=== PATIENT | female | born 1945 | race Caucasian/White ===

== ENCOUNTER 2017-03-16 20:28 | Inpatient (IN) | payer MEDICARE ==
[~2017-03-16] VITALS: Ht 157.5 cm; Wt 89.5 kg
[2017-03-16] MEDS ORDERED: METHYL SALICYLATE/MENTHOL TOPICAL OINTMENT 29GM TUBE. TP PRN (22:45)
[2017-03-16] MEDS ORDERED: BUPR-192 PO (23:13)
[2017-03-16] MEDS ORDERED: ATORVASTATIN CA80 MG PO (23:13)
[2017-03-16] MEDS ORDERED: CARV3.122 PO (23:13)
[2017-03-16] MEDS ORDERED: ALPR0.254 PO (23:13)
[2017-03-16] MEDS ORDERED: ESCITALOPRAM OX20 MG PO (23:13)
[2017-03-16] MEDS ORDERED: CYAN10002 IM (23:13)
[2017-03-16] MEDS ORDERED: MEMA28CA PO (23:13)
[2017-03-16] MEDS ORDERED: DONE10TA7 PO (23:13)
[2017-03-16] MEDS ORDERED: ALPRAZolam 0.25 MG TABLET PO PRN (23:15)
[2017-03-17 00:12] VITALS: BP 182/78
[2017-03-17 06:45] VITALS: BP 144/69
[2017-03-17] MEDS: MEMANTINE 10 MG TABLET. PO SCH ×2 (08:30→20:32)
[2017-03-17] MEDS: buPROPion XL 150 MG TAB.ER.24H PO SCH (08:30)
[2017-03-17] MEDS: CITALOPRAM 20 MG TABLET. PO SCH (08:30)
[2017-03-17 14:34] LABS: FREE T4 0.73 ng/dL (0.76-1.46); THYROID STIM HORMONE (TSH) 2.291 uIU/mL (0.358-3.740)
[2017-03-17] MEDS ORDERED: NYSTATIN TOPICAL POWDER 15GM BOTTLE. TP ONE (15:02)
[2017-03-17] MEDS ORDERED: NYSTATIN TOPICAL POWDER 15GM BOTTLE. TP PRN (15:15)
[2017-03-17 15:50] VITALS: BP 148/85
[2017-03-17] MEDS: CARVEDILOL 3.125 MG TABLET PO SCH (20:33)
[2017-03-17] MEDS: ATORVASTATIN CALCIUM 20 MG TABLET PO SCH (20:33)
[2017-03-17] MEDS: DONEPEZIL HCL 10 MG TABLET PO SCH (20:33)
[2017-03-18 06:15] VITALS: BP 105/57
[2017-03-18] MEDS: buPROPion XL 150 MG TAB.ER.24H PO SCH (09:00)
[2017-03-18] MEDS: CITALOPRAM 20 MG TABLET. PO SCH (09:00)
[2017-03-18] MEDS: MEMANTINE 10 MG TABLET. PO SCH ×2 (09:00→20:02)
[2017-03-18] MEDS: MAGNESIUM HYDROXIDE 2,400 MG/30 ML ORAL.SUSP. PO PRN (09:10)
--- NOTE | 2017-03-18 12:05 | HP ---
ADMIT DATE: 03/17/2017 PSYCHIATRIC ADMISSION HISTORY/EVALUATION This is a late entry, date of service 03/17/2017. The patient was seen individually evening of 03/17/2017. Discussed with nursing staff several times prior to the patient admission and since her admission to gather historical information for admission orders and followup. IDENTIFYING DATA: The patient is a 71-year-old female referred to us from [facility] where she presented from home. The patient lives alone, presented with her family after she put her knife on her throat stating she wanted to kill herself. She told a private duty nurse that she wished she had a chopper knife to end her life. She is wandering at the apartment complex getting lost, worsening confusion and had failed outpatient psychiatric interventions at [facility] in [place], [place] and she had been hospitalized at [facility] for depression about 30 years ago. CHIEF COMPLAINT: "Yes, I said that. No, I will not hurt myself." HISTORY OF PRESENT ILLNESS: The patient has a history of progressive dementia, Alzheimer's, vascular type. She has been getting increasingly depressed, recently hopeless, helpless, and worthless. She resides in an apartment by herself, does not drive, has a private duty nurse and her son is closely involved in her care. She has been somewhat delusional, suspicious. No homicidal ideation. No clear history of bipolar disorder. Past history of major depressive disorder and inpatient psychiatric hospitalization as noted above. PAST PSYCHIATRIC HISTORY: As above. The patient has made 2 attempts at putting a knife to her throat. No suicide gesture/attempt. MEDICAL HISTORY: Hypertension, GERD, hyperlipidemia, asthma, triple bypass surgery. Accu-Cheks: None. DIET: Regular, takes her medications whole. Ambulates: Ad parvez. UA was negative in the ER. CURRENT PSYCHOTROPICS: Namenda ER 28 mg a day, Lexapro 20 mg a day, Aricept 10 mg a day, Wellbutrin 150 mg daily, Xanax 0.25 mg b.i.d. FAMILY HISTORY: Noncontributory. SOCIAL HISTORY: The patient lives at home alone in her apartment. No alcohol, drug abuse, physical, sexual or elder abuse history is noted. She is not known to be appropriate. Her son is DPOA, closely involved in her care. MENTAL STATUS EXAM: The patient was seen individually evening of 03/17/2017, oriented to herself, anxious, depressed, unable to tell me the year or where she was or when she came here. Speech moderate latency, often responses monosyllabic. Abstraction fair, computation impaired, language function intact. Mood and affect depressed. Denies active suicidal or homicidal ideation. Attention span short, language function intact. Reaction to hospitalization, the patient is accepting of this as a supportive DPOA. IMPRESSION: Major neurocognitive disorder, probably vascular with depression, delusions; history of major depressive disorder, recurrent, severe. Anxiety disorder, unspecified; impulse control disorder, unspecified. Rest diagnosis is as above. PLAN: Admit to geropsychiatry unit at [facility]. I will see the patient daily individually in her psychiatric standpoint, medical followup per Dr. Brown/Dr. Oscar. Continue the patient on her current psychotropics, observe baseline, consider changing Lexapro to Zoloft and the Namenda ER to Namenda 10 mg b.i.d., maintain bupropion. Consider adding Seroquel to augment the Wellbutrin and as an atypical antipsychotic, continue Xanax, consider tapering this. Further adjustments post baseline assessment. MELLISA DOBSON MD DR: BRIDGETTE/murtaza JOB#: [id number] / [id number]
--- NOTE | 2017-03-18 13:26 | CONS ---
DATE OF CONSULTATION: REASON FOR CONSULTATION: Medical management. HISTORY OF PRESENT ILLNESS: The patient is a 71-year-old female patient who apparently lives alone in assisted living in [place], who apparently was seen in the Emergency Department of [facility] accompanied by [place] [employer] and her river guide. Her river guide stated that she had taken a better knife, put it into her wrist and told to worker that she wished it was sharper so that she could cut herself. Apparently, she repeated this same behavior the morning she was seen in the Emergency Room and the [employer] was called in. The patient herself does not recall either one of these events. She denied trying to hurt herself or anyone else; however, she does admit that she is being depressed because of her emotional status and situation and she was transferred to [facility] for inpatient psychiatric stabilization. PAST MEDICAL HISTORY: Significant for coronary artery disease status post coronary artery bypass graft surgery, benign essential hypertension, dyslipidemia, bronchial asthma, gastroesophageal reflux disease, vitamin B12 deficiency, nocturnal leg cramps, malaise, fatigue, and lightheadedness. PAST SURGICAL HISTORY: Significant for coronary artery bypass graft surgery and colonoscopy with polypectomy as well as hysterectomy. ALLERGIES: She is allergic to CODEINE, IODINATED RADIOCONTRAST DYE. LISINOPRIL CAUSES IDIOPATHIC ANGIONEUROTIC EDEMA. FAMILY HISTORY: Unremarkable. SOCIAL HISTORY: She lives in assisted living on her own. She does not drink alcohol, use recreational drugs, or smokes. She has 2 sons that keep in touch to take care of her. REVIEW OF SYSTEMS: As per the history of present illness. PHYSICAL EXAMINATION GENERAL: When I examined her, she was sitting comfortably in her chair, in no apparent respiratory distress, she was slightly pale. No jaundice, cyanosis or thyromegaly. No jugular venous distention. No limb edema. VITAL SIGNS: Her heart rate was 65, blood pressure 148/85, temperature was 98, respiratory rate was 18 and oxygen saturation was 96%. HEENT: Showed normocephalic, atraumatic. NECK: Supple. HEART: Showed normal first and second heart sounds with no gallop, rub or murmur. CHEST: Clear to auscultation. No crepitation or rhonchi. ABDOMEN: Distended, soft, and nontender. No guarding or rigidity. No organomegaly. Hernial orifices intact. Bowel sounds normal. NEUROLOGIC: She is awake, alert, oriented to herself only. All her cranial nerves intact. EXTREMITIES: She moves extremities without difficulty. She ambulates without assistance or assistive devices. LABORATORY DATA: She has had lab work done at the [facility], which showed that her white cell count was 7100, hemoglobin 13, hematocrit 39, MCV 85 and platelet count of 191,000. Her serum sodium was 139, potassium 3.8, chloride 99, bicarbonate 30, anion gap of 10, glucose 89, BUN 10, creatinine 0.6. Her calcium was 8.5. Total protein was 6.7, albumin 3.8. Her alkaline phosphatase, AST, ALT, total bilirubin normal. Her estimated GFR was more than 60 mL per minute. Her urinalysis was unremarkable. Urine toxic screen was unremarkable. Her TSH was 1.76. IMPRESSION AND PLAN: In summary, this is a 71-year-old female patient, who was brought to the [facility], as she attempted suicide. She has suicidal ideation twice. She has been under background of dementia and she is here for inpatient psychiatric stabilization. Medically, she seemed to be mostly stable. Her vital signs are within normal range. Her lab works that are reviewed from [facility] Emergency Room were all within acceptable range. Medically, she is known to have hypertension, hyperlipidemia, and vitamin B12 deficiency. Her TSH was normal at 2.291. Her free T4 was slightly low. Free T3 was normal at 2.38. Her magnesium was normal. Serum iron was ____. TIBC was high at 383 and percent saturation was 18. Her triglycerides were normal. Cholesterol was 293, LDL cholesterol 119, VLDL was 24, and HDL cholesterol was 79. Cholesterol to HDL cholesterol ratio was 3. All in all, the patient seems to be medically stable. I will obviously review all the lab works that are still pending and make any necessary recommendation. Thank you, Dr. Bullard for allowing me to participate in the care of this patient. PRITESH HERNANDEZ MD DR: MIRNA/murtaza JOB#: [id number] / [id number]
[2017-03-18 16:38] VITALS: BP 160/84
[2017-03-18] MEDS: CHOLECALCIFEROL (VITAMIN D3) 50,000 UNIT CAPSULE PO SCH (18:14)
[2017-03-18] MEDS: MAG HYDROX/AL HYDROX/SIMETH 30 ML ORAL.SUSP PO PRN (19:09)
[2017-03-18] MEDS: ATORVASTATIN CALCIUM 20 MG TABLET PO SCH (20:02)
[2017-03-18] MEDS: CARVEDILOL 3.125 MG TABLET PO SCH (20:02)
[2017-03-18] MEDS: DONEPEZIL HCL 10 MG TABLET PO SCH (20:02)
--- NOTE | 2017-03-18 20:12 | PDOC ---
Exam Note: Robert Note: Please also refer to the separate dictated note~for this date of service dictated separately.~Patient seen individually. Discussed the patient with Nursing staff reviewed the chart.~Reviewed interim history and current functioning. Reviewed vital signs,~Labs/ Radiology~and current medications noted below. Continue current treatment with the changes noted in the dictated addendum note Assessment: Vital Signs: Vital Signs Date Time Temp Pulse Resp B/P (MAP) Pulse Ox O2 Delivery O2 Flow Rate FiO2 03/18/17 20:02 61 160/84 03/18/17 16:38 97.3 20 96 I&O Intake and Output 03/19/17 07:00 Intake Total 840 ml Balance 840 ml Intake Oral 840 ml Current Medications: Meds: Current Medications Acetaminophen (Tylenol) 650 mg PRN Q6HRS PRN PO PAIN / TEMP; Start 03/16/17 at 22:45 Multi-Ingredient Ointment (Analgesic [place]) 1 haylee PRN QID PRN TP MUSCLE PAIN; Start 03/16/17 at 22:45 Al Hydroxide/Mg Hydroxide (Mylanta Plus Xs) 15 ml PRN AFTMEALHC PRN PO DYSPEPSIA Last administered on 03/18/17 19:09; Start 03/16/17 at 22:45 Magnesium Hydroxide (Milk Of Magnesia) 2,400 mg PRN QHS PRN PO CONSTIPATION Last administered on 03/18/17 09:10; Start 03/16/17 at 22:45 Alprazolam (Xanax) 0.25 mg PRN BID PRN PO ANXIETY / AGITATION Last administered on 03/17/17 20:44; Start 03/16/17 at 23:15 Bupropion HCl (Wellbutrin Xl) 150 mg DAILY PO Last administered on 03/18/17 09:00; Start 03/17/17 at 09:00 Donepezil HCl (Aricept) 10 mg HS PO Last administered on 03/18/17 20:02; Start 03/17/17 at 21:00 Citalopram Hydrobromide (CeleXA) 40 mg DAILY PO Last administered on 09:00; Start 03/17/17 at 09:00; Stop 03/18/17 at 18:50; Status DC Memantine (Namenda) 10 mg BID PO Last administered on 03/18/17 20:02; Start 03/17/17 at 09:00 Carvedilol (Coreg) 3.125 mg HS PO Last administered on 03/18/17 20:02; Start 03/17/17 at 21:00 Cyanocobalamin (Vitamin B-12) 1,000 mcg QMONTH IM ; Start 04/15/17 at 09:00 Atorvastatin Calcium (Lipitor) 80 mg QHS PO Last administered on 03/18/17 20: 02; Start 03/17/17 at 21:00 Nystatin (Nystop) 15 haylee STK-MED ONCE TP Last administered on 03/17/17 15:02; Start 03/17/17 at 15:02; Stop 03/17/17 at 15:03; Status DC Nystatin (Nystop) 1 haylee PRN BID PRN TP REDNESS; Start 03/17/17 at 15:15 Vitamin D (Vitamin D3) 50,000 unit WEEKLY PO Last administered on 03/18/17 18 :14; Start 03/18/17 at 18:00 Sertraline HCl (Zoloft) 50 mg DAILY PO ; Start 03/19/17 at 09:00 Active Scripts Active Reported Cyanocobalamin Injection (Cyanocobalamin (Vitamin B-12)) 1,000 Mcg/1 Ml Vial 1, 000 Mcg IM QMONTH Namenda Xr (Memantine Hcl) 28 Mg Cap.spr.24 28 Mg PO DAILY Escitalopram Oxalate 20 Mg Tablet 20 Mg PO DAILY Donepezil Hcl 10 Mg Tablet 10 Mg PO HS Carvedilol 3.125 Mg Tablet 3.125 Mg PO HS Bupropion Xl (Bupropion Hcl) 150 Mg Tab.er.24h 150 Mg PO DAILY Atorvastatin Calcium 80 Mg Tablet 80 Mg PO QHS Alprazolam 0.25 Mg Tablet 0.25 Mg PO BID PRN I have reviewed the current psychotropics carefully including drug interactions. Risk benefit ratio favors no change other than as noted in my dictated progress note. Diagnosis: Problems: (1) Anxiety disorder (2) Dementia, vascular, with depression (3) Dementia, vascular, with delusions (4) Dementia in Alzheimer's disease with depression (5) Dementia in Alzheimer's disease with delusions (6) Impulse control disorder MELLISA DOBSON MD Mar 18, 2017 20:12
[2017-03-18] MEDS: ACETAMINOPHEN 325 MG TABLET PO PRN (22:16)
[2017-03-19 06:06] VITALS: BP 152/70
[2017-03-19] MEDS: MEMANTINE 10 MG TABLET. PO SCH ×2 (09:48→20:16)
[2017-03-19] MEDS: buPROPion XL 150 MG TAB.ER.24H PO SCH (09:48)
[2017-03-19] MEDS: SERTRALINE 25 MG TABLET. PO SCH (09:49)
[2017-03-19 16:10] VITALS: BP 145/74
--- NOTE | 2017-03-19 19:59 | PDOC ---
Exam Note: Robert Note: Please also refer to the separate dictated note~for this date of service dictated separately.~Patient seen individually. Discussed the patient with Nursing staff reviewed the chart.~Reviewed interim history and current functioning. Reviewed vital signs,~Labs/ Radiology~and current medications noted below. Continue current treatment with the changes noted in the dictated addendum note Assessment: Vital Signs: Vital Signs Date Time Temp Pulse Resp B/P (MAP) Pulse Ox O2 Delivery O2 Flow Rate FiO2 03/19/17 16:10 97.8 56 18 145/74 (97) 97 Room Air I&O Intake and Output 03/20/17 07:00 Intake Total 1280 ml Balance 1280 ml Intake Oral 1280 ml Current Medications: Meds: Current Medications Acetaminophen (Tylenol) 650 mg PRN Q6HRS PRN PO PAIN / TEMP Last administered on 03/18/17 22:16; Start 03/16/17 at 22:45 Multi-Ingredient Ointment (Analgesic [place]) 1 haylee PRN QID PRN TP MUSCLE PAIN Last administered on 03/18/17 22:16; Start 03/16/17 at 22:45 Al Hydroxide/Mg Hydroxide (Mylanta Plus Xs) 15 ml PRN AFTMEALHC PRN PO DYSPEPSIA Last administered on 03/18/17 19:09; Start 03/16/17 at 22:45 Magnesium Hydroxide (Milk Of Magnesia) 2,400 mg PRN QHS PRN PO CONSTIPATION Last administered on 03/18/17 09:10; Start 03/16/17 at 22:45 Alprazolam (Xanax) 0.25 mg PRN BID PRN PO ANXIETY / AGITATION Last administered on 03/17/17 20:44; Start 03/16/17 at 23:15 Bupropion HCl (Wellbutrin Xl) 150 mg DAILY PO Last administered on 03/19/17 09:48; Start 03/17/17 at 09:00; Stop 03/19/17 at 18:15; Status DC Donepezil HCl (Aricept) 10 mg HS PO Last administered on 03/18/17 20:02; Start 03/17/17 at 21:00 Citalopram Hydrobromide (CeleXA) 40 mg DAILY PO Last administered on 09:00; Start 03/17/17 at 09:00; Stop 03/18/17 at 18:50; Status DC Memantine (Namenda) 10 mg BID PO Last administered on 03/19/17 09:48; Start 03/17/17 at 09:00 Carvedilol (Coreg) 3.125 mg HS PO Last administered on 03/18/17 20:02; Start 03/17/17 at 21:00 Cyanocobalamin (Vitamin B-12) 1,000 mcg QMONTH IM ; Start 04/15/17 at 09:00 Atorvastatin Calcium (Lipitor) 80 mg QHS PO Last administered on 03/18/17 20: 02; Start 03/17/17 at 21:00 Nystatin (Nystop) 15 haylee STK-MED ONCE TP Last administered on 03/17/17 15:02; Start 03/17/17 at 15:02; Stop 03/17/17 at 15:03; Status DC Nystatin (Nystop) 1 haylee PRN BID PRN TP REDNESS; Start 03/17/17 at 15:15 Vitamin D (Vitamin D3) 50,000 unit WEEKLY PO Last administered on 03/18/17 18 :14; Start 03/18/17 at 18:00 Sertraline HCl (Zoloft) 50 mg DAILY PO Last administered on 03/19/17 09:49; Start 03/19/17 at 09:00 Quetiapine Fumarate (SEROquel) 25 mg QHS PO ; Start 03/19/17 at 21:00 Active Scripts Active Reported Cyanocobalamin Injection (Cyanocobalamin (Vitamin B-12)) 1,000 Mcg/1 Ml Vial 1, 000 Mcg IM QMONTH Namenda Xr (Memantine Hcl) 28 Mg Cap.spr.24 28 Mg PO DAILY Escitalopram Oxalate 20 Mg Tablet 20 Mg PO DAILY Donepezil Hcl 10 Mg Tablet 10 Mg PO HS Carvedilol 3.125 Mg Tablet 3.125 Mg PO HS Bupropion Xl (Bupropion Hcl) 150 Mg Tab.er.24h 150 Mg PO DAILY Atorvastatin Calcium 80 Mg Tablet 80 Mg PO QHS Alprazolam 0.25 Mg Tablet 0.25 Mg PO BID PRN I have reviewed the current psychotropics carefully including drug interactions. Risk benefit ratio favors no change other than as noted in my dictated progress note. Diagnosis: Problems: (1) Anxiety disorder (2) Dementia, vascular, with depression (3) Dementia, vascular, with delusions (4) Dementia in Alzheimer's disease with depression (5) Dementia in Alzheimer's disease with delusions (6) Impulse control disorder MELLISA DOBSON MD Mar 19, 2017 19:59
[2017-03-19] MEDS: ATORVASTATIN CALCIUM 20 MG TABLET PO SCH (20:15)
[2017-03-19] MEDS: CARVEDILOL 3.125 MG TABLET PO SCH (20:16)
[2017-03-19] MEDS: DONEPEZIL HCL 10 MG TABLET PO SCH (20:16)
[2017-03-19] MEDS: QUEtiapine 25 MG TABLET. PO SCH (20:18)
[2017-03-19] MEDS: MAGNESIUM HYDROXIDE 2,400 MG/30 ML ORAL.SUSP. PO PRN (20:30)
[2017-03-20 06:37] VITALS: BP 153/69
--- NOTE | 2017-03-20 07:28 | PN ---
DATE: 03/18/2017 This is a late entry for date of service 03/18/2017 and covers elements not covered in my initial note of 03/18/2017. SUBJECTIVE: I met with the patient evening of 03/18/2017. The patient remains tired, withdrawn, anxious in the morning. Denied suicidal ideation, slept 8 hours. REVIEW OF SYSTEMS: No CV, , pulmonary, eye, ENT system symptoms on review. Reliability poor. MENTAL STATUS EXAM: Oriented to herself. Insight, judgment, recent and remote memory, attention, concentration, fund of knowledge poor, consistent with her diagnosis as mentioned in my note. PLAN: Change Celexa 40 mg a day to Zoloft 50 mg a day. Change Wellbutrin 150 mg in the morning to Wellbutrin XL 150 mg a day. Maintain Namenda and Aricept together with Xanax, consider tapering Xanax. No other further changes from initial note. MELLISA DOBSON MD DR: BRIDGETTE/murtaza JOB#: [id number] / [id number]
[2017-03-20] MEDS: SERTRALINE 25 MG TABLET. PO SCH (07:57)
[2017-03-20] MEDS: MEMANTINE 10 MG TABLET. PO SCH ×2 (07:57→19:45)
[2017-03-20 16:07] VITALS: BP 141/71
[2017-03-20] MEDS: DONEPEZIL HCL 10 MG TABLET PO SCH (19:44)
[2017-03-20] MEDS: CARVEDILOL 3.125 MG TABLET PO SCH (19:45)
[2017-03-20] MEDS: QUEtiapine 25 MG TABLET. PO SCH (19:45)
[2017-03-20] MEDS: ATORVASTATIN CALCIUM 20 MG TABLET PO SCH (19:45)
--- NOTE | 2017-03-20 20:04 | PDOC ---
Exam Note: Robert Note: Please also refer to the separate dictated note~for this date of service dictated separately.~Patient seen individually. Discussed the patient with Nursing staff reviewed the chart.~Reviewed interim history and current functioning. Reviewed vital signs,~Labs/ Radiology~and current medications noted below. Continue current treatment with the changes noted in the dictated addendum note Assessment: Vital Signs: Vital Signs Date Time Temp Pulse Resp B/P (MAP) Pulse Ox O2 Delivery O2 Flow Rate FiO2 03/20/17 19:45 59 141/71 03/20/17 16:07 97.7 18 93 Room Air I&O Intake and Output 03/21/17 07:00 Intake Total 960 ml Balance 960 ml Intake Oral 960 ml Current Medications: Meds: Current Medications Acetaminophen (Tylenol) 650 mg PRN Q6HRS PRN PO PAIN / TEMP Last administered on 03/18/17 22:16; Start 03/16/17 at 22:45 Multi-Ingredient Ointment (Analgesic [place]) 1 haylee PRN QID PRN TP MUSCLE PAIN Last administered on 03/18/17 22:16; Start 03/16/17 at 22:45 Al Hydroxide/Mg Hydroxide (Mylanta Plus Xs) 15 ml PRN AFTMEALHC PRN PO DYSPEPSIA Last administered on 03/18/17 19:09; Start 03/16/17 at 22:45 Magnesium Hydroxide (Milk Of Magnesia) 2,400 mg PRN QHS PRN PO CONSTIPATION Last administered on 03/19/17 20:30; Start 03/16/17 at 22:45 Alprazolam (Xanax) 0.25 mg PRN BID PRN PO ANXIETY / AGITATION Last administered on 03/17/17 20:44; Start 03/16/17 at 23:15 Bupropion HCl (Wellbutrin Xl) 150 mg DAILY PO Last administered on 03/19/17 09:48; Start 03/17/17 at 09:00; Stop 03/19/17 at 18:15; Status DC Donepezil HCl (Aricept) 10 mg HS PO Last administered on 03/20/17 19:44; Start 03/17/17 at 21:00 Citalopram Hydrobromide (CeleXA) 40 mg DAILY PO Last administered on 09:00; Start 03/17/17 at 09:00; Stop 03/18/17 at 18:50; Status DC Memantine (Namenda) 10 mg BID PO Last administered on 03/20/17 19:45; Start 03/17/17 at 09:00 Carvedilol (Coreg) 3.125 mg HS PO Last administered on 03/19/17 20:16; Start 03/17/17 at 21:00 Cyanocobalamin (Vitamin B-12) 1,000 mcg QMONTH IM ; Start 04/15/17 at 09:00 Atorvastatin Calcium (Lipitor) 80 mg QHS PO Last administered on 03/20/17 19: 45; Start 03/17/17 at 21:00 Nystatin (Nystop) 15 haylee STK-MED ONCE TP Last administered on 03/17/17 15:02; Start 03/17/17 at 15:02; Stop 03/17/17 at 15:03; Status DC Nystatin (Nystop) 1 haylee PRN BID PRN TP REDNESS; Start 03/17/17 at 15:15 Vitamin D (Vitamin D3) 50,000 unit WEEKLY PO Last administered on 03/18/17 18 :14; Start 03/18/17 at 18:00 Sertraline HCl (Zoloft) 50 mg DAILY PO Last administered on 03/20/17 07:57; Start 03/19/17 at 09:00 Quetiapine Fumarate (SEROquel) 25 mg QHS PO Last administered on 03/20/17 19: 45; Start 03/19/17 at 21:00 Active Scripts Active Reported Cyanocobalamin Injection (Cyanocobalamin (Vitamin B-12)) 1,000 Mcg/1 Ml Vial 1, 000 Mcg IM QMONTH Namenda Xr (Memantine Hcl) 28 Mg Cap.spr.24 28 Mg PO DAILY Escitalopram Oxalate 20 Mg Tablet 20 Mg PO DAILY Donepezil Hcl 10 Mg Tablet 10 Mg PO HS Carvedilol 3.125 Mg Tablet 3.125 Mg PO HS Bupropion Xl (Bupropion Hcl) 150 Mg Tab.er.24h 150 Mg PO DAILY Atorvastatin Calcium 80 Mg Tablet 80 Mg PO QHS Alprazolam 0.25 Mg Tablet 0.25 Mg PO BID PRN I have reviewed the current psychotropics carefully including drug interactions. Risk benefit ratio favors no change other than as noted in my dictated progress note. Diagnosis: Problems: (1) Anxiety disorder (2) Dementia, vascular, with depression (3) Dementia, vascular, with delusions (4) Dementia in Alzheimer's disease with depression (5) Dementia in Alzheimer's disease with delusions (6) Impulse control disorder MELLISA DOBSON MD Mar 20, 2017 20:04
[2017-03-20] MEDS: MAG HYDROX/AL HYDROX/SIMETH 30 ML ORAL.SUSP PO PRN (21:54)
[2017-03-21 06:02] VITALS: BP 165/79
[2017-03-21 07:31] LABS: BASO # 0.1 x10^3/uL (0.0-0.2); BASO % 1 % (0-3); EOS # 0.2 x10^3/uL (0.0-0.7); EOS % 3 % (0-3); HEMATOCRIT 38.4 % (36.0-47.0); LYMPH % 17 % (24-48); MEAN CORPUSCULAR HEMOGLOBIN 29 pg (25-35); MEAN CORPUSCULAR HGB CONC 34 g/dL (31-37); MEAN CORPUSCULAR VOLUME 85 fL (79-100); MONO # 0.5 x10^3/uL (0.0-1.1); MONO % 8 % (0-9); NEUT % 71 % (31-73); PLATELET COUNT 170 x10^3/uL (140-400); RED CELL DISTRIBUTION WIDTH 14.9 % (11.5-14.5); WHITE BLOOD COUNT 5.6 x10^3/uL (4.0-11.0)
[2017-03-21 07:50] LABS: ALBUMIN/GLOBULIN RATIO 0.9 (1.0-1.7); CALCIUM 8.3 mg/dL (8.5-10.1); CREATININE 0.7 mg/dL (0.6-1.0); TOTAL BILIRUBIN 0.3 mg/dL (0.2-1.0); TOTAL PROTEIN 6.3 g/dL (6.4-8.2)
[2017-03-21] MEDS: SERTRALINE 25 MG TABLET. PO SCH (07:58)
[2017-03-21] MEDS: MEMANTINE 10 MG TABLET. PO SCH ×2 (07:58→20:09)
--- NOTE | 2017-03-21 10:04 | PN ---
DATE: 03/19/2017 PSYCHIATRIC PROGRESS NOTE This late entry of date of service 03/19/2017, covers elements not covered in my initial note 03/19/2017. SUBJECTIVE: I met with the patient the evening of 03/19/2017, slept 6-1/2 hours previous evening, anxious, tearful at times, especially when other demented patients are yelling out, possibly hallucinating per nursing observation. REVIEW OF SYSTEMS: No CV, , pulmonary, eye, ENT system symptoms on review. Reliability poor. MENTAL STATUS EXAM: Oriented to herself. Insight, judgment, recent and remote memory, attention, concentration, fund of knowledge poor, consistent with her diagnosis. She is quite verbal individually. PLAN: Start Seroquel 25 mg p.o. at bedtime as a mood stabilizer, atypical antipsychotic, given her psychotic symptoms stop Wellbutrin 150 mg daily, continue Aricept 10 mg a day, Zoloft 50 mg a day, Namenda 10 mg b.i.d., taper the Xanax from 0.25 mg b.i.d. to 0.125 mg b.i.d. for 3 days and stop. Rest unchanged from my initial note. MELLISA DOBSON MD DR: BRIDGETTE/murtaza JOB#: [id number] / [id number]
[2017-03-21 16:19] VITALS: BP 165/85
[2017-03-21] MEDS: CARVEDILOL 3.125 MG TABLET PO SCH (20:09)
[2017-03-21] MEDS: QUEtiapine 25 MG TABLET. PO SCH (20:09)
[2017-03-21] MEDS: DONEPEZIL HCL 10 MG TABLET PO SCH (20:10)
[2017-03-21] MEDS: ATORVASTATIN CALCIUM 20 MG TABLET PO SCH (20:10)
--- NOTE | 2017-03-21 20:16 | PDOC ---
Exam Note: Robert Note: Please also refer to the separate dictated note~for this date of service dictated separately.~Patient seen individually. Discussed the patient with Nursing staff reviewed the chart.~Reviewed interim history and current functioning. Reviewed vital signs,~Labs/ Radiology~and current medications noted below. Continue current treatment with the changes noted in the dictated addendum note Assessment: Vital Signs: Vital Signs Date Time Temp Pulse Resp B/P (MAP) Pulse Ox O2 Delivery O2 Flow Rate FiO2 03/21/17 20:09 60 165/85 03/21/17 16:19 97.0 16 98 03/20/17 16:07 Room Air I&O Intake and Output 03/21/17 07:00 Intake Total 1085 ml Balance 1085 ml Intake Oral 1085 ml Labs: Laboratory Tests Test 03/21/17 07:10 White Blood Count 5.6 x10^3/uL (4.0-11.0) Red Blood Count 4.50 x10^6/uL (3.50-5.40) Hemoglobin 13.0 g/dL (12.0-15.5) Hematocrit 38.4 % (36.0-47.0) Mean Corpuscular Volume 85 fL (79-100) Mean Corpuscular Hemoglobin 29 pg (25-35) Mean Corpuscular Hemoglobin Concent 34 g/dL (31-37) Red Cell Distribution Width 14.9 % (11.5-14.5) H Platelet Count 170 x10^3/uL (140-400) Neutrophils (%) (Auto) 71 % (31-73) Lymphocytes (%) (Auto) 17 % (24-48) L Monocytes (%) (Auto) 8 % (0-9) Eosinophils (%) (Auto) 3 % (0-3) Basophils (%) (Auto) 1 % (0-3) Neutrophils # (Auto) 4.0 x10^3uL (1.8-7.7) Lymphocytes # (Auto) 1.0 x10^3/uL (1.0-4.8) Monocytes # (Auto) 0.5 x10^3/uL (0.0-1.1) Eosinophils # (Auto) 0.2 x10^3/uL (0.0-0.7) Basophils # (Auto) 0.1 x10^3/uL (0.0-0.2) Sodium Level 142 mmol/L (136-145) Potassium Level 4.0 mmol/L (3.5-5.1) Chloride Level 106 mmol/L (98-107) Carbon Dioxide Level 32 mmol/L (21-32) Anion Gap 4 (6-14) L Blood Urea Nitrogen 15 mg/dL (7-20) Creatinine 0.7 mg/dL (0.6-1.0) Estimated GFR (Cockcroft-Gault) 83.0 BUN/Creatinine Ratio 21 (6-20) H Glucose Level 99 mg/dL (70-99) Calcium Level 8.3 mg/dL (8.5-10.1) L Total Bilirubin 0.3 mg/dL (0.2-1.0) Aspartate Amino Transferase (AST) 15 U/L (15-37) Alanine Aminotransferase (ALT) 20 U/L (14-59) Alkaline Phosphatase 100 U/L (46-116) Total Protein 6.3 g/dL (6.4-8.2) L Albumin 3.0 g/dL (3.4-5.0) L Albumin/Globulin Ratio 0.9 (1.0-1.7) L Current Medications: Meds: Current Medications Acetaminophen (Tylenol) 650 mg PRN Q6HRS PRN PO PAIN / TEMP Last administered on 03/18/17 22:16; Start 03/16/17 at 22:45 Multi-Ingredient Ointment (Analgesic [place]) 1 haylee PRN QID PRN TP MUSCLE PAIN Last administered on 03/18/17 22:16; Start 03/16/17 at 22:45 Al Hydroxide/Mg Hydroxide (Mylanta Plus Xs) 15 ml PRN AFTMEALHC PRN PO DYSPEPSIA Last administered on 03/20/17 21:54; Start 03/16/17 at 22:45 Magnesium Hydroxide (Milk Of Magnesia) 2,400 mg PRN QHS PRN PO CONSTIPATION Last administered on 03/19/17 20:30; Start 03/16/17 at 22:45 Alprazolam (Xanax) 0.25 mg PRN BID PRN PO ANXIETY / AGITATION Last administered on 03/17/17 20:44; Start 03/16/17 at 23:15 Bupropion HCl (Wellbutrin Xl) 150 mg DAILY PO Last administered on 03/19/17 09:48; Start 03/17/17 at 09:00; Stop 03/19/17 at 18:15; Status DC Donepezil HCl (Aricept) 10 mg HS PO Last administered on 03/21/17 20:10; Start 03/17/17 at 21:00 Citalopram Hydrobromide (CeleXA) 40 mg DAILY PO Last administered on 09:00; Start 03/17/17 at 09:00; Stop 03/18/17 at 18:50; Status DC Memantine (Namenda) 10 mg BID PO Last administered on 03/21/17 20:09; Start 03/17/17 at 09:00 Carvedilol (Coreg) 3.125 mg HS PO Last administered on 03/21/17 20:09; Start 03/17/17 at 21:00 Cyanocobalamin (Vitamin B-12) 1,000 mcg QMONTH IM ; Start 04/15/17 at 09:00 Atorvastatin Calcium (Lipitor) 80 mg QHS PO Last administered on 03/21/17 20: 10; Start 03/17/17 at 21:00 Nystatin (Nystop) 15 haylee STK-MED ONCE TP Last administered on 03/17/17 15:02; Start 03/17/17 at 15:02; Stop 03/17/17 at 15:03; Status DC Nystatin (Nystop) 1 haylee PRN BID PRN TP REDNESS; Start 03/17/17 at 15:15 Vitamin D (Vitamin D3) 50,000 unit WEEKLY PO Last administered on 03/18/17 18 :14; Start 03/18/17 at 18:00 Sertraline HCl (Zoloft) 50 mg DAILY PO Last administered on 03/21/17 07:58; Start 03/19/17 at 09:00 Quetiapine Fumarate (SEROquel) 25 mg QHS PO Last administered on 03/21/17 20: 09; Start 03/19/17 at 21:00 Active Scripts Active Reported Cyanocobalamin Injection (Cyanocobalamin (Vitamin B-12)) 1,000 Mcg/1 Ml Vial 1, 000 Mcg IM QMONTH Namenda Xr (Memantine Hcl) 28 Mg Cap.spr.24 28 Mg PO DAILY Escitalopram Oxalate 20 Mg Tablet 20 Mg PO DAILY Donepezil Hcl 10 Mg Tablet 10 Mg PO HS Carvedilol 3.125 Mg Tablet 3.125 Mg PO HS Bupropion Xl (Bupropion Hcl) 150 Mg Tab.er.24h 150 Mg PO DAILY Atorvastatin Calcium 80 Mg Tablet 80 Mg PO QHS Alprazolam 0.25 Mg Tablet 0.25 Mg PO BID PRN I have reviewed the current psychotropics carefully including drug interactions. Risk benefit ratio favors no change other than as noted in my dictated progress note. Diagnosis: Problems: (1) Anxiety disorder (2) Dementia, vascular, with depression (3) Dementia, vascular, with delusions (4) Dementia in Alzheimer's disease with depression (5) Dementia in Alzheimer's disease with delusions (6) Impulse control disorder MELLISA DOBSON MD Mar 21, 2017 20:16
[2017-03-21] MEDS: MAGNESIUM HYDROXIDE 2,400 MG/30 ML ORAL.SUSP. PO PRN (22:22)
[2017-03-22 06:05] VITALS: BP 158/74
--- NOTE | 2017-03-22 08:00 | PN ---
DATE: 03/20/2017 PSYCHIATRIC PROGRESS NOTE This is a late entry 03/20/2017, covers elements not covered in my initial note 03/20/2017. SUBJECTIVE: I met with the patient the evening of 03/20/2017. The previous evening, the patient was more confused, hallucinating, and was not she was experiencing were real or not, and she questioned the nursing staff on it. She wanting to know particular lady she was seeing on the unit was real. REVIEW OF SYSTEMS: No CV, , pulmonary, eye, ENT system symptoms on review. MENTAL STATUS EXAM: Oriented to herself. Insight, judgment, recent and remote memory, attention, concentration, fund of knowledge poor, consistent with her diagnoses mentioned in my initial note. PLAN: Continue current psychotropics mentioned in my initial note. Review drug contractions. Risk/benefit ratio favors no further change. MAN Alexander DOBSON MD DR: BRIDGETTE/murtaza JOB#: [id number] / [id number]
[2017-03-22] MEDS: MEMANTINE 10 MG TABLET. PO SCH ×2 (08:18→21:05)
[2017-03-22] MEDS: SERTRALINE 25 MG TABLET. PO SCH (08:18)
[2017-03-22] MEDS: POLYETHYLENE GLYCOL 3350 17 GM PACKET. PO SCH (12:03)
[2017-03-22] MEDS: ACETAMINOPHEN 325 MG TABLET PO PRN (13:50)
[2017-03-22 16:48] VITALS: BP 156/67
--- NOTE | 2017-03-22 20:02 | PDOC ---
Exam Note: Robert Note: Please also refer to the separate dictated note~for this date of service dictated separately.~Patient seen individually. Discussed the patient with Nursing staff reviewed the chart.~Reviewed interim history and current functioning. Reviewed vital signs,~Labs/ Radiology~and current medications noted below. Continue current treatment with the changes noted in the dictated addendum note Assessment: Vital Signs: Vital Signs Date Time Temp Pulse Resp B/P (MAP) Pulse Ox O2 Delivery O2 Flow Rate FiO2 03/22/17 16:48 97.8 63 18 156/67 (96) 98 03/20/17 16:07 Room Air I&O Intake and Output 03/22/17 07:00 Intake Total 1260 ml Balance 1260 ml Intake Oral 1260 ml Current Medications: Meds: Current Medications Acetaminophen (Tylenol) 650 mg PRN Q6HRS PRN PO PAIN / TEMP Last administered on 03/22/17 13:50; Start 03/16/17 at 22:45 Multi-Ingredient Ointment (Analgesic [place]) 1 haylee PRN QID PRN TP MUSCLE PAIN Last administered on 03/18/17 22:16; Start 03/16/17 at 22:45 Al Hydroxide/Mg Hydroxide (Mylanta Plus Xs) 15 ml PRN AFTMEALHC PRN PO DYSPEPSIA Last administered on 03/20/17 21:54; Start 03/16/17 at 22:45 Magnesium Hydroxide (Milk Of Magnesia) 2,400 mg PRN QHS PRN PO CONSTIPATION Last administered on 03/21/17 22:22; Start 03/16/17 at 22:45 Alprazolam (Xanax) 0.25 mg PRN BID PRN PO ANXIETY / AGITATION Last administered on 03/17/17 20:44; Start 03/16/17 at 23:15 Bupropion HCl (Wellbutrin Xl) 150 mg DAILY PO Last administered on 03/19/17 09:48; Start 03/17/17 at 09:00; Stop 03/19/17 at 18:15; Status DC Donepezil HCl (Aricept) 10 mg HS PO Last administered on 03/21/17 20:10; Start 03/17/17 at 21:00 Citalopram Hydrobromide (CeleXA) 40 mg DAILY PO Last administered on 09:00; Start 03/17/17 at 09:00; Stop 03/18/17 at 18:50; Status DC Memantine (Namenda) 10 mg BID PO Last administered on 03/22/17 08:18; Start 03/17/17 at 09:00 Carvedilol (Coreg) 3.125 mg HS PO Last administered on 03/21/17 20:09; Start 03/17/17 at 21:00 Cyanocobalamin (Vitamin B-12) 1,000 mcg QMONTH IM ; Start 04/15/17 at 09:00 Atorvastatin Calcium (Lipitor) 80 mg QHS PO Last administered on 03/21/17 20: 10; Start 03/17/17 at 21:00 Nystatin (Nystop) 15 haylee STK-MED ONCE TP Last administered on 03/17/17 15:02; Start 03/17/17 at 15:02; Stop 03/17/17 at 15:03; Status DC Nystatin (Nystop) 1 haylee PRN BID PRN TP REDNESS; Start 03/17/17 at 15:15 Vitamin D (Vitamin D3) 50,000 unit WEEKLY PO Last administered on 03/18/17 18 :14; Start 03/18/17 at 18:00 Sertraline HCl (Zoloft) 50 mg DAILY PO Last administered on 03/22/17 08:18; Start 03/19/17 at 09:00 Quetiapine Fumarate (SEROquel) 25 mg QHS PO Last administered on 03/21/17 20: 09; Start 03/19/17 at 21:00 Polyethylene Glycol (miraLAX) 17 gm DAILY PO Last administered on 03/22/17 12 :03; Start 03/22/17 at 12:15 Active Scripts Active Reported Cyanocobalamin Injection (Cyanocobalamin (Vitamin B-12)) 1,000 Mcg/1 Ml Vial 1, 000 Mcg IM QMONTH Namenda Xr (Memantine Hcl) 28 Mg Cap.spr.24 28 Mg PO DAILY Escitalopram Oxalate 20 Mg Tablet 20 Mg PO DAILY Donepezil Hcl 10 Mg Tablet 10 Mg PO HS Carvedilol 3.125 Mg Tablet 3.125 Mg PO HS Bupropion Xl (Bupropion Hcl) 150 Mg Tab.er.24h 150 Mg PO DAILY Atorvastatin Calcium 80 Mg Tablet 80 Mg PO QHS Alprazolam 0.25 Mg Tablet 0.25 Mg PO BID PRN I have reviewed the current psychotropics carefully including drug interactions. Risk benefit ratio favors no change other than as noted in my dictated progress note. Diagnosis: Problems: (1) Anxiety disorder (2) Dementia, vascular, with depression (3) Dementia, vascular, with delusions (4) Dementia in Alzheimer's disease with depression (5) Dementia in Alzheimer's disease with delusions (6) Impulse control disorder MELLISA DOBSON MD Mar 22, 2017 20:02
[2017-03-22] MEDS: QUEtiapine 25 MG TABLET. PO SCH (21:05)
[2017-03-22] MEDS: CARVEDILOL 3.125 MG TABLET PO SCH (21:05)
[2017-03-22] MEDS: DONEPEZIL HCL 10 MG TABLET PO SCH (21:05)
[2017-03-22] MEDS: ATORVASTATIN CALCIUM 20 MG TABLET PO SCH (21:10)
[2017-03-23 05:56] VITALS: BP 152/84
[2017-03-23] MEDS: POLYETHYLENE GLYCOL 3350 17 GM PACKET. PO SCH (08:38)
[2017-03-23] MEDS: MEMANTINE 10 MG TABLET. PO SCH ×2 (08:39→20:55)
[2017-03-23] MEDS: SERTRALINE 25 MG TABLET. PO SCH (08:39)
--- NOTE | 2017-03-23 10:30 | PN ---
DATE: 03/21/2017 PSYCHIATRIC PROGRESS NOTE This is a late entry 03/21/2017, covers elements not covered in my initial note 03/21/2017. SUBJECTIVE: I met with the patient the evening of 03/21/2017. The patient had a good night, remains confused, withdrawn, reasonably well during the day. Denies active suicidal ideation. REVIEW OF SYSTEMS: No CV, , pulmonary, eye, ENT system symptoms on review. Reliability poor. MENTAL STATUS EXAM: Oriented to herself. Insight, judgment, recent and remote memory, attention, concentration, fund of knowledge poor, consistent with her diagnoses mentioned in my initial note. PLAN: Continue current psychotropics. Review drug interactions. Risk/benefit ratio favors no further change. MELLISA DOBSON MD DR: BRIDGETTE/murtaza JOB#: [id number] / [id number]
[2017-03-23 16:06] VITALS: BP 152/83
--- NOTE | 2017-03-23 20:08 | PDOC ---
Exam Note: Robert Note: Please also refer to the separate dictated note~for this date of service dictated separately.~Patient seen individually. Discussed the patient with Nursing staff reviewed the chart.~Reviewed interim history and current functioning. Reviewed vital signs,~Labs/ Radiology~and current medications noted below. Continue current treatment with the changes noted in the dictated addendum note Assessment: Vital Signs: Vital Signs Date Time Temp Pulse Resp B/P (MAP) Pulse Ox O2 Delivery O2 Flow Rate FiO2 03/23/17 16:06 98.0 56 18 152/83 (106) 98 03/20/17 16:07 Room Air I&O Intake and Output 03/23/17 07:00 Intake Total 1180 ml Balance 1180 ml Intake Oral 1180 ml Current Medications: Meds: Current Medications Acetaminophen (Tylenol) 650 mg PRN Q6HRS PRN PO PAIN / TEMP Last administered on 03/22/17 13:50; Start 03/16/17 at 22:45 Multi-Ingredient Ointment (Analgesic [place]) 1 haylee PRN QID PRN TP MUSCLE PAIN Last administered on 03/18/17 22:16; Start 03/16/17 at 22:45 Al Hydroxide/Mg Hydroxide (Mylanta Plus Xs) 15 ml PRN AFTMEALHC PRN PO DYSPEPSIA Last administered on 03/20/17 21:54; Start 03/16/17 at 22:45 Magnesium Hydroxide (Milk Of Magnesia) 2,400 mg PRN QHS PRN PO CONSTIPATION Last administered on 03/21/17 22:22; Start 03/16/17 at 22:45 Alprazolam (Xanax) 0.25 mg PRN BID PRN PO ANXIETY / AGITATION Last administered on 03/17/17 20:44; Start 03/16/17 at 23:15 Bupropion HCl (Wellbutrin Xl) 150 mg DAILY PO Last administered on 03/19/17 09:48; Start 03/17/17 at 09:00; Stop 03/19/17 at 18:15; Status DC Donepezil HCl (Aricept) 10 mg HS PO Last administered on 03/22/17 21:05; Start 03/17/17 at 21:00 Citalopram Hydrobromide (CeleXA) 40 mg DAILY PO Last administered on 09:00; Start 03/17/17 at 09:00; Stop 03/18/17 at 18:50; Status DC Memantine (Namenda) 10 mg BID PO Last administered on 03/23/17 08:39; Start 03/17/17 at 09:00 Carvedilol (Coreg) 3.125 mg HS PO Last administered on 03/22/17 21:05; Start 03/17/17 at 21:00 Cyanocobalamin (Vitamin B-12) 1,000 mcg QMONTH IM ; Start 04/15/17 at 09:00 Atorvastatin Calcium (Lipitor) 80 mg QHS PO Last administered on 03/22/17 21: 10; Start 03/17/17 at 21:00 Nystatin (Nystop) 15 haylee STK-MED ONCE TP Last administered on 03/17/17 15:02; Start 03/17/17 at 15:02; Stop 03/17/17 at 15:03; Status DC Nystatin (Nystop) 1 haylee PRN BID PRN TP REDNESS; Start 03/17/17 at 15:15 Vitamin D (Vitamin D3) 50,000 unit WEEKLY PO Last administered on 03/18/17 18 :14; Start 03/18/17 at 18:00 Sertraline HCl (Zoloft) 50 mg DAILY PO Last administered on 03/23/17 08:39; Start 03/19/17 at 09:00 Quetiapine Fumarate (SEROquel) 25 mg QHS PO Last administered on 03/22/17 21: 05; Start 03/19/17 at 21:00 Polyethylene Glycol (miraLAX) 17 gm DAILY PO Last administered on 03/23/17 08 :38; Start 03/22/17 at 12:15 Active Scripts Active Reported Cyanocobalamin Injection (Cyanocobalamin (Vitamin B-12)) 1,000 Mcg/1 Ml Vial 1, 000 Mcg IM QMONTH Namenda Xr (Memantine Hcl) 28 Mg Cap.spr.24 28 Mg PO DAILY Escitalopram Oxalate 20 Mg Tablet 20 Mg PO DAILY Donepezil Hcl 10 Mg Tablet 10 Mg PO HS Carvedilol 3.125 Mg Tablet 3.125 Mg PO HS Bupropion Xl (Bupropion Hcl) 150 Mg Tab.er.24h 150 Mg PO DAILY Atorvastatin Calcium 80 Mg Tablet 80 Mg PO QHS Alprazolam 0.25 Mg Tablet 0.25 Mg PO BID PRN I have reviewed the current psychotropics carefully including drug interactions. Risk benefit ratio favors no change other than as noted in my dictated progress note. Diagnosis: Problems: (1) Anxiety disorder (2) Dementia, vascular, with depression (3) Dementia, vascular, with delusions (4) Dementia in Alzheimer's disease with depression (5) Dementia in Alzheimer's disease with delusions (6) Impulse control disorder MELLISA DOBSON MD Mar 23, 2017 20:07
[2017-03-23] MEDS: ATORVASTATIN CALCIUM 20 MG TABLET PO SCH (20:55)
[2017-03-23] MEDS: DONEPEZIL HCL 10 MG TABLET PO SCH (20:55)
[2017-03-23] MEDS: QUEtiapine 25 MG TABLET. PO SCH (20:55)
[2017-03-23] MEDS: CARVEDILOL 3.125 MG TABLET PO SCH (20:55)
[2017-03-24 05:51] VITALS: BP 145/75
--- NOTE | 2017-03-24 07:40 | PN ---
DATE: 03/22/2017 PSYCHIATRIC PROGRESS NOTE This late entry for 03/22/2017 covers elements not covered in my initial note of 03/22/2017. SUBJECTIVE: I met with the patient evening of 03/22/2017. The patient remains confused, somewhat withdrawn. Denied active suicidal ideation, oriented to herself and date of . She is constantly asking me about discharge plans process this with her. REVIEW OF SYSTEMS: No CV, , pulmonary, eye, ENT system symptoms on review. Reliability poor. MENTAL STATUS EXAM: Oriented to herself. Insight, judgment, recent memory is impaired. Language function intact, attention span short. Mood and affect still somewhat withdrawn, but no active suicidal ideation. IMPRESSION: Unchanged from initial note. PLAN: No change in her psychotropics mentioned in my initial note. MAN Alexander DOBSON MD DR: BRIDGETTE/murtaza JOB#: [id number] / [id number]
[2017-03-24] MEDS: MEMANTINE 10 MG TABLET. PO SCH ×2 (08:53→20:42)
[2017-03-24] MEDS: SERTRALINE 25 MG TABLET. PO SCH (08:54)
[2017-03-24] MEDS: POLYETHYLENE GLYCOL 3350 17 GM PACKET. PO SCH (08:55)
[2017-03-24 16:57] VITALS: BP 182/90
--- NOTE | 2017-03-24 20:39 | PDOC ---
Exam Note: Robert Note: Please also refer to the separate dictated note~for this date of service dictated separately.~Patient seen individually. Discussed the patient with Nursing staff reviewed the chart.~Reviewed interim history and current functioning. Reviewed vital signs,~Labs/ Radiology~and current medications noted below. Continue current treatment with the changes noted in the dictated addendum note Assessment: Vital Signs: Vital Signs Date Time Temp Pulse Resp B/P (MAP) Pulse Ox O2 Delivery O2 Flow Rate FiO2 03/24/17 16:57 98.4 66 18 182/90 (120) 96 Room Air I&O Intake and Output 03/24/17 07:00 Intake Total 1080 ml Balance 1080 ml Intake Oral 1080 ml Current Medications: Meds: Current Medications Acetaminophen (Tylenol) 650 mg PRN Q6HRS PRN PO PAIN / TEMP Last administered on 03/22/17 13:50; Start 03/16/17 at 22:45 Multi-Ingredient Ointment (Analgesic [place]) 1 haylee PRN QID PRN TP MUSCLE PAIN Last administered on 03/18/17 22:16; Start 03/16/17 at 22:45 Al Hydroxide/Mg Hydroxide (Mylanta Plus Xs) 15 ml PRN AFTMEALHC PRN PO DYSPEPSIA Last administered on 03/20/17 21:54; Start 03/16/17 at 22:45 Magnesium Hydroxide (Milk Of Magnesia) 2,400 mg PRN QHS PRN PO CONSTIPATION Last administered on 03/21/17 22:22; Start 03/16/17 at 22:45 Alprazolam (Xanax) 0.25 mg PRN BID PRN PO ANXIETY / AGITATION Last administered on 03/17/17 20:44; Start 03/16/17 at 23:15 Bupropion HCl (Wellbutrin Xl) 150 mg DAILY PO Last administered on 03/19/17 09:48; Start 03/17/17 at 09:00; Stop 03/19/17 at 18:15; Status DC Donepezil HCl (Aricept) 10 mg HS PO Last administered on 03/23/17 20:55; Start 03/17/17 at 21:00 Citalopram Hydrobromide (CeleXA) 40 mg DAILY PO Last administered on 09:00; Start 03/17/17 at 09:00; Stop 03/18/17 at 18:50; Status DC Memantine (Namenda) 10 mg BID PO Last administered on 03/24/17 08:53; Start 03/17/17 at 09:00 Carvedilol (Coreg) 3.125 mg HS PO Last administered on 03/23/17 20:55; Start 03/17/17 at 21:00 Cyanocobalamin (Vitamin B-12) 1,000 mcg QMONTH IM ; Start 04/15/17 at 09:00 Atorvastatin Calcium (Lipitor) 80 mg QHS PO Last administered on 03/23/17 20: 55; Start 03/17/17 at 21:00 Nystatin (Nystop) 15 haylee STK-MED ONCE TP Last administered on 03/17/17 15:02; Start 03/17/17 at 15:02; Stop 03/17/17 at 15:03; Status DC Nystatin (Nystop) 1 haylee PRN BID PRN TP REDNESS; Start 03/17/17 at 15:15 Vitamin D (Vitamin D3) 50,000 unit WEEKLY PO Last administered on 03/18/17 18 :14; Start 03/18/17 at 18:00 Sertraline HCl (Zoloft) 50 mg DAILY PO Last administered on 03/24/17 08:54; Start 03/19/17 at 09:00 Quetiapine Fumarate (SEROquel) 25 mg QHS PO Last administered on 03/23/17 20: 55; Start 03/19/17 at 21:00 Polyethylene Glycol (miraLAX) 17 gm DAILY PO Last administered on 03/24/17 08 :55; Start 03/22/17 at 12:15 Active Scripts Active Reported Cyanocobalamin Injection (Cyanocobalamin (Vitamin B-12)) 1,000 Mcg/1 Ml Vial 1, 000 Mcg IM QMONTH Namenda Xr (Memantine Hcl) 28 Mg Cap.spr.24 28 Mg PO DAILY Escitalopram Oxalate 20 Mg Tablet 20 Mg PO DAILY Donepezil Hcl 10 Mg Tablet 10 Mg PO HS Carvedilol 3.125 Mg Tablet 3.125 Mg PO HS Bupropion Xl (Bupropion Hcl) 150 Mg Tab.er.24h 150 Mg PO DAILY Atorvastatin Calcium 80 Mg Tablet 80 Mg PO QHS Alprazolam 0.25 Mg Tablet 0.25 Mg PO BID PRN I have reviewed the current psychotropics carefully including drug interactions. Risk benefit ratio favors no change other than as noted in my dictated progress note. Diagnosis: Problems: (1) Anxiety disorder (2) Dementia, vascular, with depression (3) Dementia, vascular, with delusions (4) Dementia in Alzheimer's disease with depression (5) Dementia in Alzheimer's disease with delusions (6) Impulse control disorder MELLISA DOBSON MD Mar 24, 2017 20:39
[2017-03-24] MEDS: DONEPEZIL HCL 10 MG TABLET PO SCH (20:41)
[2017-03-24] MEDS: CARVEDILOL 3.125 MG TABLET PO SCH (20:42)
[2017-03-24] MEDS: ATORVASTATIN CALCIUM 20 MG TABLET PO SCH (20:42)
[2017-03-24] MEDS: QUEtiapine 25 MG TABLET. PO SCH (20:42)
[2017-03-25 06:03] VITALS: BP 179/76
[2017-03-25] MEDS: POLYETHYLENE GLYCOL 3350 17 GM PACKET. PO SCH (09:00)
[2017-03-25] MEDS: SERTRALINE 25 MG TABLET. PO SCH (09:02)
[2017-03-25] MEDS: MEMANTINE 10 MG TABLET. PO SCH ×2 (09:02→20:14)
[2017-03-25] MEDS: CHOLECALCIFEROL (VITAMIN D3) 50,000 UNIT CAPSULE PO SCH (09:02)
[2017-03-25] MEDS: MAG HYDROX/AL HYDROX/SIMETH 30 ML ORAL.SUSP PO PRN ×2 (12:11→20:25)
[2017-03-25 16:18] VITALS: BP 134/62
--- NOTE | 2017-03-25 20:07 | PDOC ---
Exam Note: Robert Note: Please also refer to the separate dictated note~for this date of service dictated separately.~Patient seen individually. Discussed the patient with Nursing staff reviewed the chart.~Reviewed interim history and current functioning. Reviewed vital signs,~Labs/ Radiology~and current medications noted below. Continue current treatment with the changes noted in the dictated addendum note Assessment: Vital Signs: Vital Signs Date Time Temp Pulse Resp B/P (MAP) Pulse Ox O2 Delivery O2 Flow Rate FiO2 03/25/17 16:19 97 03/25/17 16:18 97.3 68 16 134/62 (86) Room Air I&O Intake and Output 03/25/17 07:00 Intake Total 1080 ml Balance 1080 ml Intake Oral 1080 ml Current Medications: Meds: Current Medications Acetaminophen (Tylenol) 650 mg PRN Q6HRS PRN PO PAIN / TEMP Last administered on 03/22/17 13:50; Start 03/16/17 at 22:45 Multi-Ingredient Ointment (Analgesic [place]) 1 haylee PRN QID PRN TP MUSCLE PAIN Last administered on 03/18/17 22:16; Start 03/16/17 at 22:45 Al Hydroxide/Mg Hydroxide (Mylanta Plus Xs) 15 ml PRN AFTMEALHC PRN PO DYSPEPSIA Last administered on 03/25/17 12:11; Start 03/16/17 at 22:45 Magnesium Hydroxide (Milk Of Magnesia) 2,400 mg PRN QHS PRN PO CONSTIPATION Last administered on 03/21/17 22:22; Start 03/16/17 at 22:45 Alprazolam (Xanax) 0.25 mg PRN BID PRN PO ANXIETY / AGITATION Last administered on 03/17/17 20:44; Start 03/16/17 at 23:15 Bupropion HCl (Wellbutrin Xl) 150 mg DAILY PO Last administered on 03/19/17 09:48; Start 03/17/17 at 09:00; Stop 03/19/17 at 18:15; Status DC Donepezil HCl (Aricept) 10 mg HS PO Last administered on 03/24/17 20:41; Start 03/17/17 at 21:00 Citalopram Hydrobromide (CeleXA) 40 mg DAILY PO Last administered on 09:00; Start 03/17/17 at 09:00; Stop 03/18/17 at 18:50; Status DC Memantine (Namenda) 10 mg BID PO Last administered on 03/25/17 09:02; Start 03/17/17 at 09:00 Carvedilol (Coreg) 3.125 mg HS PO Last administered on 03/24/17 20:42; Start 03/17/17 at 21:00 Cyanocobalamin (Vitamin B-12) 1,000 mcg QMONTH IM ; Start 04/15/17 at 09:00 Atorvastatin Calcium (Lipitor) 80 mg QHS PO Last administered on 03/24/17 20: 42; Start 03/17/17 at 21:00 Nystatin (Nystop) 15 haylee STK-MED ONCE TP Last administered on 03/17/17 15:02; Start 03/17/17 at 15:02; Stop 03/17/17 at 15:03; Status DC Nystatin (Nystop) 1 haylee PRN BID PRN TP REDNESS; Start 03/17/17 at 15:15 Vitamin D (Vitamin D3) 50,000 unit WEEKLY PO Last administered on 03/25/17 09 :02; Start 03/18/17 at 18:00 Sertraline HCl (Zoloft) 50 mg DAILY PO Last administered on 03/25/17 09:02; Start 03/19/17 at 09:00 Quetiapine Fumarate (SEROquel) 25 mg QHS PO Last administered on 03/24/17 20: 42; Start 03/19/17 at 21:00 Polyethylene Glycol (miraLAX) 17 gm DAILY PO Last administered on 03/25/17 09 :00; Start 03/22/17 at 12:15 Hydrochlorothiazide (Hydrodiuril) 25 mg DAILY PO ; Start 03/26/17 at 09:00 Active Scripts Active Reported Cyanocobalamin Injection (Cyanocobalamin (Vitamin B-12)) 1,000 Mcg/1 Ml Vial 1, 000 Mcg IM QMONTH Namenda Xr (Memantine Hcl) 28 Mg Cap.spr.24 28 Mg PO DAILY Escitalopram Oxalate 20 Mg Tablet 20 Mg PO DAILY Donepezil Hcl 10 Mg Tablet 10 Mg PO HS Carvedilol 3.125 Mg Tablet 3.125 Mg PO HS Bupropion Xl (Bupropion Hcl) 150 Mg Tab.er.24h 150 Mg PO DAILY Atorvastatin Calcium 80 Mg Tablet 80 Mg PO QHS Alprazolam 0.25 Mg Tablet 0.25 Mg PO BID PRN I have reviewed the current psychotropics carefully including drug interactions. Risk benefit ratio favors no change other than as noted in my dictated progress note. 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
[2017-03-25] MEDS: ATORVASTATIN CALCIUM 20 MG TABLET PO SCH (20:14)
[2017-03-25] MEDS: CARVEDILOL 3.125 MG TABLET PO SCH (20:14)
[2017-03-25] MEDS: DONEPEZIL HCL 10 MG TABLET PO SCH (20:14)
[2017-03-25] MEDS: QUEtiapine 25 MG TABLET. PO SCH (20:14)
[2017-03-26 05:54] VITALS: BP 159/87
--- NOTE | 2017-03-26 06:24 | PN ---
DATE: 03/23/2017 PSYCHIATRIC PROGRESS NOTE This is a late entry for 03/23/2017, covers the elements not covered in my initial note of 03/23/2017. SUBJECTIVE: I met with the patient the evening of 03/23/2017. The patient remains confused, somewhat withdrawn. Denies suicidal ideation, anxious regarding discharge and placement options. A little more social. REVIEW OF SYSTEMS: No CV, , pulmonary, eye, ENT system symptoms on review. Reliability poor. MENTAL STATUS EXAM: Oriented to herself. Insight, judgment, recent and remote memory, attention, concentration, fund of knowledge poor, consistent with her diagnosis mentioned in my initial note. PLAN: No change from a psychiatric standpoint from initial note. MELLISA DOBSON MD DR: BRIDGETTE/murtaza JOB#: [id number] / [id number]
--- NOTE | 2017-03-26 06:53 | PN ---
DATE: 03/24/2017 This is a late entry 03/24, covers elements not covered in my initial note. SUBJECTIVE: The patient staffed in the morning, seen individually in the evening. Discussed progress, discharge plans to [facility] or [facility]. REVIEW OF SYSTEMS: No CV, , pulmonary, eye, ENT system symptoms on review. Reliability poor. MENTAL STATUS EXAM: Oriented to herself. Insight, judgment, recent and remote memory, attention, concentration, fund of knowledge poor, consistent with her diagnosis mentioned in my initial note. PLAN: No change from my initial note. MAN Alexander DOBSON MD DR: BRIDGETTE/murtaza JOB#: [id number] / [id number]
[2017-03-26] MEDS: POLYETHYLENE GLYCOL 3350 17 GM PACKET. PO SCH (08:41)
[2017-03-26] MEDS: SERTRALINE 25 MG TABLET. PO SCH (08:41)
[2017-03-26] MEDS: MEMANTINE 10 MG TABLET. PO SCH ×2 (08:41→20:29)
[2017-03-26] MEDS: hydroCHLOROthiazide 25 MG TABLET PO SCH (08:42)
[2017-03-26 16:02] VITALS: BP 160/76
[2017-03-26] MEDS: DONEPEZIL HCL 10 MG TABLET PO SCH (20:28)
[2017-03-26] MEDS: CARVEDILOL 3.125 MG TABLET PO SCH (20:28)
[2017-03-26] MEDS: QUEtiapine 25 MG TABLET. PO SCH (20:29)
[2017-03-26] MEDS: ATORVASTATIN CALCIUM 20 MG TABLET PO SCH (20:29)
--- NOTE | 2017-03-26 21:17 | PDOC ---
Exam Note: Robert Note: Please also refer to the separate dictated note~for this date of service dictated separately.~Patient seen individually. Discussed the patient with Nursing staff reviewed the chart.~Reviewed interim history and current functioning. Reviewed vital signs,~Labs/ Radiology~and current medications noted below. Continue current treatment with the changes noted in the dictated addendum note Assessment: Vital Signs: Vital Signs Date Time Temp Pulse Resp B/P (MAP) Pulse Ox O2 Delivery O2 Flow Rate FiO2 03/26/17 20:28 60 160/76 03/26/17 16:02 98.2 20 97 03/25/17 16:18 Room Air I&O Intake and Output 03/26/17 07:00 Intake Total 1440 ml Output Total 1 ml Balance 1439 ml Intake Oral 1440 ml Output Stool Total 1 ml # Bowel Movements 1 Current Medications: Meds: Current Medications Acetaminophen (Tylenol) 650 mg PRN Q6HRS PRN PO PAIN / TEMP Last administered on 03/22/17 13:50; Start 03/16/17 at 22:45 Multi-Ingredient Ointment (Analgesic [place]) 1 haylee PRN QID PRN TP MUSCLE PAIN Last administered on 03/18/17 22:16; Start 03/16/17 at 22:45 Al Hydroxide/Mg Hydroxide (Mylanta Plus Xs) 15 ml PRN AFTMEALHC PRN PO DYSPEPSIA Last administered on 03/25/17 20:25; Start 03/16/17 at 22:45 Magnesium Hydroxide (Milk Of Magnesia) 2,400 mg PRN QHS PRN PO CONSTIPATION Last administered on 03/21/17 22:22; Start 03/16/17 at 22:45 Alprazolam (Xanax) 0.25 mg PRN BID PRN PO ANXIETY / AGITATION Last administered on 03/17/17 20:44; Start 03/16/17 at 23:15 Bupropion HCl (Wellbutrin Xl) 150 mg DAILY PO Last administered on 03/19/17 09:48; Start 03/17/17 at 09:00; Stop 03/19/17 at 18:15; Status DC Donepezil HCl (Aricept) 10 mg HS PO Last administered on 03/26/17 20:28; Start 03/17/17 at 21:00 Citalopram Hydrobromide (CeleXA) 40 mg DAILY PO Last administered on 09:00; Start 03/17/17 at 09:00; Stop 03/18/17 at 18:50; Status DC Memantine (Namenda) 10 mg BID PO Last administered on 03/26/17 20:29; Start 03/17/17 at 09:00 Carvedilol (Coreg) 3.125 mg HS PO Last administered on 03/26/17 20:28; Start 03/17/17 at 21:00 Cyanocobalamin (Vitamin B-12) 1,000 mcg QMONTH IM ; Start 04/15/17 at 09:00 Atorvastatin Calcium (Lipitor) 80 mg QHS PO Last administered on 03/26/17 20: 29; Start 03/17/17 at 21:00 Nystatin (Nystop) 15 haylee STK-MED ONCE TP Last administered on 03/17/17 15:02; Start 03/17/17 at 15:02; Stop 03/17/17 at 15:03; Status DC Nystatin (Nystop) 1 haylee PRN BID PRN TP REDNESS; Start 03/17/17 at 15:15 Vitamin D (Vitamin D3) 50,000 unit WEEKLY PO Last administered on 03/25/17 09 :02; Start 03/18/17 at 18:00 Sertraline HCl (Zoloft) 50 mg DAILY PO Last administered on 03/26/17 08:41; Start 03/19/17 at 09:00 Quetiapine Fumarate (SEROquel) 25 mg QHS PO Last administered on 03/26/17 20: 29; Start 03/19/17 at 21:00 Polyethylene Glycol (miraLAX) 17 gm DAILY PO Last administered on 03/26/17 08 :41; Start 03/22/17 at 12:15 Hydrochlorothiazide (Hydrodiuril) 25 mg DAILY PO Last administered on 08:42; Start 03/26/17 at 09:00 Active Scripts Active Reported Cyanocobalamin Injection (Cyanocobalamin (Vitamin B-12)) 1,000 Mcg/1 Ml Vial 1, 000 Mcg IM QMONTH Namenda Xr (Memantine Hcl) 28 Mg Cap.spr.24 28 Mg PO DAILY Escitalopram Oxalate 20 Mg Tablet 20 Mg PO DAILY Donepezil Hcl 10 Mg Tablet 10 Mg PO HS Carvedilol 3.125 Mg Tablet 3.125 Mg PO HS Bupropion Xl (Bupropion Hcl) 150 Mg Tab.er.24h 150 Mg PO DAILY Atorvastatin Calcium 80 Mg Tablet 80 Mg PO QHS Alprazolam 0.25 Mg Tablet 0.25 Mg PO BID PRN I have reviewed the current psychotropics carefully including drug interactions. Risk benefit ratio favors no change other than as noted in my dictated progress note. Diagnosis: Problems: (1) Anxiety disorder (2) Dementia, vascular, with depression (3) Dementia, vascular, with delusions (4) Dementia in Alzheimer's disease with depression (5) Dementia in Alzheimer's disease with delusions (6) Impulse control disorder MELLISA DOBSON MD Mar 26, 2017 21:17
[2017-03-27 06:16] VITALS: BP 169/63
[2017-03-27] MEDS: MEMANTINE 10 MG TABLET. PO SCH ×2 (09:49→20:13)
[2017-03-27] MEDS: SERTRALINE 25 MG TABLET. PO SCH (09:49)
[2017-03-27] MEDS: hydroCHLOROthiazide 25 MG TABLET PO SCH (09:49)
[2017-03-27] MEDS: POLYETHYLENE GLYCOL 3350 17 GM PACKET. PO SCH (09:49)
[2017-03-27 16:08] VITALS: BP 136/69
--- NOTE | 2017-03-27 19:01 | PN ---
DATE: 03/25/2017 PSYCHIATRIC PROGRESS NOTE This is a late entry 03/25/2017 covers elements not covered in my initial note of 03/25/2017. I met with the patient in the evening of 03/25/2017. The patient remains confused, slept 5-1/4 hours previous evening, compliant with the medications, confused. Denies suicidal ideation. REVIEW OF SYSTEMS: No CV, , pulmonary, eye, ENT system symptoms on review. Reliability poor. MENTAL STATUS EXAM: Not very verbal. Insight, judgment, recent and remote memory, attention, concentration, fund of knowledge poor, consistent with her diagnosis, oriented to herself and situation. Diagnosis mentioned in my initial note. No changes in psychotropics from my initial note. MAN Alexander DOBSON MD DR: BRIDGETTE/murtaza JOB#: [id number] / [id number]
--- NOTE | 2017-03-27 19:05 | PN ---
DATE: 03/26/2017 This is a late entry 03/26 covers elements not covered in my initial note of 03/26. SUBJECTIVE: I met with the patient the evening of 03/26. The patient remains alert, oriented to herself, a little easily frustrated in the morning, better in the evening. No suicidal ideation. REVIEW OF SYSTEMS: No CV, , pulmonary, eye, ENT system symptoms on review. Reliability poor. MENTAL STATUS EXAM: Oriented to herself. Insight, judgment, recent and remote memory, attention, concentration, fund of knowledge poor, consistent with her diagnosis mentioned in my initial note. PLAN: No changes from my initial note. May need to increase Zoloft in due course and/or Seroquel. MAN Alexander DOBSON MD DR: BRIDGETTE/murtaza JOB#: [id number] / [id number]
[2017-03-27] MEDS: DONEPEZIL HCL 10 MG TABLET PO SCH (20:12)
[2017-03-27] MEDS: CARVEDILOL 3.125 MG TABLET PO SCH (20:13)
[2017-03-27] MEDS: QUEtiapine 25 MG TABLET. PO SCH (20:13)
[2017-03-27] MEDS: ATORVASTATIN CALCIUM 20 MG TABLET PO SCH (20:13)
--- NOTE | 2017-03-27 20:20 | PDOC ---
Exam Note: Robert Note: Please also refer to the separate dictated note~for this date of service dictated separately.~Patient seen individually. Discussed the patient with Nursing staff reviewed the chart.~Reviewed interim history and current functioning. Reviewed vital signs,~Labs/ Radiology~and current medications noted below. Continue current treatment with the changes noted in the dictated addendum note Assessment: Vital Signs: Vital Signs Date Time Temp Pulse Resp B/P (MAP) Pulse Ox O2 Delivery O2 Flow Rate FiO2 03/27/17 20:13 82 136/69 03/27/17 16:08 97.5 18 94 03/25/17 16:18 Room Air I&O Intake and Output 03/27/17 07:00 Intake Total 1440 ml Balance 1440 ml Intake Oral 1440 ml # Bowel Movements 1 Current Medications: Meds: Current Medications Acetaminophen (Tylenol) 650 mg PRN Q6HRS PRN PO PAIN / TEMP Last administered on 03/22/17 13:50; Start 03/16/17 at 22:45 Multi-Ingredient Ointment (Analgesic [place]) 1 haylee PRN QID PRN TP MUSCLE PAIN Last administered on 03/18/17 22:16; Start 03/16/17 at 22:45 Al Hydroxide/Mg Hydroxide (Mylanta Plus Xs) 15 ml PRN AFTMEALHC PRN PO DYSPEPSIA Last administered on 03/25/17 20:25; Start 03/16/17 at 22:45 Magnesium Hydroxide (Milk Of Magnesia) 2,400 mg PRN QHS PRN PO CONSTIPATION Last administered on 03/21/17 22:22; Start 03/16/17 at 22:45 Alprazolam (Xanax) 0.25 mg PRN BID PRN PO ANXIETY / AGITATION Last administered on 03/17/17 20:44; Start 03/16/17 at 23:15 Bupropion HCl (Wellbutrin Xl) 150 mg DAILY PO Last administered on 03/19/17 09:48; Start 03/17/17 at 09:00; Stop 03/19/17 at 18:15; Status DC Donepezil HCl (Aricept) 10 mg HS PO Last administered on 03/27/17 20:12; Start 03/17/17 at 21:00 Citalopram Hydrobromide (CeleXA) 40 mg DAILY PO Last administered on 09:00; Start 03/17/17 at 09:00; Stop 03/18/17 at 18:50; Status DC Memantine (Namenda) 10 mg BID PO Last administered on 03/27/17 20:13; Start 03/17/17 at 09:00 Carvedilol (Coreg) 3.125 mg HS PO Last administered on 03/27/17 20:13; Start 03/17/17 at 21:00 Cyanocobalamin (Vitamin B-12) 1,000 mcg QMONTH IM ; Start 04/15/17 at 09:00 Atorvastatin Calcium (Lipitor) 80 mg QHS PO Last administered on 03/27/17 20: 13; Start 03/17/17 at 21:00 Nystatin (Nystop) 15 haylee STK-MED ONCE TP Last administered on 03/17/17 15:02; Start 03/17/17 at 15:02; Stop 03/17/17 at 15:03; Status DC Nystatin (Nystop) 1 haylee PRN BID PRN TP REDNESS; Start 03/17/17 at 15:15 Vitamin D (Vitamin D3) 50,000 unit WEEKLY PO Last administered on 03/25/17 09 :02; Start 03/18/17 at 18:00 Sertraline HCl (Zoloft) 50 mg DAILY PO Last administered on 03/27/17 09:49; Start 03/19/17 at 09:00 Quetiapine Fumarate (SEROquel) 25 mg QHS PO Last administered on 03/27/17 20: 13; Start 03/19/17 at 21:00 Polyethylene Glycol (miraLAX) 17 gm DAILY PO Last administered on 03/27/17 09 :49; Start 03/22/17 at 12:15 Hydrochlorothiazide (Hydrodiuril) 25 mg DAILY PO Last administered on 09:49; Start 03/26/17 at 09:00 Active Scripts Active Reported Cyanocobalamin Injection (Cyanocobalamin (Vitamin B-12)) 1,000 Mcg/1 Ml Vial 1, 000 Mcg IM QMONTH Namenda Xr (Memantine Hcl) 28 Mg Cap.spr.24 28 Mg PO DAILY Escitalopram Oxalate 20 Mg Tablet 20 Mg PO DAILY Donepezil Hcl 10 Mg Tablet 10 Mg PO HS Carvedilol 3.125 Mg Tablet 3.125 Mg PO HS Bupropion Xl (Bupropion Hcl) 150 Mg Tab.er.24h 150 Mg PO DAILY Atorvastatin Calcium 80 Mg Tablet 80 Mg PO QHS Alprazolam 0.25 Mg Tablet 0.25 Mg PO BID PRN I have reviewed the current psychotropics carefully including drug interactions. Risk benefit ratio favors no change other than as noted in my dictated progress note. Diagnosis: Problems: (1) Anxiety disorder (2) Dementia, vascular, with depression (3) Dementia, vascular, with delusions (4) Dementia in Alzheimer's disease with depression (5) Dementia in Alzheimer's disease with delusions (6) Impulse control disorder MELLISA DOBSON MD Mar 27, 2017 20:20
[2017-03-28 06:00] VITALS: BP 150/74
[2017-03-28] MEDS: MEMANTINE 10 MG TABLET. PO SCH ×2 (08:46→20:06)
[2017-03-28] MEDS: hydroCHLOROthiazide 25 MG TABLET PO SCH (08:46)
[2017-03-28] MEDS: POLYETHYLENE GLYCOL 3350 17 GM PACKET. PO SCH (08:46)
[2017-03-28] MEDS: SERTRALINE 25 MG TABLET. PO SCH (08:46)
[2017-03-28] MEDS: ACETAMINOPHEN 325 MG TABLET PO PRN (09:02)
[2017-03-28 10:07] LABS: BASO # 0.1 x10^3/uL (0.0-0.2); BASO % 1 % (0-3); EOS # 0.2 x10^3/uL (0.0-0.7); EOS % 3 % (0-3); HEMATOCRIT 41.1 % (36.0-47.0); HEMOGLOBIN 13.7 g/dL (12.0-15.5); LYMPH # 1.3 x10^3/uL (1.0-4.8); LYMPH % 18 % (24-48); MEAN CORPUSCULAR HEMOGLOBIN 28 pg (25-35); MEAN CORPUSCULAR HGB CONC 33 g/dL (31-37); MEAN CORPUSCULAR VOLUME 85 fL (79-100); MONO # 0.5 x10^3/uL (0.0-1.1); MONO % 7 % (0-9); NEUT # 5.3 x10^3uL (1.8-7.7); NEUT % 71 % (31-73); PLATELET COUNT 189 x10^3/uL (140-400); RED BLOOD COUNT 4.83 x10^6/uL (3.50-5.40); RED CELL DISTRIBUTION WIDTH 15.1 % (11.5-14.5); WHITE BLOOD COUNT 7.4 x10^3/uL (4.0-11.0)
[2017-03-28 10:17] LABS: ALBUMIN 3.2 g/dL (3.4-5.0); ALBUMIN/GLOBULIN RATIO 0.8 (1.0-1.7); CALCIUM 9.3 mg/dL (8.5-10.1); CREATININE 0.8 mg/dL (0.6-1.0); GFR 71.1; POTASSIUM 3.5 mmol/L (3.5-5.1); TOTAL BILIRUBIN 0.4 mg/dL (0.2-1.0)
[2017-03-28 16:19] VITALS: BP 153/82
--- NOTE | 2017-03-28 20:00 | PDOC ---
Exam Note: Robert Note: Please also refer to the separate dictated note~for this date of service dictated separately.~Patient seen individually. Discussed the patient with Nursing staff reviewed the chart.~Reviewed interim history and current functioning. Reviewed vital signs,~Labs/ Radiology~and current medications noted below. Continue current treatment with the changes noted in the dictated addendum note Assessment: Vital Signs: Vital Signs Date Time Temp Pulse Resp B/P (MAP) Pulse Ox O2 Delivery O2 Flow Rate FiO2 03/28/17 16:19 97.6 69 18 153/82 (105) 94 03/25/17 16:18 Room Air I&O Intake and Output 03/28/17 07:00 Intake Total 1440 ml Balance 1440 ml Intake Oral 1440 ml Labs: Laboratory Tests Test 03/28/17 09:43 White Blood Count 7.4 x10^3/uL (4.0-11.0) Red Blood Count 4.83 x10^6/uL (3.50-5.40) Hemoglobin 13.7 g/dL (12.0-15.5) Hematocrit 41.1 % (36.0-47.0) Mean Corpuscular Volume 85 fL (79-100) Mean Corpuscular Hemoglobin 28 pg (25-35) Mean Corpuscular Hemoglobin Concent 33 g/dL (31-37) Red Cell Distribution Width 15.1 % (11.5-14.5) H Platelet Count 189 x10^3/uL (140-400) Neutrophils (%) (Auto) 71 % (31-73) Lymphocytes (%) (Auto) 18 % (24-48) L Monocytes (%) (Auto) 7 % (0-9) Eosinophils (%) (Auto) 3 % (0-3) Basophils (%) (Auto) 1 % (0-3) Neutrophils # (Auto) 5.3 x10^3uL (1.8-7.7) Lymphocytes # (Auto) 1.3 x10^3/uL (1.0-4.8) Monocytes # (Auto) 0.5 x10^3/uL (0.0-1.1) Eosinophils # (Auto) 0.2 x10^3/uL (0.0-0.7) Basophils # (Auto) 0.1 x10^3/uL (0.0-0.2) Sodium Level 141 mmol/L (136-145) Potassium Level 3.5 mmol/L (3.5-5.1) Chloride Level 103 mmol/L (98-107) Carbon Dioxide Level 33 mmol/L (21-32) H Anion Gap 5 (6-14) L Blood Urea Nitrogen 14 mg/dL (7-20) Creatinine 0.8 mg/dL (0.6-1.0) Estimated GFR (Cockcroft-Gault) 71.1 BUN/Creatinine Ratio 18 (6-20) Glucose Level 110 mg/dL (70-99) H Calcium Level 9.3 mg/dL (8.5-10.1) Magnesium Level 2.0 mg/dL (1.8-2.4) Total Bilirubin 0.4 mg/dL (0.2-1.0) Aspartate Amino Transferase (AST) 16 U/L (15-37) Alanine Aminotransferase (ALT) 26 U/L (14-59) Alkaline Phosphatase 119 U/L (46-116) H Total Protein 7.0 g/dL (6.4-8.2) Albumin 3.2 g/dL (3.4-5.0) L Albumin/Globulin Ratio 0.8 (1.0-1.7) L Current Medications: Meds: Current Medications Acetaminophen (Tylenol) 650 mg PRN Q6HRS PRN PO PAIN / TEMP Last administered on 03/28/17 09:02; Start 03/16/17 at 22:45 Multi-Ingredient Ointment (Analgesic [place]) 1 haylee PRN QID PRN TP MUSCLE PAIN Last administered on 03/18/17 22:16; Start 03/16/17 at 22:45 Al Hydroxide/Mg Hydroxide (Mylanta Plus Xs) 15 ml PRN AFTMEALHC PRN PO DYSPEPSIA Last administered on 03/25/17 20:25; Start 03/16/17 at 22:45 Magnesium Hydroxide (Milk Of Magnesia) 2,400 mg PRN QHS PRN PO CONSTIPATION Last administered on 03/21/17 22:22; Start 03/16/17 at 22:45 Alprazolam (Xanax) 0.25 mg PRN BID PRN PO ANXIETY / AGITATION Last administered on 03/17/17 20:44; Start 03/16/17 at 23:15 Bupropion HCl (Wellbutrin Xl) 150 mg DAILY PO Last administered on 03/19/17 09:48; Start 03/17/17 at 09:00; Stop 03/19/17 at 18:15; Status DC Donepezil HCl (Aricept) 10 mg HS PO Last administered on 03/27/17 20:12; Start 03/17/17 at 21:00 Citalopram Hydrobromide (CeleXA) 40 mg DAILY PO Last administered on 09:00; Start 03/17/17 at 09:00; Stop 03/18/17 at 18:50; Status DC Memantine (Namenda) 10 mg BID PO Last administered on 03/28/17 08:46; Start 03/17/17 at 09:00 Carvedilol (Coreg) 3.125 mg HS PO Last administered on 03/27/17 20:13; Start 03/17/17 at 21:00 Cyanocobalamin (Vitamin B-12) 1,000 mcg QMONTH IM ; Start 04/15/17 at 09:00 Atorvastatin Calcium (Lipitor) 80 mg QHS PO Last administered on 03/27/17 20: 13; Start 03/17/17 at 21:00 Nystatin (Nystop) 15 haylee STK-MED ONCE TP Last administered on 03/17/17 15:02; Start 03/17/17 at 15:02; Stop 03/17/17 at 15:03; Status DC Nystatin (Nystop) 1 haylee PRN BID PRN TP REDNESS; Start 03/17/17 at 15:15 Vitamin D (Vitamin D3) 50,000 unit WEEKLY PO Last administered on 03/25/17 09 :02; Start 03/18/17 at 18:00 Sertraline HCl (Zoloft) 50 mg DAILY PO Last administered on 03/28/17 08:46; Start 03/19/17 at 09:00 Quetiapine Fumarate (SEROquel) 25 mg QHS PO Last administered on 03/27/17 20: 13; Start 03/19/17 at 21:00 Polyethylene Glycol (miraLAX) 17 gm DAILY PO Last administered on 03/28/17 08 :46; Start 03/22/17 at 12:15 Hydrochlorothiazide (Hydrodiuril) 25 mg DAILY PO Last administered on t 08:46; Start 03/26/17 at 09:00 Active Scripts Active Reported Cyanocobalamin Injection (Cyanocobalamin (Vitamin B-12)) 1,000 Mcg/1 Ml Vial 1, 000 Mcg IM QMONTH Namenda Xr (Memantine Hcl) 28 Mg Cap.spr.24 28 Mg PO DAILY Escitalopram Oxalate 20 Mg Tablet 20 Mg PO DAILY Donepezil Hcl 10 Mg Tablet 10 Mg PO HS Carvedilol 3.125 Mg Tablet 3.125 Mg PO HS Bupropion Xl (Bupropion Hcl) 150 Mg Tab.er.24h 150 Mg PO DAILY Atorvastatin Calcium 80 Mg Tablet 80 Mg PO QHS Alprazolam 0.25 Mg Tablet 0.25 Mg PO BID PRN I have reviewed the current psychotropics carefully including drug interactions. Risk benefit ratio favors no change other than as noted in my dictated progress note. Diagnosis: Problems: (1) Anxiety disorder (2) Dementia, vascular, with depression (3) Dementia, vascular, with delusions (4) Dementia in Alzheimer's disease with depression (5) Dementia in Alzheimer's disease with delusions (6) Impulse control disorder MELLISA DOBSON MD Mar 28, 2017 20:00
[2017-03-28] MEDS: DONEPEZIL HCL 10 MG TABLET PO SCH (20:06)
[2017-03-28] MEDS: QUEtiapine 25 MG TABLET. PO SCH (20:07)
[2017-03-28] MEDS: CARVEDILOL 3.125 MG TABLET PO SCH (20:07)
[2017-03-28] MEDS: ATORVASTATIN CALCIUM 20 MG TABLET PO SCH (20:07)
--- NOTE | 2017-03-29 04:03 | PN ---
DATE: 03/28/2017 PSYCHIATRIC PROGRESS NOTE This note covers elements not covered in my initial note 03/28/2017. I met with the patient morning of 03/28/2017. The patient remains pleasant, calm, medication compliant, cooperative, confused. REVIEW OF SYSTEMS: No CV, , pulmonary, eye, ENT system symptoms on review. Reliability poor. MENTAL STATUS EXAM: Oriented to herself. Insight, judgment, recent and remote memory, attention, concentration, fund of knowledge poor, consistent with her diagnosis mentioned in my initial note. PLAN: Continue current psychotropics. Adjust further as clinically indicated. MAN Alexander DOBSON MD DR: BRIDGETTE/murtaza JOB#: [id number] / [id number]
--- NOTE | 2017-03-29 04:21 | PN ---
DATE: 03/27/2017 PSYCHIATRIC PROGRESS NOTE This is a late entry 03/27/2017 covers elements not covered in my initial note 03/27/2017. I met with the patient evening of 03/27/2017. The patient remains confused, but pleasant, no suicidal ideation noted. REVIEW OF SYSTEMS: No CV, , pulmonary, eye, ENT system symptoms on review. Reliability poor. MENTAL STATUS EXAM: Oriented to herself. Insight, judgment, recent and remote memory, attention, concentration, fund of knowledge poor, consistent with her diagnosis. LABORATORY DATA: Unchanged from my initial note. PLAN: Continue current psychotropics. Adjust further as clinically indicated. MELLISA DOBSON MD DR: BRIDGETTE/murtaza JOB#: [id number] / [id number]
[2017-03-29 06:06] VITALS: BP 144/60
[2017-03-29] MEDS: MEMANTINE 10 MG TABLET. PO SCH ×2 (09:01→20:03)
[2017-03-29] MEDS: POLYETHYLENE GLYCOL 3350 17 GM PACKET. PO SCH (09:01)
[2017-03-29] MEDS: hydroCHLOROthiazide 25 MG TABLET PO SCH (09:01)
[2017-03-29] MEDS: SERTRALINE 25 MG TABLET. PO SCH (09:01)
[2017-03-29 16:16] VITALS: BP 126/68
[2017-03-29] MEDS: ATORVASTATIN CALCIUM 20 MG TABLET PO SCH (20:03)
[2017-03-29] MEDS: QUEtiapine 25 MG TABLET. PO SCH (20:03)
[2017-03-29] MEDS: DONEPEZIL HCL 10 MG TABLET PO SCH (20:03)
[2017-03-29] MEDS: CARVEDILOL 3.125 MG TABLET PO SCH (20:04)
--- NOTE | 2017-03-29 21:47 | DS ---
DATE OF DISCHARGE: 03/30/2017 DISCHARGE DIAGNOSES: AXIS I: 1. Major neurocognitive disorder, probably vascular with depression, delusions. 2. Major depressive disorder, recurrent, severe. 3. Anxiety disorder, unspecified. AXIS II: None. AXIS III: Coronary artery disease, status post coronary artery bypass graft surgery, hypertension, hyperlipidemia, bronchial asthma, gastroesophageal reflux disease, vitamin B12 deficiency. REASON FOR ADMISSION: This 71-year-old female who was admitted from [facility] Emergency Room. She presented to the hospital with suicidal ideation, at least 2 attempts by putting a knife to her throat. Apparently, family brought her here. The patient made statements wanting to kill herself. The patient also had apparently duty nurse and told her that she is wanting to kill herself. The patient was also wandering the apartment complex getting lost, increased confusion and also failed outpatient treatment through [facility] in [place], [place]. She was also hospitalized at [facility] at about 30 years ago. HISTORY OF PRESENT ILLNESS: The patient has been exhibiting most likely Alzheimer's and also having mood swings depressed, feeling hopeless and helpless. Also living in an apartment herself, does not drive, her son is closely involved in her care. The patient also has been delusional at times. The patient never expressed any homicidal ideation. HOSPITAL COURSE: The patient had a physical exam, routine lab work, which were all within normal range except for slight increase in the BUN 21. The patient's most of the labwork were within normal range. The patient was involved in the program including individual therapy, group therapy and activity therapy. The patient was continued on her medications including Xanax 0.25 mg b.i.d. p.r.n. for anxiety, Lipitor 80 mg at night, carvedilol 3.125 mg daily, B12 1000 mcg IM monthly, Aricept 10 mg at night, hydrochlorothiazide 25 mg daily, Namenda 10 mg b.i.d., Seroquel 25 mg at night, Zoloft 50 mg at night. The patient did not have any major side effects to the medications. The patient denied of any falls recently. AFTERCARE PLAN: The patient will be returning to placement called [facility] that will be __, and also son will be keeping eye on her. The patient will see her primary care doctor, continue with the medications. SANTA BAUM MD DR: MARSHALL/murtaza JOB#: [id number] / [id number]
[2017-03-29] MEDS ORDERED: ACET325T9 PO (23:43)
[2017-03-29] MEDS ORDERED: CHOL500050 PO (23:46)
[2017-03-29] MEDS ORDERED: MAG355OR17 PO (23:49)
[2017-03-29] MEDS ORDERED: MAGN2400 PO (23:49)
[2017-03-29] MEDS ORDERED: METH29OI TP (23:50)
[2017-03-29] MEDS ORDERED: NYST60PO TP (23:51)
[2017-03-29] MEDS ORDERED: QUET25TA5 PO (23:52)
[2017-03-29] MEDS ORDERED: POLY17PO5 PO (23:52)
[2017-03-29] MEDS ORDERED: SERT50TA PO (23:53)
[2017-03-29] MEDS ORDERED: HYDR25TA9 PO (23:53)
--- NOTE | 2017-03-30 00:58 | PN ---
DATE: 03/29/2017 SUBJECTIVE: The patient was seen today, met with the staff, chart reviewed and also covering for Dr. Bullard. Staff reports no major problems. The patient is planned for discharge tomorrow. OBSERVATION: VITAL SIGNS: Temperature 98.1, blood pressure 144/60, pulse 61, respirations 16, O2 sat 94%. Slept about 7 hours last night. The patient was complaint with the treatment. The patient was continued on her medications including Namenda, Zoloft, Aricept, Xanax as p.r.n., and Seroquel 25 mg at night. The patient did not have any side effects to the medications. During the stay here, she did not have any major falls and she was medically stable. ASSESSMENT: Vascular dementia with depression and delusions. PLAN: The patient is discharged to her facility where she will have a supervision. The patient will continue on all the medications. The patient's son will be responsible for her care. The patient will also continue to see her primary care doctor. SANTA BAUM MD DR: MARSHALL/murtaza JOB#: [id number] / [id number]
[2017-03-30 06:04] VITALS: BP 142/70
[2017-03-30] MEDS: POLYETHYLENE GLYCOL 3350 17 GM PACKET. PO SCH (08:45)
[2017-03-30] MEDS: hydroCHLOROthiazide 25 MG TABLET PO SCH (08:45)
[2017-03-30] MEDS: MEMANTINE 10 MG TABLET. PO SCH (08:45)
[2017-03-30] MEDS: SERTRALINE 25 MG TABLET. PO SCH (08:45)
[2017-04-15] MEDS ORDERED: CYANOCOBALAMIN (VITAMIN B-12) 1,000 MCG/ML VIAL IM SCH (09:00)
== END 2017-03-30 15:30 | DRG 884 ==
LOC: GEROPSY 22:20
PROVIDERS: ADMIT Psychiatry & Neurology Psychiatry; ATTEND Psychiatry & Neurology Psychiatry
DX: F01.50 Vascular dementia, unspecified severity, without behavioral disturbance, psychotic disturbance, mood disturbance, and anxiety (principal); F33.2 Major depressive disorder, recurrent severe without psychotic features; G30.9 Alzheimer's disease, unspecified; R45.851 Suicidal ideations; F02.80 Dementia in other diseases classified elsewhere, unspecified severity, without behavioral disturbance, psychotic disturbance, mood disturbance, and anxiety; F22 Delusional disorders; E53.8 Deficiency of other specified B group vitamins; E78.5 Hyperlipidemia, unspecified; F41.9 Anxiety disorder, unspecified; F63.9 Impulse disorder, unspecified; I10 Essential (primary) hypertension; I25.10 Atherosclerotic heart disease of native coronary artery without angina pectoris; J45.909 Unspecified asthma, uncomplicated; K21.9 Gastro-esophageal reflux disease without esophagitis; Z79.899 Other long term (current) drug therapy; Z95.1 Presence of aortocoronary bypass graft; Z60.2 Problems related to living alone; Z90.710 Acquired absence of both cervix and uterus; Z88.5 Allergy status to narcotic agent; Z91.041 Radiographic dye allergy status
CPT/HCPCS: 36415; 80053; 80061; 82306; 82607; 83036; 83540; 83550; 83735; 84439; 84443; 84481; 85025; 86592; 86593

== ENCOUNTER 2018-02-27 18:46 | Inpatient (IN) | payer MEDICARE, OTHER ==
[~2018-02-27] VITALS: Ht 160 cm; Wt 84.4 kg
[~2018-02-27 18:46] MED LIST: ACET325T9 PO; ALPR0.254 PO; ATORVASTATIN CA80 MG PO; BUPR-192 PO; CARV3.122 PO; CHOL500050 PO; CYAN10002 IM; DONE10TA7 PO; ESCITALOPRAM OX20 MG PO; HYDR25TA9 PO; MAG355OR17 PO; MAGN2400 PO; MEMA28CA PO; METH29OI TP; NYST60PO TP; POLY17PO5 PO; QUET25TA5 PO; SERT50TA PO
--- NOTE | 2018-02-27 19:40 | EKG ---
[address] [address] Test Date: 2018-02-27 Test Time: 19:35:07 Pat Name: EMILY HO Department: Room: Gender: F [employer]: : [id number] Requested By: TI PRUITT Order Number: [id number] Reading MD: Aftab Cristina MD Measurements Intervals [place] Rate: 79 P: 55 DE: 150 QRS: -7 QRSD: 86 T: -10 QT: 378 QTc: 434 Interpretive Statements SINUS RHYTHM Electronically Signed On 02-28-2018 9:45:24 CDT by Aftab Cristina MD
[2018-02-27 20:01] LABS: BASO # 0.1 x10^3/uL (0.0-0.2); BASO % 1 % (0-3); EOS # 0.1 x10^3/uL (0.0-0.7); EOS % 2 % (0-3); HEMATOCRIT 42.5 % (36.0-47.0); HEMOGLOBIN 14.5 g/dL (12.0-15.5); LYMPH # 1.2 x10^3/uL (1.0-4.8); LYMPH % 14 % (24-48); MEAN CORPUSCULAR HEMOGLOBIN 30 pg (25-35); MEAN CORPUSCULAR HGB CONC 34 g/dL (31-37); MEAN CORPUSCULAR VOLUME 88 fL (79-100); MONO # 0.8 x10^3/uL (0.0-1.1); MONO % 9 % (0-9); NEUT # 6.6 x10^3uL (1.8-7.7); NEUT % 75 % (31-73); PLATELET COUNT 189 x10^3/uL (140-400); RED BLOOD COUNT 4.82 x10^6/uL (3.50-5.40); RED CELL DISTRIBUTION WIDTH 16.5 % (11.5-14.5); WHITE BLOOD COUNT 8.8 x10^3/uL (4.0-11.0)
[2018-02-27 20:05] LABS: BILIRUBIN,URINE LARGE (NEG); CLARITY,URINE HAZY; COLOR,URINE AMBER; GLUCOSE,URINE NEG (NEG); NITRITE,URINE POS (NEG); RBC,URINE 0 /HPF (0-2); UROBILINOGEN,URINE 2 mg/dL (0.2 mg/dL)
[2018-02-27 20:06] LABS: BACTERIA,URINE MANY /HPF (0-FEW); HYALINE CASTS, URINE OCC /HPF; SQUAMOUS EPITHELIAL CELL,UR MANY /LPF
[2018-02-27 20:13] LABS: ALBUMIN 3.7 g/dL (3.4-5.0); CALCIUM 9.1 mg/dL (8.5-10.1); CREATININE 1.2 mg/dL (0.6-1.0); GFR 44.4; POTASSIUM 3.8 mmol/L (3.5-5.1); TOTAL BILIRUBIN 0.8 mg/dL (0.2-1.0); TOTAL PROTEIN 7.3 g/dL (6.4-8.2)
[2018-02-27] MEDS ORDERED: CEPHALEXIN 250 MG CAPSULE PO ONE (20:30)
--- NOTE | 2018-02-27 20:54 | PHYS DOC ---
Past History Past Medical History: Dementia, High Cholesterol, Hypertension Past Surgical History: Coronary Bypass Surgery, Hysterectomy Adult General Chief Complaint Chief Complaint: PSYCH EVALUATION HPI HPI Patient is a 72 year old FEMALE who presents with not eating, crying, statements of wanting to , screamed out this weekend at staff at assisted care facility saying something is wrong with my head, refuses medications, and verbally aggressive. This is been going on for approximately the past week and getting worse over time. History is limited from the patient due to history of dementia. Son reports these events as well as her being treated for urinary tract infection, other history is from the assisted care facility where she resides. She is actually denying any complaints at this time. Review of Systems Review of Systems Constitutional: Denies fever or chills [] Eyes: Denies change in visual acuity, redness, or eye pain [] HENT: Denies nasal congestion or sore throat [] Respiratory: Denies cough or shortness of breath [] Cardiovascular: Denies any chest pain or palpitations[] GI: Denies abdominal pain, nausea, vomiting, bloody stools or diarrhea [] : Denies dysuria or hematuria [] Musculoskeletal: Denies back pain or joint pain [] Integument: Denies rash or skin lesions [] Neurologic: Denies headache, focal weakness or sensory changes [] Endocrine: Denies polyuria or polydipsia [] All other systems were reviewed and found to be within normal limits, except as documented in this note. Current Medications Current Medications Current Medications Medications (Trade) Dose Ordered Sig/Lyle Start Time Stop Time Status Last Admin Dose Admin Cephalexin HCl (Keflex) 500 mg 1X ONCE 02/27/18 20:30 02/27/18 20:31 DC 02/27/18 20:32 500 MG Allergies Allergies Allergies Coded Allergies Type Severity Reaction Last Updated Verified Iodinated Contrast- Oral and IV Dye Allergy Severe 03/16/17 Yes lisinopril Allergy Severe 03/16/17 Yes codeine Allergy Intermediate 03/16/17 Yes Physical Exam Physical Exam Constitutional: Well developed, well nourished, no acute distress, non-toxic appearance. [] HENT: Normocephalic, atraumatic, bilateral external ears normal, oropharynx moist, no oral exudates, nose normal. [] Eyes: PERRLA, EOMI, conjunctiva normal, no discharge. [] Neck: Normal range of motion, no tenderness, supple, no stridor. [] Cardiovascular:Heart rate regular rhythm, no murmur [] Lungs & Thorax: Bilateral breath sounds clear to auscultation [] Abdomen: Bowel sounds normal, soft, no tenderness, no masses, no pulsatile masses. [] Skin: Warm, dry, no erythema, no rash. [] Back: No tenderness, no CVA tenderness. [] Extremities: No tenderness, no cyanosis, no clubbing, ROM intact, no edema. [] Neurologic: Alert and oriented to person, normal motor function, normal sensory function, no focal deficits noted. [] Psychologic: Affect flat, mood normal. [] Current Patient Data Lab Results Laboratory Tests Test 02/27/18 19:32 02/27/18 19:45 Urine Collection Type Unknown Urine Color Aby Urine Clarity Hazy Urine pH 5.5 Urine Specific [place] >=1.030 Urine Protein 30 mg/dl (NEG-TRACE) Urine Glucose (UA) Neg mg/dL (NEG) Urine Ketones (Stick) 40 mg/dL (NEG) Urine Blood Small (NEG) Urine Nitrite Pos (NEG) Urine Bilirubin Large (NEG) Urine Urobilinogen Dipstick 2 mg/dL (0.2 mg/dL) Urine Leukocyte Esterase Neg (NEG) Urine RBC 0 /HPF (0-2) Urine WBC 5-10 /HPF (0-4) Urine Squamous Epithelial Cells Many /LPF Urine Bacteria Many /HPF (0-FEW) Urine Hyaline Casts Occ /HPF Urine Mucus Marked /LPF White Blood Count 8.8 x10^3/uL (4.0-11.0) Red Blood Count 4.82 x10^6/uL (3.50-5.40) Hemoglobin 14.5 g/dL (12.0-15.5) Hematocrit 42.5 % (36.0-47.0) Mean Corpuscular Volume 88 fL (79-100) Mean Corpuscular Hemoglobin 30 pg (25-35) Mean Corpuscular Hemoglobin Concent 34 g/dL (31-37) Red Cell Distribution Width 16.5 % (11.5-14.5) H Platelet Count 189 x10^3/uL (140-400) Neutrophils (%) (Auto) 75 % (31-73) H Lymphocytes (%) (Auto) 14 % (24-48) L Monocytes (%) (Auto) 9 % (0-9) Eosinophils (%) (Auto) 2 % (0-3) Basophils (%) (Auto) 1 % (0-3) Neutrophils # (Auto) 6.6 x10^3uL (1.8-7.7) Lymphocytes # (Auto) 1.2 x10^3/uL (1.0-4.8) Monocytes # (Auto) 0.8 x10^3/uL (0.0-1.1) Eosinophils # (Auto) 0.1 x10^3/uL (0.0-0.7) Basophils # (Auto) 0.1 x10^3/uL (0.0-0.2) Sodium Level 139 mmol/L (136-145) Potassium Level 3.8 mmol/L (3.5-5.1) Chloride Level 102 mmol/L (98-107) Carbon Dioxide Level 30 mmol/L (21-32) Anion Gap 7 (6-14) Blood Urea Nitrogen 29 mg/dL (7-20) H Creatinine 1.2 mg/dL (0.6-1.0) H Estimated GFR (Cockcroft-Gault) 44.4 BUN/Creatinine Ratio 24 (6-20) H Glucose Level 90 mg/dL (70-99) Calcium Level 9.1 mg/dL (8.5-10.1) Magnesium Level 2.0 mg/dL (1.8-2.4) Total Bilirubin 0.8 mg/dL (0.2-1.0) Aspartate Amino Transferase (AST) 16 U/L (15-37) Alanine Aminotransferase (ALT) 22 U/L (14-59) Alkaline Phosphatase 86 U/L (46-116) Total Protein 7.3 g/dL (6.4-8.2) Albumin 3.7 g/dL (3.4-5.0) Albumin/Globulin Ratio 1.0 (1.0-1.7) EKG EKG EKG shows a normal sinus rhythm, axis is leftward at -7, no ST elevations.[] Radiology/Procedures Radiology/Procedures [] Course & Med Decision Making Course & Med Decision Making Pertinent Labs and Imaging studies reviewed. (See chart for details) [Medical decision making: No evidence of significant electrolyte disorder, review of the chart shows that she has been on trimethoprim sulfamethoxazole for several weeks and the urine still appears to be contaminated. Will add a dose of Keflex to the antibiotic regimen. Only find in the chart one mixed eleni culture of her urine that was not further evaluated for sensitivity. Believe the patient to be stable for [facility]. ED course: Patient arrived, was placed in bed, and tolerated exam well. Patient remained in stable condition during her emergency department stay. Discussion was made with the patient and family regarding the findings. All questions were answered. Patient was admitted to [facility] in improved condition.] Dragon Disclaimer Dragon Disclaimer This electronic medical record was generated, in whole or in part, using a voice recognition dictation system. Departure Departure: Impression: Primary Impression: Dementia, vascular, with depression Disposition: ADMITTED INPATIENT Admitting Physician: Other (Dr Bullard) Condition: STABLE Referrals: GILDARDO WHEAT DO (PCP) TI PRUITT DO Feb 27, 2018 20:54
[2018-02-27] MEDS ORDERED: ACETAMINOPHEN 325 MG TABLET PO PRN ×2 (22:15→23:45)
[2018-02-27] MEDS ORDERED: MAG HYDROX/AL HYDROX/SIMETH 30 ML ORAL.SUSP PO PRN (22:15)
[2018-02-27] MEDS ORDERED: MAGNESIUM HYDROXIDE 2,400 MG/30 ML ORAL.SUSP. PO PRN (22:15)
[2018-02-27] MEDS ORDERED: METHYL SALICYLATE/MENTHOL TOPICAL OINTMENT 29GM TUBE. TP PRN ×2 (22:15→23:45)
[2018-02-27 22:33] LABS: VAL ACID 6 mcg/mL (50-100)
--- NOTE | 2018-02-27 23:19 | PDOC ---
Exam Note: Robert Note: Please also refer to the separate dictated note~for this date of service dictated separately.~Patient seen individually. Discussed the patient with Nursing staff reviewed the chart.~Reviewed interim history and current functioning. Reviewed vital signs,~Labs/ Radiology~and current medications noted below. Continue current treatment with the changes noted in the dictated addendum note Assessment: Vital Signs: Vital Signs Date Time Temp Pulse Resp B/P (MAP) Pulse Ox O2 Delivery O2 Flow Rate FiO2 02/27/18 21:55 68 18 133/86 (102) 99 Room Air 02/27/18 19:00 98.2 Labs: Laboratory Tests Test 02/27/18 19:32 02/27/18 19:45 Urine Collection Type Unknown Urine Color Aby Urine Clarity Hazy Urine pH 5.5 Urine Specific [place] >=1.030 Urine Protein 30 mg/dl (NEG-TRACE) Urine Glucose (UA) Neg mg/dL (NEG) Urine Ketones (Stick) 40 mg/dL (NEG) Urine Blood Small (NEG) Urine Nitrite Pos (NEG) Urine Bilirubin Large (NEG) Urine Urobilinogen Dipstick 2 mg/dL (0.2 mg/dL) Urine Leukocyte Esterase Neg (NEG) Urine RBC 0 /HPF (0-2) Urine WBC 5-10 /HPF (0-4) Urine Squamous Epithelial Cells Many /LPF Urine Bacteria Many /HPF (0-FEW) Urine Hyaline Casts Occ /HPF Urine Mucus Marked /LPF White Blood Count 8.8 x10^3/uL (4.0-11.0) Red Blood Count 4.82 x10^6/uL (3.50-5.40) Hemoglobin 14.5 g/dL (12.0-15.5) Hematocrit 42.5 % (36.0-47.0) Mean Corpuscular Volume 88 fL (79-100) Mean Corpuscular Hemoglobin 30 pg (25-35) Mean Corpuscular Hemoglobin Concent 34 g/dL (31-37) Red Cell Distribution Width 16.5 % (11.5-14.5) H Platelet Count 189 x10^3/uL (140-400) Neutrophils (%) (Auto) 75 % (31-73) H Lymphocytes (%) (Auto) 14 % (24-48) L Monocytes (%) (Auto) 9 % (0-9) Eosinophils (%) (Auto) 2 % (0-3) Basophils (%) (Auto) 1 % (0-3) Neutrophils # (Auto) 6.6 x10^3uL (1.8-7.7) Lymphocytes # (Auto) 1.2 x10^3/uL (1.0-4.8) Monocytes # (Auto) 0.8 x10^3/uL (0.0-1.1) Eosinophils # (Auto) 0.1 x10^3/uL (0.0-0.7) Basophils # (Auto) 0.1 x10^3/uL (0.0-0.2) Sodium Level 139 mmol/L (136-145) Potassium Level 3.8 mmol/L (3.5-5.1) Chloride Level 102 mmol/L (98-107) Carbon Dioxide Level 30 mmol/L (21-32) Anion Gap 7 (6-14) Blood Urea Nitrogen 29 mg/dL (7-20) H Creatinine 1.2 mg/dL (0.6-1.0) H Estimated GFR (Cockcroft-Gault) 44.4 BUN/Creatinine Ratio 24 (6-20) H Glucose Level 90 mg/dL (70-99) Calcium Level 9.1 mg/dL (8.5-10.1) Magnesium Level 2.0 mg/dL (1.8-2.4) Total Bilirubin 0.8 mg/dL (0.2-1.0) Aspartate Amino Transferase (AST) 16 U/L (15-37) Alanine Aminotransferase (ALT) 22 U/L (14-59) Alkaline Phosphatase 86 U/L (46-116) Total Protein 7.3 g/dL (6.4-8.2) Albumin 3.7 g/dL (3.4-5.0) Albumin/Globulin Ratio 1.0 (1.0-1.7) Valproic Acid Level 6 mcg/mL (50-100) L Valproic Acid Last Dose Date 02/27/18 Valproic Acid Last Dose Time 0900 Current Medications: Meds: Current Medications Cephalexin HCl (Keflex) 500 mg 1X ONCE PO Last administered on 02/27/18at 20: 32; Start 02/27/18 at 20:30; Stop 02/27/18 at 20:31; Status DC Acetaminophen (Tylenol) 650 mg PRN Q6HRS PRN PO PAIN / TEMP; Start 02/27/18 at 22:15 Multi-Ingredient Ointment (Analgesic [place]) 1 suzi PRN QID PRN TP MUSCLE PAIN; Start 02/27/18 at 22:15 Al Hydroxide/Mg Hydroxide (Mylanta Plus Xs) 15 ml PRN AFTMEALHC PRN PO DYSPEPSIA; Start 02/27/18 at 22:15 Magnesium Hydroxide (Milk Of Magnesia) 2,400 mg PRN QHS PRN PO CONSTIPATION; Start 02/27/18 at 22:15 Active Scripts Active Reported Hydrochlorothiazide Tablet (Hydrochlorothiazide) 25 Mg Tablet 25 Mg PO DAILY Zoloft (Sertraline Hcl) 50 Mg Tablet 50 Mg PO DAILY Seroquel (Quetiapine Fumarate) 25 Mg Tablet 25 Mg PO QHS Miralax (Polyethylene Glycol 3350) 17 Gm Powd.pack 17 Gm PO DAILY Nystop (Nystatin) 60 Gm Powder 1 Suzi TP PRN BID PRN Analgesic [place] (Methyl Salicylate/Menthol) 28 Gm Oint...g. 1 Suzi TP PRN QID PRN Milk Of Magnesia (Magnesium Hydroxide) 2,400 Mg/10 Ml Oral.susp 2,400 Mg PO PRN QHS PRN Advanced Antacid Liquid (Mag Hydrox/Al Hydrox/Simeth) 355 Ml Oral.susp 15 Ml PO PRN AFTMEALHC PRN Vitamin D (Cholecalciferol (Vitamin D3)) 50,000 Unit Capsule 50,000 Unit PO QFR Tylenol (Acetaminophen) 325 Mg Tablet 650 Mg PO PRN Q6HRS PRN Cyanocobalamin Injection (Cyanocobalamin (Vitamin B-12)) 1,000 Mcg/1 Ml Vial 1, 000 Mcg IM QMONTH To be given on 04/15 Namenda Xr (Memantine Hcl) 28 Mg Cap.spr.24 28 Mg PO DAILY Donepezil Hcl 10 Mg Tablet 10 Mg PO HS Carvedilol 3.125 Mg Tablet 3.125 Mg PO HS Atorvastatin Calcium 80 Mg Tablet 80 Mg PO QHS Alprazolam 0.25 Mg Tablet 0.25 Mg PO BID PRN I have reviewed the current psychotropics carefully including drug interactions. Risk benefit ratio favors no change other than as noted in my dictated progress note. Diagnosis: Problems: (1) Major neurocognitive disorder (2) Anxiety disorder (3) Dementia, vascular, with depression (4) Dementia, vascular, with delusions (5) Dementia in Alzheimer's disease with depression (6) Dementia in Alzheimer's disease with delusions (7) Impulse control disorder MELLISA DOBSON MD Feb 27, 2018 23:19
[2018-02-27] MEDS ORDERED: NYSTATIN TOPICAL POWDER 15GM BOTTLE. TP PRN (23:45)
[2018-02-28] MEDS ORDERED: ESCITALOPRAM OX20 MG PO (00:28)
[2018-02-28] MEDS ORDERED: DIVA125C2 PO (00:28)
[2018-02-28] MEDS ORDERED: CYAN10005 PO (00:28)
[2018-02-28] MEDS ORDERED: BUPR300T4 PO (00:28)
[2018-02-28] MEDS ORDERED: ASPI-630 PO (00:28)
[2018-02-28] MEDS ORDERED: POTA20TA82 PO (00:28)
[2018-02-28] MEDS ORDERED: POTA10TA10 PO (00:28)
[2018-02-28] MEDS ORDERED: TRIA15CR50 TP (00:28)
[2018-02-28] MEDS ORDERED: MECL25TA3 PO (00:28)
[2018-02-28] MEDS ORDERED: GUAI100L12 PO (00:28)
[2018-02-28] MEDS ORDERED: guaiFENesin 300 MG/15 ML LIQUID PO PRN (00:30)
[2018-02-28] MEDS ORDERED: TRIAMCINOLONE ACETONIDE 0.1% TOPICAL CREAM 15GM TUBE. TP PRN (00:30)
[2018-02-28] MEDS ORDERED: MECLIZINE 12.5 MG TABLET. PO PRN (00:30)
[2018-02-28] MEDS ORDERED: LORA0.5T PO (00:47)
[2018-02-28 03:32] VITALS: BP 135/82
[2018-02-28 05:35] VITALS: BP 117/81
[2018-02-28] MEDS: DIVALPROEX 125 MG CAP.SPRINK PO SCH ×2 (10:17→19:59)
[2018-02-28] MEDS: POTASSIUM CHLORIDE 10 MEQ TABLET.ER. PO SCH (10:17)
[2018-02-28] MEDS: hydroCHLOROthiazide 25 MG TABLET PO SCH (10:17)
[2018-02-28] MEDS: CYANOCOBALAMIN (VITAMIN B-12) 1,000 MCG TABLET. PO SCH (10:18)
[2018-02-28] MEDS: CITALOPRAM 20 MG TABLET. PO SCH (10:18)
[2018-02-28] MEDS: POTASSIUM CHLORIDE 20 MEQ TABLET.ER. PO SCH (10:18)
[2018-02-28] MEDS: MEMANTINE 10 MG TABLET. PO SCH ×2 (10:18→19:59)
[2018-02-28] MEDS: ASPIRIN 81 MG TAB.CHEW PO SCH (10:19)
[2018-02-28] MEDS: POLYETHYLENE GLYCOL 3350 17 GM PACKET. PO SCH (10:19)
[2018-02-28] MEDS: buPROPion XL 300 MG TAB.ER.24H. PO SCH (10:19)
[2018-02-28 13:17] LABS: THYROID STIM HORMONE (TSH) 2.396 uIU/mL (0.358-3.740)
--- NOTE | 2018-02-28 14:44 | PDOC2 ---
CONSULT Date of Admission DATE: 02/27/18 Reason for Consult: Medical management Referring Physician: Dr Bullard Source: Caregiver, Chart review, Patient History of Present Illness: Patient is a 72 year old FEMALE who approximately the [facility] emergency department for medical clearance in anticipation of [facility] health unit admission with not eating, crying, statements of wanting to , screamed out this weekend at staff at assisted care facility saying something is wrong with my head, refuses medications, and verbally aggressive. This is been going on for approximately the past week and getting worse over time. History is limited from the patient due to history of dementia. In the emergency department her son relayed she's been on Bactrim a few weeks treated for urinary tract infection. She was changed over to cephalexin in the emergency department. She has prior history of inpatient psychiatric admission here she is ambulatory and a full code. I observed the patient pacing up and down the hallways at the [facility] unit keeping very busy in no apparent distress. In talking with her she does appear to remember being here in the past. She is unable to form sentences with word salad and appears to get frustrated that she can't express her thoughts. Shakes her head no when asked if she is having any discomfort or trouble breathing unable to answer any questions at all. Cardiovascular: CAD, HTN, hyperipidemia Pulmonary: Asthma CENTRAL NERVOUS SYSTEM: Dementia (Alzheimer's, impulse control disorder, history of suicidal ideation) GI: GERD Psych: Anxiety, Depression Musculoskeletal: Other (nocturnal leg cramps) Endocrine: Other (B12 deficiency) Past Surgical History CABG, colonoscopy with polypectomy, hysterectomy Social History Assisted-living facility, 2 sons live locally Smoke: No ALCOHOL: none Drugs: None Lives: [facility] Current Medications Current Medications Cephalexin HCl (Keflex) 500 mg 1X ONCE PO Last administered on 02/27/18at 20: 32; Start 02/27/18 at 20:30; Stop 02/27/18 at 20:31; Status DC Acetaminophen (Tylenol) 650 mg PRN Q6HRS PRN PO PAIN / TEMP; Start 02/27/18 at 22:15 Multi-Ingredient Ointment (Analgesic [place]) 1 suzi PRN QID PRN TP MUSCLE PAIN; Start 02/27/18 at 22:15 Al Hydroxide/Mg Hydroxide (Mylanta Plus Xs) 15 ml PRN AFTMEALHC PRN PO DYSPEPSIA; Start 02/27/18 at 22:15 Magnesium Hydroxide (Milk Of Magnesia) 2,400 mg PRN QHS PRN PO CONSTIPATION; Start 02/27/18 at 22:15 Acetaminophen (Tylenol) 650 mg PRN Q6HRS PRN PO PAIN / TEMP; Start 02/27/18 at 23:45 Vitamin D (Vitamin D3) 50,000 unit QFR PO ; Start 03/03/18 at 16:00 Hydrochlorothiazide (Hydrodiuril) 25 mg DAILY PO Last administered on at 10:17; Start 02/28/18 at 09:00 Multi-Ingredient Ointment (Analgesic [place]) 1 suzi PRN QID PRN TP MUSCLE PAIN; Start 02/27/18 at 23:45 Nystatin (Nystop) 1 suzi PRN BID PRN TP RASH; Start 02/27/18 at 23:45 Atorvastatin Calcium (Lipitor) 80 mg QHS PO ; Start 02/28/18 at 21:00 Carvedilol (Coreg) 3.125 mg HS PO ; Start 02/28/18 at 21:00 Memantine (Namenda) 10 mg BID PO Last administered on 02/28/18at 10:18; Start 02/28/18 at 09:00 Polyethylene Glycol (miraLAX) 17 gm DAILY PO Last administered on 02/28/18at 10 :19; Start 02/28/18 at 09:00 Bupropion HCl (Wellbutrin Xl) 300 mg DAILY PO Last administered on 02/28/18at 10:19; Start 02/28/18 at 09:00 Cyanocobalamin (Vitamin B-12) 1,000 mcg DAILY PO Last administered on at 10:18; Start 02/28/18 at 09:00 Guaifenesin (Robitussin) 5 mg PRN BID PRN PO COUGH; Start 02/28/18 at 00:30 Aspirin (Children'S Aspirin) 81 mg DAILYWBKFT PO Last administered on at 10:19; Start 02/28/18 at 08:00 Divalproex Sodium (Depakote Sprinkles) 125 mg BID PO Last administered on 02/28at 10:17; Start 02/28/18 at 09:00 Citalopram Hydrobromide (CeleXA) 40 mg DAILY PO Last administered on at 10:18; Start 02/28/18 at 09:00 Meclizine HCl (Antivert) 12.5 mg PRN Q8HRS PRN PO DIZZINESS; Start 02/28/18 at 00:30 Potassium Chloride (Klor-Con) 30 meq DAILY PO Last administered on 02/28/18at 10:17; Start 02/28/18 at 09:00 Potassium Chloride (Klor-Con) 20 meq DAILYWBKFT PO Last administered on at 10:18; Start 02/28/18 at 08:00 Triamcinolone Acetonide (Kenalog) 1 suzi PRN BID PRN TP DRY SKIN / SCALING; Start 02/28/18 at 00:30 Active Scripts Active Reported Lorazepam 0.5 Mg Tablet 0.25 Mg PO PRN Q6HRS PRN Vitamin B-12 (Cyanocobalamin (Vitamin B-12)) 1,000 Mcg Tablet 1,000 Mcg PO DAILY Triamcinolone Acetonide 15 Gm Cream..g. 1 Suzi TP PRN BID PRN Potassium Chloride 10 Meq Tablet.er 30 Meq PO DAILY Potassium Chloride 20 Meq Tablet.er 20 Meq PO DAILYBFRSUP Meclizine Hcl 25 Mg Tablet 25 Mg PO PRN Q8HRS PRN Guaifenesin 100 Mg/5 Ml Liquid 5 Mg PO PRN BID Escitalopram Oxalate 20 Mg Tablet 20 Mg PO HS Depakote Sprinkle (Divalproex Sodium) 125 Mg Cap.sprink 125 Mg PO BID Bupropion Xl (Bupropion Hcl) 300 Mg Tab.er.24h 300 Mg PO DAILY Aspirin 81 Mg Tab.chew 81 Mg PO DAILY Hydrochlorothiazide Tablet (Hydrochlorothiazide) 25 Mg Tablet 25 Mg PO DAILY Miralax (Polyethylene Glycol 3350) 17 Gm Powd.pack 17 Gm PO DAILY Nystop (Nystatin) 60 Gm Powder 1 Suzi TP PRN BID PRN Analgesic [place] (Methyl Salicylate/Menthol) 28 Gm Oint...g. 1 Suzi TP PRN QID PRN Vitamin D (Cholecalciferol (Vitamin D3)) 50,000 Unit Capsule 50,000 Unit PO QFR Tylenol (Acetaminophen) 325 Mg Tablet 650 Mg PO PRN Q6HRS PRN Namenda Xr (Memantine Hcl) 28 Mg Cap.spr.24 28 Mg PO DAILY Carvedilol 3.125 Mg Tablet 3.125 Mg PO HS Atorvastatin Calcium 80 Mg Tablet 80 Mg PO QHS Allergies: Coded Allergies: Iodinated Contrast- Oral and IV Dye (Verified Allergy, Severe, 03/16/17) lisinopril (Verified Allergy, Severe, 03/16/17) codeine (Verified Allergy, Intermediate, 03/16/17) Review of Systems: Review of systems is per history of present illness as the patient is unable to answer questions or express her thoughts. Physical Exam: Gen.: Alert, pacing the hallways in no apparent distress HEENT: Normocephalic atraumatic, PERRLA EOMI, no scleral icterus, oral mucosa with whitish exudate over erythematous base Neck: Supple, no lymphadenopathy, nontender Cardiovascular: Normal S1 and S2 no murmurs Pulmonary: Lungs are clear bilaterally with poor inspiratory effort, good air movement no respiratory distress Abdomen: Soft nontender non-distended, bowel sounds present no masses Extremities: No clubbing, cyanosis, trace pitting lower extremity edema bilaterally Neuro: Alert appears to at least express she remembers being here in the past, cranial nerves II through XII grossly intact, no lateralizing neuro deficits Skin: Warm, dry VITALS Vital Signs Date Time Temp Pulse Resp B/P (MAP) Pulse Ox O2 Delivery O2 Flow Rate FiO2 02/28/18 05:35 97.5 106 20 117/81 (93) 97 02/27/18 21:55 Room Air Labs Laboratory Tests Test 02/27/18 19:32 02/27/18 19:45 Urine Collection Type Unknown Urine Color Aby Urine Clarity Hazy Urine pH 5.5 Urine Specific [place] >=1.030 Urine Protein 30 mg/dl (NEG-TRACE) Urine Glucose (UA) Neg mg/dL (NEG) Urine Ketones (Stick) 40 mg/dL (NEG) Urine Blood Small (NEG) Urine Nitrite Pos (NEG) Urine Bilirubin Large (NEG) Urine Urobilinogen Dipstick 2 mg/dL (0.2 mg/dL) Urine Leukocyte Esterase Neg (NEG) Urine RBC 0 /HPF (0-2) Urine WBC 5-10 /HPF (0-4) Urine Squamous Epithelial Cells Many /LPF Urine Bacteria Many /HPF (0-FEW) Urine Hyaline Casts Occ /HPF Urine Mucus Marked /LPF White Blood Count 8.8 x10^3/uL (4.0-11.0) Red Blood Count 4.82 x10^6/uL (3.50-5.40) Hemoglobin 14.5 g/dL (12.0-15.5) Hematocrit 42.5 % (36.0-47.0) Mean Corpuscular Volume 88 fL (79-100) Mean Corpuscular Hemoglobin 30 pg (25-35) Mean Corpuscular Hemoglobin Concent 34 g/dL (31-37) Red Cell Distribution Width 16.5 % (11.5-14.5) Platelet Count 189 x10^3/uL (140-400) Neutrophils (%) (Auto) 75 % (31-73) Lymphocytes (%) (Auto) 14 % (24-48) Monocytes (%) (Auto) 9 % (0-9) Eosinophils (%) (Auto) 2 % (0-3) Basophils (%) (Auto) 1 % (0-3) Neutrophils # (Auto) 6.6 x10^3uL (1.8-7.7) Lymphocytes # (Auto) 1.2 x10^3/uL (1.0-4.8) Monocytes # (Auto) 0.8 x10^3/uL (0.0-1.1) Eosinophils # (Auto) 0.1 x10^3/uL (0.0-0.7) Basophils # (Auto) 0.1 x10^3/uL (0.0-0.2) Sodium Level 139 mmol/L (136-145) Potassium Level 3.8 mmol/L (3.5-5.1) Chloride Level 102 mmol/L (98-107) Carbon Dioxide Level 30 mmol/L (21-32) Anion Gap 7 (6-14) Blood Urea Nitrogen 29 mg/dL (7-20) Creatinine 1.2 mg/dL (0.6-1.0) Estimated GFR (Cockcroft-Gault) 44.4 BUN/Creatinine Ratio 24 (6-20) Glucose Level 90 mg/dL (70-99) Calcium Level 9.1 mg/dL (8.5-10.1) Magnesium Level 2.0 mg/dL (1.8-2.4) Iron Level 45 ug/dL (50-170) Total Iron Binding Capacity 300 ug/dL (250-450) Iron Saturation 15 % (15-34) Total Bilirubin 0.8 mg/dL (0.2-1.0) Aspartate Amino Transf (AST/SGOT) 16 U/L (15-37) Alanine Aminotransferase (ALT/SGPT) 22 U/L (14-59) Alkaline Phosphatase 86 U/L (46-116) Total Protein 7.3 g/dL (6.4-8.2) Albumin 3.7 g/dL (3.4-5.0) Albumin/Globulin Ratio 1.0 (1.0-1.7) Triglycerides Level 107 mg/dL (0-150) Cholesterol Level 169 mg/dL (0-200) LDL Cholesterol, Calculated 90 mg/dL (0-100) VLDL Cholesterol, Calculated 21 mg/dL (0-40) Non-HDL Cholesterol Calculated 111 mg/dL (0-129) HDL Cholesterol 58 mg/dL (40-60) Cholesterol/HDL Ratio 2.0 Thyroid Stimulating Hormone (TSH) 2.396 uIU/mL (0.358-3.740) Valproic Acid (Depakene) Level 6 mcg/mL (50-100) Valproic Acid Last Dose Date 02/27/18 Valproic Acid Last Dose Time 0900 Assessment/Plan In general this is a 72-year-old female with an active urinary tract infection despite reportedly being on Bactrim DS for several weeks now changed over to cephalexin by the emergency department physician and a culture is pending. Her labs were overall unremarkable and her chronic medical issues appear to be controlled with current medical regimen. She has developed thrush likely from the prolonged course of Bactrim and oral nystatin therapy is initiated. We will treat with Diflucan 150 mg by mouth 1 for presumed vaginal yeast infection. We will continue to offer treatments as indicated. Thank you, Dr. Bullard, for allowing me to participate in the care of your patient. ELMO STEVEN DO Feb 28, 2018 14:44
[2018-02-28 16:04] VITALS: BP_SYST 116; BP_SYST 123; BP_DIAS 76; BP_DIAS 82
[2018-02-28] MEDS ORDERED: NYSTATIN 100,000 UNITS/ML ORAL SUSPENSION 60ML BOTTLE. SWSW SCH (17:00)
[2018-02-28] MEDS ORDERED: FLUCONAZOLE 100 MG TABLET. PO ONE (17:15)
[2018-02-28] MEDS: ATORVASTATIN CALCIUM 20 MG TABLET PO SCH (19:59)
[2018-02-28] MEDS: CARVEDILOL 3.125 MG TABLET PO SCH (19:59)
[2018-02-28 20:11] LABS: HEMOGLOBIN A1C 5.1 % (4.8-5.6)
[2018-02-28] MEDS: NYSTATIN 100,000 UNITS/ML ORAL SUSPENSION 60ML BOTTLE. SWSW SCH (21:00)
[2018-03-01 06:03] VITALS: BP 125/86
[2018-03-01] MEDS: POTASSIUM CHLORIDE 10 MEQ TABLET.ER. PO SCH (08:41)
[2018-03-01] MEDS: ASPIRIN 81 MG TAB.CHEW PO SCH (08:41)
[2018-03-01] MEDS: CYANOCOBALAMIN (VITAMIN B-12) 1,000 MCG TABLET. PO SCH (08:42)
[2018-03-01] MEDS: MEMANTINE 10 MG TABLET. PO SCH ×2 (08:42→20:22)
[2018-03-01] MEDS: POLYETHYLENE GLYCOL 3350 17 GM PACKET. PO SCH (08:42)
[2018-03-01] MEDS: buPROPion XL 300 MG TAB.ER.24H. PO SCH (08:42)
[2018-03-01] MEDS: NYSTATIN 100,000 UNITS/ML ORAL SUSPENSION 60ML BOTTLE. SWSW SCH ×4 (08:43→20:24)
[2018-03-01] MEDS: CITALOPRAM 20 MG TABLET. PO SCH (08:46)
[2018-03-01] MEDS: DIVALPROEX 125 MG CAP.SPRINK PO SCH ×2 (08:46→20:22)
[2018-03-01] MEDS: hydroCHLOROthiazide 25 MG TABLET PO SCH (08:46)
[2018-03-01] MEDS: POTASSIUM CHLORIDE 20 MEQ TABLET.ER. PO SCH (08:47)
[2018-03-01 16:08] VITALS: BP 136/83
[2018-03-01] MEDS ORDERED: traZODone 50 MG TABLET. PO PRN (17:30)
[2018-03-01] MEDS: CARVEDILOL 3.125 MG TABLET PO SCH (20:22)
[2018-03-01] MEDS: ATORVASTATIN CALCIUM 20 MG TABLET PO SCH (20:22)
[2018-03-01] MEDS: traZODone 50 MG TABLET. PO SCH (20:23)
[2018-03-01] MEDS: MIRTAZAPINE 7.5 MG TABLET. PO SCH (20:23)
--- NOTE | 2018-03-01 21:15 | PDOC ---
Exam Note: Robert Note: Late entry for DOS 02/28/2018. Please also refer to the separate dictated note~ for this date of service dictated separately.~Patient seen individually. Discussed the patient with Nursing staff reviewed the chart.~Reviewed interim history and current functioning. Reviewed vital signs,~Labs/ Radiology~and current medications noted below. Continue current treatment with the changes noted in the dictated addendum note Assessment: Vital Signs: VS - Last 72 Hours, by Label Date Time Temp Pulse Resp B/P (MAP) Pulse Ox O2 Delivery O2 Flow Rate FiO2 03/01/18 20:22 79 136/83 03/01/18 16:08 97.2 79 16 136/83 (100) 98 03/01/18 06:03 96.2 79 18 125/86 (99) 98 02/28/18 19:59 82 123/76 02/28/18 16:04 97.0 82 16 123/76 (92) 97 Room Air 02/28/18 05:35 97.5 106 20 117/81 (93) 97 02/28/18 03:32 97.4 74 16 135/82 (99) 99 02/27/18 21:55 68 18 133/86 (102) 99 Room Air 02/27/18 19:00 98.2 91 16 98 Room Air Vital Signs Date Time Temp Pulse Resp B/P (MAP) Pulse Ox O2 Delivery O2 Flow Rate FiO2 03/01/18 20:22 79 136/83 03/01/18 16:08 97.2 16 98 02/28/18 16:04 Room Air I&O Intake and Output 03/01/18 07:00 Intake Total 420 ml Balance 420 ml Intake Oral 420 ml Current Medications: Meds: Current Medications Cephalexin HCl (Keflex) 500 mg 1X ONCE PO Last administered on 02/27/18at 20: 32; Start 02/27/18 at 20:30; Stop 02/27/18 at 20:31; Status DC Acetaminophen (Tylenol) 650 mg PRN Q6HRS PRN PO PAIN / TEMP; Start 02/27/18 at 22:15; Status Cancel Multi-Ingredient Ointment (Analgesic [place]) 1 suzi PRN QID PRN TP MUSCLE PAIN; Start 02/27/18 at 22:15; Status Cancel Al Hydroxide/Mg Hydroxide (Mylanta Plus Xs) 15 ml PRN AFTMEALHC PRN PO DYSPEPSIA; Start 02/27/18 at 22:15 Magnesium Hydroxide (Milk Of Magnesia) 2,400 mg PRN QHS PRN PO CONSTIPATION; Start 02/27/18 at 22:15 Acetaminophen (Tylenol) 650 mg PRN Q6HRS PRN PO PAIN / TEMP; Start 02/27/18 at 23:45 Vitamin D (Vitamin D3) 50,000 unit QFR PO ; Start 03/03/18 at 16:00 Hydrochlorothiazide (Hydrodiuril) 25 mg DAILY PO Last administered on at 08:46; Start 02/28/18 at 09:00 Multi-Ingredient Ointment (Analgesic [place]) 1 suzi PRN QID PRN TP MUSCLE PAIN; Start 02/27/18 at 23:45 Nystatin (Nystop) 1 suzi PRN BID PRN TP RASH; Start 02/27/18 at 23:45 Atorvastatin Calcium (Lipitor) 80 mg QHS PO Last administered on 03/01/18at 20: 22; Start 02/28/18 at 21:00 Carvedilol (Coreg) 3.125 mg HS PO Last administered on 03/01/18 20:22; Start 02/28/18 at 21:00 Memantine (Namenda) 10 mg BID PO Last administered on 03/01/18 20:22; Start 02/28/18 at 09:00 Polyethylene Glycol (miraLAX) 17 gm DAILY PO Last administered on 03/01/18at 08 :42; Start 02/28/18 at 09:00 Bupropion HCl (Wellbutrin Xl) 300 mg DAILY PO Last administered on 03/01/18at 08:42; Start 02/28/18 at 09:00 Cyanocobalamin (Vitamin B-12) 1,000 mcg DAILY PO Last administered on at 08:42; Start 02/28/18 at 09:00 Guaifenesin (Robitussin) 5 mg PRN BID PRN PO COUGH; Start 02/28/18 at 00:30 Aspirin (Children'S Aspirin) 81 mg DAILYWBKFT PO Last administered on at 08:41; Start 02/28/18 at 08:00 Divalproex Sodium (Depakote Sprinkles) 125 mg BID PO Last administered on 03/01at 20:22; Start 02/28/18 at 09:00 Citalopram Hydrobromide (CeleXA) 40 mg DAILY PO Last administered on at 08:46; Start 02/28/18 at 09:00; Stop 03/01/18 at 17:16; Status DC Meclizine HCl (Antivert) 12.5 mg PRN Q8HRS PRN PO DIZZINESS; Start 02/28/18 at 00:30 Potassium Chloride (Klor-Con) 30 meq DAILY PO Last administered on 03/01/18at 08:41; Start 02/28/18 at 09:00 Potassium Chloride (Klor-Con) 20 meq DAILYWBKFT PO Last administered on at 08:47; Start 02/28/18 at 08:00; Stop 03/01/18 at 14:09; Status DC Triamcinolone Acetonide (Kenalog) 1 suzi PRN BID PRN TP DRY SKIN / SCALING; Start 02/28/18 at 00:30 Nystatin (Mycostatin) 5 ml QID SWSW ; Start 02/28/18 at 17:00; Stop 02/28/18 at 18:26; Status DC Fluconazole (Diflucan) 150 mg 1X ONCE PO Last administered on 02/28/18at 18:30 ; Start 02/28/18 at 17:15; Stop 02/28/18 at 17:17; Status DC Nystatin (Mycostatin) 5 ml QID SWSW Last administered on 03/01/18at 20:24; Start 02/28/18 at 21:00 Potassium Chloride (Klor-Con) 20 meq DAILYWSUP PO ; Start 03/02/18 at 17:00 Sertraline HCl (Zoloft) 50 mg DAILY PO ; Start 03/02/18 at 09:00 Mirtazapine (Remeron) 7.5 mg QHS PO Last administered on 03/01/18at 20:23; Start 03/01/18 at 21:00 Trazodone HCl (Desyrel) 50 mg QHS PO Last administered on 03/01/18at 20:23; Start 03/01/18 at 21:00 Trazodone HCl (Desyrel) 50 mg QHS PRN PO INSOMNIA; Start 03/01/18 at 17:30 Active Scripts Active Reported Lorazepam 0.5 Mg Tablet 0.25 Mg PO PRN Q6HRS PRN Vitamin B-12 (Cyanocobalamin (Vitamin B-12)) 1,000 Mcg Tablet 1,000 Mcg PO DAILY Triamcinolone Acetonide 15 Gm Cream..g. 1 Suzi TP PRN BID PRN Potassium Chloride 10 Meq Tablet.er 30 Meq PO DAILY Potassium Chloride 20 Meq Tablet.er 20 Meq PO DAILYBFRSUP Meclizine Hcl 25 Mg Tablet 25 Mg PO PRN Q8HRS PRN Guaifenesin 100 Mg/5 Ml Liquid 5 Mg PO PRN BID Escitalopram Oxalate 20 Mg Tablet 20 Mg PO HS Depakote Sprinkle (Divalproex Sodium) 125 Mg Cap.sprink 125 Mg PO BID Bupropion Xl (Bupropion Hcl) 300 Mg Tab.er.24h 300 Mg PO DAILY Aspirin 81 Mg Tab.chew 81 Mg PO DAILY Hydrochlorothiazide Tablet (Hydrochlorothiazide) 25 Mg Tablet 25 Mg PO DAILY Miralax (Polyethylene Glycol 3350) 17 Gm Powd.pack 17 Gm PO DAILY Nystop (Nystatin) 60 Gm Powder 1 Suzi TP PRN BID PRN Analgesic [place] (Methyl Salicylate/Menthol) 28 Gm Oint...g. 1 Suzi TP PRN QID PRN Vitamin D (Cholecalciferol (Vitamin D3)) 50,000 Unit Capsule 50,000 Unit PO QFR Tylenol (Acetaminophen) 325 Mg Tablet 650 Mg PO PRN Q6HRS PRN Namenda Xr (Memantine Hcl) 28 Mg Cap.spr.24 28 Mg PO DAILY Carvedilol 3.125 Mg Tablet 3.125 Mg PO HS Atorvastatin Calcium 80 Mg Tablet 80 Mg PO QHS I have reviewed the current psychotropics carefully including drug interactions. Risk benefit ratio favors no change other than as noted in my dictated progress note. Diagnosis: Problems: (1) Anxiety disorder (2) Dementia, vascular, with depression (3) Dementia, vascular, with delusions (4) Dementia in Alzheimer's disease with depression (5) Dementia in Alzheimer's disease with delusions (6) Impulse control disorder (7) Major neurocognitive disorder MELLISA DOBSON MD Mar 01, 2018 21:15
--- NOTE | 2018-03-01 23:18 | PN ---
DATE: 02/28/2018 PSYCHIATRIC PROGRESS NOTE This late entry 02/28/2018 covers elements not covered in my initial note. SUBJECTIVE: I met with the patient in the evening. The patient slept 4-3/4 hours previous night. She does have a UTI that has reflex to culture. We will defer to Dr. Oscar. She is confused, has word salad, restless, anxious, agitated frequently at the nursing station, tearful at times, wandering. She is quite tearful as I met with her. REVIEW OF SYSTEMS: No CV, , pulmonary, eye, ENT system symptoms on review. Reliability poor. MENTAL STATUS EXAM: Oriented to herself. Insight, judgment, recent and remote memory, attention, concentration, fund of knowledge poor, consistent with her diagnosis mentioned in my initial note. IMPRESSION: Major neurocognitive disorder, Alzheimer, vascular with delusion, depression, behavioral disturbance; anxiety disorder, unspecified; impulse control disorder, unspecified. PLAN: Treat the UTI. Maintain Wellbutrin-XL 300 mg a day, Depakote Sprinkles 125 b.i.d., level subtherapeutic at 6, may need to increase this, Lexapro 20 mg a day, Namenda 10 b.i.d., Ativan p.r.n. Adjust further as clinically indicated. MAN Alexander DOBSON MD DR: BRIDGETTE/murtaza JOB#: [id number] / [id number]
--- NOTE | 2018-03-01 23:24 | PDOC ---
Exam Note: Robert Note: Please also refer to the separate dictated note~for this date of service dictated separately.~Patient seen individually. Discussed the patient with Nursing staff reviewed the chart.~Reviewed interim history and current functioning. Reviewed vital signs,~Labs/ Radiology~and current medications noted below. Continue current treatment with the changes noted in the dictated addendum note Assessment: Vital Signs: Vital Signs Date Time Temp Pulse Resp B/P (MAP) Pulse Ox O2 Delivery O2 Flow Rate FiO2 03/01/18 20:22 79 136/83 03/01/18 16:08 97.2 16 98 02/28/18 16:04 Room Air I&O Intake and Output 03/01/18 07:00 Intake Total 420 ml Balance 420 ml Intake Oral 420 ml Current Medications: Meds: Current Medications Cephalexin HCl (Keflex) 500 mg 1X ONCE PO Last administered on 02/27/18at 20: 32; Start 02/27/18 at 20:30; Stop 02/27/18 at 20:31; Status DC Acetaminophen (Tylenol) 650 mg PRN Q6HRS PRN PO PAIN / TEMP; Start 02/27/18 at 22:15; Status Cancel Multi-Ingredient Ointment (Analgesic [place]) 1 suzi PRN QID PRN TP MUSCLE PAIN; Start 02/27/18 at 22:15; Status Cancel Al Hydroxide/Mg Hydroxide (Mylanta Plus Xs) 15 ml PRN AFTMEALHC PRN PO DYSPEPSIA; Start 02/27/18 at 22:15 Magnesium Hydroxide (Milk Of Magnesia) 2,400 mg PRN QHS PRN PO CONSTIPATION; Start 02/27/18 at 22:15 Acetaminophen (Tylenol) 650 mg PRN Q6HRS PRN PO PAIN / TEMP; Start 02/27/18 at 23:45 Vitamin D (Vitamin D3) 50,000 unit QFR PO ; Start 03/03/18 at 16:00 Hydrochlorothiazide (Hydrodiuril) 25 mg DAILY PO Last administered on at 08:46; Start 02/28/18 at 09:00 Multi-Ingredient Ointment (Analgesic [place]) 1 suzi PRN QID PRN TP MUSCLE PAIN; Start 02/27/18 at 23:45 Nystatin (Nystop) 1 suzi PRN BID PRN TP RASH; Start 02/27/18 at 23:45 Atorvastatin Calcium (Lipitor) 80 mg QHS PO Last administered on 03/01/18 20: 22; Start 02/28/18 at 21:00 Carvedilol (Coreg) 3.125 mg HS PO Last administered on 03/01/18 20:22; Start 02/28/18 at 21:00 Memantine (Namenda) 10 mg BID PO Last administered on 03/01/18 20:22; Start 02/28/18 at 09:00 Polyethylene Glycol (miraLAX) 17 gm DAILY PO Last administered on 03/01/18 08 :42; Start 02/28/18 at 09:00 Bupropion HCl (Wellbutrin Xl) 300 mg DAILY PO Last administered on 03/01/18 08:42; Start 02/28/18 at 09:00 Cyanocobalamin (Vitamin B-12) 1,000 mcg DAILY PO Last administered on 08:42; Start 02/28/18 at 09:00 Guaifenesin (Robitussin) 5 mg PRN BID PRN PO COUGH; Start 02/28/18 at 00:30 Aspirin (Children'S Aspirin) 81 mg DAILYWBKFT PO Last administered on 08:41; Start 02/28/18 at 08:00 Divalproex Sodium (Depakote Sprinkles) 125 mg BID PO Last administered on 03/01 20:22; Start 02/28/18 at 09:00 Citalopram Hydrobromide (CeleXA) 40 mg DAILY PO Last administered on 08:46; Start 02/28/18 at 09:00; Stop 03/01/18 at 17:16; Status DC Meclizine HCl (Antivert) 12.5 mg PRN Q8HRS PRN PO DIZZINESS; Start 02/28/18 at 00:30 Potassium Chloride (Klor-Con) 30 meq DAILY PO Last administered on 03/01/18 08:41; Start 02/28/18 at 09:00 Potassium Chloride (Klor-Con) 20 meq DAILYWBKFT PO Last administered on 08:47; Start 02/28/18 at 08:00; Stop 03/01/18 at 14:09; Status DC Triamcinolone Acetonide (Kenalog) 1 suzi PRN BID PRN TP DRY SKIN / SCALING; Start 02/28/18 at 00:30 Nystatin (Mycostatin) 5 ml QID SWSW ; Start 02/28/18 at 17:00; Stop 02/28/18 at 18:26; Status DC Fluconazole (Diflucan) 150 mg 1X ONCE PO Last administered on 02/28/18at 18:30 ; Start 02/28/18 at 17:15; Stop 02/28/18 at 17:17; Status DC Nystatin (Mycostatin) 5 ml QID SWSW Last administered on 03/01/18at 20:24; Start 02/28/18 at 21:00 Potassium Chloride (Klor-Con) 20 meq DAILYWSUP PO ; Start 03/02/18 at 17:00 Sertraline HCl (Zoloft) 50 mg DAILY PO ; Start 03/02/18 at 09:00 Mirtazapine (Remeron) 7.5 mg QHS PO Last administered on 03/01/18at 20:23; Start 03/01/18 at 21:00 Trazodone HCl (Desyrel) 50 mg QHS PO Last administered on 03/01/18at 20:23; Start 03/01/18 at 21:00 Trazodone HCl (Desyrel) 50 mg QHS PRN PO INSOMNIA; Start 03/01/18 at 17:30 Active Scripts Active Reported Lorazepam 0.5 Mg Tablet 0.25 Mg PO PRN Q6HRS PRN Vitamin B-12 (Cyanocobalamin (Vitamin B-12)) 1,000 Mcg Tablet 1,000 Mcg PO DAILY Triamcinolone Acetonide 15 Gm Cream..g. 1 Suzi TP PRN BID PRN Potassium Chloride 10 Meq Tablet.er 30 Meq PO DAILY Potassium Chloride 20 Meq Tablet.er 20 Meq PO DAILYBFRSUP Meclizine Hcl 25 Mg Tablet 25 Mg PO PRN Q8HRS PRN Guaifenesin 100 Mg/5 Ml Liquid 5 Mg PO PRN BID Escitalopram Oxalate 20 Mg Tablet 20 Mg PO HS Depakote Sprinkle (Divalproex Sodium) 125 Mg Cap.sprink 125 Mg PO BID Bupropion Xl (Bupropion Hcl) 300 Mg Tab.er.24h 300 Mg PO DAILY Aspirin 81 Mg Tab.chew 81 Mg PO DAILY Hydrochlorothiazide Tablet (Hydrochlorothiazide) 25 Mg Tablet 25 Mg PO DAILY Miralax (Polyethylene Glycol 3350) 17 Gm Powd.pack 17 Gm PO DAILY Nystop (Nystatin) 60 Gm Powder 1 Suzi TP PRN BID PRN Analgesic [place] (Methyl Salicylate/Menthol) 28 Gm Oint...g. 1 Suzi TP PRN QID PRN Vitamin D (Cholecalciferol (Vitamin D3)) 50,000 Unit Capsule 50,000 Unit PO QFR Tylenol (Acetaminophen) 325 Mg Tablet 650 Mg PO PRN Q6HRS PRN Namenda Xr (Memantine Hcl) 28 Mg Cap.spr.24 28 Mg PO DAILY Carvedilol 3.125 Mg Tablet 3.125 Mg PO HS Atorvastatin Calcium 80 Mg Tablet 80 Mg PO QHS I have reviewed the current psychotropics carefully including drug interactions. Risk benefit ratio favors no change other than as noted in my dictated progress note. Diagnosis: Problems: (1) Anxiety disorder (2) Dementia, vascular, with depression (3) Dementia, vascular, with delusions (4) Dementia in Alzheimer's disease with depression (5) Dementia in Alzheimer's disease with delusions (6) Impulse control disorder (7) Major neurocognitive disorder MELLISA DOBSON MD Mar 01, 2018 23:24
--- NOTE | 2018-03-02 01:17 | HP ---
ADMIT DATE: 02/28/2018 PSYCHIATRIC ADMISSION HISTORY/EVALUATION This late entry 02/28/2018 covers elements, not covered in my initial note. I met with the patient in the evening and previously discussed with nursing staff several times including prior to the patient's admission. IDENTIFYING DATA: The patient is a 72-year-old female referred to us from [facility] by Dr. Mai, her primary care physician; Dr. Laboy, her psychiatrist, on account of worsening symptoms of depression, not eating; crying, making statements about wanting to . She has been reporting screaming out over the weekend, telling staff to shut up things "something is wrong with my head." She has been refusing her medications, verbally aggressive, cursing. She has failed outpatient psychiatric interventions. HISTORY OF PRESENT ILLNESS: The patient has a history of dementia, Alzheimer's vascular type. She has been here with us before, but recently has been at [facility], doing reasonably well. About a week back, she started getting increasingly confused, anxious, depressed, psychotic, agitated. She has had sleep and appetite changes, worsening crying spells, psychosis and confusion. No symptoms of bipolar disorder, suicidal or homicidal ideation. PAST PSYCHIATRIC HISTORY: As above. MEDICAL HISTORY: UA has reflex to culture. She has a history of coronary artery disease, homonymous bilateral field defects left side, hyperlipidemia, hypertension, chronic constipation, myalgia, muscle weakness, cognitive communication deficit. CODE STATUS: Full. ALLERGIES: IODINE, CODEINE, LISINOPRIL. MEDICATIONS: Takes her medications whole. DIET: Mechanical soft, thin liquids, ambulates up ad parvez. CURRENT PSYCHOTROPICS: Wellbutrin-XL 300 mg a day, Depakote Sprinkles 125 b.i.d. Valproic acid level is 6, subtherapeutic Lexapro 20 mg a day, Ativan 0.5 every 4 hours p.r.n. anxiety, Namenda XR 28 mg a day. FAMILY HISTORY: Noncontributory. SOCIAL HISTORY: No history of alcohol, drug abuse, physical, sexual or elder abuse. She is not known to be a perpetrator. MENTAL STATUS EXAMINATION: The patient was seen individually on the evening of 02/28/2018. She is oriented to herself, anxious, restless, quite distracted. Did not remember me from prior visits. She was tearful at times. Insight, judgment, recent and remote memory, attention, concentration, fund of knowledge poor, consistent with her diagnosis. ASSETS: Stable living at the facility, reasonably physically healthy. REACTION TO HOSPITALIZATION: The patient oblivious of this. IMPRESSION: Major neurocognitive disorder, Alzheimer, vascular with delusion, depression, behavioral disturbance; anxiety disorder, unspecified; impulse control disorder, unspecified; probable urinary tract infection. Rest as above. PLAN: Admit to Geropsychiatry unit at [facility]. I will see the patient daily individually from a psychiatric standpoint, medical followup with Dr. Oscar/Dr. Moore. Continue the patient on her current psychotropics, treat the UTI if culture is positive. Adjust Depakote for mood stabilization. May need to add Lexapro, Celexa, or Zoloft, one of the SSRIs to augment the Wellbutrin for her mood symptoms. The Lexapro that she is on has been changed to Celexa for auto-substitution and on further review, we may actually have to use SNRIs in combination with Wellbutrin. She may also benefit from the addition of low dose Seroquel, both for anxiety and mood lability, but we will have to make all those decisions after the UTI clears and we see what is residual for her mood symptoms within the context of her dementia. Estimated length of stay is 10-12 days. DISPOSITION: Plans back to [facility] when psychiatrically stable. MELLISA DOBSON MD DR: BRIDGETTE/murtaza JOB#: [id number] / [id number]
[2018-03-02 06:13] VITALS: BP 125/75
[2018-03-02] MEDS: MEMANTINE 10 MG TABLET. PO SCH ×2 (07:50→19:41)
[2018-03-02] MEDS: CYANOCOBALAMIN (VITAMIN B-12) 1,000 MCG TABLET. PO SCH (07:51)
[2018-03-02] MEDS: buPROPion XL 300 MG TAB.ER.24H. PO SCH (07:51)
[2018-03-02] MEDS: DIVALPROEX 125 MG CAP.SPRINK PO SCH ×2 (07:51→19:41)
[2018-03-02] MEDS: hydroCHLOROthiazide 25 MG TABLET PO SCH (07:51)
[2018-03-02] MEDS: ASPIRIN 81 MG TAB.CHEW PO SCH (07:51)
[2018-03-02] MEDS: POLYETHYLENE GLYCOL 3350 17 GM PACKET. PO SCH (07:52)
[2018-03-02] MEDS: POTASSIUM CHLORIDE 10 MEQ TABLET.ER. PO SCH (07:52)
[2018-03-02] MEDS: NYSTATIN 100,000 UNITS/ML ORAL SUSPENSION 60ML BOTTLE. SWSW SCH ×4 (07:56→19:42)
[2018-03-02] MEDS: SERTRALINE 50 MG TABLET. PO SCH (07:56)
[2018-03-02 16:10] VITALS: BP 122/83
[2018-03-02] MEDS: POTASSIUM CHLORIDE 20 MEQ TABLET.ER. PO SCH (17:06)
[2018-03-02] MEDS: CARVEDILOL 3.125 MG TABLET PO SCH (19:40)
[2018-03-02] MEDS: MIRTAZAPINE 7.5 MG TABLET. PO SCH (19:41)
[2018-03-02] MEDS: traZODone 50 MG TABLET. PO SCH (19:41)
[2018-03-02] MEDS: ATORVASTATIN CALCIUM 20 MG TABLET PO SCH (19:41)
--- NOTE | 2018-03-02 23:20 | PDOC ---
Exam Note: Robert Note: Please also refer to the separate dictated note~for this date of service dictated separately.~Patient seen individually. Discussed the patient with Nursing staff reviewed the chart.~Reviewed interim history and current functioning. Reviewed vital signs,~Labs/ Radiology~and current medications noted below. Continue current treatment with the changes noted in the dictated addendum note Assessment: Vital Signs: Vital Signs Date Time Temp Pulse Resp B/P (MAP) Pulse Ox O2 Delivery O2 Flow Rate FiO2 03/02/18 19:40 97 122/83 03/02/18 16:10 97.3 20 95 Room Air I&O Intake and Output 03/02/18 07:00 Intake Total 780 ml Balance 780 ml Intake Oral 780 ml Current Medications: Meds: Current Medications Cephalexin HCl (Keflex) 500 mg 1X ONCE PO Last administered on 02/27/18at 20: 32; Start 02/27/18 at 20:30; Stop 02/27/18 at 20:31; Status DC Acetaminophen (Tylenol) 650 mg PRN Q6HRS PRN PO PAIN / TEMP; Start 02/27/18 at 22:15; Status Cancel Multi-Ingredient Ointment (Analgesic [place]) 1 suzi PRN QID PRN TP MUSCLE PAIN; Start 02/27/18 at 22:15; Status Cancel Al Hydroxide/Mg Hydroxide (Mylanta Plus Xs) 15 ml PRN AFTMEALHC PRN PO DYSPEPSIA; Start 02/27/18 at 22:15 Magnesium Hydroxide (Milk Of Magnesia) 2,400 mg PRN QHS PRN PO CONSTIPATION; Start 02/27/18 at 22:15 Acetaminophen (Tylenol) 650 mg PRN Q6HRS PRN PO PAIN / TEMP; Start 02/27/18 at 23:45 Vitamin D (Vitamin D3) 50,000 unit QFR PO ; Start 03/03/18 at 16:00 Hydrochlorothiazide (Hydrodiuril) 25 mg DAILY PO Last administered on at 07:51; Start 02/28/18 at 09:00 Multi-Ingredient Ointment (Analgesic [place]) 1 suzi PRN QID PRN TP MUSCLE PAIN; Start 02/27/18 at 23:45 Nystatin (Nystop) 1 suzi PRN BID PRN TP RASH; Start 02/27/18 at 23:45 Atorvastatin Calcium (Lipitor) 80 mg QHS PO Last administered on 03/02/18 19: 41; Start 02/28/18 at 21:00 Carvedilol (Coreg) 3.125 mg HS PO Last administered on 03/02/18 19:40; Start 02/28/18 at 21:00 Memantine (Namenda) 10 mg BID PO Last administered on 03/02/18 19:41; Start 02/28/18 at 09:00 Polyethylene Glycol (miraLAX) 17 gm DAILY PO Last administered on 03/02/18 07 :52; Start 02/28/18 at 09:00 Bupropion HCl (Wellbutrin Xl) 300 mg DAILY PO Last administered on 03/02/18 07:51; Start 02/28/18 at 09:00 Cyanocobalamin (Vitamin B-12) 1,000 mcg DAILY PO Last administered on 07:51; Start 02/28/18 at 09:00 Guaifenesin (Robitussin) 5 mg PRN BID PRN PO COUGH; Start 02/28/18 at 00:30 Aspirin (Children'S Aspirin) 81 mg DAILYWBKFT PO Last administered on 07:51; Start 02/28/18 at 08:00 Divalproex Sodium (Depakote Sprinkles) 125 mg BID PO Last administered on 03/02 19:41; Start 02/28/18 at 09:00 Citalopram Hydrobromide (CeleXA) 40 mg DAILY PO Last administered on 08:46; Start 02/28/18 at 09:00; Stop 03/01/18 at 17:16; Status DC Meclizine HCl (Antivert) 12.5 mg PRN Q8HRS PRN PO DIZZINESS; Start 02/28/18 at 00:30 Potassium Chloride (Klor-Con) 30 meq DAILY PO Last administered on 03/02/18 07:52; Start 02/28/18 at 09:00 Potassium Chloride (Klor-Con) 20 meq DAILYWBKFT PO Last administered on at 08:47; Start 02/28/18 at 08:00; Stop 03/01/18 at 14:09; Status DC Triamcinolone Acetonide (Kenalog) 1 suzi PRN BID PRN TP DRY SKIN / SCALING; Start 02/28/18 at 00:30 Nystatin (Mycostatin) 5 ml QID SWSW ; Start 02/28/18 at 17:00; Stop 02/28/18 at 18:26; Status DC Fluconazole (Diflucan) 150 mg 1X ONCE PO Last administered on 02/28/18at 18:30 ; Start 02/28/18 at 17:15; Stop 02/28/18 at 17:17; Status DC Nystatin (Mycostatin) 5 ml QID SWSW Last administered on 03/02/18at 19:42; Start 02/28/18 at 21:00 Potassium Chloride (Klor-Con) 20 meq DAILYWSUP PO Last administered on at 17:06; Start 03/02/18 at 17:00 Sertraline HCl (Zoloft) 50 mg DAILY PO Last administered on 03/02/18at 07:56; Start 03/02/18 at 09:00 Mirtazapine (Remeron) 7.5 mg QHS PO Last administered on 03/02/18at 19:41; Start 03/01/18 at 21:00 Trazodone HCl (Desyrel) 50 mg QHS PO Last administered on 03/02/18at 19:41; Start 03/01/18 at 21:00 Trazodone HCl (Desyrel) 50 mg QHS PRN PO INSOMNIA; Start 03/01/18 at 17:30 Active Scripts Active Reported Lorazepam 0.5 Mg Tablet 0.25 Mg PO PRN Q6HRS PRN Vitamin B-12 (Cyanocobalamin (Vitamin B-12)) 1,000 Mcg Tablet 1,000 Mcg PO DAILY Triamcinolone Acetonide 15 Gm Cream..g. 1 Suzi TP PRN BID PRN Potassium Chloride 10 Meq Tablet.er 30 Meq PO DAILY Potassium Chloride 20 Meq Tablet.er 20 Meq PO DAILYBFRSUP Meclizine Hcl 25 Mg Tablet 25 Mg PO PRN Q8HRS PRN Guaifenesin 100 Mg/5 Ml Liquid 5 Mg PO PRN BID Escitalopram Oxalate 20 Mg Tablet 20 Mg PO HS Depakote Sprinkle (Divalproex Sodium) 125 Mg Cap.sprink 125 Mg PO BID Bupropion Xl (Bupropion Hcl) 300 Mg Tab.er.24h 300 Mg PO DAILY Aspirin 81 Mg Tab.chew 81 Mg PO DAILY Hydrochlorothiazide Tablet (Hydrochlorothiazide) 25 Mg Tablet 25 Mg PO DAILY Miralax (Polyethylene Glycol 3350) 17 Gm Powd.pack 17 Gm PO DAILY Nystop (Nystatin) 60 Gm Powder 1 Suzi TP PRN BID PRN Analgesic [place] (Methyl Salicylate/Menthol) 28 Gm Oint...g. 1 Suzi TP PRN QID PRN Vitamin D (Cholecalciferol (Vitamin D3)) 50,000 Unit Capsule 50,000 Unit PO QFR Tylenol (Acetaminophen) 325 Mg Tablet 650 Mg PO PRN Q6HRS PRN Namenda Xr (Memantine Hcl) 28 Mg Cap.spr.24 28 Mg PO DAILY Carvedilol 3.125 Mg Tablet 3.125 Mg PO HS Atorvastatin Calcium 80 Mg Tablet 80 Mg PO QHS I have reviewed the current psychotropics carefully including drug interactions. Risk benefit ratio favors no change other than as noted in my dictated progress note. 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
[2018-03-03 05:43] VITALS: BP 121/81
[2018-03-03] MEDS: buPROPion XL 300 MG TAB.ER.24H. PO SCH (08:14)
[2018-03-03] MEDS: hydroCHLOROthiazide 25 MG TABLET PO SCH (08:14)
[2018-03-03] MEDS: POTASSIUM CHLORIDE 10 MEQ TABLET.ER. PO SCH (08:14)
[2018-03-03] MEDS: CYANOCOBALAMIN (VITAMIN B-12) 1,000 MCG TABLET. PO SCH (08:14)
[2018-03-03] MEDS: ASPIRIN 81 MG TAB.CHEW PO SCH (08:15)
[2018-03-03] MEDS: POLYETHYLENE GLYCOL 3350 17 GM PACKET. PO SCH (08:15)
[2018-03-03] MEDS: MEMANTINE 10 MG TABLET. PO SCH ×2 (08:15→19:56)
[2018-03-03] MEDS: SERTRALINE 50 MG TABLET. PO SCH (08:15)
[2018-03-03] MEDS: DIVALPROEX 125 MG CAP.SPRINK PO SCH ×2 (08:15→19:56)
[2018-03-03] MEDS: NYSTATIN 100,000 UNITS/ML ORAL SUSPENSION 60ML BOTTLE. SWSW SCH ×4 (08:20→20:01)
[2018-03-03 15:49] VITALS: BP 128/78
[2018-03-03] MEDS: CHOLECALCIFEROL (VITAMIN D3) 50,000 UNIT CAPSULE PO SCH (16:02)
[2018-03-03] MEDS: POTASSIUM CHLORIDE 20 MEQ TABLET.ER. PO SCH (16:02)
--- NOTE | 2018-03-03 17:20 | RAD ---
PQRS Compliance statement: One or more of the following individualized dose reduction techniques were utilized for this examination: 1. Automated exposure control. 2. Adjustment of the mA and/or kV according to patient size. 3. Use of iterative reconstruction technique. Indication:FALL THIS MORNING TECHNIQUE: CT head without IV contrast COMPARISON:None FINDINGS: No pathologic extra-axial or intra-axial fluid collection. Mild diffuse cerebral atrophy with ex vacuo dilation of the ventricles. Confluent low-attenuation is seen in the periventricular and deep white matter. No acute intracranial bleed. No focal loss of wong-white differentiation. Orbits within normal limits. No acute calvarial fractures. Visualized paranasal sinuses and mastoid air cells are clear. IMPRESSION: 1. No acute intracranial process. 2. White matter changes most likely secondary to chronic microvascular ischemic disease. Electronically signed by: Chad Garber DO (03/03/2018 5:17 PM) [facility]
[2018-03-03] MEDS: ATORVASTATIN CALCIUM 20 MG TABLET PO SCH (19:55)
[2018-03-03] MEDS: traZODone 50 MG TABLET. PO SCH (19:56)
[2018-03-03] MEDS: MIRTAZAPINE 7.5 MG TABLET. PO SCH (19:56)
[2018-03-03] MEDS: CARVEDILOL 3.125 MG TABLET PO SCH (19:56)
--- NOTE | 2018-03-03 20:45 | PN ---
DATE: 03/01/2018 PSYCHIATRIC PROGRESS NOTE This late entry 03/01/2018 covers elements not covered in my initial note. SUBJECTIVE: I met with the patient in the evening. The patient did not sleep at all the previous night. She remains confused, vision is poor. Speaks in word salad. REVIEW OF SYSTEMS: No CV, , pulmonary system symptoms on review. Vision poor. MENTAL STATUS EXAM: Oriented to herself. Insight, judgment, recent and remote memory, attention, concentration, fund of knowledge poor, consistent with her diagnosis mentioned in my initial note. IMPRESSION: Major neurocognitive disorder, Alzheimer, vascular with delusion, depression, behavioral disturbance; anxiety disorder, unspecified; impulse control disorder, unspecified. PLAN: Start Remeron 7.5 mg at bedtime. Continue Celexa 40 mg a day, but we will go ahead and change this to Zoloft 50 mg a day and start trazodone 50 mg at bedtime schedule, september repeat x 1 for insomnia. MAN Alexander DOBSON MD DR: BRIDGETTE/murtaza JOB#: [id number] / [id number]
--- NOTE | 2018-03-03 23:38 | PDOC ---
Exam Note: Robert Note: Please also refer to the separate dictated note~for this date of service dictated separately.~Patient seen individually. Discussed the patient with Nursing staff reviewed the chart.~Reviewed interim history and current functioning. Reviewed vital signs,~Labs/ Radiology~and current medications noted below. Continue current treatment with the changes noted in the dictated addendum note Assessment: Vital Signs: Vital Signs Date Time Temp Pulse Resp B/P (MAP) Pulse Ox O2 Delivery O2 Flow Rate FiO2 03/03/18 19:56 77 128/78 03/03/18 15:49 98.0 18 98 Room Air I&O Intake and Output 03/03/18 07:00 Intake Total 900 ml Balance 900 ml Intake Oral 900 ml # Voids 1 Current Medications: Meds: Current Medications Cephalexin HCl (Keflex) 500 mg 1X ONCE PO Last administered on 02/27/18at 20: 32; Start 02/27/18 at 20:30; Stop 02/27/18 at 20:31; Status DC Acetaminophen (Tylenol) 650 mg PRN Q6HRS PRN PO PAIN / TEMP; Start 02/27/18 at 22:15; Status Cancel Multi-Ingredient Ointment (Analgesic [place]) 1 suzi PRN QID PRN TP MUSCLE PAIN; Start 02/27/18 at 22:15; Status Cancel Al Hydroxide/Mg Hydroxide (Mylanta Plus Xs) 15 ml PRN AFTMEALHC PRN PO DYSPEPSIA; Start 02/27/18 at 22:15 Magnesium Hydroxide (Milk Of Magnesia) 2,400 mg PRN QHS PRN PO CONSTIPATION; Start 02/27/18 at 22:15 Acetaminophen (Tylenol) 650 mg PRN Q6HRS PRN PO PAIN / TEMP; Start 02/27/18 at 23:45 Vitamin D (Vitamin D3) 50,000 unit QFR PO Last administered on 03/03/18at 16:02 ; Start 03/03/18 at 16:00 Hydrochlorothiazide (Hydrodiuril) 25 mg DAILY PO Last administered on at 08:14; Start 02/28/18 at 09:00 Multi-Ingredient Ointment (Analgesic [place]) 1 suzi PRN QID PRN TP MUSCLE PAIN; Start 02/27/18 at 23:45 Nystatin (Nystop) 1 suzi PRN BID PRN TP RASH; Start 02/27/18 at 23:45 Atorvastatin Calcium (Lipitor) 80 mg QHS PO Last administered on 03/03/18 19: 55; Start 02/28/18 at 21:00 Carvedilol (Coreg) 3.125 mg HS PO Last administered on 03/03/18 19:56; Start 02/28/18 at 21:00 Memantine (Namenda) 10 mg BID PO Last administered on 03/03/18 19:56; Start 02/28/18 at 09:00 Polyethylene Glycol (miraLAX) 17 gm DAILY PO Last administered on 03/03/18 08 :15; Start 02/28/18 at 09:00 Bupropion HCl (Wellbutrin Xl) 300 mg DAILY PO Last administered on 03/03/18 08:14; Start 02/28/18 at 09:00 Cyanocobalamin (Vitamin B-12) 1,000 mcg DAILY PO Last administered on 08:14; Start 02/28/18 at 09:00 Guaifenesin (Robitussin) 5 mg PRN BID PRN PO COUGH; Start 02/28/18 at 00:30 Aspirin (Children'S Aspirin) 81 mg DAILYWBKFT PO Last administered on 08:15; Start 02/28/18 at 08:00 Divalproex Sodium (Depakote Sprinkles) 125 mg BID PO Last administered on 03/03 19:56; Start 02/28/18 at 09:00 Citalopram Hydrobromide (CeleXA) 40 mg DAILY PO Last administered on 08:46; Start 02/28/18 at 09:00; Stop 03/01/18 at 17:16; Status DC Meclizine HCl (Antivert) 12.5 mg PRN Q8HRS PRN PO DIZZINESS; Start 02/28/18 at 00:30 Potassium Chloride (Klor-Con) 30 meq DAILY PO Last administered on 03/03/18at 08:14; Start 02/28/18 at 09:00 Potassium Chloride (Klor-Con) 20 meq DAILYWBKFT PO Last administered on at 08:47; Start 02/28/18 at 08:00; Stop 03/01/18 at 14:09; Status DC Triamcinolone Acetonide (Kenalog) 1 suzi PRN BID PRN TP DRY SKIN / SCALING; Start 02/28/18 at 00:30 Nystatin (Mycostatin) 5 ml QID SWSW ; Start 02/28/18 at 17:00; Stop 02/28/18 at 18:26; Status DC Fluconazole (Diflucan) 150 mg 1X ONCE PO Last administered on 02/28/18at 18:30 ; Start 02/28/18 at 17:15; Stop 02/28/18 at 17:17; Status DC Nystatin (Mycostatin) 5 ml QID SWSW Last administered on 03/03/18at 20:01; Start 02/28/18 at 21:00 Potassium Chloride (Klor-Con) 20 meq DAILYWSUP PO Last administered on at 16:02; Start 03/02/18 at 17:00 Sertraline HCl (Zoloft) 50 mg DAILY PO Last administered on 03/03/18at 08:15; Start 03/02/18 at 09:00 Mirtazapine (Remeron) 7.5 mg QHS PO Last administered on 03/03/18at 19:56; Start 03/01/18 at 21:00 Trazodone HCl (Desyrel) 50 mg QHS PO Last administered on 03/03/18at 19:56; Start 03/01/18 at 21:00 Trazodone HCl (Desyrel) 50 mg QHS PRN PO INSOMNIA; Start 03/01/18 at 17:30 Active Scripts Active Reported Lorazepam 0.5 Mg Tablet 0.25 Mg PO PRN Q6HRS PRN Vitamin B-12 (Cyanocobalamin (Vitamin B-12)) 1,000 Mcg Tablet 1,000 Mcg PO DAILY Triamcinolone Acetonide 15 Gm Cream..g. 1 Suzi TP PRN BID PRN Potassium Chloride 10 Meq Tablet.er 30 Meq PO DAILY Potassium Chloride 20 Meq Tablet.er 20 Meq PO DAILYBFRSUP Meclizine Hcl 25 Mg Tablet 25 Mg PO PRN Q8HRS PRN Guaifenesin 100 Mg/5 Ml Liquid 5 Mg PO PRN BID Escitalopram Oxalate 20 Mg Tablet 20 Mg PO HS Depakote Sprinkle (Divalproex Sodium) 125 Mg Cap.sprink 125 Mg PO BID Bupropion Xl (Bupropion Hcl) 300 Mg Tab.er.24h 300 Mg PO DAILY Aspirin 81 Mg Tab.chew 81 Mg PO DAILY Hydrochlorothiazide Tablet (Hydrochlorothiazide) 25 Mg Tablet 25 Mg PO DAILY Miralax (Polyethylene Glycol 3350) 17 Gm Powd.pack 17 Gm PO DAILY Nystop (Nystatin) 60 Gm Powder 1 Suzi TP PRN BID PRN Analgesic [place] (Methyl Salicylate/Menthol) 28 Gm Oint...g. 1 Suzi TP PRN QID PRN Vitamin D (Cholecalciferol (Vitamin D3)) 50,000 Unit Capsule 50,000 Unit PO QFR Tylenol (Acetaminophen) 325 Mg Tablet 650 Mg PO PRN Q6HRS PRN Namenda Xr (Memantine Hcl) 28 Mg Cap.spr.24 28 Mg PO DAILY Carvedilol 3.125 Mg Tablet 3.125 Mg PO HS Atorvastatin Calcium 80 Mg Tablet 80 Mg PO QHS I have reviewed the current psychotropics carefully including drug interactions. Risk benefit ratio favors no change other than as noted in my dictated progress note. Diagnosis: Problems: (1) Anxiety disorder (2) Dementia, vascular, with depression (3) Dementia, vascular, with delusions (4) Dementia in Alzheimer's disease with depression (5) Dementia in Alzheimer's disease with delusions (6) Impulse control disorder (7) Major neurocognitive disorder MELLISA DOBSON MD Mar 03, 2018 23:38
[2018-03-04 06:25] VITALS: BP 118/67
[2018-03-04] MEDS: hydroCHLOROthiazide 25 MG TABLET PO SCH (09:11)
[2018-03-04] MEDS: ASPIRIN 81 MG TAB.CHEW PO SCH (09:11)
[2018-03-04] MEDS: DIVALPROEX 125 MG CAP.SPRINK PO SCH ×2 (09:11→20:22)
[2018-03-04] MEDS: CYANOCOBALAMIN (VITAMIN B-12) 1,000 MCG TABLET. PO SCH (09:12)
[2018-03-04] MEDS: SERTRALINE 50 MG TABLET. PO SCH (09:12)
[2018-03-04] MEDS: MEMANTINE 10 MG TABLET. PO SCH ×2 (09:12→20:22)
[2018-03-04] MEDS: POTASSIUM CHLORIDE 10 MEQ TABLET.ER. PO SCH (09:12)
[2018-03-04] MEDS: POLYETHYLENE GLYCOL 3350 17 GM PACKET. PO SCH (09:12)
[2018-03-04] MEDS: buPROPion XL 300 MG TAB.ER.24H. PO SCH (09:12)
[2018-03-04] MEDS: NYSTATIN 100,000 UNITS/ML ORAL SUSPENSION 60ML BOTTLE. SWSW SCH ×4 (09:13→20:23)
[2018-03-04 09:43] LABS: BASO # 0.1 x10^3/uL (0.0-0.2); BASO % 1 % (0-3); EOS # 0.2 x10^3/uL (0.0-0.7); EOS % 2 % (0-3); HEMOGLOBIN 13.7 g/dL (12.0-15.5); LYMPH % 13 % (24-48); MEAN CORPUSCULAR HEMOGLOBIN 30 pg (25-35); MEAN CORPUSCULAR HGB CONC 34 g/dL (31-37); MEAN CORPUSCULAR VOLUME 88 fL (79-100); MONO # 0.5 x10^3/uL (0.0-1.1); MONO % 7 % (0-9); NEUT # 5.9 x10^3uL (1.8-7.7); NEUT % 77 % (31-73); PLATELET COUNT 178 x10^3/uL (140-400); RED BLOOD COUNT 4.58 x10^6/uL (3.50-5.40); RED CELL DISTRIBUTION WIDTH 16.7 % (11.5-14.5); WHITE BLOOD COUNT 7.7 x10^3/uL (4.0-11.0)
[2018-03-04 10:02] LABS: ALBUMIN 3.2 g/dL (3.4-5.0); ALBUMIN/GLOBULIN RATIO 0.9 (1.0-1.7); CALCIUM 9.2 mg/dL (8.5-10.1); CREATININE 1.1 mg/dL (0.6-1.0); GFR 49.1; POTASSIUM 3.7 mmol/L (3.5-5.1); TOTAL BILIRUBIN 0.5 mg/dL (0.2-1.0); TOTAL PROTEIN 6.6 g/dL (6.4-8.2)
--- NOTE | 2018-03-04 13:11 | PN ---
DATE: 03/02/2018 PSYCHIATRIC PROGRESS NOTE This late entry 03/02/2018 covers elements, not covered in my initial note. SUBJECTIVE: I met with the patient in the evening. The patient was also staffed at a treatment team meeting with entire team in the morning and the patient's son was to attend the conference, but was unavailable. Overall, the patient remains confused, somewhat tearful, worsening confusion in the evening, slept 4-3/4 hours previous evening. Appetite somewhat poor. REVIEW OF SYSTEMS: No CV, , pulmonary, eye, ENT system symptoms on review. Reliability poor. MENTAL STATUS EXAM: Oriented to herself. Insight, judgment, recent and remote memory, attention, concentration, fund of knowledge poor, consistent with her diagnosis. She is not very verbal. LABORATORY DATA: Reviewed. IMPRESSION: Major neurocognitive disorder, Alzheimer, vascular with delusion, depression, behavioral disturbance; anxiety disorder, unspecified; impulse control disorder, unspecified. PLAN: Continue psychotropics from initial note; for now, Depakote, Wellbutrin, Namenda, Zoloft, Remeron and trazodone. Zoloft was substituted for Celexa. MAN Alexander DOBSON MD DR: BRIDGETTE/murtaza JOB#: [id number] / [id number]
[2018-03-04 16:51] VITALS: BP 117/86
[2018-03-04] MEDS: POTASSIUM CHLORIDE 20 MEQ TABLET.ER. PO SCH (17:29)
[2018-03-04] MEDS: MIRTAZAPINE 7.5 MG TABLET. PO SCH (20:22)
[2018-03-04] MEDS: traZODone 50 MG TABLET. PO SCH (20:22)
[2018-03-04] MEDS: ATORVASTATIN CALCIUM 20 MG TABLET PO SCH (20:23)
[2018-03-04] MEDS: CARVEDILOL 3.125 MG TABLET PO SCH (20:23)
--- NOTE | 2018-03-04 23:10 | PDOC ---
Exam Note: Robert Note: Please also refer to the separate dictated note~for this date of service dictated separately.~Patient seen individually. Discussed the patient with Nursing staff reviewed the chart.~Reviewed interim history and current functioning. Reviewed vital signs,~Labs/ Radiology~and current medications noted below. Continue current treatment with the changes noted in the dictated addendum note Assessment: Vital Signs: Vital Signs Date Time Temp Pulse Resp B/P (MAP) Pulse Ox O2 Delivery O2 Flow Rate FiO2 03/04/18 20:23 78 117/86 03/04/18 16:51 98.2 18 93 Room Air I&O Intake and Output 03/04/18 07:00 Intake Total 600 ml Balance 600 ml Intake Oral 600 ml # Voids 1 # Bowel Movements 2 Labs: Laboratory Tests Test 03/04/18 09:28 White Blood Count 7.7 x10^3/uL (4.0-11.0) Red Blood Count 4.58 x10^6/uL (3.50-5.40) Hemoglobin 13.7 g/dL (12.0-15.5) Hematocrit 40.0 % (36.0-47.0) Mean Corpuscular Volume 88 fL (79-100) Mean Corpuscular Hemoglobin 30 pg (25-35) Mean Corpuscular Hemoglobin Concent 34 g/dL (31-37) Red Cell Distribution Width 16.7 % (11.5-14.5) H Platelet Count 178 x10^3/uL (140-400) Neutrophils (%) (Auto) 77 % (31-73) H Lymphocytes (%) (Auto) 13 % (24-48) L Monocytes (%) (Auto) 7 % (0-9) Eosinophils (%) (Auto) 2 % (0-3) Basophils (%) (Auto) 1 % (0-3) Neutrophils # (Auto) 5.9 x10^3uL (1.8-7.7) Lymphocytes # (Auto) 1.0 x10^3/uL (1.0-4.8) Monocytes # (Auto) 0.5 x10^3/uL (0.0-1.1) Eosinophils # (Auto) 0.2 x10^3/uL (0.0-0.7) Basophils # (Auto) 0.1 x10^3/uL (0.0-0.2) Sodium Level 141 mmol/L (136-145) Potassium Level 3.7 mmol/L (3.5-5.1) Chloride Level 102 mmol/L (98-107) Carbon Dioxide Level 34 mmol/L (21-32) H Anion Gap 5 (6-14) L Blood Urea Nitrogen 15 mg/dL (7-20) Creatinine 1.1 mg/dL (0.6-1.0) H Estimated GFR (Cockcroft-Gault) 49.1 BUN/Creatinine Ratio 14 (6-20) Glucose Level 115 mg/dL (70-99) H Calcium Level 9.2 mg/dL (8.5-10.1) Total Bilirubin 0.5 mg/dL (0.2-1.0) Aspartate Amino Transferase (AST) 16 U/L (15-37) Alanine Aminotransferase (ALT) 24 U/L (14-59) Alkaline Phosphatase 82 U/L (46-116) Total Protein 6.6 g/dL (6.4-8.2) Albumin 3.2 g/dL (3.4-5.0) L Albumin/Globulin Ratio 0.9 (1.0-1.7) L Current Medications: Meds: Current Medications Cephalexin HCl (Keflex) 500 mg 1X ONCE PO Last administered on 02/27/18at 20: 32; Start 02/27/18 at 20:30; Stop 02/27/18 at 20:31; Status DC Acetaminophen (Tylenol) 650 mg PRN Q6HRS PRN PO PAIN / TEMP; Start 02/27/18 at 22:15; Status Cancel Multi-Ingredient Ointment (Analgesic [place]) 1 suzi PRN QID PRN TP MUSCLE PAIN; Start 02/27/18 at 22:15; Status Cancel Al Hydroxide/Mg Hydroxide (Mylanta Plus Xs) 15 ml PRN AFTMEALHC PRN PO DYSPEPSIA; Start 02/27/18 at 22:15 Magnesium Hydroxide (Milk Of Magnesia) 2,400 mg PRN QHS PRN PO CONSTIPATION; Start 02/27/18 at 22:15 Acetaminophen (Tylenol) 650 mg PRN Q6HRS PRN PO PAIN / TEMP; Start 02/27/18 at 23:45 Vitamin D (Vitamin D3) 50,000 unit QFR PO Last administered on 03/03/18 16:02 ; Start 03/03/18 at 16:00 Hydrochlorothiazide (Hydrodiuril) 25 mg DAILY PO Last administered on 09:11; Start 02/28/18 at 09:00 Multi-Ingredient Ointment (Analgesic [place]) 1 suzi PRN QID PRN TP MUSCLE PAIN; Start 02/27/18 at 23:45 Nystatin (Nystop) 1 suzi PRN BID PRN TP RASH; Start 02/27/18 at 23:45 Atorvastatin Calcium (Lipitor) 80 mg QHS PO Last administered on 03/04/18 20: 23; Start 02/28/18 at 21:00 Carvedilol (Coreg) 3.125 mg HS PO Last administered on 03/04/18 20:23; Start 02/28/18 at 21:00 Memantine (Namenda) 10 mg BID PO Last administered on 03/04/18 20:22; Start 02/28/18 at 09:00 Polyethylene Glycol (miraLAX) 17 gm DAILY PO Last administered on 03/04/18 09 :12; Start 02/28/18 at 09:00 Bupropion HCl (Wellbutrin Xl) 300 mg DAILY PO Last administered on 03/04/18 09:12; Start 02/28/18 at 09:00 Cyanocobalamin (Vitamin B-12) 1,000 mcg DAILY PO Last administered on 09:12; Start 02/28/18 at 09:00 Guaifenesin (Robitussin) 5 mg PRN BID PRN PO COUGH; Start 02/28/18 at 00:30 Aspirin (Children'S Aspirin) 81 mg DAILYWBKFT PO Last administered on 09:11; Start 02/28/18 at 08:00 Divalproex Sodium (Depakote Sprinkles) 125 mg BID PO Last administered on 03/04 20:22; Start 02/28/18 at 09:00 Citalopram Hydrobromide (CeleXA) 40 mg DAILY PO Last administered on at 08:46; Start 02/28/18 at 09:00; Stop 03/01/18 at 17:16; Status DC Meclizine HCl (Antivert) 12.5 mg PRN Q8HRS PRN PO DIZZINESS; Start 02/28/18 at 00:30 Potassium Chloride (Klor-Con) 30 meq DAILY PO Last administered on 03/04/18at 09:12; Start 02/28/18 at 09:00 Potassium Chloride (Klor-Con) 20 meq DAILYWBKFT PO Last administered on at 08:47; Start 02/28/18 at 08:00; Stop 03/01/18 at 14:09; Status DC Triamcinolone Acetonide (Kenalog) 1 suzi PRN BID PRN TP DRY SKIN / SCALING; Start 02/28/18 at 00:30 Nystatin (Mycostatin) 5 ml QID SWSW ; Start 02/28/18 at 17:00; Stop 02/28/18 at 18:26; Status DC Fluconazole (Diflucan) 150 mg 1X ONCE PO Last administered on 02/28/18at 18:30 ; Start 02/28/18 at 17:15; Stop 02/28/18 at 17:17; Status DC Nystatin (Mycostatin) 5 ml QID SWSW Last administered on 03/04/18at 20:23; Start 02/28/18 at 21:00 Potassium Chloride (Klor-Con) 20 meq DAILYWSUP PO Last administered on at 17:29; Start 03/02/18 at 17:00 Sertraline HCl (Zoloft) 50 mg DAILY PO Last administered on 03/04/18at 09:12; Start 03/02/18 at 09:00 Mirtazapine (Remeron) 7.5 mg QHS PO Last administered on 03/04/18at 20:22; Start 03/01/18 at 21:00 Trazodone HCl (Desyrel) 50 mg QHS PO Last administered on 03/04/18at 20:22; Start 03/01/18 at 21:00 Trazodone HCl (Desyrel) 50 mg QHS PRN PO INSOMNIA; Start 03/01/18 at 17:30 Active Scripts Active Reported Lorazepam 0.5 Mg Tablet 0.25 Mg PO PRN Q6HRS PRN Vitamin B-12 (Cyanocobalamin (Vitamin B-12)) 1,000 Mcg Tablet 1,000 Mcg PO DAILY Triamcinolone Acetonide 15 Gm Cream..g. 1 Suzi TP PRN BID PRN Potassium Chloride 10 Meq Tablet.er 30 Meq PO DAILY Potassium Chloride 20 Meq Tablet.er 20 Meq PO DAILYBFRSUP Meclizine Hcl 25 Mg Tablet 25 Mg PO PRN Q8HRS PRN Guaifenesin 100 Mg/5 Ml Liquid 5 Mg PO PRN BID Escitalopram Oxalate 20 Mg Tablet 20 Mg PO HS Depakote Sprinkle (Divalproex Sodium) 125 Mg Cap.sprink 125 Mg PO BID Bupropion Xl (Bupropion Hcl) 300 Mg Tab.er.24h 300 Mg PO DAILY Aspirin 81 Mg Tab.chew 81 Mg PO DAILY Hydrochlorothiazide Tablet (Hydrochlorothiazide) 25 Mg Tablet 25 Mg PO DAILY Miralax (Polyethylene Glycol 3350) 17 Gm Powd.pack 17 Gm PO DAILY Nystop (Nystatin) 60 Gm Powder 1 Suzi TP PRN BID PRN Analgesic Arjay (Methyl Salicylate/Menthol) 28 Gm Oint...g. 1 Suzi TP PRN QID PRN Vitamin D (Cholecalciferol (Vitamin D3)) 50,000 Unit Capsule 50,000 Unit PO QFR Tylenol (Acetaminophen) 325 Mg Tablet 650 Mg PO PRN Q6HRS PRN Namenda Xr (Memantine Hcl) 28 Mg Cap.spr.24 28 Mg PO DAILY Carvedilol 3.125 Mg Tablet 3.125 Mg PO HS Atorvastatin Calcium 80 Mg Tablet 80 Mg PO QHS I have reviewed the current psychotropics carefully including drug interactions. Risk benefit ratio favors no change other than as noted in my dictated progress note. Diagnosis: Problems: (1) Anxiety disorder (2) Dementia, vascular, with depression (3) Dementia, vascular, with delusions (4) Dementia in Alzheimer's disease with depression (5) Dementia in Alzheimer's disease with delusions (6) Impulse control disorder (7) Major neurocognitive disorder MELLISA DOBSON MD Mar 04, 2018 23:10
--- NOTE | 2018-03-04 23:49 | PN ---
DATE: 03/03/2018 This is a late entry for date of service 03/03/2018 and covers elements not covered in my initial note. SUBJECTIVE: I met with the patient in the evening. The patient slept 7-1/4 hours previous evening, remains somewhat tearful, anxious, depressed, but more compliant with her psychotropics. REVIEW OF SYSTEMS: No CV, , pulmonary, eye, ENT system symptoms on review. Reliability poor. MENTAL STATUS EXAM: Oriented to herself. Insight, judgment, recent and remote memory, attention, concentration, fund of knowledge poor, consistent with her diagnosis. LABORATORY DATA: Reviewed. IMPRESSION: Major neurocognitive disorder, Alzheimer, vascular with delusion, depression, behavioral disturbance. Rest unchanged. PLAN: We will increase Zoloft from 50 mg a day to 75 mg a day after 3 days of 50 mg. She did have a fall earlier in the day. CT head was checked and other than atrophy, is noncontributory with no acute changes. MAN Alexander DOBSON MD DR: BRIDGETTE/murtaza JOB#: [id number] / [id number]
[2018-03-05 06:14] VITALS: BP 114/95
[2018-03-05] MEDS: DIVALPROEX 125 MG CAP.SPRINK PO SCH ×2 (09:24→20:10)
[2018-03-05] MEDS: POTASSIUM CHLORIDE 10 MEQ TABLET.ER. PO SCH (09:24)
[2018-03-05] MEDS: SERTRALINE 50 MG TABLET. PO SCH (09:24)
[2018-03-05] MEDS: POLYETHYLENE GLYCOL 3350 17 GM PACKET. PO SCH (09:24)
[2018-03-05] MEDS: MEMANTINE 10 MG TABLET. PO SCH ×2 (09:24→20:09)
[2018-03-05] MEDS: buPROPion XL 300 MG TAB.ER.24H. PO SCH (09:24)
[2018-03-05] MEDS: hydroCHLOROthiazide 25 MG TABLET PO SCH (09:24)
[2018-03-05] MEDS: ASPIRIN 81 MG TAB.CHEW PO SCH (09:24)
[2018-03-05] MEDS: CYANOCOBALAMIN (VITAMIN B-12) 1,000 MCG TABLET. PO SCH (09:24)
[2018-03-05] MEDS: NYSTATIN 100,000 UNITS/ML ORAL SUSPENSION 60ML BOTTLE. SWSW SCH ×4 (10:19→20:12)
--- NOTE | 2018-03-05 13:03 | PN ---
DATE: 03/04/2018 This late entry, 03/04/2018, covers elements not covered in my initial note. SUBJECTIVE: I met with the patient in the evening. The patient's pain resistive to medications. Remains confused. Takes meds crushed in ice cream. REVIEW OF SYSTEMS: No CV, , pulmonary, eye, ENT system symptoms on review. Reliability poor. MENTAL STATUS EXAM: Oriented to herself. Insight, judgment, recent and remote memory, attention, concentration, fund of knowledge poor, consistent with her diagnosis mentioned in my initial note. IMPRESSION: Major neurocognitive disorder, Alzheimer, vascular with delusion, depression, behavioral disturbance; anxiety disorder, unspecified; impulse control disorder, unspecified. PLAN: No change from initial note. MAN Alexander DOBSON MD DR: BRIDGETTE/murtaza JOB#: [id number] / [id number]
[2018-03-05 16:46] VITALS: BP 132/85
[2018-03-05] MEDS: POTASSIUM CHLORIDE 20 MEQ TABLET.ER. PO SCH (17:12)
[2018-03-05] MEDS: traZODone 50 MG TABLET. PO SCH (20:09)
[2018-03-05] MEDS: MIRTAZAPINE 7.5 MG TABLET. PO SCH (20:09)
[2018-03-05] MEDS: ATORVASTATIN CALCIUM 20 MG TABLET PO SCH (20:10)
[2018-03-05] MEDS: CARVEDILOL 3.125 MG TABLET PO SCH (20:10)
--- NOTE | 2018-03-05 23:11 | PDOC ---
Exam Note: Robert Note: Please also refer to the separate dictated note~for this date of service dictated separately.~Patient seen individually. Discussed the patient with Nursing staff reviewed the chart.~Reviewed interim history and current functioning. Reviewed vital signs,~Labs/ Radiology~and current medications noted below. Continue current treatment with the changes noted in the dictated addendum note Assessment: Vital Signs: Vital Signs Date Time Temp Pulse Resp B/P (MAP) Pulse Ox O2 Delivery O2 Flow Rate FiO2 03/05/18 20:10 76 132/85 03/05/18 16:46 97.1 18 94 Room Air I&O Intake and Output 03/05/18 07:00 Intake Total 840 ml Balance 840 ml Intake Oral 840 ml Current Medications: Meds: Current Medications Cephalexin HCl (Keflex) 500 mg 1X ONCE PO Last administered on 02/27/18at 20: 32; Start 02/27/18 at 20:30; Stop 02/27/18 at 20:31; Status DC Acetaminophen (Tylenol) 650 mg PRN Q6HRS PRN PO PAIN / TEMP; Start 02/27/18 at 22:15; Status Cancel Multi-Ingredient Ointment (Analgesic [place]) 1 suzi PRN QID PRN TP MUSCLE PAIN; Start 02/27/18 at 22:15; Status Cancel Al Hydroxide/Mg Hydroxide (Mylanta Plus Xs) 15 ml PRN AFTMEALHC PRN PO DYSPEPSIA; Start 02/27/18 at 22:15 Magnesium Hydroxide (Milk Of Magnesia) 2,400 mg PRN QHS PRN PO CONSTIPATION; Start 02/27/18 at 22:15 Acetaminophen (Tylenol) 650 mg PRN Q6HRS PRN PO PAIN / TEMP; Start 02/27/18 at 23:45 Vitamin D (Vitamin D3) 50,000 unit QFR PO Last administered on 03/03/18at 16:02 ; Start 03/03/18 at 16:00 Hydrochlorothiazide (Hydrodiuril) 25 mg DAILY PO Last administered on at 09:24; Start 02/28/18 at 09:00 Multi-Ingredient Ointment (Analgesic [place]) 1 suzi PRN QID PRN TP MUSCLE PAIN; Start 02/27/18 at 23:45 Nystatin (Nystop) 1 suzi PRN BID PRN TP RASH; Start 02/27/18 at 23:45 Atorvastatin Calcium (Lipitor) 80 mg QHS PO Last administered on 03/05/18 20: 10; Start 02/28/18 at 21:00 Carvedilol (Coreg) 3.125 mg HS PO Last administered on 03/05/18 20:10; Start 02/28/18 at 21:00 Memantine (Namenda) 10 mg BID PO Last administered on 03/05/18 20:09; Start 02/28/18 at 09:00 Polyethylene Glycol (miraLAX) 17 gm DAILY PO Last administered on 03/05/18 09 :24; Start 02/28/18 at 09:00 Bupropion HCl (Wellbutrin Xl) 300 mg DAILY PO Last administered on 03/05/18 09:24; Start 02/28/18 at 09:00 Cyanocobalamin (Vitamin B-12) 1,000 mcg DAILY PO Last administered on 09:24; Start 02/28/18 at 09:00 Guaifenesin (Robitussin) 5 mg PRN BID PRN PO COUGH; Start 02/28/18 at 00:30 Aspirin (Children'S Aspirin) 81 mg DAILYWBKFT PO Last administered on 09:24; Start 02/28/18 at 08:00 Divalproex Sodium (Depakote Sprinkles) 125 mg BID PO Last administered on 03/05 20:10; Start 02/28/18 at 09:00 Citalopram Hydrobromide (CeleXA) 40 mg DAILY PO Last administered on 08:46; Start 02/28/18 at 09:00; Stop 03/01/18 at 17:16; Status DC Meclizine HCl (Antivert) 12.5 mg PRN Q8HRS PRN PO DIZZINESS; Start 02/28/18 at 00:30 Potassium Chloride (Klor-Con) 30 meq DAILY PO Last administered on 03/05/18 09:24; Start 02/28/18 at 09:00 Potassium Chloride (Klor-Con) 20 meq DAILYWBKFT PO Last administered on at 08:47; Start 02/28/18 at 08:00; Stop 03/01/18 at 14:09; Status DC Triamcinolone Acetonide (Kenalog) 1 suzi PRN BID PRN TP DRY SKIN / SCALING; Start 02/28/18 at 00:30 Nystatin (Mycostatin) 5 ml QID SWSW ; Start 02/28/18 at 17:00; Stop 02/28/18 at 18:26; Status DC Fluconazole (Diflucan) 150 mg 1X ONCE PO Last administered on 02/28/18at 18:30 ; Start 02/28/18 at 17:15; Stop 02/28/18 at 17:17; Status DC Nystatin (Mycostatin) 5 ml QID SWSW Last administered on 03/05/18at 20:12; Start 02/28/18 at 21:00 Potassium Chloride (Klor-Con) 20 meq DAILYWSUP PO Last administered on at 17:12; Start 03/02/18 at 17:00 Sertraline HCl (Zoloft) 50 mg DAILY PO Last administered on 03/05/18at 09:24; Start 03/02/18 at 09:00 Mirtazapine (Remeron) 7.5 mg QHS PO Last administered on 03/05/18at 20:09; Start 03/01/18 at 21:00 Trazodone HCl (Desyrel) 50 mg QHS PO Last administered on 03/05/18at 20:09; Start 03/01/18 at 21:00 Trazodone HCl (Desyrel) 50 mg QHS PRN PO INSOMNIA; Start 03/01/18 at 17:30 Active Scripts Active Reported Lorazepam 0.5 Mg Tablet 0.25 Mg PO PRN Q6HRS PRN Vitamin B-12 (Cyanocobalamin (Vitamin B-12)) 1,000 Mcg Tablet 1,000 Mcg PO DAILY Triamcinolone Acetonide 15 Gm Cream..g. 1 Suzi TP PRN BID PRN Potassium Chloride 10 Meq Tablet.er 30 Meq PO DAILY Potassium Chloride 20 Meq Tablet.er 20 Meq PO DAILYBFRSUP Meclizine Hcl 25 Mg Tablet 25 Mg PO PRN Q8HRS PRN Guaifenesin 100 Mg/5 Ml Liquid 5 Mg PO PRN BID Escitalopram Oxalate 20 Mg Tablet 20 Mg PO HS Depakote Sprinkle (Divalproex Sodium) 125 Mg Cap.sprink 125 Mg PO BID Bupropion Xl (Bupropion Hcl) 300 Mg Tab.er.24h 300 Mg PO DAILY Aspirin 81 Mg Tab.chew 81 Mg PO DAILY Hydrochlorothiazide Tablet (Hydrochlorothiazide) 25 Mg Tablet 25 Mg PO DAILY Miralax (Polyethylene Glycol 3350) 17 Gm Powd.pack 17 Gm PO DAILY Nystop (Nystatin) 60 Gm Powder 1 Suzi TP PRN BID PRN Analgesic [place] (Methyl Salicylate/Menthol) 28 Gm Oint...g. 1 Suzi TP PRN QID PRN Vitamin D (Cholecalciferol (Vitamin D3)) 50,000 Unit Capsule 50,000 Unit PO QFR Tylenol (Acetaminophen) 325 Mg Tablet 650 Mg PO PRN Q6HRS PRN Namenda Xr (Memantine Hcl) 28 Mg Cap.spr.24 28 Mg PO DAILY Carvedilol 3.125 Mg Tablet 3.125 Mg PO HS Atorvastatin Calcium 80 Mg Tablet 80 Mg PO QHS I have reviewed the current psychotropics carefully including drug interactions. Risk benefit ratio favors no change other than as noted in my dictated progress note. Diagnosis: Problems: (1) Anxiety disorder (2) Dementia, vascular, with depression (3) Dementia, vascular, with delusions (4) Dementia in Alzheimer's disease with depression (5) Dementia in Alzheimer's disease with delusions (6) Impulse control disorder (7) Major neurocognitive disorder MELLISA DOBSON MD Mar 05, 2018 23:11
[2018-03-06 06:13] VITALS: BP 121/66
[2018-03-06] MEDS: ASPIRIN 81 MG TAB.CHEW PO SCH (09:06)
[2018-03-06] MEDS: POLYETHYLENE GLYCOL 3350 17 GM PACKET. PO SCH (09:06)
[2018-03-06] MEDS: DIVALPROEX 125 MG CAP.SPRINK PO SCH ×2 (09:06→20:25)
[2018-03-06] MEDS: hydroCHLOROthiazide 25 MG TABLET PO SCH (09:07)
[2018-03-06] MEDS: POTASSIUM CHLORIDE 10 MEQ TABLET.ER. PO SCH (09:07)
[2018-03-06] MEDS: MEMANTINE 10 MG TABLET. PO SCH ×2 (09:08→20:25)
[2018-03-06] MEDS: buPROPion XL 300 MG TAB.ER.24H. PO SCH (09:08)
[2018-03-06] MEDS: SERTRALINE 50 MG TABLET. PO SCH (09:08)
[2018-03-06] MEDS: CYANOCOBALAMIN (VITAMIN B-12) 1,000 MCG TABLET. PO SCH (09:09)
[2018-03-06] MEDS: NYSTATIN 100,000 UNITS/ML ORAL SUSPENSION 60ML BOTTLE. SWSW SCH ×4 (09:24→20:24)
[2018-03-06 15:41] VITALS: BP 129/78
[2018-03-06] MEDS: POTASSIUM CHLORIDE 20 MEQ TABLET.ER. PO SCH (17:14)
--- NOTE | 2018-03-06 20:02 | PN ---
DATE: 03/05/2018 PSYCHIATRIC PROGRESS NOTE This late entry 03/05/2018 covers elements not covered in my initial note. SUBJECTIVE: I met with the patient in the evening. The patient slept 7-1/4 hours previous evening. She remains confused, withdrawn, had a good day, oblivious to her surroundings. REVIEW OF SYSTEMS: Poor vision. No CV, , pulmonary, ENT system symptoms on review. Reliability poor. MENTAL STATUS EXAM: Oriented to herself. Insight, judgment, recent, and remote memory, attention, concentration, fund of knowledge poor consistent with her diagnosis mentioned in my initial note. IMPRESSION: Major neurocognitive disorder, Alzheimer, vascular with delusion, depression, behavioral disturbance. Rest unchanged. PLAN: No change from initial note, may need to adjust Depakote gradually. Last checked valproic acid level was 6 on Depakote Sprinkles 125 b.i.d. Continue rest unchanged. MAN Alexander DOBSON MD DR: BRIDGETTE/murtaza JOB#: [id number] / [id number]
[2018-03-06] MEDS: MIRTAZAPINE 7.5 MG TABLET. PO SCH (20:25)
[2018-03-06] MEDS: traZODone 50 MG TABLET. PO SCH (20:25)
[2018-03-06] MEDS: ATORVASTATIN CALCIUM 20 MG TABLET PO SCH (20:26)
[2018-03-06] MEDS: CARVEDILOL 3.125 MG TABLET PO SCH (20:26)
--- NOTE | 2018-03-06 23:13 | PDOC ---
Exam Note: Robert Note: Please also refer to the separate dictated note~for this date of service dictated separately.~Patient seen individually. Discussed the patient with Nursing staff reviewed the chart.~Reviewed interim history and current functioning. Reviewed vital signs,~Labs/ Radiology~and current medications noted below. Continue current treatment with the changes noted in the dictated addendum note Assessment: Vital Signs: Vital Signs Date Time Temp Pulse Resp B/P (MAP) Pulse Ox O2 Delivery O2 Flow Rate FiO2 03/06/18 20:26 95 129/78 03/06/18 15:41 97.6 22 97 Room Air I&O Intake and Output 03/06/18 07:00 Intake Total 520 ml Balance 520 ml Intake Oral 520 ml Current Medications: Meds: Current Medications Cephalexin HCl (Keflex) 500 mg 1X ONCE PO Last administered on 02/27/18at 20: 32; Start 02/27/18 at 20:30; Stop 02/27/18 at 20:31; Status DC Acetaminophen (Tylenol) 650 mg PRN Q6HRS PRN PO PAIN / TEMP; Start 02/27/18 at 22:15; Status Cancel Multi-Ingredient Ointment (Analgesic [place]) 1 suzi PRN QID PRN TP MUSCLE PAIN; Start 02/27/18 at 22:15; Status Cancel Al Hydroxide/Mg Hydroxide (Mylanta Plus Xs) 15 ml PRN AFTMEALHC PRN PO DYSPEPSIA; Start 02/27/18 at 22:15 Magnesium Hydroxide (Milk Of Magnesia) 2,400 mg PRN QHS PRN PO CONSTIPATION; Start 02/27/18 at 22:15 Acetaminophen (Tylenol) 650 mg PRN Q6HRS PRN PO PAIN / TEMP Last administered on 03/06/18at 15:39; Start 02/27/18 at 23:45 Vitamin D (Vitamin D3) 50,000 unit QFR PO Last administered on 03/03/18at 16:02 ; Start 03/03/18 at 16:00 Hydrochlorothiazide (Hydrodiuril) 25 mg DAILY PO Last administered on at 09:07; Start 02/28/18 at 09:00 Multi-Ingredient Ointment (Analgesic [place]) 1 suzi PRN QID PRN TP MUSCLE PAIN; Start 02/27/18 at 23:45 Nystatin (Nystop) 1 suzi PRN BID PRN TP RASH; Start 02/27/18 at 23:45 Atorvastatin Calcium (Lipitor) 80 mg QHS PO Last administered on 03/06/18 20: 26; Start 02/28/18 at 21:00 Carvedilol (Coreg) 3.125 mg HS PO Last administered on 03/06/18 20:26; Start 02/28/18 at 21:00 Memantine (Namenda) 10 mg BID PO Last administered on 03/06/18 20:25; Start 02/28/18 at 09:00 Polyethylene Glycol (miraLAX) 17 gm DAILY PO Last administered on 03/06/18 09 :06; Start 02/28/18 at 09:00 Bupropion HCl (Wellbutrin Xl) 300 mg DAILY PO Last administered on 03/06/18 09:08; Start 02/28/18 at 09:00 Cyanocobalamin (Vitamin B-12) 1,000 mcg DAILY PO Last administered on 09:09; Start 02/28/18 at 09:00 Guaifenesin (Robitussin) 5 mg PRN BID PRN PO COUGH; Start 02/28/18 at 00:30 Aspirin (Children'S Aspirin) 81 mg DAILYWBKFT PO Last administered on 09:06; Start 02/28/18 at 08:00 Divalproex Sodium (Depakote Sprinkles) 125 mg BID PO Last administered on 03/06 09:06; Start 02/28/18 at 09:00; Stop 03/06/18 at 18:55; Status DC Citalopram Hydrobromide (CeleXA) 40 mg DAILY PO Last administered on 08:46; Start 02/28/18 at 09:00; Stop 03/01/18 at 17:16; Status DC Meclizine HCl (Antivert) 12.5 mg PRN Q8HRS PRN PO DIZZINESS; Start 02/28/18 at 00:30 Potassium Chloride (Klor-Con) 30 meq DAILY PO Last administered on 03/06/18 09:07; Start 02/28/18 at 09:00 Potassium Chloride (Klor-Con) 20 meq DAILYWBKFT PO Last administered on 10/24/ 18at 08:47; Start 02/28/18 at 08:00; Stop 03/01/18 at 14:09; Status DC Triamcinolone Acetonide (Kenalog) 1 suzi PRN BID PRN TP DRY SKIN / SCALING; Start 02/28/18 at 00:30 Nystatin (Mycostatin) 5 ml QID SWSW ; Start 02/28/18 at 17:00; Stop 02/28/18 at 18:26; Status DC Fluconazole (Diflucan) 150 mg 1X ONCE PO Last administered on 02/28/18at 18:30 ; Start 02/28/18 at 17:15; Stop 02/28/18 at 17:17; Status DC Nystatin (Mycostatin) 5 ml QID SWSW Last administered on 03/06/18at 20:24; Start 02/28/18 at 21:00 Potassium Chloride (Klor-Con) 20 meq DAILYWSUP PO Last administered on at 17:14; Start 03/02/18 at 17:00 Sertraline HCl (Zoloft) 50 mg DAILY PO Last administered on 03/06/18at 09:08; Start 03/02/18 at 09:00 Mirtazapine (Remeron) 7.5 mg QHS PO Last administered on 03/06/18 20:25; Start 03/01/18 at 21:00 Trazodone HCl (Desyrel) 50 mg QHS PO Last administered on 03/06/18at 20:25; Start 03/01/18 at 21:00 Trazodone HCl (Desyrel) 50 mg QHS PRN PO INSOMNIA; Start 03/01/18 at 17:30 Divalproex Sodium (Depakote Sprinkles) 250 mg BID PO Last administered on 03/06at 20:25; Start 03/06/18 at 21:00 Active Scripts Active Reported Lorazepam 0.5 Mg Tablet 0.25 Mg PO PRN Q6HRS PRN Vitamin B-12 (Cyanocobalamin (Vitamin B-12)) 1,000 Mcg Tablet 1,000 Mcg PO DAILY Triamcinolone Acetonide 15 Gm Cream..g. 1 Suzi TP PRN BID PRN Potassium Chloride 10 Meq Tablet.er 30 Meq PO DAILY Potassium Chloride 20 Meq Tablet.er 20 Meq PO DAILYBFRSUP Meclizine Hcl 25 Mg Tablet 25 Mg PO PRN Q8HRS PRN Guaifenesin 100 Mg/5 Ml Liquid 5 Mg PO PRN BID Escitalopram Oxalate 20 Mg Tablet 20 Mg PO HS Depakote Sprinkle (Divalproex Sodium) 125 Mg Cap.sprink 125 Mg PO BID Bupropion Xl (Bupropion Hcl) 300 Mg Tab.er.24h 300 Mg PO DAILY Aspirin 81 Mg Tab.chew 81 Mg PO DAILY Hydrochlorothiazide Tablet (Hydrochlorothiazide) 25 Mg Tablet 25 Mg PO DAILY Miralax (Polyethylene Glycol 3350) 17 Gm Powd.pack 17 Gm PO DAILY Nystop (Nystatin) 60 Gm Powder 1 Suzi TP PRN BID PRN Analgesic [place] (Methyl Salicylate/Menthol) 28 Gm Oint...g. 1 Suzi TP PRN QID PRN Vitamin D (Cholecalciferol (Vitamin D3)) 50,000 Unit Capsule 50,000 Unit PO QFR Tylenol (Acetaminophen) 325 Mg Tablet 650 Mg PO PRN Q6HRS PRN Namenda Xr (Memantine Hcl) 28 Mg Cap.spr.24 28 Mg PO DAILY Carvedilol 3.125 Mg Tablet 3.125 Mg PO HS Atorvastatin Calcium 80 Mg Tablet 80 Mg PO QHS I have reviewed the current psychotropics carefully including drug interactions. Risk benefit ratio favors no change other than as noted in my dictated progress note. Diagnosis: Problems: (1) Anxiety disorder (2) Dementia, vascular, with depression (3) Dementia, vascular, with delusions (4) Dementia in Alzheimer's disease with depression (5) Dementia in Alzheimer's disease with delusions (6) Impulse control disorder (7) Major neurocognitive disorder MELLISA DOBSON MD Mar 06, 2018 23:13
[2018-03-07 06:35] VITALS: BP 108/66
[2018-03-07] MEDS: ASPIRIN 81 MG TAB.CHEW PO SCH (08:00)
[2018-03-07] MEDS: POTASSIUM CHLORIDE 10 MEQ TABLET.ER. PO SCH (09:00)
[2018-03-07] MEDS: hydroCHLOROthiazide 25 MG TABLET PO SCH (09:14)
[2018-03-07] MEDS: DIVALPROEX 125 MG CAP.SPRINK PO SCH ×2 (09:14→19:24)
[2018-03-07] MEDS: POTASSIUM CHLORIDE 20 MEQ TABLET.ER. PO SCH (09:15)
[2018-03-07] MEDS: POLYETHYLENE GLYCOL 3350 17 GM PACKET. PO SCH (09:17)
[2018-03-07] MEDS: NYSTATIN 100,000 UNITS/ML ORAL SUSPENSION 60ML BOTTLE. SWSW SCH ×4 (09:17→19:28)
[2018-03-07] MEDS: CYANOCOBALAMIN (VITAMIN B-12) 1,000 MCG TABLET. PO SCH (09:18)
[2018-03-07] MEDS: buPROPion XL 300 MG TAB.ER.24H. PO SCH (09:18)
[2018-03-07] MEDS: SERTRALINE 50 MG TABLET. PO SCH (09:20)
[2018-03-07] MEDS: MEMANTINE 10 MG TABLET. PO SCH ×2 (09:20→19:25)
[2018-03-07 16:08] VITALS: BP 106/59
[2018-03-07] MEDS: CARVEDILOL 3.125 MG TABLET PO SCH (19:23)
[2018-03-07] MEDS: traZODone 50 MG TABLET. PO SCH (19:24)
[2018-03-07] MEDS: MIRTAZAPINE 7.5 MG TABLET. PO SCH (19:25)
[2018-03-07] MEDS: ATORVASTATIN CALCIUM 20 MG TABLET PO SCH (19:25)
--- NOTE | 2018-03-07 21:39 | PN ---
DATE: 03/06/2018 PSYCHIATRIC PROGRESS NOTE This late entry 03/06/2018 covers elements not covered in my initial note. SUBJECTIVE: I met with the patient in the evening. The patient slept 8 hours previous night. She is trying to sit on a chair, almost missed it, but she has poor vision, ended up sitting on the floor. REVIEW OF SYSTEMS: No CV, , pulmonary, ENT system symptoms on review. Reliability poor. MENTAL STATUS EXAM: Oriented to herself. Insight, judgment, recent and remote memory, attention, concentration, fund of knowledge poor, consistent with her diagnosis mentioned in my initial note. IMPRESSION: Major neurocognitive disorder, Alzheimer, vascular with delusion, depression, behavioral disturbance; anxiety disorder, unspecified; impulse control disorder, unspecified. Valproic acid level on 02/27/2018 was 6. We will increase Depakote Sprinkles from 125 b.i.d. to 250 b.i.d. Check CBC, CMP, valproic acid level in 3 days. Rest psychotropics unchanged from initial note. MAN Alexander DOBSON MD DR: BRIDGETTE/murtaza JOB#: [id number] / [id number]
--- NOTE | 2018-03-07 23:13 | PDOC ---
Exam Note: Robert Note: Please also refer to the separate dictated note~for this date of service dictated separately.~Patient seen individually. Discussed the patient with Nursing staff reviewed the chart.~Reviewed interim history and current functioning. Reviewed vital signs,~Labs/ Radiology~and current medications noted below. Continue current treatment with the changes noted in the dictated addendum note Assessment: Vital Signs: Vital Signs Date Time Temp Pulse Resp B/P (MAP) Pulse Ox O2 Delivery O2 Flow Rate FiO2 03/07/18 19:23 78 106/59 03/07/18 16:08 98.0 20 98 Room Air I&O Intake and Output 03/07/18 07:00 Intake Total 900 ml Balance 900 ml Intake Oral 900 ml # Bowel Movements 1 Current Medications: Meds: Current Medications Cephalexin HCl (Keflex) 500 mg 1X ONCE PO Last administered on 02/27/18at 20: 32; Start 02/27/18 at 20:30; Stop 02/27/18 at 20:31; Status DC Acetaminophen (Tylenol) 650 mg PRN Q6HRS PRN PO PAIN / TEMP; Start 02/27/18 at 22:15; Status Cancel Multi-Ingredient Ointment (Analgesic [place]) 1 suzi PRN QID PRN TP MUSCLE PAIN; Start 02/27/18 at 22:15; Status Cancel Al Hydroxide/Mg Hydroxide (Mylanta Plus Xs) 15 ml PRN AFTMEALHC PRN PO DYSPEPSIA; Start 02/27/18 at 22:15 Magnesium Hydroxide (Milk Of Magnesia) 2,400 mg PRN QHS PRN PO CONSTIPATION; Start 02/27/18 at 22:15 Acetaminophen (Tylenol) 650 mg PRN Q6HRS PRN PO PAIN / TEMP Last administered on 03/06/18at 15:39; Start 02/27/18 at 23:45 Vitamin D (Vitamin D3) 50,000 unit QFR PO Last administered on 03/03/18at 16:02 ; Start 03/03/18 at 16:00 Hydrochlorothiazide (Hydrodiuril) 25 mg DAILY PO Last administered on at 09:14; Start 02/28/18 at 09:00 Multi-Ingredient Ointment (Analgesic [place]) 1 suzi PRN QID PRN TP MUSCLE PAIN; Start 02/27/18 at 23:45 Nystatin (Nystop) 1 suzi PRN BID PRN TP RASH Last administered on 03/07/18 09: 15; Start 02/27/18 at 23:45 Atorvastatin Calcium (Lipitor) 80 mg QHS PO Last administered on 03/07/18 19: 25; Start 02/28/18 at 21:00 Carvedilol (Coreg) 3.125 mg HS PO Last administered on 03/06/18 20:26; Start 02/28/18 at 21:00 Memantine (Namenda) 10 mg BID PO Last administered on 03/07/18 19:25; Start 02/28/18 at 09:00 Polyethylene Glycol (miraLAX) 17 gm DAILY PO Last administered on 03/07/18 09 :17; Start 02/28/18 at 09:00 Bupropion HCl (Wellbutrin Xl) 300 mg DAILY PO Last administered on 03/07/18 09:18; Start 02/28/18 at 09:00 Cyanocobalamin (Vitamin B-12) 1,000 mcg DAILY PO Last administered on 09:18; Start 02/28/18 at 09:00 Guaifenesin (Robitussin) 5 mg PRN BID PRN PO COUGH; Start 02/28/18 at 00:30 Aspirin (Children'S Aspirin) 81 mg DAILYWBKFT PO Last administered on 08:00; Start 02/28/18 at 08:00 Divalproex Sodium (Depakote Sprinkles) 125 mg BID PO Last administered on 03/06at 09:06; Start 02/28/18 at 09:00; Stop 03/06/18 at 18:55; Status DC Citalopram Hydrobromide (CeleXA) 40 mg DAILY PO Last administered on at 08:46; Start 02/28/18 at 09:00; Stop 03/01/18 at 17:16; Status DC Meclizine HCl (Antivert) 12.5 mg PRN Q8HRS PRN PO DIZZINESS; Start 02/28/18 at 00:30 Potassium Chloride (Klor-Con) 30 meq DAILY PO Last administered on 03/07/18 09:00; Start 02/28/18 at 09:00 Potassium Chloride (Klor-Con) 20 meq DAILYWBKFT PO Last administered on at 08:47; Start 02/28/18 at 08:00; Stop 03/01/18 at 14:09; Status DC Triamcinolone Acetonide (Kenalog) 1 suzi PRN BID PRN TP DRY SKIN / SCALING; Start 02/28/18 at 00:30 Nystatin (Mycostatin) 5 ml QID SWSW ; Start 02/28/18 at 17:00; Stop 02/28/18 at 18:26; Status DC Fluconazole (Diflucan) 150 mg 1X ONCE PO Last administered on 02/28/18at 18:30 ; Start 02/28/18 at 17:15; Stop 02/28/18 at 17:17; Status DC Nystatin (Mycostatin) 5 ml QID SWSW Last administered on 03/07/18at 19:28; Start 02/28/18 at 21:00 Potassium Chloride (Klor-Con) 20 meq DAILYWSUP PO Last administered on at 09:15; Start 03/02/18 at 17:00 Sertraline HCl (Zoloft) 50 mg DAILY PO Last administered on 03/07/18at 09:20; Start 03/02/18 at 09:00 Mirtazapine (Remeron) 7.5 mg QHS PO Last administered on 03/07/18 19:25; Start 03/01/18 at 21:00 Trazodone HCl (Desyrel) 50 mg QHS PO Last administered on 03/07/18at 19:24; Start 03/01/18 at 21:00 Trazodone HCl (Desyrel) 50 mg QHS PRN PO INSOMNIA; Start 03/01/18 at 17:30 Divalproex Sodium (Depakote Sprinkles) 250 mg BID PO Last administered on 03/07 19:24; Start 03/06/18 at 21:00 Active Scripts Active Reported Lorazepam 0.5 Mg Tablet 0.25 Mg PO PRN Q6HRS PRN Vitamin B-12 (Cyanocobalamin (Vitamin B-12)) 1,000 Mcg Tablet 1,000 Mcg PO DAILY Triamcinolone Acetonide 15 Gm Cream..g. 1 Suzi TP PRN BID PRN Potassium Chloride 10 Meq Tablet.er 30 Meq PO DAILY Potassium Chloride 20 Meq Tablet.er 20 Meq PO DAILYBFRSUP Meclizine Hcl 25 Mg Tablet 25 Mg PO PRN Q8HRS PRN Guaifenesin 100 Mg/5 Ml Liquid 5 Mg PO PRN BID Escitalopram Oxalate 20 Mg Tablet 20 Mg PO HS Depakote Sprinkle (Divalproex Sodium) 125 Mg Cap.sprink 125 Mg PO BID Bupropion Xl (Bupropion Hcl) 300 Mg Tab.er.24h 300 Mg PO DAILY Aspirin 81 Mg Tab.chew 81 Mg PO DAILY Hydrochlorothiazide Tablet (Hydrochlorothiazide) 25 Mg Tablet 25 Mg PO DAILY Miralax (Polyethylene Glycol 3350) 17 Gm Powd.pack 17 Gm PO DAILY Nystop (Nystatin) 60 Gm Powder 1 Suzi TP PRN BID PRN Analgesic [place] (Methyl Salicylate/Menthol) 28 Gm Oint...g. 1 Suzi TP PRN QID PRN Vitamin D (Cholecalciferol (Vitamin D3)) 50,000 Unit Capsule 50,000 Unit PO QFR Tylenol (Acetaminophen) 325 Mg Tablet 650 Mg PO PRN Q6HRS PRN Namenda Xr (Memantine Hcl) 28 Mg Cap.spr.24 28 Mg PO DAILY Carvedilol 3.125 Mg Tablet 3.125 Mg PO HS Atorvastatin Calcium 80 Mg Tablet 80 Mg PO QHS I have reviewed the current psychotropics carefully including drug interactions. Risk benefit ratio favors no change other than as noted in my dictated progress note. Diagnosis: Problems: (1) Anxiety disorder (2) Dementia, vascular, with depression (3) Dementia, vascular, with delusions (4) Dementia in Alzheimer's disease with depression (5) Dementia in Alzheimer's disease with delusions (6) Impulse control disorder (7) Major neurocognitive disorder MELLISA DOBSON MD Mar 07, 2018 23:13
[2018-03-08 05:51] VITALS: BP 131/71
[2018-03-08] MEDS: buPROPion XL 300 MG TAB.ER.24H. PO SCH (08:13)
[2018-03-08] MEDS: ASPIRIN 81 MG TAB.CHEW PO SCH (08:13)
[2018-03-08] MEDS: SERTRALINE 50 MG TABLET. PO SCH (08:14)
[2018-03-08] MEDS: CYANOCOBALAMIN (VITAMIN B-12) 1,000 MCG TABLET. PO SCH (08:14)
[2018-03-08] MEDS: hydroCHLOROthiazide 25 MG TABLET PO SCH (08:14)
[2018-03-08] MEDS: DIVALPROEX 125 MG CAP.SPRINK PO SCH ×2 (08:15→19:14)
[2018-03-08] MEDS: POTASSIUM CHLORIDE 10 MEQ TABLET.ER. PO SCH (08:15)
[2018-03-08] MEDS: MEMANTINE 10 MG TABLET. PO SCH ×2 (08:16→19:15)
[2018-03-08] MEDS: POLYETHYLENE GLYCOL 3350 17 GM PACKET. PO SCH (08:16)
[2018-03-08] MEDS: NYSTATIN 100,000 UNITS/ML ORAL SUSPENSION 60ML BOTTLE. SWSW SCH ×4 (08:17→19:16)
[2018-03-08 16:39] VITALS: BP 127/84
[2018-03-08] MEDS: POTASSIUM CHLORIDE 20 MEQ TABLET.ER. PO SCH (17:55)
[2018-03-08] MEDS: CARVEDILOL 3.125 MG TABLET PO SCH (19:14)
[2018-03-08] MEDS: traZODone 50 MG TABLET. PO SCH (19:15)
[2018-03-08] MEDS: MIRTAZAPINE 7.5 MG TABLET. PO SCH (19:15)
[2018-03-08] MEDS: ATORVASTATIN CALCIUM 20 MG TABLET PO SCH (19:15)
--- NOTE | 2018-03-08 22:22 | PN ---
DATE: 03/07/2018 PSYCHIATRIC PROGRESS NOTE This late entry 03/07/2018 covers elements not covered in my initial note. SUBJECTIVE: I met with the patient in the evening. Per nursing report, the patient slept 7-1/4 hours previous night. She is confused, doing reasonably well. Compliant with medication, takes it crushed in pudding. Depakote was increased to 250 b.i.d. Labs level are due on 03/10/2017. REVIEW OF SYSTEMS: No CV, , pulmonary, eye, ENT system symptoms on review. Reliability poor. MENTAL STATUS EXAM: Oriented to herself. Insight, judgment, recent and remote memory, attention, concentration, fund of knowledge poor, consistent with her diagnosis mentioned in my initial note. IMPRESSION: Major neurocognitive disorder, Alzheimer, vascular with delusion, depression, behavioral disturbance; anxiety disorder, unspecified; impulse control disorder, unspecified. Rest unchanged from initial note. PLAN: No change from initial note. Check a valproic acid level to adjust Depakote to reach a therapeutic level. Continue Wellbutrin 300 mg daily, Zoloft 50 mg a day. Rest as noted in my initial note. MAN Alexander DOBSON MD DR: BRIDGETTE/murtaza JOB#: [id number] / [id number]
--- NOTE | 2018-03-08 23:27 | PDOC ---
Exam Note: Robert Note: Please also refer to the separate dictated note~for this date of service dictated separately.~Patient seen individually. Discussed the patient with Nursing staff reviewed the chart.~Reviewed interim history and current functioning. Reviewed vital signs,~Labs/ Radiology~and current medications noted below. Continue current treatment with the changes noted in the dictated addendum note Assessment: Vital Signs: Vital Signs Date Time Temp Pulse Resp B/P (MAP) Pulse Ox O2 Delivery O2 Flow Rate FiO2 03/08/18 19:14 73 127/84 03/08/18 16:39 97.5 20 96 03/07/18 16:08 Room Air I&O Intake and Output 03/08/18 07:00 Intake Total 720 ml Balance 720 ml Intake Oral 720 ml Current Medications: Meds: Current Medications Cephalexin HCl (Keflex) 500 mg 1X ONCE PO Last administered on 02/27/18at 20: 32; Start 02/27/18 at 20:30; Stop 02/27/18 at 20:31; Status DC Acetaminophen (Tylenol) 650 mg PRN Q6HRS PRN PO PAIN / TEMP; Start 02/27/18 at 22:15; Status Cancel Multi-Ingredient Ointment (Analgesic [place]) 1 suzi PRN QID PRN TP MUSCLE PAIN; Start 02/27/18 at 22:15; Status Cancel Al Hydroxide/Mg Hydroxide (Mylanta Plus Xs) 15 ml PRN AFTMEALHC PRN PO DYSPEPSIA; Start 02/27/18 at 22:15 Magnesium Hydroxide (Milk Of Magnesia) 2,400 mg PRN QHS PRN PO CONSTIPATION; Start 02/27/18 at 22:15 Acetaminophen (Tylenol) 650 mg PRN Q6HRS PRN PO PAIN / TEMP Last administered on 03/06/18at 15:39; Start 02/27/18 at 23:45 Vitamin D (Vitamin D3) 50,000 unit QFR PO Last administered on 03/03/18at 16:02 ; Start 03/03/18 at 16:00 Hydrochlorothiazide (Hydrodiuril) 25 mg DAILY PO Last administered on at 08:14; Start 02/28/18 at 09:00 Multi-Ingredient Ointment (Analgesic [place]) 1 suzi PRN QID PRN TP MUSCLE PAIN; Start 02/27/18 at 23:45 Nystatin (Nystop) 1 suzi PRN BID PRN TP RASH Last administered on 03/07/18 09: 15; Start 02/27/18 at 23:45 Atorvastatin Calcium (Lipitor) 80 mg QHS PO Last administered on 03/08/18 19: 15; Start 02/28/18 at 21:00 Carvedilol (Coreg) 3.125 mg HS PO Last administered on 03/08/18 19:14; Start 02/28/18 at 21:00 Memantine (Namenda) 10 mg BID PO Last administered on 03/08/18 19:15; Start 02/28/18 at 09:00 Polyethylene Glycol (miraLAX) 17 gm DAILY PO Last administered on 03/08/18 08 :16; Start 02/28/18 at 09:00 Bupropion HCl (Wellbutrin Xl) 300 mg DAILY PO Last administered on 03/08/18 08:13; Start 02/28/18 at 09:00 Cyanocobalamin (Vitamin B-12) 1,000 mcg DAILY PO Last administered on 08:14; Start 02/28/18 at 09:00 Guaifenesin (Robitussin) 5 mg PRN BID PRN PO COUGH; Start 02/28/18 at 00:30 Aspirin (Children'S Aspirin) 81 mg DAILYWBKFT PO Last administered on at 08:13; Start 02/28/18 at 08:00 Divalproex Sodium (Depakote Sprinkles) 125 mg BID PO Last administered on 03/06at 09:06; Start 02/28/18 at 09:00; Stop 03/06/18 at 18:55; Status DC Citalopram Hydrobromide (CeleXA) 40 mg DAILY PO Last administered on at 08:46; Start 02/28/18 at 09:00; Stop 03/01/18 at 17:16; Status DC Meclizine HCl (Antivert) 12.5 mg PRN Q8HRS PRN PO DIZZINESS; Start 02/28/18 at 00:30 Potassium Chloride (Klor-Con) 30 meq DAILY PO Last administered on 03/08/18at 08:15; Start 02/28/18 at 09:00 Potassium Chloride (Klor-Con) 20 meq DAILYWBKFT PO Last administered on at 08:47; Start 02/28/18 at 08:00; Stop 03/01/18 at 14:09; Status DC Triamcinolone Acetonide (Kenalog) 1 suzi PRN BID PRN TP DRY SKIN / SCALING; Start 02/28/18 at 00:30 Nystatin (Mycostatin) 5 ml QID SWSW ; Start 02/28/18 at 17:00; Stop 02/28/18 at 18:26; Status DC Fluconazole (Diflucan) 150 mg 1X ONCE PO Last administered on 02/28/18at 18:30 ; Start 02/28/18 at 17:15; Stop 02/28/18 at 17:17; Status DC Nystatin (Mycostatin) 5 ml QID SWSW Last administered on 03/08/18at 19:16; Start 02/28/18 at 21:00 Potassium Chloride (Klor-Con) 20 meq DAILYWSUP PO Last administered on at 17:55; Start 03/02/18 at 17:00 Sertraline HCl (Zoloft) 50 mg DAILY PO Last administered on 03/08/18at 08:14; Start 03/02/18 at 09:00; Stop 03/08/18 at 19:08; Status DC Mirtazapine (Remeron) 7.5 mg QHS PO Last administered on 03/08/18at 19:15; Start 03/01/18 at 21:00 Trazodone HCl (Desyrel) 50 mg QHS PO Last administered on 03/08/18at 19:15; Start 03/01/18 at 21:00 Trazodone HCl (Desyrel) 50 mg QHS PRN PO INSOMNIA; Start 03/01/18 at 17:30 Divalproex Sodium (Depakote Sprinkles) 250 mg BID PO Last administered on 03/08at 19:14; Start 03/06/18 at 21:00 Sertraline HCl (Zoloft) 75 mg DAILY PO ; Start 03/09/18 at 09:00 Active Scripts Active Reported Lorazepam 0.5 Mg Tablet 0.25 Mg PO PRN Q6HRS PRN Vitamin B-12 (Cyanocobalamin (Vitamin B-12)) 1,000 Mcg Tablet 1,000 Mcg PO DAILY Triamcinolone Acetonide 15 Gm Cream..g. 1 Suzi TP PRN BID PRN Potassium Chloride 10 Meq Tablet.er 30 Meq PO DAILY Potassium Chloride 20 Meq Tablet.er 20 Meq PO DAILYBFRSUP Meclizine Hcl 25 Mg Tablet 25 Mg PO PRN Q8HRS PRN Guaifenesin 100 Mg/5 Ml Liquid 5 Mg PO PRN BID Escitalopram Oxalate 20 Mg Tablet 20 Mg PO HS Depakote Sprinkle (Divalproex Sodium) 125 Mg Cap.sprink 125 Mg PO BID Bupropion Xl (Bupropion Hcl) 300 Mg Tab.er.24h 300 Mg PO DAILY Aspirin 81 Mg Tab.chew 81 Mg PO DAILY Hydrochlorothiazide Tablet (Hydrochlorothiazide) 25 Mg Tablet 25 Mg PO DAILY Miralax (Polyethylene Glycol 3350) 17 Gm Powd.pack 17 Gm PO DAILY Nystop (Nystatin) 60 Gm Powder 1 Suzi TP PRN BID PRN Analgesic [place] (Methyl Salicylate/Menthol) 28 Gm Oint...g. 1 Suzi TP PRN QID PRN Vitamin D (Cholecalciferol (Vitamin D3)) 50,000 Unit Capsule 50,000 Unit PO QFR Tylenol (Acetaminophen) 325 Mg Tablet 650 Mg PO PRN Q6HRS PRN Namenda Xr (Memantine Hcl) 28 Mg Cap.spr.24 28 Mg PO DAILY Carvedilol 3.125 Mg Tablet 3.125 Mg PO HS Atorvastatin Calcium 80 Mg Tablet 80 Mg PO QHS I have reviewed the current psychotropics carefully including drug interactions. Risk benefit ratio favors no change other than as noted in my dictated progress note. Diagnosis: Problems: (1) Anxiety disorder (2) Dementia, vascular, with depression (3) Dementia, vascular, with delusions (4) Dementia in Alzheimer's disease with depression (5) Dementia in Alzheimer's disease with delusions (6) Impulse control disorder (7) Major neurocognitive disorder MELLISA DOBSON MD Mar 08, 2018 23:27
[2018-03-09 05:47] VITALS: BP 132/74
[2018-03-09] MEDS: MEMANTINE 10 MG TABLET. PO SCH ×2 (07:51→19:50)
[2018-03-09] MEDS: POLYETHYLENE GLYCOL 3350 17 GM PACKET. PO SCH (07:51)
[2018-03-09] MEDS: DIVALPROEX 125 MG CAP.SPRINK PO SCH ×2 (07:51→19:50)
[2018-03-09] MEDS: POTASSIUM CHLORIDE 10 MEQ TABLET.ER. PO SCH (07:51)
[2018-03-09] MEDS: CYANOCOBALAMIN (VITAMIN B-12) 1,000 MCG TABLET. PO SCH (07:51)
[2018-03-09] MEDS: ASPIRIN 81 MG TAB.CHEW PO SCH (07:51)
[2018-03-09] MEDS: hydroCHLOROthiazide 25 MG TABLET PO SCH (07:51)
[2018-03-09] MEDS: buPROPion XL 300 MG TAB.ER.24H. PO SCH (07:52)
[2018-03-09] MEDS: SERTRALINE 50 MG TABLET. PO SCH (07:53)
[2018-03-09] MEDS: NYSTATIN 100,000 UNITS/ML ORAL SUSPENSION 60ML BOTTLE. SWSW SCH ×4 (07:54→19:51)
[2018-03-09 16:13] VITALS: BP 121/75
[2018-03-09] MEDS: POTASSIUM CHLORIDE 20 MEQ TABLET.ER. PO SCH (16:37)
[2018-03-09] MEDS: ATORVASTATIN CALCIUM 20 MG TABLET PO SCH (19:50)
[2018-03-09] MEDS: traZODone 50 MG TABLET. PO SCH (19:50)
[2018-03-09] MEDS: CARVEDILOL 3.125 MG TABLET PO SCH (19:50)
[2018-03-09] MEDS: MIRTAZAPINE 7.5 MG TABLET. PO SCH (19:50)
--- NOTE | 2018-03-09 21:25 | PN ---
DATE: 03/08/2018 PSYCHIATRIC PROGRESS NOTE This late entry 03/08/2018 covers elements not covered in my initial note. SUBJECTIVE: I met with the patient in the evening. Overall, the patient remains confused. She has very poor vision, the wandering behaviors are better. She has been less tearful. She slept 8 hours previous evening. REVIEW OF SYSTEMS: No CV, , pulmonary, eye, ENT system symptoms on review. Reliability poor. MENTAL STATUS EXAM: Oriented to herself. Insight, judgment, recent and remote memory, attention, concentration, fund of knowledge poor, consistent with her diagnosis mentioned in my initial note. IMPRESSION: Major neurocognitive disorder, Alzheimer, vascular with delusion, depression, behavioral disturbance. Rest unchanged. PLAN: Increase Zoloft to 75 mg a day after she has been on 50 for 3 days. Continue rest unchanged from initial note including Wellbutrin, Depakote, Namenda, Remeron, and trazodone. MELLISA DOBSON MD DR: BRIDGETTE/murtaza JOB#: [id number] / [id number]
--- NOTE | 2018-03-09 23:15 | PDOC ---
Exam Note: Robert Note: Please also refer to the separate dictated note~for this date of service dictated separately.~Patient seen individually. Discussed the patient with Nursing staff reviewed the chart.~Reviewed interim history and current functioning. Reviewed vital signs,~Labs/ Radiology~and current medications noted below. Continue current treatment with the changes noted in the dictated addendum note Assessment: Vital Signs: Vital Signs Date Time Temp Pulse Resp B/P (MAP) Pulse Ox O2 Delivery O2 Flow Rate FiO2 03/09/18 19:50 67 121/75 03/09/18 16:13 97.8 18 95 Room Air I&O Intake and Output 03/09/18 07:00 Intake Total 960 ml Balance 960 ml Intake Oral 960 ml # Bowel Movements 1 Current Medications: Meds: Current Medications Cephalexin HCl (Keflex) 500 mg 1X ONCE PO Last administered on 02/27/18at 20: 32; Start 02/27/18 at 20:30; Stop 02/27/18 at 20:31; Status DC Acetaminophen (Tylenol) 650 mg PRN Q6HRS PRN PO PAIN / TEMP; Start 02/27/18 at 22:15; Status Cancel Multi-Ingredient Ointment (Analgesic [place]) 1 suzi PRN QID PRN TP MUSCLE PAIN; Start 02/27/18 at 22:15; Status Cancel Al Hydroxide/Mg Hydroxide (Mylanta Plus Xs) 15 ml PRN AFTMEALHC PRN PO DYSPEPSIA; Start 02/27/18 at 22:15 Magnesium Hydroxide (Milk Of Magnesia) 2,400 mg PRN QHS PRN PO CONSTIPATION; Start 02/27/18 at 22:15 Acetaminophen (Tylenol) 650 mg PRN Q6HRS PRN PO PAIN / TEMP Last administered on 03/06/18at 15:39; Start 02/27/18 at 23:45 Vitamin D (Vitamin D3) 50,000 unit QFR PO Last administered on 03/03/18at 16:02 ; Start 03/03/18 at 16:00 Hydrochlorothiazide (Hydrodiuril) 25 mg DAILY PO Last administered on at 07:51; Start 02/28/18 at 09:00 Multi-Ingredient Ointment (Analgesic [place]) 1 suzi PRN QID PRN TP MUSCLE PAIN; Start 02/27/18 at 23:45 Nystatin (Nystop) 1 suzi PRN BID PRN TP RASH Last administered on 03/07/18 09: 15; Start 02/27/18 at 23:45 Atorvastatin Calcium (Lipitor) 80 mg QHS PO Last administered on 03/09/18 19: 50; Start 02/28/18 at 21:00 Carvedilol (Coreg) 3.125 mg HS PO Last administered on 03/09/18 19:50; Start 02/28/18 at 21:00 Memantine (Namenda) 10 mg BID PO Last administered on 03/09/18 19:50; Start 02/28/18 at 09:00 Polyethylene Glycol (miraLAX) 17 gm DAILY PO Last administered on 03/09/18 07: 51; Start 02/28/18 at 09:00 Bupropion HCl (Wellbutrin Xl) 300 mg DAILY PO Last administered on 03/09/18at 07 :52; Start 02/28/18 at 09:00 Cyanocobalamin (Vitamin B-12) 1,000 mcg DAILY PO Last administered on at 07:51; Start 02/28/18 at 09:00 Guaifenesin (Robitussin) 5 mg PRN BID PRN PO COUGH; Start 02/28/18 at 00:30 Aspirin (Children'S Aspirin) 81 mg DAILYWBKFT PO Last administered on at 07:51; Start 02/28/18 at 08:00 Divalproex Sodium (Depakote Sprinkles) 125 mg BID PO Last administered on 03/06at 09:06; Start 02/28/18 at 09:00; Stop 03/06/18 at 18:55; Status DC Citalopram Hydrobromide (CeleXA) 40 mg DAILY PO Last administered on at 08:46; Start 02/28/18 at 09:00; Stop 03/01/18 at 17:16; Status DC Meclizine HCl (Antivert) 12.5 mg PRN Q8HRS PRN PO DIZZINESS; Start 02/28/18 at 00:30 Potassium Chloride (Klor-Con) 30 meq DAILY PO Last administered on 03/09/18at 07 :51; Start 02/28/18 at 09:00 Potassium Chloride (Klor-Con) 20 meq DAILYWBKFT PO Last administered on at 08:47; Start 02/28/18 at 08:00; Stop 03/01/18 at 14:09; Status DC Triamcinolone Acetonide (Kenalog) 1 suzi PRN BID PRN TP DRY SKIN / SCALING; Start 02/28/18 at 00:30 Nystatin (Mycostatin) 5 ml QID SWSW ; Start 02/28/18 at 17:00; Stop 02/28/18 at 18:26; Status DC Fluconazole (Diflucan) 150 mg 1X ONCE PO Last administered on 02/28/18at 18:30 ; Start 02/28/18 at 17:15; Stop 02/28/18 at 17:17; Status DC Nystatin (Mycostatin) 5 ml QID SWSW Last administered on 03/09/18at 19:51; Start 02/28/18 at 21:00 Potassium Chloride (Klor-Con) 20 meq DAILYWSUP PO Last administered on at 16:37; Start 03/02/18 at 17:00 Sertraline HCl (Zoloft) 50 mg DAILY PO Last administered on 03/08/18at 08:14; Start 03/02/18 at 09:00; Stop 03/08/18 at 19:08; Status DC Mirtazapine (Remeron) 7.5 mg QHS PO Last administered on 03/09/18at 19:50; Start 03/01/18 at 21:00 Trazodone HCl (Desyrel) 50 mg QHS PO Last administered on 03/09/18at 19:50; Start 03/01/18 at 21:00 Trazodone HCl (Desyrel) 50 mg QHS PRN PO INSOMNIA; Start 03/01/18 at 17:30 Divalproex Sodium (Depakote Sprinkles) 250 mg BID PO Last administered on at 19:50; Start 03/06/18 at 21:00 Sertraline HCl (Zoloft) 75 mg DAILY PO Last administered on 03/09/18at 07:53; Start 03/09/18 at 09:00 Active Scripts Active Reported Lorazepam 0.5 Mg Tablet 0.25 Mg PO PRN Q6HRS PRN Vitamin B-12 (Cyanocobalamin (Vitamin B-12)) 1,000 Mcg Tablet 1,000 Mcg PO DAILY Triamcinolone Acetonide 15 Gm Cream..g. 1 Suzi TP PRN BID PRN Potassium Chloride 10 Meq Tablet.er 30 Meq PO DAILY Potassium Chloride 20 Meq Tablet.er 20 Meq PO DAILYBFRSUP Meclizine Hcl 25 Mg Tablet 25 Mg PO PRN Q8HRS PRN Guaifenesin 100 Mg/5 Ml Liquid 5 Mg PO PRN BID Escitalopram Oxalate 20 Mg Tablet 20 Mg PO HS Depakote Sprinkle (Divalproex Sodium) 125 Mg Cap.sprink 125 Mg PO BID Bupropion Xl (Bupropion Hcl) 300 Mg Tab.er.24h 300 Mg PO DAILY Aspirin 81 Mg Tab.chew 81 Mg PO DAILY Hydrochlorothiazide Tablet (Hydrochlorothiazide) 25 Mg Tablet 25 Mg PO DAILY Miralax (Polyethylene Glycol 3350) 17 Gm Powd.pack 17 Gm PO DAILY Nystop (Nystatin) 60 Gm Powder 1 Suzi TP PRN BID PRN Analgesic [place] (Methyl Salicylate/Menthol) 28 Gm Oint...g. 1 Suzi TP PRN QID PRN Vitamin D (Cholecalciferol (Vitamin D3)) 50,000 Unit Capsule 50,000 Unit PO QFR Tylenol (Acetaminophen) 325 Mg Tablet 650 Mg PO PRN Q6HRS PRN Namenda Xr (Memantine Hcl) 28 Mg Cap.spr.24 28 Mg PO DAILY Carvedilol 3.125 Mg Tablet 3.125 Mg PO HS Atorvastatin Calcium 80 Mg Tablet 80 Mg PO QHS I have reviewed the current psychotropics carefully including drug interactions. Risk benefit ratio favors no change other than as noted in my dictated progress note. Diagnosis: Problems: (1) Anxiety disorder (2) Dementia, vascular, with depression (3) Dementia, vascular, with delusions (4) Dementia in Alzheimer's disease with depression (5) Dementia in Alzheimer's disease with delusions (6) Impulse control disorder (7) Major neurocognitive disorder MELLISA DOBSON MD Mar 09, 2018 23:15
[2018-03-10 06:22] VITALS: BP 123/77
[2018-03-10 07:30] LABS: BASO % 1 % (0-3); EOS # 0.2 x10^3/uL (0.0-0.7); EOS % 5 % (0-3); HEMATOCRIT 36.4 % (36.0-47.0); HEMOGLOBIN 12.1 g/dL (12.0-15.5); LYMPH # 1.3 x10^3/uL (1.0-4.8); LYMPH % 24 % (24-48); MEAN CORPUSCULAR HEMOGLOBIN 30 pg (25-35); MEAN CORPUSCULAR HGB CONC 33 g/dL (31-37); MEAN CORPUSCULAR VOLUME 89 fL (79-100); MONO # 0.4 x10^3/uL (0.0-1.1); MONO % 8 % (0-9); NEUT # 3.4 x10^3uL (1.8-7.7); NEUT % 63 % (31-73); PLATELET COUNT 152 x10^3/uL (140-400); RED BLOOD COUNT 4.09 x10^6/uL (3.50-5.40); RED CELL DISTRIBUTION WIDTH 16.9 % (11.5-14.5); WHITE BLOOD COUNT 5.4 x10^3/uL (4.0-11.0)
[2018-03-10 07:38] LABS: ALBUMIN 2.8 g/dL (3.4-5.0); ALBUMIN/GLOBULIN RATIO 0.9 (1.0-1.7); ALK PHOS 74 U/L (46-116); ALT (SGPT) 34 U/L (14-59); ANION GAP 5 (6-14); AST (SGOT) 19 U/L (15-37); BLOOD UREA NITROGEN 17 mg/dL (7-20); BUN/CREATININE RATIO 21 (6-20); CALCIUM 8.3 mg/dL (8.5-10.1); CARBON DIOXIDE 36 mmol/L (21-32); CHLORIDE 104 mmol/L (98-107); CREATININE 0.8 mg/dL (0.6-1.0); GFR 70.9; GLUCOSE 83 mg/dL (70-99); POTASSIUM 3.7 mmol/L (3.5-5.1); SODIUM 145 mmol/L (136-145); TOTAL BILIRUBIN 0.4 mg/dL (0.2-1.0)
[2018-03-10 07:49] LABS: VAL ACID 45 mcg/mL (50-100)
[2018-03-10] MEDS: MEMANTINE 10 MG TABLET. PO SCH ×2 (08:28→19:47)
[2018-03-10] MEDS: ASPIRIN 81 MG TAB.CHEW PO SCH (08:28)
[2018-03-10] MEDS: CYANOCOBALAMIN (VITAMIN B-12) 1,000 MCG TABLET. PO SCH (08:28)
[2018-03-10] MEDS: buPROPion XL 300 MG TAB.ER.24H. PO SCH (08:28)
[2018-03-10] MEDS: POTASSIUM CHLORIDE 10 MEQ TABLET.ER. PO SCH (08:29)
[2018-03-10] MEDS: SERTRALINE 50 MG TABLET. PO SCH (08:29)
[2018-03-10] MEDS: POLYETHYLENE GLYCOL 3350 17 GM PACKET. PO SCH (08:29)
[2018-03-10] MEDS: hydroCHLOROthiazide 25 MG TABLET PO SCH (08:29)
[2018-03-10] MEDS: DIVALPROEX 125 MG CAP.SPRINK PO SCH ×2 (08:29→19:47)
[2018-03-10] MEDS: NYSTATIN 100,000 UNITS/ML ORAL SUSPENSION 60ML BOTTLE. SWSW SCH ×4 (08:31→19:46)
[2018-03-10 10:59] LABS: BACTERIA,URINE FEW /HPF (0-FEW); BILIRUBIN,URINE NEG (NEG); CLARITY,URINE HAZY; COLOR,URINE AMBER; GLUCOSE,URINE NEG (NEG); NITRITE,URINE NEG (NEG); SQUAMOUS EPITHELIAL CELL,UR FEW /LPF; UROBILINOGEN,URINE 1 mg/dL (0.2 mg/dL); WBC,URINE OCC /HPF (0-4)
[2018-03-10 15:53] VITALS: BP 129/81
[2018-03-10] MEDS: CHOLECALCIFEROL (VITAMIN D3) 50,000 UNIT CAPSULE PO SCH (17:02)
[2018-03-10] MEDS: POTASSIUM CHLORIDE 20 MEQ TABLET.ER. PO SCH (17:03)
[2018-03-10] MEDS: MIRTAZAPINE 7.5 MG TABLET. PO SCH (19:46)
[2018-03-10] MEDS: CARVEDILOL 3.125 MG TABLET PO SCH (19:47)
[2018-03-10] MEDS: traZODone 50 MG TABLET. PO SCH (19:47)
[2018-03-10] MEDS: ATORVASTATIN CALCIUM 20 MG TABLET PO SCH (19:47)
--- NOTE | 2018-03-10 22:30 | PN ---
DATE: 03/09/2018 PSYCHIATRIC PROGRESS NOTE This late entry 03/09/2018 covers elements not covered in my initial note. SUBJECTIVE: I met with the patient in the evenings and the patient was staffed at a treatment team meeting with the entire team in the morning. The patient slept 8 hours previous night. She remains confused with bilateral poor vision, but not aggressive. REVIEW OF SYSTEMS: No CV, , pulmonary, ENT system symptoms on review. MENTAL STATUS EXAM: Oriented to herself. Insight, judgment, recent and remote memory, attention, concentration, fund of knowledge poor, consistent with her diagnoses. IMPRESSION: Major neurocognitive disorder, Alzheimer, vascular with delusion, depression, behavioral disturbance; anxiety disorder, unspecified; impulse control disorder, unspecified. PLAN: No change from initial note, but we will see whether Wellbutrin could be discontinued as we adjust the Zoloft and if need be, we will get the valproic acid level therapeutic. MELLISA DOBSON MD DR: BRIDGETTE/murtaza JOB#: [id number] / [id number]
--- NOTE | 2018-03-10 23:11 | PDOC ---
Exam Note: Robert Note: Please also refer to the separate dictated note~for this date of service dictated separately.~Patient seen individually. Discussed the patient with Nursing staff reviewed the chart.~Reviewed interim history and current functioning. Reviewed vital signs,~Labs/ Radiology~and current medications noted below. Continue current treatment with the changes noted in the dictated addendum note Assessment: Vital Signs: Vital Signs Date Time Temp Pulse Resp B/P (MAP) Pulse Ox O2 Delivery O2 Flow Rate FiO2 03/10/18 19:47 66 129/81 03/10/18 15:53 97.7 18 97 Room Air I&O Intake and Output 03/10/18 07:00 Intake Total 600 ml Balance 600 ml Intake Oral 600 ml # Voids 1 Labs: Laboratory Tests Test 03/10/18 06:42 03/10/18 10:38 White Blood Count 5.4 x10^3/uL (4.0-11.0) Red Blood Count 4.09 x10^6/uL (3.50-5.40) Hemoglobin 12.1 g/dL (12.0-15.5) Hematocrit 36.4 % (36.0-47.0) Mean Corpuscular Volume 89 fL (79-100) Mean Corpuscular Hemoglobin 30 pg (25-35) Mean Corpuscular Hemoglobin Concent 33 g/dL (31-37) Red Cell Distribution Width 16.9 % (11.5-14.5) H Platelet Count 152 x10^3/uL (140-400) Neutrophils (%) (Auto) 63 % (31-73) Lymphocytes (%) (Auto) 24 % (24-48) Monocytes (%) (Auto) 8 % (0-9) Eosinophils (%) (Auto) 5 % (0-3) H Basophils (%) (Auto) 1 % (0-3) Neutrophils # (Auto) 3.4 x10^3uL (1.8-7.7) Lymphocytes # (Auto) 1.3 x10^3/uL (1.0-4.8) Monocytes # (Auto) 0.4 x10^3/uL (0.0-1.1) Eosinophils # (Auto) 0.2 x10^3/uL (0.0-0.7) Basophils # (Auto) 0.0 x10^3/uL (0.0-0.2) Sodium Level 145 mmol/L (136-145) Potassium Level 3.7 mmol/L (3.5-5.1) Chloride Level 104 mmol/L (98-107) Carbon Dioxide Level 36 mmol/L (21-32) H Anion Gap 5 (6-14) L Blood Urea Nitrogen 17 mg/dL (7-20) Creatinine 0.8 mg/dL (0.6-1.0) Estimated GFR (Cockcroft-Gault) 70.9 BUN/Creatinine Ratio 21 (6-20) H Glucose Level 83 mg/dL (70-99) Calcium Level 8.3 mg/dL (8.5-10.1) L Total Bilirubin 0.4 mg/dL (0.2-1.0) Aspartate Amino Transferase (AST) 19 U/L (15-37) Alanine Aminotransferase (ALT) 34 U/L (14-59) Alkaline Phosphatase 74 U/L (46-116) Total Protein 6.0 g/dL (6.4-8.2) L Albumin 2.8 g/dL (3.4-5.0) L Albumin/Globulin Ratio 0.9 (1.0-1.7) L Valproic Acid Level 45 mcg/mL (50-100) L Valproic Acid Last Dose Date 03/09/2018 Valproic Acid Last Dose Time 2100 Urine Collection Type Unknown Urine Color Aby Urine Clarity Hazy Urine pH 7.0 Urine Specific [place] 1.025 Urine Protein Neg (NEG-TRACE) Urine Glucose (UA) Neg mg/dL (NEG) Urine Ketones (Stick) 15 mg/dL (NEG) Urine Blood Trace (NEG) Urine Nitrite Neg (NEG) Urine Bilirubin Neg (NEG) Urine Urobilinogen Dipstick 1 mg/dL (0.2 mg/dL) Urine Leukocyte Esterase Neg (NEG) Urine RBC 1-2 /HPF (0-2) Urine WBC Occ /HPF (0-4) Urine Squamous Epithelial Cells Few /LPF Urine Bacteria Few /HPF (0-FEW) Urine Mucus Slight /LPF Current Medications: Meds: Current Medications Cephalexin HCl (Keflex) 500 mg 1X ONCE PO Last administered on 02/27/18at 20: 32; Start 02/27/18 at 20:30; Stop 02/27/18 at 20:31; Status DC Acetaminophen (Tylenol) 650 mg PRN Q6HRS PRN PO PAIN / TEMP; Start 02/27/18 at 22:15; Status Cancel Multi-Ingredient Ointment (Analgesic [place]) 1 suzi PRN QID PRN TP MUSCLE PAIN; Start 02/27/18 at 22:15; Status Cancel Al Hydroxide/Mg Hydroxide (Mylanta Plus Xs) 15 ml PRN AFTMEALHC PRN PO DYSPEPSIA; Start 02/27/18 at 22:15 Magnesium Hydroxide (Milk Of Magnesia) 2,400 mg PRN QHS PRN PO CONSTIPATION; Start 02/27/18 at 22:15 Acetaminophen (Tylenol) 650 mg PRN Q6HRS PRN PO PAIN / TEMP Last administered on 03/06/18at 15:39; Start 02/27/18 at 23:45 Vitamin D (Vitamin D3) 50,000 unit QFR PO Last administered on 03/10/18 17:02 ; Start 03/03/18 at 16:00 Hydrochlorothiazide (Hydrodiuril) 25 mg DAILY PO Last administered on 08:29; Start 02/28/18 at 09:00 Multi-Ingredient Ointment (Analgesic [place]) 1 suzi PRN QID PRN TP MUSCLE PAIN; Start 02/27/18 at 23:45 Nystatin (Nystop) 1 suzi PRN BID PRN TP RASH Last administered on 03/07/18at 09: 15; Start 02/27/18 at 23:45 Atorvastatin Calcium (Lipitor) 80 mg QHS PO Last administered on 03/10/18 19: 47; Start 02/28/18 at 21:00 Carvedilol (Coreg) 3.125 mg HS PO Last administered on 03/10/18 19:47; Start 02/28/18 at 21:00 Memantine (Namenda) 10 mg BID PO Last administered on 03/10/18 19:47; Start 02/28/18 at 09:00 Polyethylene Glycol (miraLAX) 17 gm DAILY PO Last administered on 03/10/18at 08: 29; Start 02/28/18 at 09:00 Bupropion HCl (Wellbutrin Xl) 300 mg DAILY PO Last administered on 03/10/18 08 :28; Start 02/28/18 at 09:00; Stop 03/10/18 at 16:31; Status DC Cyanocobalamin (Vitamin B-12) 1,000 mcg DAILY PO Last administered on at 08:28; Start 02/28/18 at 09:00 Guaifenesin (Robitussin) 5 mg PRN BID PRN PO COUGH; Start 02/28/18 at 00:30 Aspirin (Children'S Aspirin) 81 mg DAILYWBKFT PO Last administered on at 08:28; Start 02/28/18 at 08:00 Divalproex Sodium (Depakote Sprinkles) 125 mg BID PO Last administered on 03/06at 09:06; Start 02/28/18 at 09:00; Stop 03/06/18 at 18:55; Status DC Citalopram Hydrobromide (CeleXA) 40 mg DAILY PO Last administered on at 08:46; Start 02/28/18 at 09:00; Stop 03/01/18 at 17:16; Status DC Meclizine HCl (Antivert) 12.5 mg PRN Q8HRS PRN PO DIZZINESS; Start 02/28/18 at 00:30 Potassium Chloride (Klor-Con) 30 meq DAILY PO Last administered on 03/10/18at 08 :29; Start 02/28/18 at 09:00 Potassium Chloride (Klor-Con) 20 meq DAILYWBKFT PO Last administered on at 08:47; Start 02/28/18 at 08:00; Stop 03/01/18 at 14:09; Status DC Triamcinolone Acetonide (Kenalog) 1 suzi PRN BID PRN TP DRY SKIN / SCALING; Start 02/28/18 at 00:30 Nystatin (Mycostatin) 5 ml QID SWSW ; Start 02/28/18 at 17:00; Stop 02/28/18 at 18:26; Status DC Fluconazole (Diflucan) 150 mg 1X ONCE PO Last administered on 02/28/18at 18:30 ; Start 02/28/18 at 17:15; Stop 02/28/18 at 17:17; Status DC Nystatin (Mycostatin) 5 ml QID SWSW Last administered on 03/10/18at 19:46; Start 02/28/18 at 21:00 Potassium Chloride (Klor-Con) 20 meq DAILYWSUP PO Last administered on at 17:03; Start 03/02/18 at 17:00 Sertraline HCl (Zoloft) 50 mg DAILY PO Last administered on 03/08/18at 08:14; Start 03/02/18 at 09:00; Stop 03/08/18 at 19:08; Status DC Mirtazapine (Remeron) 7.5 mg QHS PO Last administered on 03/10/18at 19:46; Start 03/01/18 at 21:00 Trazodone HCl (Desyrel) 50 mg QHS PO Last administered on 03/10/18at 19:47; Start 03/01/18 at 21:00 Trazodone HCl (Desyrel) 50 mg QHS PRN PO INSOMNIA; Start 03/01/18 at 17:30 Divalproex Sodium (Depakote Sprinkles) 250 mg BID PO Last administered on at 19:47; Start 03/06/18 at 21:00 Sertraline HCl (Zoloft) 75 mg DAILY PO Last administered on 03/10/18at 08:29; Start 03/09/18 at 09:00 Active Scripts Active Reported Lorazepam 0.5 Mg Tablet 0.25 Mg PO PRN Q6HRS PRN Vitamin B-12 (Cyanocobalamin (Vitamin B-12)) 1,000 Mcg Tablet 1,000 Mcg PO DAILY Triamcinolone Acetonide 15 Gm Cream..g. 1 Suzi TP PRN BID PRN Potassium Chloride 10 Meq Tablet.er 30 Meq PO DAILY Potassium Chloride 20 Meq Tablet.er 20 Meq PO DAILYBFRSUP Meclizine Hcl 25 Mg Tablet 25 Mg PO PRN Q8HRS PRN Guaifenesin 100 Mg/5 Ml Liquid 5 Mg PO PRN BID Escitalopram Oxalate 20 Mg Tablet 20 Mg PO HS Depakote Sprinkle (Divalproex Sodium) 125 Mg Cap.sprink 125 Mg PO BID Bupropion Xl (Bupropion Hcl) 300 Mg Tab.er.24h 300 Mg PO DAILY Aspirin 81 Mg Tab.chew 81 Mg PO DAILY Hydrochlorothiazide Tablet (Hydrochlorothiazide) 25 Mg Tablet 25 Mg PO DAILY Miralax (Polyethylene Glycol 3350) 17 Gm Powd.pack 17 Gm PO DAILY Nystop (Nystatin) 60 Gm Powder 1 Suzi TP PRN BID PRN Analgesic [place] (Methyl Salicylate/Menthol) 28 Gm Oint...g. 1 Suzi TP PRN QID PRN Vitamin D (Cholecalciferol (Vitamin D3)) 50,000 Unit Capsule 50,000 Unit PO QFR Tylenol (Acetaminophen) 325 Mg Tablet 650 Mg PO PRN Q6HRS PRN Namenda Xr (Memantine Hcl) 28 Mg Cap.spr.24 28 Mg PO DAILY Carvedilol 3.125 Mg Tablet 3.125 Mg PO HS Atorvastatin Calcium 80 Mg Tablet 80 Mg PO QHS I have reviewed the current psychotropics carefully including drug interactions. Risk benefit ratio favors no change other than as noted in my dictated progress note. Diagnosis: Problems: (1) Anxiety disorder (2) Dementia, vascular, with depression (3) Dementia, vascular, with delusions (4) Dementia in Alzheimer's disease with depression (5) Dementia in Alzheimer's disease with delusions (6) Impulse control disorder (7) Major neurocognitive disorder MELLISA DOBSON MD Mar 10, 2018 23:11
[2018-03-11 06:08] VITALS: BP 134/69
[2018-03-11] MEDS: POLYETHYLENE GLYCOL 3350 17 GM PACKET. PO SCH (08:20)
[2018-03-11] MEDS: hydroCHLOROthiazide 25 MG TABLET PO SCH (08:21)
[2018-03-11] MEDS: SERTRALINE 50 MG TABLET. PO SCH (08:21)
[2018-03-11] MEDS: DIVALPROEX 125 MG CAP.SPRINK PO SCH ×2 (08:21→19:41)
[2018-03-11] MEDS: POTASSIUM CHLORIDE 10 MEQ TABLET.ER. PO SCH (08:21)
[2018-03-11] MEDS: MEMANTINE 10 MG TABLET. PO SCH ×2 (08:22→19:42)
[2018-03-11] MEDS: ASPIRIN 81 MG TAB.CHEW PO SCH (08:22)
[2018-03-11] MEDS: CYANOCOBALAMIN (VITAMIN B-12) 1,000 MCG TABLET. PO SCH (08:22)
[2018-03-11] MEDS: NYSTATIN 100,000 UNITS/ML ORAL SUSPENSION 60ML BOTTLE. SWSW SCH ×4 (08:46→20:04)
[2018-03-11 15:57] VITALS: BP 100/56
[2018-03-11] MEDS: POTASSIUM CHLORIDE 20 MEQ TABLET.ER. PO SCH (16:46)
[2018-03-11] MEDS: ATORVASTATIN CALCIUM 20 MG TABLET PO SCH (19:41)
[2018-03-11] MEDS: traZODone 50 MG TABLET. PO SCH (19:41)
[2018-03-11] MEDS: MIRTAZAPINE 7.5 MG TABLET. PO SCH (19:41)
[2018-03-11 19:51] VITALS: BP 121/63
[2018-03-11] MEDS: CARVEDILOL 3.125 MG TABLET PO SCH (20:02)
--- NOTE | 2018-03-11 23:15 | PDOC ---
Exam Note: Robert Note: Please also refer to the separate dictated note~for this date of service dictated separately.~Patient seen individually. Discussed the patient with Nursing staff reviewed the chart.~Reviewed interim history and current functioning. Reviewed vital signs,~Labs/ Radiology~and current medications noted below. Continue current treatment with the changes noted in the dictated addendum note Assessment: Vital Signs: Vital Signs Date Time Temp Pulse Resp B/P (MAP) Pulse Ox O2 Delivery O2 Flow Rate FiO2 03/11/18 20:02 82 121/63 03/11/18 19:51 20 95 Room Air 03/11/18 15:57 98.3 I&O Intake and Output 03/11/18 07:00 Intake Total 500 ml Balance 500 ml Intake Oral 500 ml # Voids 4 Current Medications: Meds: Current Medications Cephalexin HCl (Keflex) 500 mg 1X ONCE PO Last administered on 02/27/18at 20: 32; Start 02/27/18 at 20:30; Stop 02/27/18 at 20:31; Status DC Acetaminophen (Tylenol) 650 mg PRN Q6HRS PRN PO PAIN / TEMP; Start 02/27/18 at 22:15; Status Cancel Multi-Ingredient Ointment (Analgesic [place]) 1 suzi PRN QID PRN TP MUSCLE PAIN; Start 02/27/18 at 22:15; Status Cancel Al Hydroxide/Mg Hydroxide (Mylanta Plus Xs) 15 ml PRN AFTMEALHC PRN PO DYSPEPSIA; Start 02/27/18 at 22:15 Magnesium Hydroxide (Milk Of Magnesia) 2,400 mg PRN QHS PRN PO CONSTIPATION; Start 02/27/18 at 22:15 Acetaminophen (Tylenol) 650 mg PRN Q6HRS PRN PO PAIN / TEMP Last administered on 03/06/18at 15:39; Start 02/27/18 at 23:45 Vitamin D (Vitamin D3) 50,000 unit QFR PO Last administered on 03/10/18at 17:02 ; Start 03/03/18 at 16:00 Hydrochlorothiazide (Hydrodiuril) 25 mg DAILY PO Last administered on at 08:21; Start 02/28/18 at 09:00 Multi-Ingredient Ointment (Analgesic [place]) 1 suzi PRN QID PRN TP MUSCLE PAIN; Start 02/27/18 at 23:45 Nystatin (Nystop) 1 suzi PRN BID PRN TP RASH Last administered on 03/07/18 09: 15; Start 02/27/18 at 23:45 Atorvastatin Calcium (Lipitor) 80 mg QHS PO Last administered on 03/11/18 19: 41; Start 02/28/18 at 21:00 Carvedilol (Coreg) 3.125 mg HS PO Last administered on 03/11/18 20:02; Start 02/28/18 at 21:00 Memantine (Namenda) 10 mg BID PO Last administered on 03/11/18 19:42; Start 02/28/18 at 09:00 Polyethylene Glycol (miraLAX) 17 gm DAILY PO Last administered on 03/11/18 08: 20; Start 02/28/18 at 09:00 Bupropion HCl (Wellbutrin Xl) 300 mg DAILY PO Last administered on 03/10/18 08 :28; Start 02/28/18 at 09:00; Stop 03/10/18 at 16:31; Status DC Cyanocobalamin (Vitamin B-12) 1,000 mcg DAILY PO Last administered on 08:22; Start 02/28/18 at 09:00 Guaifenesin (Robitussin) 5 mg PRN BID PRN PO COUGH; Start 02/28/18 at 00:30 Aspirin (Children'S Aspirin) 81 mg DAILYWBKFT PO Last administered on 08:22; Start 02/28/18 at 08:00 Divalproex Sodium (Depakote Sprinkles) 125 mg BID PO Last administered on 03/06at 09:06; Start 02/28/18 at 09:00; Stop 03/06/18 at 18:55; Status DC Citalopram Hydrobromide (CeleXA) 40 mg DAILY PO Last administered on 08:46; Start 02/28/18 at 09:00; Stop 03/01/18 at 17:16; Status DC Meclizine HCl (Antivert) 12.5 mg PRN Q8HRS PRN PO DIZZINESS; Start 02/28/18 at 00:30 Potassium Chloride (Klor-Con) 30 meq DAILY PO Last administered on 03/11/18 08 :21; Start 02/28/18 at 09:00 Potassium Chloride (Klor-Con) 20 meq DAILYWBKFT PO Last administered on at 08:47; Start 02/28/18 at 08:00; Stop 03/01/18 at 14:09; Status DC Triamcinolone Acetonide (Kenalog) 1 suzi PRN BID PRN TP DRY SKIN / SCALING; Start 02/28/18 at 00:30 Nystatin (Mycostatin) 5 ml QID SWSW ; Start 02/28/18 at 17:00; Stop 02/28/18 at 18:26; Status DC Fluconazole (Diflucan) 150 mg 1X ONCE PO Last administered on 02/28/18at 18:30 ; Start 02/28/18 at 17:15; Stop 02/28/18 at 17:17; Status DC Nystatin (Mycostatin) 5 ml QID SWSW Last administered on 03/11/18at 20:04; Start 02/28/18 at 21:00 Potassium Chloride (Klor-Con) 20 meq DAILYWSUP PO Last administered on at 16:46; Start 03/02/18 at 17:00 Sertraline HCl (Zoloft) 50 mg DAILY PO Last administered on 03/08/18at 08:14; Start 03/02/18 at 09:00; Stop 03/08/18 at 19:08; Status DC Mirtazapine (Remeron) 7.5 mg QHS PO Last administered on 03/11/18at 19:41; Start 03/01/18 at 21:00 Trazodone HCl (Desyrel) 50 mg QHS PO Last administered on 03/11/18 19:41; Start 03/01/18 at 21:00 Trazodone HCl (Desyrel) 50 mg QHS PRN PO INSOMNIA; Start 03/01/18 at 17:30 Divalproex Sodium (Depakote Sprinkles) 250 mg BID PO Last administered on at 19:41; Start 03/06/18 at 21:00 Sertraline HCl (Zoloft) 75 mg DAILY PO Last administered on 03/11/18 08:21; Start 03/09/18 at 09:00 Active Scripts Active Reported Lorazepam 0.5 Mg Tablet 0.25 Mg PO PRN Q6HRS PRN Vitamin B-12 (Cyanocobalamin (Vitamin B-12)) 1,000 Mcg Tablet 1,000 Mcg PO DAILY Triamcinolone Acetonide 15 Gm Cream..g. 1 Suzi TP PRN BID PRN Potassium Chloride 10 Meq Tablet.er 30 Meq PO DAILY Potassium Chloride 20 Meq Tablet.er 20 Meq PO DAILYBFRSUP Meclizine Hcl 25 Mg Tablet 25 Mg PO PRN Q8HRS PRN Guaifenesin 100 Mg/5 Ml Liquid 5 Mg PO PRN BID Escitalopram Oxalate 20 Mg Tablet 20 Mg PO HS Depakote Sprinkle (Divalproex Sodium) 125 Mg Cap.sprink 125 Mg PO BID Bupropion Xl (Bupropion Hcl) 300 Mg Tab.er.24h 300 Mg PO DAILY Aspirin 81 Mg Tab.chew 81 Mg PO DAILY Hydrochlorothiazide Tablet (Hydrochlorothiazide) 25 Mg Tablet 25 Mg PO DAILY Miralax (Polyethylene Glycol 3350) 17 Gm Powd.pack 17 Gm PO DAILY Nystop (Nystatin) 60 Gm Powder 1 Suzi TP PRN BID PRN Analgesic [place] (Methyl Salicylate/Menthol) 28 Gm Oint...g. 1 Suzi TP PRN QID PRN Vitamin D (Cholecalciferol (Vitamin D3)) 50,000 Unit Capsule 50,000 Unit PO QFR Tylenol (Acetaminophen) 325 Mg Tablet 650 Mg PO PRN Q6HRS PRN Namenda Xr (Memantine Hcl) 28 Mg Cap.spr.24 28 Mg PO DAILY Carvedilol 3.125 Mg Tablet 3.125 Mg PO HS Atorvastatin Calcium 80 Mg Tablet 80 Mg PO QHS I have reviewed the current psychotropics carefully including drug interactions. Risk benefit ratio favors no change other than as noted in my dictated progress note. 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
[2018-03-12 06:14] VITALS: BP 124/63
[2018-03-12] MEDS: POLYETHYLENE GLYCOL 3350 17 GM PACKET. PO SCH (09:35)
[2018-03-12] MEDS: ASPIRIN 81 MG TAB.CHEW PO SCH (09:36)
[2018-03-12] MEDS: SERTRALINE 50 MG TABLET. PO SCH (09:36)
[2018-03-12] MEDS: hydroCHLOROthiazide 25 MG TABLET PO SCH (09:36)
[2018-03-12] MEDS: DIVALPROEX 125 MG CAP.SPRINK PO SCH ×2 (09:37→19:39)
[2018-03-12] MEDS: POTASSIUM CHLORIDE 10 MEQ TABLET.ER. PO SCH (09:37)
[2018-03-12] MEDS: CYANOCOBALAMIN (VITAMIN B-12) 1,000 MCG TABLET. PO SCH (09:37)
[2018-03-12] MEDS: MEMANTINE 10 MG TABLET. PO SCH ×2 (09:37→19:40)
[2018-03-12] MEDS: NYSTATIN 100,000 UNITS/ML ORAL SUSPENSION 60ML BOTTLE. SWSW SCH ×4 (09:38→19:41)
[2018-03-12 15:56] VITALS: BP 108/61
--- NOTE | 2018-03-12 16:37 | PN ---
DATE: 03/10/2018 This late entry 03/10/2018 covers elements not covered in my initial note. SUBJECTIVE: I met with the patient in the evening. The patient slept 7-1/4 hours previous night. She is spending more time in the day room, less paranoid. Compliant with medications. She talks to people who are not there. REVIEW OF SYSTEMS: Poor vision. No CV, , pulmonary, ENT system symptoms on review. Reliability poor. MENTAL STATUS EXAM: Oriented to herself. Insight, judgment, recent and remote memory, attention, concentration, fund of knowledge poor, consistent with her diagnosis. IMPRESSION: Major neurocognitive disorder, Alzheimer, vascular with delusion, depression, behavioral disturbance, bilateral blindness. Rest unchanged. PLAN: Depakote we will continue to 50 b.i.d., level is 45, slightly subtherapeutic, but clinically adequate. We will stop the Wellbutrin 300 mg daily since it could be increasing her agitation and possible hallucinations. Maintain Zoloft, Namenda, increase Zoloft to 75 mg after she has been on 50 for 3 days. Maintain trazodone, Remeron for now. MAN Alexander DOBSON MD DR: BRIDGETTE/murtaza JOB#: [id number] / [id number]
[2018-03-12] MEDS: POTASSIUM CHLORIDE 20 MEQ TABLET.ER. PO SCH (17:13)
[2018-03-12] MEDS: CARVEDILOL 3.125 MG TABLET PO SCH (19:39)
[2018-03-12] MEDS: traZODone 50 MG TABLET. PO SCH (19:40)
[2018-03-12] MEDS: MIRTAZAPINE 7.5 MG TABLET. PO SCH (19:40)
[2018-03-12] MEDS: ATORVASTATIN CALCIUM 20 MG TABLET PO SCH (19:40)
--- NOTE | 2018-03-12 23:16 | PDOC ---
Exam Note: Robert Note: Please also refer to the separate dictated note~for this date of service dictated separately.~Patient seen individually. Discussed the patient with Nursing staff reviewed the chart.~Reviewed interim history and current functioning. Reviewed vital signs,~Labs/ Radiology~and current medications noted below. Continue current treatment with the changes noted in the dictated addendum note Assessment: Vital Signs: Vital Signs Date Time Temp Pulse Resp B/P (MAP) Pulse Ox O2 Delivery O2 Flow Rate FiO2 03/12/18 19:39 69 108/61 03/12/18 15:56 98.5 16 97 Room Air I&O Intake and Output 03/12/18 07:00 Intake Total 720 ml Balance 720 ml Intake Oral 720 ml # Bowel Movements 1 Current Medications: Meds: Current Medications Cephalexin HCl (Keflex) 500 mg 1X ONCE PO Last administered on 02/27/18at 20: 32; Start 02/27/18 at 20:30; Stop 02/27/18 at 20:31; Status DC Acetaminophen (Tylenol) 650 mg PRN Q6HRS PRN PO PAIN / TEMP; Start 02/27/18 at 22:15; Status Cancel Multi-Ingredient Ointment (Analgesic [place]) 1 suzi PRN QID PRN TP MUSCLE PAIN; Start 02/27/18 at 22:15; Status Cancel Al Hydroxide/Mg Hydroxide (Mylanta Plus Xs) 15 ml PRN AFTMEALHC PRN PO DYSPEPSIA; Start 02/27/18 at 22:15 Magnesium Hydroxide (Milk Of Magnesia) 2,400 mg PRN QHS PRN PO CONSTIPATION; Start 02/27/18 at 22:15 Acetaminophen (Tylenol) 650 mg PRN Q6HRS PRN PO PAIN / TEMP Last administered on 03/06/18at 15:39; Start 02/27/18 at 23:45 Vitamin D (Vitamin D3) 50,000 unit QFR PO Last administered on 03/10/18at 17:02 ; Start 03/03/18 at 16:00 Hydrochlorothiazide (Hydrodiuril) 25 mg DAILY PO Last administered on at 09:36; Start 02/28/18 at 09:00 Multi-Ingredient Ointment (Analgesic [place]) 1 suzi PRN QID PRN TP MUSCLE PAIN; Start 02/27/18 at 23:45 Nystatin (Nystop) 1 suzi PRN BID PRN TP RASH Last administered on 03/07/18 09: 15; Start 02/27/18 at 23:45 Atorvastatin Calcium (Lipitor) 80 mg QHS PO Last administered on 03/12/18 19: 40; Start 02/28/18 at 21:00 Carvedilol (Coreg) 3.125 mg HS PO Last administered on 03/12/18 19:39; Start 02/28/18 at 21:00 Memantine (Namenda) 10 mg BID PO Last administered on 03/12/18 19:40; Start 02/28/18 at 09:00 Polyethylene Glycol (miraLAX) 17 gm DAILY PO Last administered on 03/12/18 09: 35; Start 02/28/18 at 09:00 Bupropion HCl (Wellbutrin Xl) 300 mg DAILY PO Last administered on 03/10/18 08 :28; Start 02/28/18 at 09:00; Stop 03/10/18 at 16:31; Status DC Cyanocobalamin (Vitamin B-12) 1,000 mcg DAILY PO Last administered on 09:37; Start 02/28/18 at 09:00 Guaifenesin (Robitussin) 5 mg PRN BID PRN PO COUGH; Start 02/28/18 at 00:30 Aspirin (Children'S Aspirin) 81 mg DAILYWBKFT PO Last administered on 09:36; Start 02/28/18 at 08:00 Divalproex Sodium (Depakote Sprinkles) 125 mg BID PO Last administered on 03/06at 09:06; Start 02/28/18 at 09:00; Stop 03/06/18 at 18:55; Status DC Citalopram Hydrobromide (CeleXA) 40 mg DAILY PO Last administered on 08:46; Start 02/28/18 at 09:00; Stop 03/01/18 at 17:16; Status DC Meclizine HCl (Antivert) 12.5 mg PRN Q8HRS PRN PO DIZZINESS; Start 02/28/18 at 00:30 Potassium Chloride (Klor-Con) 30 meq DAILY PO Last administered on 03/12/18 09 :37; Start 02/28/18 at 09:00 Potassium Chloride (Klor-Con) 20 meq DAILYWBKFT PO Last administered on at 08:47; Start 02/28/18 at 08:00; Stop 03/01/18 at 14:09; Status DC Triamcinolone Acetonide (Kenalog) 1 suzi PRN BID PRN TP DRY SKIN / SCALING; Start 02/28/18 at 00:30 Nystatin (Mycostatin) 5 ml QID SWSW ; Start 02/28/18 at 17:00; Stop 02/28/18 at 18:26; Status DC Fluconazole (Diflucan) 150 mg 1X ONCE PO Last administered on 02/28/18at 18:30 ; Start 02/28/18 at 17:15; Stop 02/28/18 at 17:17; Status DC Nystatin (Mycostatin) 5 ml QID SWSW Last administered on 03/12/18at 19:41; Start 02/28/18 at 21:00 Potassium Chloride (Klor-Con) 20 meq DAILYWSUP PO Last administered on at 17:13; Start 03/02/18 at 17:00 Sertraline HCl (Zoloft) 50 mg DAILY PO Last administered on 03/08/18at 08:14; Start 03/02/18 at 09:00; Stop 03/08/18 at 19:08; Status DC Mirtazapine (Remeron) 7.5 mg QHS PO Last administered on 03/12/18at 19:40; Start 03/01/18 at 21:00 Trazodone HCl (Desyrel) 50 mg QHS PO Last administered on 03/12/18at 19:40; Start 03/01/18 at 21:00 Trazodone HCl (Desyrel) 50 mg QHS PRN PO INSOMNIA; Start 03/01/18 at 17:30 Divalproex Sodium (Depakote Sprinkles) 250 mg BID PO Last administered on at 19:39; Start 03/06/18 at 21:00 Sertraline HCl (Zoloft) 75 mg DAILY PO Last administered on 03/12/18at 09:36; Start 03/09/18 at 09:00 Active Scripts Active Reported Lorazepam 0.5 Mg Tablet 0.25 Mg PO PRN Q6HRS PRN Vitamin B-12 (Cyanocobalamin (Vitamin B-12)) 1,000 Mcg Tablet 1,000 Mcg PO DAILY Triamcinolone Acetonide 15 Gm Cream..g. 1 Suzi TP PRN BID PRN Potassium Chloride 10 Meq Tablet.er 30 Meq PO DAILY Potassium Chloride 20 Meq Tablet.er 20 Meq PO DAILYBFRSUP Meclizine Hcl 25 Mg Tablet 25 Mg PO PRN Q8HRS PRN Guaifenesin 100 Mg/5 Ml Liquid 5 Mg PO PRN BID Escitalopram Oxalate 20 Mg Tablet 20 Mg PO HS Depakote Sprinkle (Divalproex Sodium) 125 Mg Cap.sprink 125 Mg PO BID Bupropion Xl (Bupropion Hcl) 300 Mg Tab.er.24h 300 Mg PO DAILY Aspirin 81 Mg Tab.chew 81 Mg PO DAILY Hydrochlorothiazide Tablet (Hydrochlorothiazide) 25 Mg Tablet 25 Mg PO DAILY Miralax (Polyethylene Glycol 3350) 17 Gm Powd.pack 17 Gm PO DAILY Nystop (Nystatin) 60 Gm Powder 1 Suzi TP PRN BID PRN Analgesic [place] (Methyl Salicylate/Menthol) 28 Gm Oint...g. 1 Suzi TP PRN QID PRN Vitamin D (Cholecalciferol (Vitamin D3)) 50,000 Unit Capsule 50,000 Unit PO QFR Tylenol (Acetaminophen) 325 Mg Tablet 650 Mg PO PRN Q6HRS PRN Namenda Xr (Memantine Hcl) 28 Mg Cap.spr.24 28 Mg PO DAILY Carvedilol 3.125 Mg Tablet 3.125 Mg PO HS Atorvastatin Calcium 80 Mg Tablet 80 Mg PO QHS I have reviewed the current psychotropics carefully including drug interactions. Risk benefit ratio favors no change other than as noted in my dictated progress note. Diagnosis: Problems: (1) Anxiety disorder (2) Dementia, vascular, with depression (3) Dementia, vascular, with delusions (4) Dementia in Alzheimer's disease with depression (5) Dementia in Alzheimer's disease with delusions (6) Impulse control disorder (7) Major neurocognitive disorder MELLISA DOBSON MD Mar 12, 2018 23:15
[2018-03-13 06:21] VITALS: BP 161/74
[2018-03-13] MEDS: MEMANTINE 10 MG TABLET. PO SCH ×2 (10:06→19:18)
[2018-03-13] MEDS: POTASSIUM CHLORIDE 10 MEQ TABLET.ER. PO SCH (10:07)
[2018-03-13] MEDS: SERTRALINE 50 MG TABLET. PO SCH (10:07)
[2018-03-13] MEDS: ASPIRIN 81 MG TAB.CHEW PO SCH (10:13)
[2018-03-13] MEDS: CYANOCOBALAMIN (VITAMIN B-12) 1,000 MCG TABLET. PO SCH (10:13)
[2018-03-13] MEDS: DIVALPROEX 125 MG CAP.SPRINK PO SCH ×2 (10:13→19:18)
[2018-03-13] MEDS: POLYETHYLENE GLYCOL 3350 17 GM PACKET. PO SCH (10:13)
[2018-03-13] MEDS: hydroCHLOROthiazide 25 MG TABLET PO SCH (10:13)
[2018-03-13] MEDS: NYSTATIN 100,000 UNITS/ML ORAL SUSPENSION 60ML BOTTLE. SWSW SCH ×4 (10:14→19:19)
[2018-03-13 15:17] VITALS: BP 111/65
[2018-03-13] MEDS: POTASSIUM CHLORIDE 20 MEQ TABLET.ER. PO SCH (16:14)
[2018-03-13] MEDS: MIRTAZAPINE 7.5 MG TABLET. PO SCH (19:18)
[2018-03-13] MEDS: CARVEDILOL 3.125 MG TABLET PO SCH (19:18)
[2018-03-13] MEDS: ATORVASTATIN CALCIUM 20 MG TABLET PO SCH (19:18)
[2018-03-13] MEDS: traZODone 50 MG TABLET. PO SCH (19:18)
--- NOTE | 2018-03-13 19:46 | PN ---
DATE: 03/11/2018 PSYCHIATRIC PROGRESS NOTE This late entry 03/11/2018 covers elements not covered in my initial note. SUBJECTIVE: I met with the patient in the evening. The patient slept 6-3/4 hours previous night. She remains quite withdrawn, confused, not aggressive, not crying, not making statements of wanting to and not screaming, which is what set of symptoms that prompted her admission. REVIEW OF SYSTEMS: Bilateral blindness. No CV, , pulmonary, ENT system symptoms on review. Reliability poor. MENTAL STATUS EXAM: Oriented to herself. Insight, judgment, recent and remote memory, attention, concentration, fund of knowledge poor, consistent with her diagnosis. LABORATORY DATA: Reviewed. IMPRESSION: Major neurocognitive disorder, Alzheimer, vascular with delusion, depression, behavioral disturbance. Rest unchanged. PLAN: No change from initial note. MAN Alexander DOBSON MD DR: BRIDGETTE/murtaza JOB#: [id number] / [id number]
--- NOTE | 2018-03-13 23:15 | PDOC ---
Exam Note: Robert Note: Please also refer to the separate dictated note~for this date of service dictated separately.~Patient seen individually. Discussed the patient with Nursing staff reviewed the chart.~Reviewed interim history and current functioning. Reviewed vital signs,~Labs/ Radiology~and current medications noted below. Continue current treatment with the changes noted in the dictated addendum note Assessment: Vital Signs: Vital Signs Date Time Temp Pulse Resp B/P (MAP) Pulse Ox O2 Delivery O2 Flow Rate FiO2 03/13/18 19:18 65 111/65 03/13/18 15:17 98.3 20 93 Room Air I&O Intake and Output 03/13/18 07:00 Intake Total 600 ml Balance 600 ml Intake Oral 600 ml # Voids 1 Current Medications: Meds: Current Medications Cephalexin HCl (Keflex) 500 mg 1X ONCE PO Last administered on 02/27/18at 20: 32; Start 02/27/18 at 20:30; Stop 02/27/18 at 20:31; Status DC Acetaminophen (Tylenol) 650 mg PRN Q6HRS PRN PO PAIN / TEMP; Start 02/27/18 at 22:15; Status Cancel Multi-Ingredient Ointment (Analgesic [place]) 1 suzi PRN QID PRN TP MUSCLE PAIN; Start 02/27/18 at 22:15; Status Cancel Al Hydroxide/Mg Hydroxide (Mylanta Plus Xs) 15 ml PRN AFTMEALHC PRN PO DYSPEPSIA; Start 02/27/18 at 22:15 Magnesium Hydroxide (Milk Of Magnesia) 2,400 mg PRN QHS PRN PO CONSTIPATION; Start 02/27/18 at 22:15 Acetaminophen (Tylenol) 650 mg PRN Q6HRS PRN PO PAIN / TEMP Last administered on 03/06/18at 15:39; Start 02/27/18 at 23:45 Vitamin D (Vitamin D3) 50,000 unit QFR PO Last administered on 03/10/18at 17:02 ; Start 03/03/18 at 16:00 Hydrochlorothiazide (Hydrodiuril) 25 mg DAILY PO Last administered on at 10:13; Start 02/28/18 at 09:00 Multi-Ingredient Ointment (Analgesic [place]) 1 suzi PRN QID PRN TP MUSCLE PAIN; Start 02/27/18 at 23:45 Nystatin (Nystop) 1 suzi PRN BID PRN TP RASH Last administered on 03/07/18at 09: 15; Start 02/27/18 at 23:45 Atorvastatin Calcium (Lipitor) 80 mg QHS PO Last administered on 03/13/18 19: 18; Start 02/28/18 at 21:00 Carvedilol (Coreg) 3.125 mg HS PO Last administered on 03/13/18 19:18; Start 02/28/18 at 21:00 Memantine (Namenda) 10 mg BID PO Last administered on 03/13/18 19:18; Start 02/28/18 at 09:00 Polyethylene Glycol (miraLAX) 17 gm DAILY PO Last administered on 03/13/18 10: 13; Start 02/28/18 at 09:00 Bupropion HCl (Wellbutrin Xl) 300 mg DAILY PO Last administered on 03/10/18at 08 :28; Start 02/28/18 at 09:00; Stop 03/10/18 at 16:31; Status DC Cyanocobalamin (Vitamin B-12) 1,000 mcg DAILY PO Last administered on at 10:13; Start 02/28/18 at 09:00 Guaifenesin (Robitussin) 5 mg PRN BID PRN PO COUGH; Start 02/28/18 at 00:30 Aspirin (Children'S Aspirin) 81 mg DAILYWBKFT PO Last administered on at 10:13; Start 02/28/18 at 08:00 Divalproex Sodium (Depakote Sprinkles) 125 mg BID PO Last administered on 03/06at 09:06; Start 02/28/18 at 09:00; Stop 03/06/18 at 18:55; Status DC Citalopram Hydrobromide (CeleXA) 40 mg DAILY PO Last administered on at 08:46; Start 02/28/18 at 09:00; Stop 03/01/18 at 17:16; Status DC Meclizine HCl (Antivert) 12.5 mg PRN Q8HRS PRN PO DIZZINESS; Start 02/28/18 at 00:30 Potassium Chloride (Klor-Con) 30 meq DAILY PO Last administered on 03/13/18at 10 :07; Start 02/28/18 at 09:00 Potassium Chloride (Klor-Con) 20 meq DAILYWBKFT PO Last administered on at 08:47; Start 02/28/18 at 08:00; Stop 03/01/18 at 14:09; Status DC Triamcinolone Acetonide (Kenalog) 1 suzi PRN BID PRN TP DRY SKIN / SCALING; Start 02/28/18 at 00:30 Nystatin (Mycostatin) 5 ml QID SWSW ; Start 02/28/18 at 17:00; Stop 02/28/18 at 18:26; Status DC Fluconazole (Diflucan) 150 mg 1X ONCE PO Last administered on 02/28/18at 18:30 ; Start 02/28/18 at 17:15; Stop 02/28/18 at 17:17; Status DC Nystatin (Mycostatin) 5 ml QID SWSW Last administered on 03/13/18at 19:19; Start 02/28/18 at 21:00 Potassium Chloride (Klor-Con) 20 meq DAILYWSUP PO Last administered on at 16:14; Start 03/02/18 at 17:00 Sertraline HCl (Zoloft) 50 mg DAILY PO Last administered on 03/08/18at 08:14; Start 03/02/18 at 09:00; Stop 03/08/18 at 19:08; Status DC Mirtazapine (Remeron) 7.5 mg QHS PO Last administered on 03/13/18at 19:18; Start 03/01/18 at 21:00 Trazodone HCl (Desyrel) 50 mg QHS PO Last administered on 03/13/18at 19:18; Start 03/01/18 at 21:00 Trazodone HCl (Desyrel) 50 mg QHS PRN PO INSOMNIA; Start 03/01/18 at 17:30 Divalproex Sodium (Depakote Sprinkles) 250 mg BID PO Last administered on at 19:18; Start 03/06/18 at 21:00 Sertraline HCl (Zoloft) 75 mg DAILY PO Last administered on 03/13/18at 10:07; Start 03/09/18 at 09:00 Active Scripts Active Reported Lorazepam 0.5 Mg Tablet 0.25 Mg PO PRN Q6HRS PRN Vitamin B-12 (Cyanocobalamin (Vitamin B-12)) 1,000 Mcg Tablet 1,000 Mcg PO DAILY Triamcinolone Acetonide 15 Gm Cream..g. 1 Suzi TP PRN BID PRN Potassium Chloride 10 Meq Tablet.er 30 Meq PO DAILY Potassium Chloride 20 Meq Tablet.er 20 Meq PO DAILYBFRSUP Meclizine Hcl 25 Mg Tablet 25 Mg PO PRN Q8HRS PRN Guaifenesin 100 Mg/5 Ml Liquid 5 Mg PO PRN BID Escitalopram Oxalate 20 Mg Tablet 20 Mg PO HS Depakote Sprinkle (Divalproex Sodium) 125 Mg Cap.sprink 125 Mg PO BID Bupropion Xl (Bupropion Hcl) 300 Mg Tab.er.24h 300 Mg PO DAILY Aspirin 81 Mg Tab.chew 81 Mg PO DAILY Hydrochlorothiazide Tablet (Hydrochlorothiazide) 25 Mg Tablet 25 Mg PO DAILY Miralax (Polyethylene Glycol 3350) 17 Gm Powd.pack 17 Gm PO DAILY Nystop (Nystatin) 60 Gm Powder 1 Suzi TP PRN BID PRN Analgesic [place] (Methyl Salicylate/Menthol) 28 Gm Oint...g. 1 Suzi TP PRN QID PRN Vitamin D (Cholecalciferol (Vitamin D3)) 50,000 Unit Capsule 50,000 Unit PO QFR Tylenol (Acetaminophen) 325 Mg Tablet 650 Mg PO PRN Q6HRS PRN Namenda Xr (Memantine Hcl) 28 Mg Cap.spr.24 28 Mg PO DAILY Carvedilol 3.125 Mg Tablet 3.125 Mg PO HS Atorvastatin Calcium 80 Mg Tablet 80 Mg PO QHS I have reviewed the current psychotropics carefully including drug interactions. Risk benefit ratio favors no change other than as noted in my dictated progress note. Diagnosis: Problems: (1) Anxiety disorder (2) Dementia, vascular, with depression (3) Dementia, vascular, with delusions (4) Dementia in Alzheimer's disease with depression (5) Dementia in Alzheimer's disease with delusions (6) Impulse control disorder (7) Major neurocognitive disorder MELLISA DOBSON MD Mar 13, 2018 23:15
--- NOTE | 2018-03-14 00:48 | PN ---
DATE: 03/12/2018 This is a late entry for 03/12/2018 covers elements not covered in my initial note. SUBJECTIVE: I met with the patient in the evening. The patient slept 8 hours previous evening. The patient remains confused, but otherwise cooperative, not tearful. REVIEW OF SYSTEMS: Bilateral blindness. No CV, , pulmonary, ENT system symptoms on review. Reliability poor. MENTAL STATUS EXAM: Oriented to herself. Insight, judgment, recent and remote memory, attention, concentration, fund of knowledge poor, consistent with her diagnosis mentioned in my initial note. PLAN: No change from initial note. Valproic acid level slightly subtherapeutic, but clinically adequate at 45. MAN Alexander DOBSON MD DR: BRIDGETTE/murtaza JOB#: [id number] / [id number]
[2018-03-14 06:32] VITALS: BP 131/80
[2018-03-14] MEDS: NYSTATIN 100,000 UNITS/ML ORAL SUSPENSION 60ML BOTTLE. SWSW SCH ×4 (09:00→19:44)
[2018-03-14] MEDS: ASPIRIN 81 MG TAB.CHEW PO SCH (09:04)
[2018-03-14] MEDS: DIVALPROEX 125 MG CAP.SPRINK PO SCH ×2 (09:05→19:43)
[2018-03-14] MEDS: hydroCHLOROthiazide 25 MG TABLET PO SCH (09:05)
[2018-03-14] MEDS: POLYETHYLENE GLYCOL 3350 17 GM PACKET. PO SCH (09:06)
[2018-03-14] MEDS: POTASSIUM CHLORIDE 10 MEQ TABLET.ER. PO SCH (09:06)
[2018-03-14] MEDS: MEMANTINE 10 MG TABLET. PO SCH ×2 (09:06→19:43)
[2018-03-14] MEDS: SERTRALINE 50 MG TABLET. PO SCH (09:07)
[2018-03-14] MEDS: CYANOCOBALAMIN (VITAMIN B-12) 1,000 MCG TABLET. PO SCH (09:07)
--- NOTE | 2018-03-14 15:23 | PN ---
DATE: 03/13/2018 PSYCHIATRIC PROGRESS NOTE This is a late entry 03/13/2018, covers elements not covered in my initial note. SUBJECTIVE: I met with the patient in the evening. The patient slept 7-3/4 hours previous night. She remains disorganized. Vision is poor bilaterally. REVIEW OF SYSTEMS: No CV, , pulmonary, ENT system symptoms on review. Reliability is poor medication. She is otherwise calm, confused per nursing report. MENTAL STATUS EXAM: Oriented to herself. Insight, judgment, recent and remote memory, attention, concentration, fund of knowledge poor, consistent with her diagnosis mentioned in my initial note. IMPRESSION: Major neurocognitive disorder, Alzheimer, vascular with delusion, depression, behavioral disturbance. Rest unchanged. PLAN: Maintain Depakote, Namenda, Zoloft, Remeron, trazodone at current dosage. Adjust further as clinically indicated. Valproic acid level is slightly subtherapeutic, but clinically adequate. MELLISA DOBSON MD DR: BRIDGETTE/murtaza JOB#: [id number] / [id number]
[2018-03-14 16:14] VITALS: BP 112/57
[2018-03-14] MEDS: POTASSIUM CHLORIDE 20 MEQ TABLET.ER. PO SCH (17:00)
[2018-03-14] MEDS: CARVEDILOL 3.125 MG TABLET PO SCH (19:42)
[2018-03-14] MEDS: traZODone 50 MG TABLET. PO SCH (19:43)
[2018-03-14] MEDS: ATORVASTATIN CALCIUM 20 MG TABLET PO SCH (19:43)
[2018-03-14] MEDS: MIRTAZAPINE 7.5 MG TABLET. PO SCH (19:44)
[2018-03-14] MEDS ORDERED: DIVA125C2 PO (23:04)
[2018-03-14] MEDS ORDERED: MEMA10TA PO (23:07)
[2018-03-14] MEDS ORDERED: MAG30ORA2 PO (23:22)
[2018-03-14] MEDS ORDERED: MAGN2400 PO (23:23)
[2018-03-14] MEDS ORDERED: MIRT15TA3 PO (23:24)
[2018-03-14] MEDS ORDERED: NYST1000 SWSW (23:27)
[2018-03-14] MEDS ORDERED: SERT50TA PO (23:28)
[2018-03-14] MEDS ORDERED: TRAZ-85 PO ×2 (23:31)
[2018-03-15 06:03] VITALS: BP 119/57
[2018-03-15] MEDS: SERTRALINE 50 MG TABLET. PO SCH (08:07)
[2018-03-15] MEDS: DIVALPROEX 125 MG CAP.SPRINK PO SCH (08:07)
[2018-03-15] MEDS: POTASSIUM CHLORIDE 10 MEQ TABLET.ER. PO SCH (08:07)
[2018-03-15] MEDS: POLYETHYLENE GLYCOL 3350 17 GM PACKET. PO SCH (08:08)
[2018-03-15] MEDS: CYANOCOBALAMIN (VITAMIN B-12) 1,000 MCG TABLET. PO SCH (08:08)
[2018-03-15] MEDS: MEMANTINE 10 MG TABLET. PO SCH (08:08)
[2018-03-15] MEDS: ASPIRIN 81 MG TAB.CHEW PO SCH (08:08)
[2018-03-15] MEDS: hydroCHLOROthiazide 25 MG TABLET PO SCH (08:08)
[2018-03-15] MEDS: NYSTATIN 100,000 UNITS/ML ORAL SUSPENSION 60ML BOTTLE. SWSW SCH (08:09)
--- NOTE | 2018-03-15 20:04 | PN ---
DATE: 03/14/2018 PSYCHIATRIC PROGRESS NOTE This late entry 03/14/2018 covers elements not covered in my initial note. SUBJECTIVE: I met with the patient in the evening. The patient slept 6-3/4 hours previous night. She has been pleasant, cooperative, took a.m. medications in pudding. No hallucinations noted, quiet, oriented to herself. Vision is poor with bilateral poor vision. No CV, , pulmonary, ENT system symptoms on review. Reliability poor. She still gets tearful at times. MENTAL STATUS EXAM: Oriented to herself. Insight, judgment, recent and remote memory, attention, concentration, fund of knowledge poor, consistent with her diagnosis mentioned in my initial note. PLAN: Continue current psychotropics. She takes her medications crushed in pudding, remains on mechanical soft diet; maintain Depakote, Namenda, Zoloft and Remeron along with trazodone. MAN Alexander DOBSON MD DR: BRIDGETTE/murtaza JOB#: [id number] / [id number]
--- NOTE | 2018-03-15 23:06 | PDOC ---
Exam Note: Robert Note: Please also refer to the separate dictated note~for this date of service dictated separately.~Patient seen individually. Discussed the patient with Nursing staff reviewed the chart.~Reviewed interim history and current functioning. Reviewed vital signs,~Labs/ Radiology~and current medications noted below. Continue current treatment with the changes noted in the dictated addendum note Assessment: Vital Signs: Vital Signs Date Time Temp Pulse Resp B/P (MAP) Pulse Ox O2 Delivery O2 Flow Rate FiO2 03/15/18 06:03 97.8 60 16 119/57 (77) 98 03/14/18 16:14 Room Air I&O Intake and Output 03/15/18 07:00 Intake Total 840 ml Balance 840 ml Intake Oral 840 ml Lipid 0 ml # Bowel Movements 1 Current Medications: Meds: Current Medications Cephalexin HCl (Keflex) 500 mg 1X ONCE PO Last administered on 02/27/18at 20: 32; Start 02/27/18 at 20:30; Stop 02/27/18 at 20:31; Status DC Acetaminophen (Tylenol) 650 mg PRN Q6HRS PRN PO PAIN / TEMP; Start 02/27/18 at 22:15; Status Cancel Multi-Ingredient Ointment (Analgesic [place]) 1 suzi PRN QID PRN TP MUSCLE PAIN; Start 02/27/18 at 22:15; Status Cancel Al Hydroxide/Mg Hydroxide (Mylanta Plus Xs) 15 ml PRN AFTMEALHC PRN PO DYSPEPSIA; Start 02/27/18 at 22:15; Stop 03/15/18 at 14:02; Status DC Magnesium Hydroxide (Milk Of Magnesia) 2,400 mg PRN QHS PRN PO CONSTIPATION; Start 02/27/18 at 22:15; Stop 03/15/18 at 14:02; Status DC Acetaminophen (Tylenol) 650 mg PRN Q6HRS PRN PO PAIN / TEMP Last administered on 03/06/18at 15:39; Start 02/27/18 at 23:45; Stop 03/15/18 at 14:02; Status DC Vitamin D (Vitamin D3) 50,000 unit QFR PO Last administered on 03/10/18at 17:02 ; Start 03/03/18 at 16:00; Stop 03/15/18 at 14:02; Status DC Hydrochlorothiazide (Hydrodiuril) 25 mg DAILY PO Last administered on 08:08; Start 02/28/18 at 09:00; Stop 03/15/18 at 14:02; Status DC Multi-Ingredient Ointment (Analgesic [place]) 1 suzi PRN QID PRN TP MUSCLE PAIN; Start 02/27/18 at 23:45; Stop 03/15/18 at 14:02; Status DC Nystatin (Nystop) 1 suzi PRN BID PRN TP RASH Last administered on 03/07/18at 09: 15; Start 02/27/18 at 23:45; Stop 03/15/18 at 14:02; Status DC Atorvastatin Calcium (Lipitor) 80 mg QHS PO Last administered on 03/14/18at 19: 43; Start 02/28/18 at 21:00; Stop 03/15/18 at 14:02; Status DC Carvedilol (Coreg) 3.125 mg HS PO Last administered on 03/14/18at 19:42; Start 02/28/18 at 21:00; Stop 03/15/18 at 14:02; Status DC Memantine (Namenda) 10 mg BID PO Last administered on 03/15/18at 08:08; Start 02/28/18 at 09:00; Stop 03/15/18 at 14:02; Status DC Polyethylene Glycol (miraLAX) 17 gm DAILY PO Last administered on 03/15/18at 08: 08; Start 02/28/18 at 09:00; Stop 03/15/18 at 14:02; Status DC Bupropion HCl (Wellbutrin Xl) 300 mg DAILY PO Last administered on 03/10/18at 08 :28; Start 02/28/18 at 09:00; Stop 03/10/18 at 16:31; Status DC Cyanocobalamin (Vitamin B-12) 1,000 mcg DAILY PO Last administered on at 08:08; Start 02/28/18 at 09:00; Stop 03/15/18 at 14:02; Status DC Guaifenesin (Robitussin) 5 mg PRN BID PRN PO COUGH; Start 02/28/18 at 00:30; Stop 03/15/18 at 14:02; Status DC Aspirin (Children'S Aspirin) 81 mg DAILYWBKFT PO Last administered on at 08:08; Start 02/28/18 at 08:00; Stop 03/15/18 at 14:02; Status DC Divalproex Sodium (Depakote Sprinkles) 125 mg BID PO Last administered on 03/06at 09:06; Start 02/28/18 at 09:00; Stop 03/06/18 at 18:55; Status DC Citalopram Hydrobromide (CeleXA) 40 mg DAILY PO Last administered on at 08:46; Start 02/28/18 at 09:00; Stop 03/01/18 at 17:16; Status DC Meclizine HCl (Antivert) 12.5 mg PRN Q8HRS PRN PO DIZZINESS; Start 02/28/18 at 00:30; Stop 03/15/18 at 14:02; Status DC Potassium Chloride (Klor-Con) 30 meq DAILY PO Last administered on 03/15/18at 08 :07; Start 02/28/18 at 09:00; Stop 03/15/18 at 14:02; Status DC Potassium Chloride (Klor-Con) 20 meq DAILYWBKFT PO Last administered on at 08:47; Start 02/28/18 at 08:00; Stop 03/01/18 at 14:09; Status DC Triamcinolone Acetonide (Kenalog) 1 suzi PRN BID PRN TP DRY SKIN / SCALING; Start 02/28/18 at 00:30; Stop 03/15/18 at 14:02; Status DC Nystatin (Mycostatin) 5 ml QID SWSW ; Start 02/28/18 at 17:00; Stop 02/28/18 at 18:26; Status DC Fluconazole (Diflucan) 150 mg 1X ONCE PO Last administered on 02/28/18at 18:30 ; Start 02/28/18 at 17:15; Stop 02/28/18 at 17:17; Status DC Nystatin (Mycostatin) 5 ml QID SWSW Last administered on 03/15/18at 08:09; Start 02/28/18 at 21:00; Stop 03/15/18 at 14:02; Status DC Potassium Chloride (Klor-Con) 20 meq DAILYWSUP PO Last administered on at 17:00; Start 03/02/18 at 17:00; Stop 03/15/18 at 14:02; Status DC Sertraline HCl (Zoloft) 50 mg DAILY PO Last administered on 03/08/18at 08:14; Start 03/02/18 at 09:00; Stop 03/08/18 at 19:08; Status DC Mirtazapine (Remeron) 7.5 mg QHS PO Last administered on 03/14/18at 19:44; Start 03/01/18 at 21:00; Stop 03/15/18 at 14:02; Status DC Trazodone HCl (Desyrel) 50 mg QHS PO Last administered on 03/14/18at 19:43; Start 03/01/18 at 21:00; Stop 03/15/18 at 14:02; Status DC Trazodone HCl (Desyrel) 50 mg QHS PRN PO INSOMNIA; Start 03/01/18 at 17:30; Stop 03/15/18 at 14:02; Status DC Divalproex Sodium (Depakote Sprinkles) 250 mg BID PO Last administered on at 08:07; Start 03/06/18 at 21:00; Stop 03/15/18 at 14:02; Status DC Sertraline HCl (Zoloft) 75 mg DAILY PO Last administered on 03/15/18at 08:07; Start 03/09/18 at 09:00; Stop 03/15/18 at 14:02; Status DC Active Scripts Active Reported Trazodone Hcl 50 Mg Tablet 50 Mg PO PRN QHS PRN May only give one PRN dose daily Trazodone Hcl 50 Mg Tablet 50 Mg PO HS Zoloft (Sertraline Hcl) 50 Mg Tablet 75 Mg PO DAILY Nystatin 100,000 Unit/1 Ml Oral.susp 5 Ml SWSW QID Mirtazapine 15 Mg Tablet 7.5 Mg PO QHS Milk Of Magnesia (Magnesium Hydroxide) 2,400 Mg/10 Ml Oral.susp 2,400 Mg PO PRN QHS PRN Mag-Al Plus Xs Suspension (Mag Hydrox/Al Hydrox/Simeth) 30 Ml Oral.susp 15 Ml PO PRN AFTMEALHC PRN Namenda (Memantine Hcl) 10 Mg Tablet 10 Mg PO BID Depakote Sprinkle (Divalproex Sodium) 125 Mg Cap.sprink 250 Mg PO BID Vitamin B-12 (Cyanocobalamin (Vitamin B-12)) 1,000 Mcg Tablet 1,000 Mcg PO DAILY Triamcinolone Acetonide 15 Gm Cream..g. 1 Suzi TP PRN BID PRN Potassium Chloride 10 Meq Tablet.er 30 Meq PO DAILY Potassium Chloride 20 Meq Tablet.er 20 Meq PO DAILYBFRSUP Meclizine Hcl 25 Mg Tablet 12.5 Mg PO PRN Q8HRS PRN Guaifenesin 100 Mg/5 Ml Liquid 5 Mg PO PRN BID Aspirin 81 Mg Tab.chew 81 Mg PO DAILY Hydrochlorothiazide Tablet (Hydrochlorothiazide) 25 Mg Tablet 25 Mg PO DAILY Miralax (Polyethylene Glycol 3350) 17 Gm Powd.pack 17 Gm PO DAILY Nystop (Nystatin) 60 Gm Powder 1 Suzi TP PRN BID PRN Analgesic [place] (Methyl Salicylate/Menthol) 28 Gm Oint...g. 1 Suzi TP PRN QID PRN Vitamin D (Cholecalciferol (Vitamin D3)) 50,000 Unit Capsule 50,000 Unit PO QFR Tylenol (Acetaminophen) 325 Mg Tablet 650 Mg PO PRN Q6HRS PRN Carvedilol 3.125 Mg Tablet 3.125 Mg PO HS Atorvastatin Calcium 80 Mg Tablet 80 Mg PO QHS I have reviewed the current psychotropics carefully including drug interactions. Risk benefit ratio favors no change other than as noted in my dictated progress note. 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
--- NOTE | 2018-03-17 13:55 | DS ---
DATE OF DISCHARGE: 03/15/2018 DISCHARGE SUMMARY/PSYCHIATRIC PROGRESS NOTE This late entry 03/15/2018 covers the elements not covered in my initial note. REASON FOR ADMISSION: Please refer to the admission history for details. Briefly, the patient is a 72-year-old female referred to us from [facility] by her primary care physician on account of refusing to eat, having marked crying spells, making statements about wanting to with suicidal ideation. She was screaming out over the weekend, telling staff to shut up same "something is wrong with my head." She was refusing her psychotropics, verbally aggressive, cursing. She had failed outpatient psychiatric interventions for her dementia, Alzheimer's, vascular with delusion, depression, behavioral disturbance and was referred for inpatient psychiatric stabilization by her primary care physician/psychiatrist. SIGNIFICANT FINDINGS AND CLINICAL COURSE: Following admission, the patient was seen daily individually by myself from a psychiatric standpoint, medical followup with Dr. Oscar/Dr Moore. The patient was extremely confused, further frustrated by her marked lack of vision and was having crying spells, marked mood lability, agitation and anxiety. Adjustments were made in her psychotropics and she seemed to respond to a combination of Zoloft 75 mg a day, Remeron 7.5 at bedtime, Namenda 10 b.i.d., Depakote Sprinkles 250 b.i.d. for her mood lability. Valproic acid level was 45, slightly subtherapeutic, but clinically adequate. She was also on trazodone 50 mg at bedtime, may repeat x 1 for insomnia. Gradually, the patient's mood appeared to improve, crying spells are much better. No active suicidal or homicidal ideation prior to discharge and she was much less emotionally intense. CONDITION AT DISCHARGE: Improved. FINAL DIAGNOSES: Major neurocognitive disorder, Alzheimer's, vascular with delusion, depression, behavioral disturbance; anxiety disorder, unspecified; impulse control disorder, unspecified. Rest unchanged from admission including bilateral blindness. DISCHARGE MEDICATIONS: Please refer to the MRAD. DISCHARGE INSTRUCTIONS: Outpatient psychiatric medical followup at the [facility]. Time for discharge day management greater than 30 minutes. MELLISA DOBSON MD DR: BRIDGETTE/murtaza JOB#: [id number] / [id number]
== END 2018-03-15 11:50 | DRG 57 ==
LOC: ER 18:46 → GEROPSY 21:26
PROVIDERS: ADMIT Psychiatry & Neurology Psychiatry; ATTEND Psychiatry & Neurology Psychiatry
DX: G30.9 Alzheimer's disease, unspecified (principal); F01.51 Vascular dementia, unspecified severity, with behavioral disturbance; B37.3 Candidiasis of vulva and vagina; E78.00 Pure hypercholesterolemia, unspecified; E78.5 Hyperlipidemia, unspecified; F02.80 Dementia in other diseases classified elsewhere, unspecified severity, without behavioral disturbance, psychotic disturbance, mood disturbance, and anxiety; F32.9 Major depressive disorder, single episode, unspecified; F41.9 Anxiety disorder, unspecified; F63.9 Impulse disorder, unspecified; H54.3 Unqualified visual loss, both eyes; I10 Essential (primary) hypertension; I25.10 Atherosclerotic heart disease of native coronary artery without angina pectoris; J45.909 Unspecified asthma, uncomplicated; K59.09 Other constipation; K21.9 Gastro-esophageal reflux disease without esophagitis; Z90.710 Acquired absence of both cervix and uterus; Z95.1 Presence of aortocoronary bypass graft; Z88.5 Allergy status to narcotic agent; Z88.8 Allergy status to other drugs, medicaments and biological substances; Z91.041 Radiographic dye allergy status; Z79.82 Long term (current) use of aspirin; Z79.899 Other long term (current) drug therapy
CPT/HCPCS: 36415; 70450; 80053; 80061; 80164; 81001; 82306; 82607; 83036; 83540; 83550; 83735; 84436; 84443; 84480; 85025; 86592; 87086; 93005; 99285-25

== ENCOUNTER 2018-03-20 17:45 | Inpatient (IN) | payer MEDICARE, OTHER ==
[~2018-03-20] VITALS: Ht 154.9 cm; Wt 85.4 kg
[~2018-03-20 17:45] MED LIST changes: +ASPI-630 PO; +BUPR300T4 PO; -CARV3.122 PO; +CARV3.1230 PO; +CYAN10005 PO; +DIVA125C2 PO; +GUAI100L12 PO; +HYDR-2145 PO; -HYDR25TA9 PO; +LORA0.5T PO; +MAG30ORA2 PO; +MECL25TA3 PO; +MEMA10TA PO; +MIRT15TA3 PO; +NYST1000 SWSW; +POTA10TA10 PO; +POTA20TA82 PO; +TRAZ-85 PO; +TRIA15CR50 TP
[2018-03-20 20:14] VITALS: BP 139/77
[2018-03-20] MEDS ORDERED: MAGNESIUM HYDROXIDE 2,400 MG/30 ML ORAL.SUSP. PO PRN (20:45)
[2018-03-20] MEDS ORDERED: ACETAMINOPHEN 325 MG TABLET PO PRN ×2 (20:45→21:30)
[2018-03-20] MEDS ORDERED: METHYL SALICYLATE/MENTHOL TOPICAL OINTMENT 29GM TUBE. TP PRN (20:45)
[2018-03-20] MEDS ORDERED: MAG HYDROX/AL HYDROX/SIMETH 30 ML ORAL.SUSP PO PRN ×2 (20:45→21:30)
[2018-03-20 21:23] LABS: BASO % 1 % (0-3); EOS # 0.2 x10^3/uL (0.0-0.7); EOS % 3 % (0-3); HEMATOCRIT 31.7 % (36.0-47.0); HEMOGLOBIN 10.7 g/dL (12.0-15.5); LYMPH # 1.2 x10^3/uL (1.0-4.8); LYMPH % 24 % (24-48); MEAN CORPUSCULAR HEMOGLOBIN 30 pg (25-35); MEAN CORPUSCULAR HGB CONC 34 g/dL (31-37); MEAN CORPUSCULAR VOLUME 89 fL (79-100); MONO # 0.5 x10^3/uL (0.0-1.1); MONO % 10 % (0-9); NEUT # 3.2 x10^3uL (1.8-7.7); NEUT % 63 % (31-73); PLATELET COUNT 151 x10^3/uL (140-400); RED BLOOD COUNT 3.55 x10^6/uL (3.50-5.40); RED CELL DISTRIBUTION WIDTH 16.6 % (11.5-14.5); WHITE BLOOD COUNT 5.1 x10^3/uL (4.0-11.0)
[2018-03-20] MEDS ORDERED: guaiFENesin 300 MG/15 ML LIQUID PO PRN (21:30)
[2018-03-20] MEDS ORDERED: NYSTATIN TOPICAL POWDER 15GM BOTTLE. TP PRN (21:30)
[2018-03-20] MEDS ORDERED: NON FORMULARY ITEM (Magnesium Hydroxide (Milk Of Magnesia) 2,400 MG) PO PRN (21:30)
[2018-03-20 21:53] LABS: ALBUMIN 2.6 g/dL (3.4-5.0); ALBUMIN/GLOBULIN RATIO 0.8 (1.0-1.7); CALCIUM 8.3 mg/dL (8.5-10.1); CREATININE 0.8 mg/dL (0.6-1.0); GFR 70.9; MAGNESIUM 2.1 mg/dL (1.8-2.4); POTASSIUM 3.6 mmol/L (3.5-5.1); TOTAL BILIRUBIN 0.3 mg/dL (0.2-1.0); TOTAL PROTEIN 5.9 g/dL (6.4-8.2)
[2018-03-20 21:58] LABS: VAL ACID 43 mcg/mL (50-100)
[2018-03-20] MEDS ORDERED: traZODone 50 MG TABLET. PO PRN (22:00)
[2018-03-20] MEDS: traZODone 50 MG TABLET. PO SCH (22:39)
[2018-03-20] MEDS: MEMANTINE 10 MG TABLET. PO SCH (22:39)
[2018-03-20] MEDS: MIRTAZAPINE 7.5 MG TABLET. PO SCH (22:39)
[2018-03-20] MEDS: DIVALPROEX 125 MG CAP.SPRINK PO SCH (22:39)
[2018-03-20] MEDS: ATORVASTATIN CALCIUM 20 MG TABLET PO SCH (22:40)
[2018-03-20] MEDS: CARVEDILOL 3.125 MG TABLET PO SCH (22:40)
--- NOTE | 2018-03-20 23:07 | PDOC ---
Exam Note: Robert Note: Please also refer to the separate dictated note~for this date of service dictated separately. Discussed the patient with Nursing staff reviewed the chart.~Reviewed interim history and current functioning. Reviewed vital signs,~ Labs/ Radiology~and current medications noted below. Continue current treatment with the changes noted in the dictated addendum note Assessment: Vital Signs: Vital Signs Date Time Temp Pulse Resp B/P (MAP) Pulse Ox O2 Delivery O2 Flow Rate FiO2 03/20/18 22:40 76 139/77 03/20/18 20:14 98.0 20 97 Labs: Laboratory Tests Test 03/20/18 21:18 White Blood Count 5.1 x10^3/uL (4.0-11.0) Red Blood Count 3.55 x10^6/uL (3.50-5.40) Hemoglobin 10.7 g/dL (12.0-15.5) L Hematocrit 31.7 % (36.0-47.0) L Mean Corpuscular Volume 89 fL (79-100) Mean Corpuscular Hemoglobin 30 pg (25-35) Mean Corpuscular Hemoglobin Concent 34 g/dL (31-37) Red Cell Distribution Width 16.6 % (11.5-14.5) H Platelet Count 151 x10^3/uL (140-400) Neutrophils (%) (Auto) 63 % (31-73) Lymphocytes (%) (Auto) 24 % (24-48) Monocytes (%) (Auto) 10 % (0-9) H Eosinophils (%) (Auto) 3 % (0-3) Basophils (%) (Auto) 1 % (0-3) Neutrophils # (Auto) 3.2 x10^3uL (1.8-7.7) Lymphocytes # (Auto) 1.2 x10^3/uL (1.0-4.8) Monocytes # (Auto) 0.5 x10^3/uL (0.0-1.1) Eosinophils # (Auto) 0.2 x10^3/uL (0.0-0.7) Basophils # (Auto) 0.0 x10^3/uL (0.0-0.2) Sodium Level 145 mmol/L (136-145) Potassium Level 3.6 mmol/L (3.5-5.1) Chloride Level 106 mmol/L (98-107) Carbon Dioxide Level 32 mmol/L (21-32) Anion Gap 7 (6-14) Blood Urea Nitrogen 17 mg/dL (7-20) Creatinine 0.8 mg/dL (0.6-1.0) Estimated GFR (Cockcroft-Gault) 70.9 BUN/Creatinine Ratio 21 (6-20) H Glucose Level 87 mg/dL (70-99) Calcium Level 8.3 mg/dL (8.5-10.1) L Magnesium Level 2.1 mg/dL (1.8-2.4) Total Bilirubin 0.3 mg/dL (0.2-1.0) Aspartate Amino Transferase (AST) 12 U/L (15-37) L Alanine Aminotransferase (ALT) 19 U/L (14-59) Alkaline Phosphatase 91 U/L (46-116) Total Protein 5.9 g/dL (6.4-8.2) L Albumin 2.6 g/dL (3.4-5.0) L Albumin/Globulin Ratio 0.8 (1.0-1.7) L Valproic Acid Level 43 mcg/mL (50-100) L Valproic Acid Last Dose Date 03/20/2018 Valproic Acid Last Dose Time 0900 Current Medications: Meds: Current Medications Acetaminophen (Tylenol) 650 mg PRN Q6HRS PRN PO PAIN / TEMP; Start 03/20/18 at 20:45 Multi-Ingredient Ointment (Analgesic [place]) 1 suzi PRN QID PRN TP MUSCLE PAIN; Start 03/20/18 at 20:45 Al Hydroxide/Mg Hydroxide (Mylanta Plus Xs) 15 ml PRN AFTMEALHC PRN PO DYSPEPSIA; Start 03/20/18 at 20:45 Magnesium Hydroxide (Milk Of Magnesia) 2,400 mg PRN QHS PRN PO CONSTIPATION; Start 03/20/18 at 20:45 Sertraline HCl (Zoloft) 75 mg DAILY PO ; Start 03/21/18 at 09:00 Divalproex Sodium (Depakote Sprinkles) 250 mg BID PO Last administered on 03/20at 22:39; Start 03/20/18 at 22:00 Memantine (Namenda) 10 mg BID PO Last administered on 03/20/18at 22:39; Start 03/20/18 at 22:00 Mirtazapine (Remeron) 7.5 mg QHS PO Last administered on 03/20/18at 22:39; Start 03/20/18 at 22:00 Trazodone HCl (Desyrel) 50 mg HS PO Last administered on 03/20/18at 22:39; Start 03/20/18 at 22:00 Trazodone HCl (Desyrel) 50 mg PRN QHS PRN PO INSOMNIA; Start 03/20/18 at 22:00 Acetaminophen (Tylenol) 650 mg PRN Q6HRS PRN PO PAIN / TEMP; Start 03/20/18 at 21:30; Status UNV Vitamin D (Vitamin D3) 50,000 unit QFR PO ; Start 03/24/18 at 16:00 Cyanocobalamin (Vitamin B-12) 1,000 mcg DAILY PO ; Start 03/21/18 at 09:00 Guaifenesin (Robitussin) 5 mg PRN BID PRN PO COUGH; Start 03/20/18 at 21:30 Hydrochlorothiazide (Hydrodiuril) 25 mg DAILY PO ; Start 03/21/18 at 09:00 Al Hydroxide/Mg Hydroxide (Mylanta Plus Xs) 15 ml PRN AFTMEALHC PRN PO DYSPEPSIA; Start 03/20/18 at 21:30; Status UNV Nystatin (Nystop) 1 suzi PRN BID PRN TP RASH; Start 03/20/18 at 21:30 Aspirin (Children'S Aspirin) 81 mg DAILY PO ; Start 03/21/18 at 09:00 Atorvastatin Calcium (Lipitor) 80 mg QHS PO Last administered on 03/20/18at 22: 40; Start 03/20/18 at 22:00 Carvedilol (Coreg) 3.125 mg HS PO Last administered on 03/20/18at 22:40; Start 03/20/18 at 22:00 Non-Formulary Medication (Magnesium Hydroxide (Milk Of Magnesia)) 2,400 mg PRN QHS PRN PO CONSTIPATION; Start 03/20/18 at 21:30; Status UNV Nystatin (Mycostatin) 5 ml [id number] ; Start 03/21/18 at 09:00 Polyethylene Glycol (miraLAX) 17 gm DAILY PO ; Start 03/21/18 at 09:00 Potassium Chloride (Klor-Con) 30 meq DAILY PO ; Start 03/21/18 at 09:00 Potassium Chloride (Klor-Con) 20 meq DAILYBFRSUP PO ; Start 03/21/18 at 17:00 Active Scripts Active Reported Trazodone Hcl 50 Mg Tablet 50 Mg PO PRN QHS PRN May only give one PRN dose daily Trazodone Hcl 50 Mg Tablet 50 Mg PO HS Zoloft (Sertraline Hcl) 50 Mg Tablet 75 Mg PO DAILY Nystatin 100,000 Unit/1 Ml Oral.susp 5 Ml SWSW QID Mirtazapine 15 Mg Tablet 7.5 Mg PO QHS Milk Of Magnesia (Magnesium Hydroxide) 2,400 Mg/10 Ml Oral.susp 2,400 Mg PO PRN QHS PRN Mag-Al Plus Xs Suspension (Mag Hydrox/Al Hydrox/Simeth) 30 Ml Oral.susp 15 Ml PO PRN AFTMEALHC PRN Namenda (Memantine Hcl) 10 Mg Tablet 10 Mg PO BID Depakote Sprinkle (Divalproex Sodium) 125 Mg Cap.sprink 250 Mg PO BID Vitamin B-12 (Cyanocobalamin (Vitamin B-12)) 1,000 Mcg Tablet 1,000 Mcg PO DAILY Potassium Chloride 10 Meq Tablet.er 30 Meq PO DAILY Potassium Chloride 20 Meq Tablet.er 20 Meq PO DAILYBFRSUP Meclizine Hcl 25 Mg Tablet 12.5 Mg PO PRN Q8HRS PRN Guaifenesin 100 Mg/5 Ml Liquid 5 Mg PO PRN BID Aspirin 81 Mg Tab.chew 81 Mg PO DAILY Hydrochlorothiazide Tablet (Hydrochlorothiazide) 25 Mg Tablet 25 Mg PO DAILY Miralax (Polyethylene Glycol 3350) 17 Gm Powd.pack 17 Gm PO DAILY Nystop (Nystatin) 60 Gm Powder 1 Suzi TP PRN BID PRN Vitamin D (Cholecalciferol (Vitamin D3)) 50,000 Unit Capsule 50,000 Unit PO QFR Tylenol (Acetaminophen) 325 Mg Tablet 650 Mg PO PRN Q6HRS PRN Carvedilol 3.125 Mg Tablet 3.125 Mg PO HS Atorvastatin Calcium 80 Mg Tablet 80 Mg PO QHS I have reviewed the current psychotropics carefully including drug interactions. Risk benefit ratio favors no change other than as noted in my dictated progress note. Diagnosis: Problems: (1) Anxiety disorder (2) Dementia, vascular, with depression (3) Dementia, vascular, with delusions (4) Dementia in Alzheimer's disease with depression (5) Dementia in Alzheimer's disease with delusions (6) Impulse control disorder (7) Major neurocognitive disorder MELLISA DOBSON MD Mar 20, 2018 23:07
[2018-03-21 05:53] VITALS: BP 135/89
[2018-03-21 07:13] LABS: BACTERIA,URINE MOD /HPF (0-FEW); BILIRUBIN,URINE NEG (NEG); CLARITY,URINE HAZY; COLOR,URINE AMBER; GLUCOSE,URINE NEG (NEG); HYALINE CASTS, URINE OCC /HPF; NITRITE,URINE NEG (NEG); SQUAMOUS EPITHELIAL CELL,UR MOD /LPF; UROBILINOGEN,URINE 2 mg/dL (0.2 mg/dL)
[2018-03-21] MEDS: CYANOCOBALAMIN (VITAMIN B-12) 1,000 MCG TABLET. PO SCH (09:29)
[2018-03-21] MEDS: SERTRALINE 50 MG TABLET. PO SCH (09:29)
[2018-03-21] MEDS: ASPIRIN 81 MG TAB.CHEW PO SCH (09:29)
[2018-03-21] MEDS: MEMANTINE 10 MG TABLET. PO SCH ×2 (09:29→21:13)
[2018-03-21] MEDS: POLYETHYLENE GLYCOL 3350 17 GM PACKET. PO SCH (09:30)
[2018-03-21] MEDS: NYSTATIN 100,000 UNITS/ML ORAL SUSPENSION 60ML BOTTLE. SWSW SCH ×4 (09:31→21:00)
[2018-03-21] MEDS: DIVALPROEX 125 MG CAP.SPRINK PO SCH ×2 (09:34→21:13)
[2018-03-21] MEDS: POTASSIUM CHLORIDE 10 MEQ TABLET.ER. PO SCH (09:35)
[2018-03-21] MEDS: hydroCHLOROthiazide 25 MG TABLET PO SCH (09:35)
--- NOTE | 2018-03-21 10:55 | EKG ---
[address] [address] Test Date: 2018-03-21 Test Time: 05:38:30 Pat Name: EMILY HO Department: Room: [address] [place] [address] Gender: F Disability Hearing Officer: : 1945 Requested By: MELLISA DOBSON Order Number: [id number] Reading MD: Aftab Cristina MD Measurements Intervals [place] Rate: 56 P: 42 DC: 154 QRS: -5 QRSD: 84 T: 36 QT: 470 QTc: 456 Interpretive Statements SINUS RHYTHM Electronically Signed On 03-21-2018 11:11:52 FRUIT [employer] FARMWORK[employer] by Aftab Cristina MD
[2018-03-21 13:17] LABS: THYROID STIM HORMONE (TSH) 2.802 uIU/mL (0.358-3.740)
[2018-03-21 15:31] VITALS: BP 124/62
[2018-03-21] MEDS: POTASSIUM CHLORIDE 20 MEQ TABLET.ER. PO SCH (17:12)
[2018-03-21 19:08] LABS: THYROXINE 5.7 ug/dL (4.5-12.0)
[2018-03-21 20:07] LABS: HEMOGLOBIN A1C 4.9 % (4.8-5.6)
[2018-03-21] MEDS: ATORVASTATIN CALCIUM 20 MG TABLET PO SCH (21:13)
[2018-03-21] MEDS: MIRTAZAPINE 7.5 MG TABLET. PO SCH (21:13)
[2018-03-21] MEDS: traZODone 50 MG TABLET. PO SCH (21:13)
[2018-03-21] MEDS: CARVEDILOL 3.125 MG TABLET PO SCH (21:19)
--- NOTE | 2018-03-21 22:44 | PDOC ---
Exam Note: Robert Note: Please also refer to the separate dictated note~for this date of service dictated separately.~Patient seen individually. Discussed the patient with Nursing staff reviewed the chart.~Reviewed interim history and current functioning. Reviewed vital signs,~Labs/ Radiology~and current medications noted below. Continue current treatment with the changes noted in the dictated addendum note Assessment: Vital Signs: Vital Signs Date Time Temp Pulse Resp B/P (MAP) Pulse Ox O2 Delivery O2 Flow Rate FiO2 03/21/18 21:19 65 140/75 03/21/18 15:31 97.9 17 98 Room Air I&O Intake and Output 03/21/18 07:00 Intake Total 0 ml Balance 0 ml Intake Oral 0 ml Labs: Laboratory Tests Test 03/21/18 06:43 Urine Collection Type Clean catch Urine Color Aby Urine Clarity Hazy Urine pH 6.0 Urine Specific [place] >=1.030 Urine Protein Neg (NEG-TRACE) Urine Glucose (UA) Neg mg/dL (NEG) Urine Ketones (Stick) Neg mg/dL (NEG) Urine Blood Trace (NEG) Urine Nitrite Neg (NEG) Urine Bilirubin Neg (NEG) Urine Urobilinogen Dipstick 2 mg/dL (0.2 mg/dL) Urine Leukocyte Esterase Neg (NEG) Urine RBC 3-5 /HPF (0-2) Urine WBC 1-4 /HPF (0-4) Urine Squamous Epithelial Cells Mod /LPF Urine Bacteria Mod /HPF (0-FEW) Urine Hyaline Casts Occ /HPF Urine Mucus Marked /LPF Current Medications: Meds: Current Medications Acetaminophen (Tylenol) 650 mg PRN Q6HRS PRN PO PAIN / TEMP; Start 03/20/18 at 20:45 Multi-Ingredient Ointment (Analgesic [place]) 1 suzi PRN QID PRN TP MUSCLE PAIN; Start 03/20/18 at 20:45 Al Hydroxide/Mg Hydroxide (Mylanta Plus Xs) 15 ml PRN AFTMEALHC PRN PO DYSPEPSIA; Start 03/20/18 at 20:45 Magnesium Hydroxide (Milk Of Magnesia) 2,400 mg PRN QHS PRN PO CONSTIPATION; Start 03/20/18 at 20:45 Sertraline HCl (Zoloft) 75 mg DAILY PO Last administered on 03/21/18at 09:29; Start 03/21/18 at 09:00 Divalproex Sodium (Depakote Sprinkles) 250 mg BID PO Last administered on 03/21 21:13; Start 03/20/18 at 22:00 Memantine (Namenda) 10 mg BID PO Last administered on 03/21/18 21:13; Start 03/20/18 at 22:00 Mirtazapine (Remeron) 7.5 mg QHS PO Last administered on 03/21/18 21:13; Start 03/20/18 at 22:00 Trazodone HCl (Desyrel) 50 mg HS PO Last administered on 03/21/18 21:13; Start 03/20/18 at 22:00 Trazodone HCl (Desyrel) 50 mg PRN QHS PRN PO INSOMNIA; Start 03/20/18 at 22:00 Acetaminophen (Tylenol) 650 mg PRN Q6HRS PRN PO PAIN / TEMP; Start 03/20/18 at 21:30; Status UNV Vitamin D (Vitamin D3) 50,000 unit QFR PO ; Start 03/24/18 at 16:00 Cyanocobalamin (Vitamin B-12) 1,000 mcg DAILY PO Last administered on 09:29; Start 03/21/18 at 09:00 Guaifenesin (Robitussin) 5 mg PRN BID PRN PO COUGH; Start 03/20/18 at 21:30 Hydrochlorothiazide (Hydrodiuril) 25 mg DAILY PO Last administered on at 09:35; Start 03/21/18 at 09:00 Al Hydroxide/Mg Hydroxide (Mylanta Plus Xs) 15 ml PRN AFTMEALHC PRN PO DYSPEPSIA; Start 03/20/18 at 21:30; Status UNV Nystatin (Nystop) 1 suzi PRN BID PRN TP RASH; Start 03/20/18 at 21:30 Aspirin (Children'S Aspirin) 81 mg DAILY PO Last administered on 03/21/18at 09: 29; Start 03/21/18 at 09:00 Atorvastatin Calcium (Lipitor) 80 mg QHS PO Last administered on 03/21/18 21: 13; Start 03/20/18 at 22:00 Carvedilol (Coreg) 3.125 mg HS PO Last administered on 11/13/18at 21:19; Start 03/20/18 at 22:00 Non-Formulary Medication (Magnesium Hydroxide (Milk Of Magnesia)) 2,400 mg PRN QHS PRN PO CONSTIPATION; Start 03/20/18 at 21:30; Status UNV Nystatin (Mycostatin) 5 ml [id number] SWSW Last administered on 03/21/18at 17:12; Start 03/21/18 at 09:00 Polyethylene Glycol (miraLAX) 17 gm DAILY PO Last administered on 03/21/18at 09 :30; Start 03/21/18 at 09:00 Potassium Chloride (Klor-Con) 30 meq DAILY PO Last administered on 03/21/18at 09:35; Start 03/21/18 at 09:00 Potassium Chloride (Klor-Con) 20 meq DAILYBFRSUP PO Last administered on at 17:12; Start 03/21/18 at 17:00 Active Scripts Active Reported Trazodone Hcl 50 Mg Tablet 50 Mg PO PRN QHS PRN May only give one PRN dose daily Trazodone Hcl 50 Mg Tablet 50 Mg PO HS Zoloft (Sertraline Hcl) 50 Mg Tablet 75 Mg PO DAILY Nystatin 100,000 Unit/1 Ml Oral.susp 5 Ml SWSW QID Mirtazapine 15 Mg Tablet 7.5 Mg PO QHS Milk Of Magnesia (Magnesium Hydroxide) 2,400 Mg/10 Ml Oral.susp 2,400 Mg PO PRN QHS PRN Mag-Al Plus Xs Suspension (Mag Hydrox/Al Hydrox/Simeth) 30 Ml Oral.susp 15 Ml PO PRN AFTMEALHC PRN Namenda (Memantine Hcl) 10 Mg Tablet 10 Mg PO BID Depakote Sprinkle (Divalproex Sodium) 125 Mg Cap.sprink 250 Mg PO BID Vitamin B-12 (Cyanocobalamin (Vitamin B-12)) 1,000 Mcg Tablet 1,000 Mcg PO DAILY Potassium Chloride 10 Meq Tablet.er 30 Meq PO DAILY Potassium Chloride 20 Meq Tablet.er 20 Meq PO DAILYBFRSUP Meclizine Hcl 25 Mg Tablet 12.5 Mg PO PRN Q8HRS PRN Guaifenesin 100 Mg/5 Ml Liquid 5 Mg PO PRN BID Aspirin 81 Mg Tab.chew 81 Mg PO DAILY Hydrochlorothiazide Tablet (Hydrochlorothiazide) 25 Mg Tablet 25 Mg PO DAILY Miralax (Polyethylene Glycol 3350) 17 Gm Powd.pack 17 Gm PO DAILY Nystop (Nystatin) 60 Gm Powder 1 Suzi TP PRN BID PRN Vitamin D (Cholecalciferol (Vitamin D3)) 50,000 Unit Capsule 50,000 Unit PO QFR Tylenol (Acetaminophen) 325 Mg Tablet 650 Mg PO PRN Q6HRS PRN Carvedilol 3.125 Mg Tablet 3.125 Mg PO HS Atorvastatin Calcium 80 Mg Tablet 80 Mg PO QHS I have reviewed the current psychotropics carefully including drug interactions. Risk benefit ratio favors no change other than as noted in my dictated progress note. Diagnosis: Problems: (1) Anxiety disorder (2) Dementia, vascular, with depression (3) Dementia, vascular, with delusions (4) Dementia in Alzheimer's disease with depression (5) Dementia in Alzheimer's disease with delusions (6) Impulse control disorder (7) Major neurocognitive disorder MELLISA DOBSON MD Mar 21, 2018 22:44
--- NOTE | 2018-03-22 02:58 | CONS ---
DATE OF CONSULTATION: 03/21/2018 REASON FOR CONSULTATION: Medical management. HISTORY OF PRESENT ILLNESS: The patient is a 72-year-old female patient, a resident at [facility], who was discharged from this facility recently, specifically on 03/15/2018 and was admitted again with uncontrollable crying with suicidal ideation statements, all this in a background of major neurocognitive disorder. When I questioned her this morning, she was extremely confused and disoriented; however, she did complain of severe pain in the back of her head and that seems to be exquisitely tender to touch. PAST MEDICAL HISTORY: Significant for hypertension, chronic constipation, and hyperlipidemia. PAST PSYCHIATRIC HISTORY: Significant for vascular dementia, psychosis and impulse control disorder. ALLERGIES: She is allergic to IODINATED CONTRAST, ORAL AND IV DYE, CODEINE, AND LISINOPRIL. MEDICATIONS: She is currently on following medications: She is on nystatin suspension swish and swallow 4 times a day, atorvastatin calcium 80 mg at bedtime, carvedilol 3.125 mg twice a day, aspirin 81 mg once a day, Tylenol 650 mg every 6 hours as needed, divalproex or Depakote Sprinkles 250 mg twice a day, mirtazapine 7.5 mg at bedtime, Zoloft 75 mg once a day, trazodone 50 mg at bedtime as needed. She is on Namenda 10 mg twice a day, potassium chloride 20 mEq once a day, hydrochlorothiazide 25 mg once a day. She is on guaifenesin 100 mg in 5 mL liquid twice a day as needed, Maalox 15 mL after meals and bedtime. She is on milk of magnesia 30 mL p.o. daily p.r.n. for constipation, polyethylene glycol 17 grams daily, meclizine 12.5 mg every 8 hours, nystatin powder applied topically twice a day, cyanocobalamin 1000 mcg one tablet once a day, vitamin D, cholecalciferol 50,000 units p.o. q. Tuesday. FAMILY HISTORY: Unremarkable. SOCIAL HISTORY: She is a resident at the [facility]. She does not smoke, drink alcohol or use any recreational drugs. REVIEW OF SYSTEMS: As per history of present illness. PHYSICAL EXAMINATION GENERAL: When I examined her this morning, she looked pale, but no jaundice, cyanosis, or thyromegaly. No jugular venous distension. No limb edema. VITAL SIGNS: Her heart rate was 62, blood pressure was 135/89, temperature was 96.9, respiratory rate was 16, and oxygen saturation was 97% on room air. HEAD, EYES, EARS, NOSE, and THROAT: Showed normocephalic, atraumatic. NECK: Supple. HEART: Showed normal first and second heart sounds with no gallop, rub or murmur. CHEST: Clear to auscultation. No crepitation or rhonchi. ABDOMEN: Distended, soft, nontender. NEUROLOGIC: She is demented without any obvious lateralizing sign. All her cranial nerves are intact. EXTREMITIES: She moves extremities without difficulty. She ambulates without assistive devices; however, she has a history of recurrent falls. LABORATORY DATA: Her lab work as of yesterday morning showed a white cell count 5100, hemoglobin 10.7, hematocrit 31.7, MCV 89 and platelet count of 151,000. Her chemistry showed a serum sodium of 145, potassium 3.6, chloride 106, bicarbonate 32, anion gap of 7, BUN 17, creatinine 0.8, estimated GFR was 71 mL per minute. Her glucose was 87, calcium was 8.3, magnesium 2.1. Total bilirubin, AST, ALT, and alkaline phosphatase were normal. Total protein was 5.9, albumin was 2.6. Her urinalysis showed the urine was carter, hazy with a pH of 6, specific gravity more than 1.030. The urine was negative for protein, glucose, ketones. There was trace of blood. It was negative for nitrites, bilirubin, and leukocyte esterase; only 3-5 rbc's, 1-4 wbc's, moderate amount of bacteria. Her urine culture showed mixed urogenital eleni of 25,000 to 50,000 colony forming units per milliliter. Her CT scan of the head showed that there are no pathological extraaxial or intraaxial fluid collection, mild diffuse cerebral atrophy with ex vacuo dilation of the ventricles, confluent low attenuation seen in the periventricular and deep white matter, no acute intracranial bleed. No focal loss of granados white matter differentiation, orbits are within normal limits. No acute calvarial fracture, visualized paranasal sinuses and mastoid air cells are clear. IMPRESSION: In summary, this is a 72-year-old female patient, a resident at [facility], who was admitted with uncontrollable crying and suicidal ideation statements. She did complain of severe pain in the back of her head, although the CT scan did not show any abnormality. Clinically, she seemed to have either hematoma or an abscess there, although she is afebrile. Her white cell count is normal. I will arrange for soft tissue ultrasound of that area, but otherwise medically she seemed to be all in all, very stable. Her vital signs as well as all her lab works are within acceptable range. Thank you Dr. Bullard for allowing me to participate in the care of this patient. PRITESH HERNANDEZ MD DR: MIRNA/murtaza JOB#: [id number] / [id number]
[2018-03-22 05:57] VITALS: BP 97/56
[2018-03-22] MEDS: DIVALPROEX 125 MG CAP.SPRINK PO SCH ×2 (08:22→19:53)
[2018-03-22] MEDS: hydroCHLOROthiazide 25 MG TABLET PO SCH (08:22)
[2018-03-22] MEDS: POTASSIUM CHLORIDE 10 MEQ TABLET.ER. PO SCH (08:22)
[2018-03-22] MEDS: SERTRALINE 50 MG TABLET. PO SCH (08:22)
[2018-03-22] MEDS: POTASSIUM CHLORIDE 20 MEQ TABLET.ER. PO SCH (08:22)
[2018-03-22] MEDS: POLYETHYLENE GLYCOL 3350 17 GM PACKET. PO SCH (08:23)
[2018-03-22] MEDS: MEMANTINE 10 MG TABLET. PO SCH ×2 (08:23→19:54)
[2018-03-22] MEDS: ASPIRIN 81 MG TAB.CHEW PO SCH (08:23)
[2018-03-22] MEDS: CYANOCOBALAMIN (VITAMIN B-12) 1,000 MCG TABLET. PO SCH (08:23)
[2018-03-22] MEDS: NYSTATIN 100,000 UNITS/ML ORAL SUSPENSION 60ML BOTTLE. SWSW SCH ×4 (08:24→19:54)
--- NOTE | 2018-03-22 14:20 | HP ---
ADMIT DATE: 03/21/2018 PSYCHIATRIC ADMISSION HISTORY AND EVALUATION This late entry covers elements not covered in my initial note of 03/21/2018. SUMMARY OF PROGRESS: I met with the patient evening of 03/21/2018 for this evaluation, previously discussed with nursing staff several times including, Damion Patterson, patient services coordinator after the patient was referred back to us from [facility] by Dr. Mai, her primary care physician and Dr. Laboy, her psychiatrist on account of having frequent and repetitive episodes of crying and "balling." She had made statement, she wanted to and reportedly "felt it would be best to ." She had failed recent inpatient psychiatric stabilization with us and referred back for inpatient psychiatric stabilization due to risk of hurting herself. CHIEF COMPLAINT: "I don't know what to do. I came here 5 days ago." In fact, the patient was admitted on 03/20/2018 and I met with her evening of 03/21/2018 for this evaluation and she has just been on the unit for a day this time. HISTORY OF PRESENT ILLNESS: The patient has a history of dementia, Alzheimer's vascular type. She has been increasingly depressed, hopeless, helpless, worthless with crying spells. She has been seen by Dr. Carol Laboy psychiatrist on a regular basis and has failed all of this. She has been making suicidal statements. There was a risk that she would try and hurt herself and she is referred back for stabilization. She has been increasingly confused and perhaps much worse in the past few days. No clear symptoms of bipolar disorder. PAST PSYCHIATRIC HISTORY: As above. MEDICAL HISTORY: Positive for hyperlipidemia, hypertension, history of chronic constipation and vascular dementia. Bilateral blindness. DIET: Regular, takes her medications whole. CODE STATUS: Full code. ALLERGIES: CODEINE, LISINOPRIL, IODINE. She ambulates with supervision and guidance, a slight unsteady in her gait. CURRENT PSYCHOTROPICS: Depakote 250 mg b.i.d., Namenda 10 b.i.d., Remeron 7.5 bedtime, Zoloft 75 mg a day, trazodone 50 mg at bedtime, may repeat x 1 for insomnia. FAMILY HISTORY: Noncontributory. SOCIAL HISTORY: No history of alcohol, drug abuse, physical, sexual or elder abuse. She is not known to be a perpetrator. REACTION TO HOSPITALIZATION: The patient oblivious of this. ASSETS: Stable living at the above facility, supportive family. MENTAL STATUS EXAM: The patient was seen individually evening of 03/21/2018. She is oriented to herself. Does have bilateral blindness. MENTAL STATUS EXAMINATION: Speech moderate latency, coherent. Associations loose. Insight, judgment, recent and remote memory, attention, concentration, fund of knowledge poor, consistent with her diagnosis. She is quite disorganized, tearful as I met with her, depressed. Denies active suicidal ideation. LABORATORY DATA: Reviewed. IMPRESSION: Major neurocognitive disorder, probably vascular with delusion, depression, behavioral disturbance; anxiety disorder, unspecified; impulse control disorder, unspecified. Rest as above. PLAN: Admit to geropsychiatry unit at [facility]. I will see the patient daily individually from a psychiatric standpoint, medical followup with Dr. Oscar/Dr. Moore. Continue the patient on her current psychotropics. Consider changing Zoloft to Cymbalta SNRI agent. Hopefully, it should be more efficacious for her mood symptoms than the SSRI sertraline. Continue rest unchanged. ESTIMATED LENGTH OF STAY: 7-10 days. Discharge plans back to [facility] nursing facility. MELLISA DOBSON MD DR: BRIDGETTE/murtaza JOB#: [id number] / [id number]
[2018-03-22 16:49] VITALS: BP 137/76
[2018-03-22] MEDS: traZODone 50 MG TABLET. PO SCH (19:53)
[2018-03-22] MEDS: MIRTAZAPINE 7.5 MG TABLET. PO SCH (19:53)
[2018-03-22] MEDS: ATORVASTATIN CALCIUM 20 MG TABLET PO SCH (19:53)
[2018-03-22] MEDS: CARVEDILOL 3.125 MG TABLET PO SCH (19:54)
--- NOTE | 2018-03-22 22:43 | PDOC ---
Exam Note: Robert Note: Please also refer to the separate dictated note~for this date of service dictated separately.~Patient seen individually. Discussed the patient with Nursing staff reviewed the chart.~Reviewed interim history and current functioning. Reviewed vital signs,~Labs/ Radiology~and current medications noted below. Continue current treatment with the changes noted in the dictated addendum note Assessment: Vital Signs: Vital Signs Date Time Temp Pulse Resp B/P (MAP) Pulse Ox O2 Delivery O2 Flow Rate FiO2 03/22/18 19:54 86 137/76 03/22/18 16:49 98.9 20 98 Room Air I&O Intake and Output 03/22/18 07:00 Intake Total 720 ml Balance 720 ml Intake Oral 720 ml Current Medications: Meds: Current Medications Acetaminophen (Tylenol) 650 mg PRN Q6HRS PRN PO PAIN / TEMP; Start 03/20/18 at 20:45 Multi-Ingredient Ointment (Analgesic [place]) 1 suzi PRN QID PRN TP MUSCLE PAIN; Start 03/20/18 at 20:45 Al Hydroxide/Mg Hydroxide (Mylanta Plus Xs) 15 ml PRN AFTMEALHC PRN PO DYSPEPSIA; Start 03/20/18 at 20:45 Magnesium Hydroxide (Milk Of Magnesia) 2,400 mg PRN QHS PRN PO CONSTIPATION; Start 03/20/18 at 20:45 Sertraline HCl (Zoloft) 75 mg DAILY PO Last administered on 03/22/18at 08:22; Start 03/21/18 at 09:00 Divalproex Sodium (Depakote Sprinkles) 250 mg BID PO Last administered on 03/22at 08:22; Start 03/20/18 at 22:00; Stop 03/22/18 at 17:11; Status DC Memantine (Namenda) 10 mg BID PO Last administered on 03/22/18at 19:54; Start 03/20/18 at 22:00 Mirtazapine (Remeron) 7.5 mg QHS PO Last administered on 03/22/18at 19:53; Start 03/20/18 at 22:00 Trazodone HCl (Desyrel) 50 mg HS PO Last administered on 03/22/18at 19:53; Start 03/20/18 at 22:00 Trazodone HCl (Desyrel) 50 mg PRN QHS PRN PO INSOMNIA; Start 03/20/18 at 22:00 Acetaminophen (Tylenol) 650 mg PRN Q6HRS PRN PO PAIN / TEMP; Start 03/20/18 at 21:30; Status UNV Vitamin D (Vitamin D3) 50,000 unit QFR PO ; Start 03/24/18 at 16:00 Cyanocobalamin (Vitamin B-12) 1,000 mcg DAILY PO Last administered on 08:23; Start 03/21/18 at 09:00 Guaifenesin (Robitussin) 5 mg PRN BID PRN PO COUGH; Start 03/20/18 at 21:30 Hydrochlorothiazide (Hydrodiuril) 25 mg DAILY PO Last administered on 08:22; Start 03/21/18 at 09:00 Al Hydroxide/Mg Hydroxide (Mylanta Plus Xs) 15 ml PRN AFTMEALHC PRN PO DYSPEPSIA; Start 03/20/18 at 21:30; Status UNV Nystatin (Nystop) 1 suzi PRN BID PRN TP RASH; Start 03/20/18 at 21:30 Aspirin (Children'S Aspirin) 81 mg DAILY PO Last administered on 03/22/18 08: 23; Start 03/21/18 at 09:00 Atorvastatin Calcium (Lipitor) 80 mg QHS PO Last administered on 03/22/18at 19: 53; Start 03/20/18 at 22:00 Carvedilol (Coreg) 3.125 mg HS PO Last administered on 03/22/18 19:54; Start 03/20/18 at 22:00 Non-Formulary Medication (Magnesium Hydroxide (Milk Of Magnesia)) 2,400 mg PRN QHS PRN PO CONSTIPATION; Start 03/20/18 at 21:30; Status UNV Nystatin (Mycostatin) 5 ml [id number] Last administered on 03/22/18 17:23; Start 03/21/18 at 09:00 Polyethylene Glycol (miraLAX) 17 gm DAILY PO Last administered on 03/22/18 08 :23; Start 03/21/18 at 09:00 Potassium Chloride (Klor-Con) 30 meq DAILY PO Last administered on 03/22/18at 08:22; Start 03/21/18 at 09:00 Potassium Chloride (Klor-Con) 20 meq DAILYBFRSUP PO Last administered on at 08:22; Start 03/21/18 at 17:00 Divalproex Sodium (Depakote Sprinkles) 375 mg BID PO Last administered on 03/22at 19:53; Start 03/22/18 at 21:00 Active Scripts Active Reported Trazodone Hcl 50 Mg Tablet 50 Mg PO PRN QHS PRN May only give one PRN dose daily Trazodone Hcl 50 Mg Tablet 50 Mg PO HS Zoloft (Sertraline Hcl) 50 Mg Tablet 75 Mg PO DAILY Nystatin 100,000 Unit/1 Ml Oral.susp 5 Ml SWSW QID Mirtazapine 15 Mg Tablet 7.5 Mg PO QHS Milk Of Magnesia (Magnesium Hydroxide) 2,400 Mg/10 Ml Oral.susp 2,400 Mg PO PRN QHS PRN Mag-Al Plus Xs Suspension (Mag Hydrox/Al Hydrox/Simeth) 30 Ml Oral.susp 15 Ml PO PRN AFTMEALHC PRN Namenda (Memantine Hcl) 10 Mg Tablet 10 Mg PO BID Depakote Sprinkle (Divalproex Sodium) 125 Mg Cap.sprink 250 Mg PO BID Vitamin B-12 (Cyanocobalamin (Vitamin B-12)) 1,000 Mcg Tablet 1,000 Mcg PO DAILY Potassium Chloride 10 Meq Tablet.er 30 Meq PO DAILY Potassium Chloride 20 Meq Tablet.er 20 Meq PO DAILYBFRSUP Meclizine Hcl 25 Mg Tablet 12.5 Mg PO PRN Q8HRS PRN Guaifenesin 100 Mg/5 Ml Liquid 5 Mg PO PRN BID Aspirin 81 Mg Tab.chew 81 Mg PO DAILY Hydrochlorothiazide Tablet (Hydrochlorothiazide) 25 Mg Tablet 25 Mg PO DAILY Miralax (Polyethylene Glycol 3350) 17 Gm Powd.pack 17 Gm PO DAILY Nystop (Nystatin) 60 Gm Powder 1 Suzi TP PRN BID PRN Vitamin D (Cholecalciferol (Vitamin D3)) 50,000 Unit Capsule 50,000 Unit PO QFR Tylenol (Acetaminophen) 325 Mg Tablet 650 Mg PO PRN Q6HRS PRN Carvedilol 3.125 Mg Tablet 3.125 Mg PO HS Atorvastatin Calcium 80 Mg Tablet 80 Mg PO QHS I have reviewed the current psychotropics carefully including drug interactions. Risk benefit ratio favors no change other than as noted in my dictated progress note. Diagnosis: Problems: (1) Anxiety disorder (2) Dementia, vascular, with depression (3) Dementia, vascular, with delusions (4) Dementia in Alzheimer's disease with depression (5) Dementia in Alzheimer's disease with delusions (6) Impulse control disorder (7) Major neurocognitive disorder MELLISA DOBSON MD Mar 22, 2018 22:43
[2018-03-23 06:02] VITALS: BP 131/83
[2018-03-23] MEDS: hydroCHLOROthiazide 25 MG TABLET PO SCH (08:08)
[2018-03-23] MEDS: ASPIRIN 81 MG TAB.CHEW PO SCH (08:08)
[2018-03-23] MEDS: CYANOCOBALAMIN (VITAMIN B-12) 1,000 MCG TABLET. PO SCH (08:08)
[2018-03-23] MEDS: DIVALPROEX 125 MG CAP.SPRINK PO SCH ×2 (08:08→19:50)
[2018-03-23] MEDS: MEMANTINE 10 MG TABLET. PO SCH ×2 (08:09→19:47)
[2018-03-23] MEDS: SERTRALINE 50 MG TABLET. PO SCH (08:09)
[2018-03-23] MEDS: POLYETHYLENE GLYCOL 3350 17 GM PACKET. PO SCH (08:10)
[2018-03-23] MEDS: POTASSIUM CHLORIDE 10 MEQ TABLET.ER. PO SCH (08:10)
[2018-03-23] MEDS: NYSTATIN 100,000 UNITS/ML ORAL SUSPENSION 60ML BOTTLE. SWSW SCH ×4 (08:11→19:49)
[2018-03-23 16:02] VITALS: BP 136/79
[2018-03-23] MEDS: POTASSIUM CHLORIDE 20 MEQ TABLET.ER. PO SCH (17:19)
[2018-03-23] MEDS: MIRTAZAPINE 7.5 MG TABLET. PO SCH (19:47)
[2018-03-23] MEDS: traZODone 50 MG TABLET. PO SCH (19:47)
[2018-03-23] MEDS: CARVEDILOL 3.125 MG TABLET PO SCH (19:47)
[2018-03-23] MEDS: ATORVASTATIN CALCIUM 20 MG TABLET PO SCH (19:49)
--- NOTE | 2018-03-23 22:58 | PDOC ---
Exam Note: Robert Note: Please also refer to the separate dictated note~for this date of service dictated separately.~Patient seen individually. Discussed the patient with Nursing staff reviewed the chart.~Reviewed interim history and current functioning. Reviewed vital signs,~Labs/ Radiology~and current medications noted below. Continue current treatment with the changes noted in the dictated addendum note Assessment: Vital Signs: Vital Signs Date Time Temp Pulse Resp B/P (MAP) Pulse Ox O2 Delivery O2 Flow Rate FiO2 03/23/18 19:47 63 136/79 03/23/18 16:02 97.8 16 94 Room Air I&O Intake and Output 03/23/18 07:00 Intake Total 840 ml Balance 840 ml Intake Oral 840 ml # Voids 1 # Bowel Movements 1 Current Medications: Meds: Current Medications Acetaminophen (Tylenol) 650 mg PRN Q6HRS PRN PO PAIN / TEMP; Start 03/20/18 at 20:45 Multi-Ingredient Ointment (Analgesic [place]) 1 suzi PRN QID PRN TP MUSCLE PAIN; Start 03/20/18 at 20:45 Al Hydroxide/Mg Hydroxide (Mylanta Plus Xs) 15 ml PRN AFTMEALHC PRN PO DYSPEPSIA; Start 03/20/18 at 20:45 Magnesium Hydroxide (Milk Of Magnesia) 2,400 mg PRN QHS PRN PO CONSTIPATION; Start 03/20/18 at 20:45 Sertraline HCl (Zoloft) 75 mg DAILY PO Last administered on 03/23/18at 08:09; Start 03/21/18 at 09:00; Stop 03/23/18 at 11:03; Status DC Divalproex Sodium (Depakote Sprinkles) 250 mg BID PO Last administered on 03/22at 08:22; Start 03/20/18 at 22:00; Stop 03/22/18 at 17:11; Status DC Memantine (Namenda) 10 mg BID PO Last administered on 03/23/18at 19:47; Start 03/20/18 at 22:00 Mirtazapine (Remeron) 7.5 mg QHS PO Last administered on 03/23/18at 19:47; Start 03/20/18 at 22:00 Trazodone HCl (Desyrel) 50 mg HS PO Last administered on 03/23/18 19:47; Start 03/20/18 at 22:00 Trazodone HCl (Desyrel) 50 mg PRN QHS PRN PO INSOMNIA; Start 03/20/18 at 22:00 Acetaminophen (Tylenol) 650 mg PRN Q6HRS PRN PO PAIN / TEMP; Start 03/20/18 at 21:30; Status UNV Vitamin D (Vitamin D3) 50,000 unit QFR PO ; Start 03/24/18 at 16:00 Cyanocobalamin (Vitamin B-12) 1,000 mcg DAILY PO Last administered on 08:08; Start 03/21/18 at 09:00 Guaifenesin (Robitussin) 5 mg PRN BID PRN PO COUGH; Start 03/20/18 at 21:30 Hydrochlorothiazide (Hydrodiuril) 25 mg DAILY PO Last administered on 08:08; Start 03/21/18 at 09:00 Al Hydroxide/Mg Hydroxide (Mylanta Plus Xs) 15 ml PRN AFTMEALHC PRN PO DYSPEPSIA; Start 03/20/18 at 21:30; Status UNV Nystatin (Nystop) 1 suzi PRN BID PRN TP RASH; Start 03/20/18 at 21:30 Aspirin (Children'S Aspirin) 81 mg DAILY PO Last administered on 03/23/18 08: 08; Start 03/21/18 at 09:00 Atorvastatin Calcium (Lipitor) 80 mg QHS PO Last administered on 03/23/18 19: 49; Start 03/20/18 at 22:00 Carvedilol (Coreg) 3.125 mg HS PO Last administered on 03/23/18 19:47; Start 03/20/18 at 22:00 Non-Formulary Medication (Magnesium Hydroxide (Milk Of Magnesia)) 2,400 mg PRN QHS PRN PO CONSTIPATION; Start 03/20/18 at 21:30; Status UNV Nystatin (Mycostatin) 5 ml [id number] Last administered on 03/23/18at 19:49; Start 03/21/18 at 09:00 Polyethylene Glycol (miraLAX) 17 gm DAILY PO Last administered on 03/23/18at 08 :10; Start 03/21/18 at 09:00 Potassium Chloride (Klor-Con) 30 meq DAILY PO Last administered on 03/23/18at 08:10; Start 03/21/18 at 09:00 Potassium Chloride (Klor-Con) 20 meq DAILYBFRSUP PO Last administered on at 17:19; Start 03/21/18 at 17:00 Divalproex Sodium (Depakote Sprinkles) 375 mg BID PO Last administered on 03/23at 19:50; Start 03/22/18 at 21:00 Sertraline HCl (Zoloft) 100 mg DAILY PO ; Start 03/24/18 at 09:00 Active Scripts Active Reported Trazodone Hcl 50 Mg Tablet 50 Mg PO PRN QHS PRN May only give one PRN dose daily Trazodone Hcl 50 Mg Tablet 50 Mg PO HS Zoloft (Sertraline Hcl) 50 Mg Tablet 75 Mg PO DAILY Nystatin 100,000 Unit/1 Ml Oral.susp 5 Ml SWSW QID Mirtazapine 15 Mg Tablet 7.5 Mg PO QHS Milk Of Magnesia (Magnesium Hydroxide) 2,400 Mg/10 Ml Oral.susp 2,400 Mg PO PRN QHS PRN Mag-Al Plus Xs Suspension (Mag Hydrox/Al Hydrox/Simeth) 30 Ml Oral.susp 15 Ml PO PRN AFTMEALHC PRN Namenda (Memantine Hcl) 10 Mg Tablet 10 Mg PO BID Depakote Sprinkle (Divalproex Sodium) 125 Mg Cap.sprink 250 Mg PO BID Vitamin B-12 (Cyanocobalamin (Vitamin B-12)) 1,000 Mcg Tablet 1,000 Mcg PO DAILY Potassium Chloride 10 Meq Tablet.er 30 Meq PO DAILY Potassium Chloride 20 Meq Tablet.er 20 Meq PO DAILYBFRSUP Meclizine Hcl 25 Mg Tablet 12.5 Mg PO PRN Q8HRS PRN Guaifenesin 100 Mg/5 Ml Liquid 5 Mg PO PRN BID Aspirin 81 Mg Tab.chew 81 Mg PO DAILY Hydrochlorothiazide Tablet (Hydrochlorothiazide) 25 Mg Tablet 25 Mg PO DAILY Miralax (Polyethylene Glycol 3350) 17 Gm Powd.pack 17 Gm PO DAILY Nystop (Nystatin) 60 Gm Powder 1 Suzi TP PRN BID PRN Vitamin D (Cholecalciferol (Vitamin D3)) 50,000 Unit Capsule 50,000 Unit PO QFR Tylenol (Acetaminophen) 325 Mg Tablet 650 Mg PO PRN Q6HRS PRN Carvedilol 3.125 Mg Tablet 3.125 Mg PO HS Atorvastatin Calcium 80 Mg Tablet 80 Mg PO QHS I have reviewed the current psychotropics carefully including drug interactions. Risk benefit ratio favors no change other than as noted in my dictated progress note. Diagnosis: Problems: (1) Anxiety disorder (2) Dementia, vascular, with depression (3) Dementia, vascular, with delusions (4) Dementia in Alzheimer's disease with depression (5) Dementia in Alzheimer's disease with delusions (6) Impulse control disorder (7) Major neurocognitive disorder MELLISA DOBSON MD Mar 23, 2018 22:58
[2018-03-24 05:57] VITALS: BP 114/72
[2018-03-24] MEDS: CYANOCOBALAMIN (VITAMIN B-12) 1,000 MCG TABLET. PO SCH (08:04)
[2018-03-24] MEDS: hydroCHLOROthiazide 25 MG TABLET PO SCH (08:04)
[2018-03-24] MEDS: ASPIRIN 81 MG TAB.CHEW PO SCH (08:04)
[2018-03-24] MEDS: MEMANTINE 10 MG TABLET. PO SCH ×2 (08:04→19:27)
[2018-03-24] MEDS: NYSTATIN 100,000 UNITS/ML ORAL SUSPENSION 60ML BOTTLE. SWSW SCH ×2 (08:05→12:26)
[2018-03-24] MEDS: POLYETHYLENE GLYCOL 3350 17 GM PACKET. PO SCH (08:05)
[2018-03-24] MEDS: POTASSIUM CHLORIDE 10 MEQ TABLET.ER. PO SCH (08:08)
[2018-03-24] MEDS: SERTRALINE 100 MG TABLET. PO SCH (08:08)
[2018-03-24] MEDS: DIVALPROEX 125 MG CAP.SPRINK PO SCH ×2 (08:08→19:26)
[2018-03-24 15:58] VITALS: BP 113/67
[2018-03-24] MEDS: CHOLECALCIFEROL (VITAMIN D3) 50,000 UNIT CAPSULE PO SCH (17:20)
[2018-03-24] MEDS: POTASSIUM CHLORIDE 20 MEQ TABLET.ER. PO SCH (17:21)
[2018-03-24] MEDS: CARVEDILOL 3.125 MG TABLET PO SCH (19:25)
[2018-03-24] MEDS: traZODone 50 MG TABLET. PO SCH (19:26)
[2018-03-24] MEDS: ATORVASTATIN CALCIUM 20 MG TABLET PO SCH (19:26)
[2018-03-24] MEDS: MIRTAZAPINE 7.5 MG TABLET. PO SCH (19:27)
--- NOTE | 2018-03-24 20:10 | PN ---
DATE: 03/22/2018 This is a late entry for 03/22/2018 covers elements not covered in my initial note. SUBJECTIVE: I met with the patient in the evening. The patient slept 6 hours previous night. The patient remains confused, withdrawn, intermittently labile, but not crying. REVIEW OF SYSTEMS: No CV, , pulmonary, ENT system symptoms on review. Vision is poor. MENTAL STATUS EXAM: Oriented to herself. Insight, judgment, recent and remote memory, attention, concentration, fund of knowledge poor, consistent with her diagnosis. IMPRESSION: Major neurocognitive disorder, Alzheimer, vascular with delusion, depression, behavioral disturbance; anxiety disorder, unspecified; impulse control disorder, unspecified. Rest unchanged. PLAN: Valproic acid level 43, subtherapeutic on 03/20/2018. We will increase Depakote 250 b.i.d. to 375 b.i.d. Check CBC, CMP, valproic acid level in 3 days. Rest unchanged from initial note. MELLISA DOBSON MD DR: BRIDGETTE/murtaza JOB#: [id number] / [id number]
--- NOTE | 2018-03-24 20:15 | PN ---
DATE: 03/23/2018 This is a late entry for 03/23/2018 covers elements not covered in my initial note. SUBJECTIVE: I met with the patient in the evening and staffed at a treatment team meeting with the entire team in the morning. The patient's son, Matti attended the lengthy treatment team meeting. We reviewed the patient's history at length, circumstances prompting this readmission following her very recent discharge from our facility back to [facility]. REVIEW OF SYSTEMS: Poor vision. No CV, , pulmonary, ENT system symptoms on review. Reliability poor. MENTAL STATUS EXAM: Oriented to herself. Insight, judgment, recent and remote memory, attention, concentration, fund of knowledge poor, consistent with her diagnosis mentioned in my initial note. PLAN: Increase Zoloft from 75 to 100 mg a day. Rest unchanged from initial note. MAN Alexander DOBSON MD DR: BRIDGETTE/murtaza JOB#: [id number] / [id number]
--- NOTE | 2018-03-25 01:28 | PN ---
DATE: 03/24/2018 SUBJECTIVE: The patient was seen today, met with the staff, chart reviewed and also covering for Dr. Bullard. Staff reports that she has shown some improvement, she is able to walk, but still unsteady, but she is needing assistance with the ADLs. The patient apparently was discharged on 03/15/2018 to the care home and was readmitted again on 03/20/2018 because of uncontrollable crying and also making suicidal statements. OBSERVATION: VITAL SIGNS: Temperature 98.5, blood pressure 114/72, pulse 68, respiration 18, O2 sat 93%. Slept about 7 hours last night. CURRENT MEDICATIONS: Include Zoloft 100 mg daily, Depakote 375 mg b.i.d., trazodone 50 mg at night and also 50 mg p.r.n. at night, mirtazapine 7.5 mg at night, Namenda 10 mg b.i.d. The patient is showing improvement, still having difficulty swallowing. ASSESSMENT: 1. Major neurocognitive disorder, probably vascular, delusions, depression, behavioral disturbances. 2. Anxiety disorder, unspecified. PLAN: Continue with the current treatment. The patient will be returned to the care home if she continues to maintain progress for the next 72 hours. SANTA BAUM MD DR: MARSHALL/nts JOB#: [id number] / [id number]
[2018-03-25 05:30] VITALS: BP 103/64
[2018-03-25 06:43] LABS: BASO % 1 % (0-3); EOS # 0.3 x10^3/uL (0.0-0.7); EOS % 8 % (0-3); HEMATOCRIT 34.2 % (36.0-47.0); HEMOGLOBIN 11.3 g/dL (12.0-15.5); LYMPH # 0.9 x10^3/uL (1.0-4.8); LYMPH % 24 % (24-48); MEAN CORPUSCULAR HEMOGLOBIN 30 pg (25-35); MEAN CORPUSCULAR HGB CONC 33 g/dL (31-37); MEAN CORPUSCULAR VOLUME 91 fL (79-100); MONO # 0.5 x10^3/uL (0.0-1.1); MONO % 11 % (0-9); NEUT # 2.2 x10^3uL (1.8-7.7); NEUT % 55 % (31-73); PLATELET COUNT 159 x10^3/uL (140-400); RED BLOOD COUNT 3.75 x10^6/uL (3.50-5.40); RED CELL DISTRIBUTION WIDTH 16.7 % (11.5-14.5)
[2018-03-25 07:03] LABS: ALBUMIN 2.5 g/dL (3.4-5.0); ALBUMIN/GLOBULIN RATIO 0.7 (1.0-1.7); ALK PHOS 85 U/L (46-116); ALT (SGPT) 16 U/L (14-59); ANION GAP 7 (6-14); AST (SGOT) 14 U/L (15-37); BLOOD UREA NITROGEN 17 mg/dL (7-20); BUN/CREATININE RATIO 21 (6-20); CALCIUM 8.3 mg/dL (8.5-10.1); CARBON DIOXIDE 33 mmol/L (21-32); CHLORIDE 105 mmol/L (98-107); CREATININE 0.8 mg/dL (0.6-1.0); GFR 70.9; GLUCOSE 79 mg/dL (70-99); POTASSIUM 3.4 mmol/L (3.5-5.1); SODIUM 145 mmol/L (136-145); TOTAL BILIRUBIN 0.3 mg/dL (0.2-1.0); TOTAL PROTEIN 5.9 g/dL (6.4-8.2)
[2018-03-25 07:04] LABS: VAL ACID 47 mcg/mL (50-100)
[2018-03-25] MEDS: SERTRALINE 100 MG TABLET. PO SCH (07:59)
[2018-03-25] MEDS: POTASSIUM CHLORIDE 10 MEQ TABLET.ER. PO SCH (07:59)
[2018-03-25] MEDS: DIVALPROEX 125 MG CAP.SPRINK PO SCH ×2 (07:59→19:29)
[2018-03-25] MEDS: MEMANTINE 10 MG TABLET. PO SCH ×2 (07:59→19:30)
[2018-03-25] MEDS: POLYETHYLENE GLYCOL 3350 17 GM PACKET. PO SCH (08:00)
[2018-03-25] MEDS: CYANOCOBALAMIN (VITAMIN B-12) 1,000 MCG TABLET. PO SCH (08:00)
[2018-03-25] MEDS: hydroCHLOROthiazide 25 MG TABLET PO SCH (08:00)
[2018-03-25] MEDS: ASPIRIN 81 MG TAB.CHEW PO SCH (08:00)
[2018-03-25 15:32] VITALS: BP 154/73
[2018-03-25] MEDS: POTASSIUM CHLORIDE 20 MEQ TABLET.ER. PO SCH (16:57)
[2018-03-25] MEDS: ATORVASTATIN CALCIUM 20 MG TABLET PO SCH (19:29)
[2018-03-25] MEDS: MIRTAZAPINE 7.5 MG TABLET. PO SCH (19:29)
[2018-03-25] MEDS: CARVEDILOL 3.125 MG TABLET PO SCH (19:29)
[2018-03-25] MEDS: traZODone 50 MG TABLET. PO SCH (19:29)
--- NOTE | 2018-03-25 20:52 | PN ---
DATE: 03/25/2018 SUBJECTIVE: The patient was seen today, met with the staff, chart reviewed. The patient still unsteady, but did not have any falls. She is still withdrawn, crying spells, worried about her . The patient also refusing to eat. She has to be fed. OBSERVATION: VITAL SIGNS: Temperature 98.1, blood pressure 103/64, pulse 61, respiration 14, O2 sat 93%. Slept about 7 hours last night. CURRENT MEDICATIONS: The patient's medications reviewed. She is on Zoloft 100 mg daily, Depakote 375 mg b.i.d., trazodone 50 mg at night and also 50 mg at night p.r.n., mirtazapine 7.5 mg at night, Namenda 10 mg t.i.d. The patient continues to have problems with swallowing. ASSESSMENT: 1. Major neurocognitive disorder, probably vascular with delusions, depression and behavioral disturbances. 2. Anxiety disorder, unspecified. PLAN: To continue with the current treatment. SANTA BAUM MD DR: MARSHALL/murtaza JOB#: [id number] / [id number]
[2018-03-26 05:27] VITALS: BP 125/82
[2018-03-26] MEDS: ASPIRIN 81 MG TAB.CHEW PO SCH (07:47)
[2018-03-26] MEDS: POLYETHYLENE GLYCOL 3350 17 GM PACKET. PO SCH (07:47)
[2018-03-26] MEDS: SERTRALINE 100 MG TABLET. PO SCH (07:47)
[2018-03-26] MEDS: hydroCHLOROthiazide 25 MG TABLET PO SCH (07:47)
[2018-03-26] MEDS: CYANOCOBALAMIN (VITAMIN B-12) 1,000 MCG TABLET. PO SCH (07:47)
[2018-03-26] MEDS: MEMANTINE 10 MG TABLET. PO SCH ×2 (07:47→20:32)
[2018-03-26] MEDS: DIVALPROEX 125 MG CAP.SPRINK PO SCH ×2 (07:49→20:31)
[2018-03-26] MEDS: POTASSIUM CHLORIDE 10 MEQ TABLET.ER. PO SCH (07:50)
[2018-03-26] MEDS: POTASSIUM CHLORIDE 20 MEQ TABLET.ER. PO SCH (16:42)
[2018-03-26 17:06] VITALS: BP 125/61
--- NOTE | 2018-03-26 19:52 | PN ---
DATE: 03/26/2018 SUBJECTIVE: The patient was seen today, met with the staff, chart reviewed. The patient still withdrawn, crying spell, worried about her , also refusing to eat and she has to be fed. OBSERVATION: VITAL SIGNS: Temperature 96.4, blood pressure 125/82, pulse 61, respirations 16, O2 sat 92%. The patient slept about 8 hours last night. CURRENT MEDICATIONS: Include Zoloft, Depakote, trazodone, mirtazapine and Namenda. The patient is not having any side effects. The patient continues to have problems swallowing. The patient is not having any major medical problems and labs reviewed. ASSESSMENT: 1. Major neurocognitive disorder, probably vascular with delusions, depression, and behavioral disturbances. 2. Anxiety disorder, unspecified. PLAN: To continue with the current treatment. SANTA BAUM MD DR: MARSHALL/murtaza JOB#: [id number] / [id number]
[2018-03-26] MEDS: MIRTAZAPINE 7.5 MG TABLET. PO SCH (20:31)
[2018-03-26] MEDS: CARVEDILOL 3.125 MG TABLET PO SCH (20:31)
[2018-03-26] MEDS: traZODone 50 MG TABLET. PO SCH (20:32)
[2018-03-26] MEDS: ATORVASTATIN CALCIUM 20 MG TABLET PO SCH (20:32)
[2018-03-27 06:27] VITALS: BP 119/75
[2018-03-27] MEDS: SERTRALINE 100 MG TABLET. PO SCH (08:09)
[2018-03-27] MEDS: DIVALPROEX 125 MG CAP.SPRINK PO SCH ×2 (08:09→19:44)
[2018-03-27] MEDS: ASPIRIN 81 MG TAB.CHEW PO SCH (08:10)
[2018-03-27] MEDS: MEMANTINE 10 MG TABLET. PO SCH ×2 (08:10→19:45)
[2018-03-27] MEDS: POLYETHYLENE GLYCOL 3350 17 GM PACKET. PO SCH (08:10)
[2018-03-27] MEDS: CYANOCOBALAMIN (VITAMIN B-12) 1,000 MCG TABLET. PO SCH (08:10)
[2018-03-27] MEDS: hydroCHLOROthiazide 25 MG TABLET PO SCH (08:10)
[2018-03-27] MEDS: POTASSIUM CHLORIDE 10 MEQ TABLET.ER. PO SCH (08:10)
[2018-03-27 16:08] VITALS: BP 149/77
[2018-03-27] MEDS: POTASSIUM CHLORIDE 20 MEQ TABLET.ER. PO SCH (17:24)
[2018-03-27] MEDS: traZODone 50 MG TABLET. PO SCH (19:44)
[2018-03-27] MEDS: CARVEDILOL 3.125 MG TABLET PO SCH (19:44)
[2018-03-27] MEDS: ATORVASTATIN CALCIUM 20 MG TABLET PO SCH (19:45)
[2018-03-27] MEDS: MIRTAZAPINE 7.5 MG TABLET. PO SCH (19:45)
--- NOTE | 2018-03-28 00:08 | PN ---
DATE: 03/27/2018 SUBJECTIVE: The patient was seen today, met with the staff, chart reviewed. The patient has been sleeping most of the time. The patient is also having crying spells, constantly worried about her . At times, she is refusing to eat: OBSERVATION: VITAL SIGNS: Temperature 98.0, blood pressure 119/75, pulse 59, respirations 16, O2 sat 94%. Slept about 7 hours last night. CURRENT MEDICATIONS: The patient's appetite decreased. The patient is hemodynamically stable. The patient is not having any side effects from the medications. ASSESSMENT: 1. Major neurocognitive disorder, probably vascular with delusions, depression and behavioral disturbances. 2. Anxiety disorder, unspecified. PLAN: To continue with the current treatment. SANTA BAUM MD DR: MARSHALL/murtaza JOB#: [id number] / [id number]
[2018-03-28 05:44] VITALS: BP 135/75
[2018-03-28] MEDS: ASPIRIN 81 MG TAB.CHEW PO SCH (08:02)
[2018-03-28] MEDS: CYANOCOBALAMIN (VITAMIN B-12) 1,000 MCG TABLET. PO SCH (08:02)
[2018-03-28] MEDS: MEMANTINE 10 MG TABLET. PO SCH ×2 (08:02→19:18)
[2018-03-28] MEDS: DIVALPROEX 125 MG CAP.SPRINK PO SCH ×2 (08:02→19:18)
[2018-03-28] MEDS: POTASSIUM CHLORIDE 10 MEQ TABLET.ER. PO SCH (08:02)
[2018-03-28] MEDS: SERTRALINE 100 MG TABLET. PO SCH (08:03)
[2018-03-28] MEDS: POLYETHYLENE GLYCOL 3350 17 GM PACKET. PO SCH (08:03)
[2018-03-28] MEDS: hydroCHLOROthiazide 25 MG TABLET PO SCH (08:03)
[2018-03-28 15:58] VITALS: BP 134/77
[2018-03-28] MEDS: POTASSIUM CHLORIDE 20 MEQ TABLET.ER. PO SCH (17:06)
[2018-03-28] MEDS: CARVEDILOL 3.125 MG TABLET PO SCH (19:17)
[2018-03-28] MEDS: traZODone 50 MG TABLET. PO SCH (19:17)
[2018-03-28] MEDS: ATORVASTATIN CALCIUM 20 MG TABLET PO SCH (19:18)
[2018-03-28] MEDS: MIRTAZAPINE 7.5 MG TABLET. PO SCH (19:18)
--- NOTE | 2018-03-28 20:44 | RAD ---
PQRS Compliance statement: One or more of the following individualized dose reduction techniques were utilized for this examination: 1. Automated exposure control. 2. Adjustment of the mA and/or kV according to patient size. 3. Use of iterative reconstruction technique. Indication:Fell tonight, hit posterior head on door frame, headache TECHNIQUE: CT head without IV contrast COMPARISON:03/03/2018 FINDINGS: No pathologic extra-axial or intra-axial fluid collection. Mild diffuse cerebral atrophy. Stable dilation of the occipital horn of the left lateral ventricle, nonspecific. No acute intracranial bleed. Periventricular low-attenuation of the right matter noted. No focal loss of wong-white differentiation. The orbits are within normal limits. No large scalp hematoma. No acute calvarial fracture. Mucoperiosteal thickening is seen of the bilateral maxillary sinuses. Rest of the paranasal sinuses and mastoid air cells are clear. IMPRESSION: 1. No acute intracranial bleed. 2. Mild white matter changes most likely secondary to chronic microvascular ischemic disease. 3. Bilateral maxillary sinus disease. Electronically signed by: Chad Garber DO (03/28/2018 8:41 PM) [facility]
--- NOTE | 2018-03-29 00:05 | PN ---
DATE: 03/28/2018 SUBJECTIVE: The patient was seen today, met with the staff, chart reviewed. The patient continues to have improvement. No major behavior problems. OBSERVATION: VITAL SIGNS: Temperature 98, blood pressure 135/75, pulse 57, respiration 18, O2 sat 90%. Slept about 8 hours last night. The patient's appetite has improved. MEDICATIONS: The patient's current medications include: He is currently on Zoloft 100 mg daily, Depakote 375 mg b.i.d., trazodone 50 mg at night p.r.n. and also trazodone 50 mg at night, mirtazapine 7.5 mg at night, Namenda 10 mg b.i.d. The patient is not having any side effects to the medications. ASSESSMENT: 1. Major neurocognitive disorder, probably vascular with delusion, depression and behavioral disturbances. 2. Anxiety disorder, unspecified. PLAN: To continue with the treatment. SANTA BAUM MD DR: MARSHALL/murtaza JOB#: [id number] / [id number]
[2018-03-29 05:32] VITALS: BP 129/80
[2018-03-29] MEDS: POLYETHYLENE GLYCOL 3350 17 GM PACKET. PO SCH (08:35)
[2018-03-29] MEDS: SERTRALINE 100 MG TABLET. PO SCH (08:35)
[2018-03-29] MEDS: ASPIRIN 81 MG TAB.CHEW PO SCH (08:35)
[2018-03-29] MEDS: hydroCHLOROthiazide 25 MG TABLET PO SCH (08:35)
[2018-03-29] MEDS: CYANOCOBALAMIN (VITAMIN B-12) 1,000 MCG TABLET. PO SCH (08:35)
[2018-03-29] MEDS: DIVALPROEX 125 MG CAP.SPRINK PO SCH ×2 (08:35→20:29)
[2018-03-29] MEDS: MEMANTINE 10 MG TABLET. PO SCH ×2 (08:35→20:30)
[2018-03-29] MEDS: POTASSIUM CHLORIDE 10 MEQ TABLET.ER. PO SCH (08:58)
[2018-03-29 16:09] VITALS: BP 128/73
[2018-03-29] MEDS: POTASSIUM CHLORIDE 20 MEQ TABLET.ER. PO SCH (17:35)
[2018-03-29] MEDS: MIRTAZAPINE 7.5 MG TABLET. PO SCH (20:30)
[2018-03-29] MEDS: ATORVASTATIN CALCIUM 20 MG TABLET PO SCH (20:30)
[2018-03-29] MEDS: traZODone 50 MG TABLET. PO SCH (20:30)
[2018-03-29] MEDS: CARVEDILOL 3.125 MG TABLET PO SCH (20:30)
--- NOTE | 2018-03-29 21:16 | PN ---
DATE: 03/29/2018 SUBJECTIVE: The patient was seen today, met with the staff, chart reviewed. The patient is still confused, tearful ____ also complains of feeling depressed. The patient is also apparently having problems with balance sometimes, had few falls with no major injuries. The patient finally admits she has problems with her vision. Even, she cannot see the objects in front of her. We will recommend at least decrease vision. OBSERVATION: VITAL SIGNS: Temperature 98.6, blood pressure 129/80, pulse 76, respirations 20, O2 sat 92%. Slept about 8 hours last night. MEDICATIONS: The patient's current medications include Zoloft, Depakote, trazodone, mirtazapine, Namenda. She is not having any side effects. ASSESSMENT: 1. Major neurocognitive disorder, probably vascular with delusion, depression and behavioral disturbances. 2. Anxiety disorder, unspecified. PLAN: To continue with the treatment. SANTA BAUM MD DR: MARSHALL/murtaza JOB#: [id number] / [id number]
[2018-03-30 05:48] VITALS: BP 117/74
[2018-03-30] MEDS: hydroCHLOROthiazide 25 MG TABLET PO SCH (08:48)
[2018-03-30] MEDS: DIVALPROEX 125 MG CAP.SPRINK PO SCH ×2 (08:48→21:15)
[2018-03-30] MEDS: CYANOCOBALAMIN (VITAMIN B-12) 1,000 MCG TABLET. PO SCH (08:48)
[2018-03-30] MEDS: MEMANTINE 10 MG TABLET. PO SCH ×2 (08:48→21:15)
[2018-03-30] MEDS: SERTRALINE 100 MG TABLET. PO SCH (08:48)
[2018-03-30] MEDS: ASPIRIN 81 MG TAB.CHEW PO SCH (08:48)
[2018-03-30] MEDS: POTASSIUM CHLORIDE 10 MEQ TABLET.ER. PO SCH (08:49)
[2018-03-30] MEDS: POLYETHYLENE GLYCOL 3350 17 GM PACKET. PO SCH (08:49)
[2018-03-30 15:50] VITALS: BP 119/59
[2018-03-30] MEDS: POTASSIUM CHLORIDE 20 MEQ TABLET.ER. PO SCH (16:58)
--- NOTE | 2018-03-30 18:27 | PN ---
DATE: 03/30/2018 SUBJECTIVE: The patient was seen today, met with the staff, chart reviewed. The patient's behavior remains the same and she is having difficulty with her vision. The patient also has problems with depth perception. The patient has a tendency to fall easily. The patient gets agitated easily and also periods where she is tearful, depressed. OBSERVATION: VITAL SIGNS: Temperature 98.2, blood pressure 119/59, pulse 68, respiration 18, O2 sat 92%. The patient's appetite is fair. Sleep varies. MEDICATIONS: The patient's current medications include Zoloft, Depakote, trazodone, mirtazapine, Namenda and not having any side effects. The patient is not having any other physical complaints. ASSESSMENT: 1. Major neurocognitive disorder, probably vascular with delusion, depression, and behavioral disturbances. 2. Anxiety disorder, unspecified. PLAN: To continue with the treatment. SANTA BAUM MD DR: MARSHALL/murtaza JOB#: [id number] / [id number]
[2018-03-30] MEDS: traZODone 50 MG TABLET. PO SCH (21:15)
[2018-03-30] MEDS: CARVEDILOL 3.125 MG TABLET PO SCH (21:15)
[2018-03-30] MEDS: MIRTAZAPINE 7.5 MG TABLET. PO SCH (21:15)
[2018-03-30] MEDS: ATORVASTATIN CALCIUM 20 MG TABLET PO SCH (21:16)
[2018-03-31 05:32] VITALS: BP 151/83
[2018-03-31] MEDS: DIVALPROEX 125 MG CAP.SPRINK PO SCH ×2 (07:49→19:24)
[2018-03-31] MEDS: POLYETHYLENE GLYCOL 3350 17 GM PACKET. PO SCH (07:49)
[2018-03-31] MEDS: POTASSIUM CHLORIDE 10 MEQ TABLET.ER. PO SCH (07:49)
[2018-03-31] MEDS: CYANOCOBALAMIN (VITAMIN B-12) 1,000 MCG TABLET. PO SCH (07:49)
[2018-03-31] MEDS: MEMANTINE 10 MG TABLET. PO SCH ×2 (07:50→19:25)
[2018-03-31] MEDS: ASPIRIN 81 MG TAB.CHEW PO SCH (07:50)
[2018-03-31] MEDS: SERTRALINE 100 MG TABLET. PO SCH (07:50)
[2018-03-31] MEDS: hydroCHLOROthiazide 25 MG TABLET PO SCH (07:50)
[2018-03-31 15:20] VITALS: BP 128/64
[2018-03-31] MEDS: POTASSIUM CHLORIDE 20 MEQ TABLET.ER. PO SCH (18:01)
[2018-03-31] MEDS: CHOLECALCIFEROL (VITAMIN D3) 50,000 UNIT CAPSULE PO SCH (18:01)
--- NOTE | 2018-03-31 18:06 | PN ---
DATE: 03/31/2018 SUBJECTIVE: The patient was seen today, met with the staff, chart reviewed. The patient apparently able to walk, has not had any falls. The patient is still having problems with the near vision. The patient also has difficulty with her speech, mostly monosyllabic. The staff reports no major behavior problems. She is difficult to redirect. OBSERVATION: VITAL SIGNS: Temperature 97, blood pressure 151/83, pulse 66, O2 sat 91%. Slept about 7 hours last night. CURRENT MEDICATIONS: The patient's medications reviewed on having any side effects. ASSESSMENT: 1. Major neurocognitive disorder, probably vascular with delusions, depression and behavioral disturbances. 2. Anxiety disorder, unspecified. PLAN: Continue with the treatment. SANTA BAUM MD DR: MARSHALL/murtaza JOB#: [id number] / [id number]
[2018-03-31] MEDS: MIRTAZAPINE 7.5 MG TABLET. PO SCH (19:24)
[2018-03-31] MEDS: traZODone 50 MG TABLET. PO SCH (19:25)
[2018-03-31] MEDS: ATORVASTATIN CALCIUM 20 MG TABLET PO SCH (19:25)
[2018-03-31] MEDS: CARVEDILOL 3.125 MG TABLET PO SCH (19:25)
[2018-04-01 05:48] VITALS: BP 123/78
[2018-04-01] MEDS: ASPIRIN 81 MG TAB.CHEW PO SCH (08:46)
[2018-04-01] MEDS: DIVALPROEX 125 MG CAP.SPRINK PO SCH ×2 (08:46→19:24)
[2018-04-01] MEDS: hydroCHLOROthiazide 25 MG TABLET PO SCH (08:47)
[2018-04-01] MEDS: POLYETHYLENE GLYCOL 3350 17 GM PACKET. PO SCH (08:48)
[2018-04-01] MEDS: POTASSIUM CHLORIDE 10 MEQ TABLET.ER. PO SCH (08:48)
[2018-04-01] MEDS: MEMANTINE 10 MG TABLET. PO SCH ×2 (08:49→19:25)
[2018-04-01] MEDS: CYANOCOBALAMIN (VITAMIN B-12) 1,000 MCG TABLET. PO SCH (08:49)
[2018-04-01] MEDS: SERTRALINE 100 MG TABLET. PO SCH (08:49)
[2018-04-01 16:08] VITALS: BP 149/90
[2018-04-01] MEDS: POTASSIUM CHLORIDE 20 MEQ TABLET.ER. PO SCH (17:00)
[2018-04-01] MEDS: CARVEDILOL 3.125 MG TABLET PO SCH (19:24)
[2018-04-01] MEDS: traZODone 50 MG TABLET. PO SCH (19:25)
[2018-04-01] MEDS: MIRTAZAPINE 7.5 MG TABLET. PO SCH (19:25)
[2018-04-01] MEDS: ATORVASTATIN CALCIUM 20 MG TABLET PO SCH (19:25)
[2018-04-02 05:43] VITALS: BP 154/84
[2018-04-02] MEDS: DIVALPROEX 125 MG CAP.SPRINK PO SCH ×2 (07:57→19:36)
[2018-04-02] MEDS: POTASSIUM CHLORIDE 10 MEQ TABLET.ER. PO SCH (07:59)
[2018-04-02] MEDS: MEMANTINE 10 MG TABLET. PO SCH ×2 (07:59→19:36)
[2018-04-02] MEDS: SERTRALINE 100 MG TABLET. PO SCH (07:59)
[2018-04-02] MEDS: CYANOCOBALAMIN (VITAMIN B-12) 1,000 MCG TABLET. PO SCH (07:59)
[2018-04-02] MEDS: hydroCHLOROthiazide 25 MG TABLET PO SCH (07:59)
[2018-04-02] MEDS: ASPIRIN 81 MG TAB.CHEW PO SCH (08:00)
[2018-04-02] MEDS: POLYETHYLENE GLYCOL 3350 17 GM PACKET. PO SCH (08:00)
[2018-04-02 08:29] LABS: BASO % 1 % (0-3); EOS # 0.4 x10^3/uL (0.0-0.7); EOS % 7 % (0-3); HEMATOCRIT 37.9 % (36.0-47.0); HEMOGLOBIN 12.5 g/dL (12.0-15.5); LYMPH # 0.8 x10^3/uL (1.0-4.8); LYMPH % 15 % (24-48); MEAN CORPUSCULAR HEMOGLOBIN 30 pg (25-35); MEAN CORPUSCULAR HGB CONC 33 g/dL (31-37); MEAN CORPUSCULAR VOLUME 91 fL (79-100); MONO # 0.5 x10^3/uL (0.0-1.1); MONO % 9 % (0-9); NEUT % 69 % (31-73); PLATELET COUNT 186 x10^3/uL (140-400); RED BLOOD COUNT 4.19 x10^6/uL (3.50-5.40); RED CELL DISTRIBUTION WIDTH 16.6 % (11.5-14.5); WHITE BLOOD COUNT 5.7 x10^3/uL (4.0-11.0)
[2018-04-02 08:30] LABS: CALCIUM 8.6 mg/dL (8.5-10.1); CREATININE 0.7 mg/dL (0.6-1.0); GFR 82.7; POTASSIUM 3.5 mmol/L (3.5-5.1)
--- NOTE | 2018-04-02 13:36 | PN ---
DATE: 04/02/2018 SUBJECTIVE: The patient was seen today, met with the staff, chart reviewed. The patient's behavior has improved. She still wonders and having problems with her vision. The patient has not had any falls. The patient also having episodes of confusion and hyperactivity and restlessness. OBSERVATION: VITAL SIGNS: Temperature 98.3, blood pressure 154/84, pulse 56, respirations 16, O2 sat 93%. Slept about 8 hours last night. MEDICATIONS: The patient's medications reviewed. She is not having any side effects. LABORATORY DATA: The patient's lab reviewed. ASSESSMENT: 1. Major neurocognitive disorder, probably vascular with delusions, depression, and behavioral disturbances. 2. Anxiety disorder, unspecified. PLAN: Continue with the treatment. SANTA BAUM MD DR: MARSHALL/murtaza JOB#: [id number] / [id number]
[2018-04-02 16:19] VITALS: BP 127/77
[2018-04-02] MEDS: POTASSIUM CHLORIDE 20 MEQ TABLET.ER. PO SCH (16:57)
[2018-04-02] MEDS: ATORVASTATIN CALCIUM 20 MG TABLET PO SCH (19:35)
[2018-04-02] MEDS: CARVEDILOL 3.125 MG TABLET PO SCH (19:36)
[2018-04-02] MEDS: traZODone 50 MG TABLET. PO SCH (19:36)
[2018-04-02] MEDS: MIRTAZAPINE 7.5 MG TABLET. PO SCH (19:36)
[2018-04-03] MEDS ORDERED: METH29OI TP (00:27)
[2018-04-03] MEDS ORDERED: GUAI600T47 PO (00:28)
[2018-04-03 05:47] VITALS: BP 97/64
[2018-04-03] MEDS: POTASSIUM CHLORIDE 10 MEQ TABLET.ER. PO SCH (07:39)
[2018-04-03] MEDS: hydroCHLOROthiazide 25 MG TABLET PO SCH (07:39)
[2018-04-03] MEDS: CYANOCOBALAMIN (VITAMIN B-12) 1,000 MCG TABLET. PO SCH (07:39)
[2018-04-03] MEDS: SERTRALINE 100 MG TABLET. PO SCH (07:39)
[2018-04-03] MEDS: DIVALPROEX 125 MG CAP.SPRINK PO SCH (07:39)
[2018-04-03] MEDS: ASPIRIN 81 MG TAB.CHEW PO SCH (07:40)
[2018-04-03] MEDS: POLYETHYLENE GLYCOL 3350 17 GM PACKET. PO SCH (07:40)
[2018-04-03] MEDS: MEMANTINE 10 MG TABLET. PO SCH (07:40)
--- NOTE | 2018-04-03 19:45 | PDOC ---
Exam Note: Robert Note: Please also refer to the separate dictated note~for this date of service dictated separately.~Patient seen individually. Discussed the patient with Nursing staff reviewed the chart.~Reviewed interim history and current functioning. Reviewed vital signs,~Labs/ Radiology~and current medications noted below. Continue current treatment with the changes noted in the dictated addendum note Assessment: Vital Signs: Vital Signs Date Time Temp Pulse Resp B/P (MAP) Pulse Ox O2 Delivery O2 Flow Rate FiO2 04/03/18 05:47 97.6 58 20 97/64 (75) 97 04/02/18 05:43 Room Air I&O Intake and Output 04/03/18 07:00 Intake Total 840 ml Balance 840 ml Intake Oral 840 ml # Voids 1 # Bowel Movements 1 Current Medications: Meds: Current Medications Acetaminophen (Tylenol) 650 mg PRN Q6HRS PRN PO PAIN / TEMP Last administered on 03/28/18at 05:38; Start 03/20/18 at 20:45; Stop 04/03/18 at 14:55; Status DC Multi-Ingredient Ointment (Analgesic Gatzke) 1 suzi PRN QID PRN TP MUSCLE PAIN Last administered on 03/28/18at 05:38; Start 03/20/18 at 20:45; Stop 04/03/18 at 14:55; Status DC Al Hydroxide/Mg Hydroxide (Mylanta Plus Xs) 15 ml PRN AFTMEALHC PRN PO DYSPEPSIA; Start 03/20/18 at 20:45; Stop 04/03/18 at 14:55; Status DC Magnesium Hydroxide (Milk Of Magnesia) 2,400 mg PRN QHS PRN PO CONSTIPATION; Start 03/20/18 at 20:45; Stop 04/03/18 at 14:55; Status DC Sertraline HCl (Zoloft) 75 mg DAILY PO Last administered on 03/23/18at 08:09; Start 03/21/18 at 09:00; Stop 03/23/18 at 11:03; Status DC Divalproex Sodium (Depakote Sprinkles) 250 mg BID PO Last administered on 03/22at 08:22; Start 03/20/18 at 22:00; Stop 03/22/18 at 17:11; Status DC Memantine (Namenda) 10 mg BID PO Last administered on 04/03/18at 07:40; Start 03/20/18 at 22:00; Stop 04/03/18 at 14:55; Status DC Mirtazapine (Remeron) 7.5 mg QHS PO Last administered on 04/02/18at 19:36; Start 03/20/18 at 22:00; Stop 04/03/18 at 14:55; Status DC Trazodone HCl (Desyrel) 50 mg HS PO Last administered on 04/02/18at 19:36; Start 03/20/18 at 22:00; Stop 04/03/18 at 14:55; Status DC Trazodone HCl (Desyrel) 50 mg PRN QHS PRN PO INSOMNIA; Start 03/20/18 at 22:00 ; Stop 04/03/18 at 14:55; Status DC Acetaminophen (Tylenol) 650 mg PRN Q6HRS PRN PO PAIN / TEMP; Start 03/20/18 at 21:30; Status UNV Vitamin D (Vitamin D3) 50,000 unit QFR PO Last administered on 03/31/18at 18:01 ; Start 03/24/18 at 16:00; Stop 04/03/18 at 14:55; Status DC Cyanocobalamin (Vitamin B-12) 1,000 mcg DAILY PO Last administered on at 07:39; Start 03/21/18 at 09:00; Stop 04/03/18 at 14:55; Status DC Guaifenesin (Robitussin) 5 mg PRN BID PRN PO COUGH; Start 03/20/18 at 21:30; Stop 04/03/18 at 14:55; Status DC Hydrochlorothiazide (Hydrodiuril) 25 mg DAILY PO Last administered on at 07:39; Start 03/21/18 at 09:00; Stop 04/03/18 at 14:55; Status DC Al Hydroxide/Mg Hydroxide (Mylanta Plus Xs) 15 ml PRN AFTMEALHC PRN PO DYSPEPSIA; Start 03/20/18 at 21:30; Status UNV Nystatin (Nystop) 1 suzi PRN BID PRN TP RASH; Start 03/20/18 at 21:30; Stop at 14:55; Status DC Aspirin (Children'S Aspirin) 81 mg DAILY PO Last administered on 04/03/18at 07: 40; Start 03/21/18 at 09:00; Stop 04/03/18 at 14:55; Status DC Atorvastatin Calcium (Lipitor) 80 mg QHS PO Last administered on 04/02/18at 19: 35; Start 03/20/18 at 22:00; Stop 04/03/18 at 14:55; Status DC Carvedilol (Coreg) 3.125 mg HS PO Last administered on 04/02/18at 19:36; Start 03/20/18 at 22:00; Stop 04/03/18 at 14:55; Status DC Non-Formulary Medication (Magnesium Hydroxide (Milk Of Magnesia)) 2,400 mg PRN QHS PRN PO CONSTIPATION; Start 03/20/18 at 21:30; Status UNV Nystatin (Mycostatin) 5 ml [id number] Last administered on 03/24/18at 12:26; Start 03/21/18 at 09:00; Stop 03/24/18 at 15:27; Status DC Polyethylene Glycol (miraLAX) 17 gm DAILY PO Last administered on 04/03/18at 07 :40; Start 03/21/18 at 09:00; Stop 04/03/18 at 14:55; Status DC Potassium Chloride (Klor-Con) 30 meq DAILY PO Last administered on 04/03/18at 07:39; Start 03/21/18 at 09:00; Stop 04/03/18 at 14:55; Status DC Potassium Chloride (Klor-Con) 20 meq DAILYBFRSUP PO Last administered on at 16:57; Start 03/21/18 at 17:00; Stop 04/03/18 at 14:55; Status DC Divalproex Sodium (Depakote Sprinkles) 375 mg BID PO Last administered on 04/03at 07:39; Start 03/22/18 at 21:00; Stop 04/03/18 at 14:55; Status DC Sertraline HCl (Zoloft) 100 mg DAILY PO Last administered on 04/03/18at 07:39; Start 03/24/18 at 09:00; Stop 04/03/18 at 14:55; Status DC Guaifenesin (Mucinex Er) 600 mg BID PO Last administered on 04/03/18at 07:39; Start 03/30/18 at 21:00; Stop 04/03/18 at 14:55; Status DC Active Scripts Active Reported Mucinex (Guaifenesin) 600 Mg Tablet.er 600 Mg PO BID Analgesic Gatzke (Methyl Salicylate/Menthol) 28 Gm Oint...g. 1 Suzi TP PRN QID PRN Trazodone Hcl 50 Mg Tablet 50 Mg PO PRN QHS PRN May only give one PRN dose daily Trazodone Hcl 50 Mg Tablet 50 Mg PO HS Zoloft (Sertraline Hcl) 50 Mg Tablet 100 Mg PO DAILY Mirtazapine 15 Mg Tablet 7.5 Mg PO QHS Milk Of Magnesia (Magnesium Hydroxide) 2,400 Mg/10 Ml Oral.susp 2,400 Mg PO PRN QHS PRN Mag-Al Plus Xs Suspension (Mag Hydrox/Al Hydrox/Simeth) 30 Ml Oral.susp 15 Ml PO PRN AFTMEALHC PRN Namenda (Memantine Hcl) 10 Mg Tablet 10 Mg PO BID Depakote Sprinkle (Divalproex Sodium) 125 Mg Cap.sprink 375 Mg PO BID Vitamin B-12 (Cyanocobalamin (Vitamin B-12)) 1,000 Mcg Tablet 1,000 Mcg PO DAILY Potassium Chloride 10 Meq Tablet.er 30 Meq PO DAILY Potassium Chloride 20 Meq Tablet.er 20 Meq PO DAILYBFRSUP Guaifenesin 100 Mg/5 Ml Liquid 5 Mg PO PRN BID Aspirin 81 Mg Tab.chew 81 Mg PO DAILY Hydrochlorothiazide Tablet (Hydrochlorothiazide) 25 Mg Tablet 25 Mg PO DAILY Miralax (Polyethylene Glycol 3350) 17 Gm Powd.pack 17 Gm PO DAILY Nystop (Nystatin) 60 Gm Powder 1 Suzi TP PRN BID PRN Vitamin D (Cholecalciferol (Vitamin D3)) 50,000 Unit Capsule 50,000 Unit PO QFR Tylenol (Acetaminophen) 325 Mg Tablet 650 Mg PO PRN Q6HRS PRN Carvedilol 3.125 Mg Tablet 3.125 Mg PO HS Atorvastatin Calcium 80 Mg Tablet 80 Mg PO QHS I have reviewed the current psychotropics carefully including drug interactions. Risk benefit ratio favors no change other than as noted in my dictated progress note. Diagnosis: Problems: (1) Anxiety disorder (2) Dementia, vascular, with depression (3) Dementia, vascular, with delusions (4) Dementia in Alzheimer's disease with depression (5) Dementia in Alzheimer's disease with delusions (6) Impulse control disorder (7) Major neurocognitive disorder MELLISA DOBSON MD Apr 03, 2018 19:45
--- NOTE | 2018-04-04 12:01 | DS ---
DATE OF DISCHARGE: 04/03/2018 DISCHARGE SUMMARY/PSYCHIATRIC PROGRESS NOTE This is a late entry 04/03/2018, covers elements not covered in my initial note. REASON FOR ADMISSION: Please refer to the admission history for details. Briefly, the patient is a 72-year-old female readmitted to us referred back from [facility] on account of uncontrollable crying, making suicidal statements, worsening symptoms of depression within the context of her dementia and bilateral very poor vision. She had failed recent inpatient psychiatric stabilization with us at this facility resulting in this referral back due to the suicidal statements. SIGNIFICANT FINDINGS AND CLINICAL COURSE: Following admission, the patient was seen daily individually by myself from a psychiatric standpoint and Dr. Duke while he covered for me. Medical followup was with Dr. Oscar/Dr. Moore. Initially, the patient remained extremely depressed, withdrawn, sad, tearful, certainly confused, bilateral blindness complicated all of her presentation. Adjustments were made in her psychotropics and gradually mood appeared to improve. No suicidal statements were noted, crying spells were much better as was the mood lability. She was still confused, but no active suicidal or homicidal ideation prior to discharge. She was tolerating her psychotropics prior to discharge on 04/03/2018. REVIEW OF SYSTEMS: Poor vision. No CV, , GI, ENT system symptoms on review. Reliability poor. MENTAL STATUS EXAM: Oriented to herself. Insight, judgment, recent and remote memory, attention, concentration, fund of knowledge poor, consistent with her diagnoses. FINAL DIAGNOSES: Major neurocognitive disorder, Alzheimer, vascular with delusion, depression, behavioral disturbance; anxiety disorder, unspecified; major depressive disorder, recurrent, in partial remission; impulse control disorder, bilateral blindness. Rest unchanged from admission. DISCHARGE MEDICATIONS: Please refer to the [facility]AD. DISCHARGE INSTRUCTIONS: [facility] MELLISA DOBSON MD DR: BRIDGETTE/murtaza JOB#: [id number] / [id number]
== END 2018-04-03 14:30 | DRG 56 ==
LOC: GEROPSY 19:57
PROVIDERS: ADMIT Psychiatry & Neurology Psychiatry; ATTEND Psychiatry & Neurology Psychiatry
DX: G30.9 Alzheimer's disease, unspecified (principal); E43 Unspecified severe protein-calorie malnutrition; F02.81 Dementia in other diseases classified elsewhere, unspecified severity, with behavioral disturbance; F01.51 Vascular dementia, unspecified severity, with behavioral disturbance; R45.851 Suicidal ideations; F33.41 Major depressive disorder, recurrent, in partial remission; K59.09 Other constipation; E78.5 Hyperlipidemia, unspecified; F63.9 Impulse disorder, unspecified; H54.3 Unqualified visual loss, both eyes; F90.9 Attention-deficit hyperactivity disorder, unspecified type; I10 Essential (primary) hypertension; F41.9 Anxiety disorder, unspecified; Z79.899 Other long term (current) drug therapy; Z68.35 Body mass index [BMI] 35.0-35.9, adult; Z88.5 Allergy status to narcotic agent; Z91.041 Radiographic dye allergy status
CPT/HCPCS: 36415; 70450; 80048; 80053; 80061; 80164; 81001; 82306; 82607; 83036; 83540; 83550; 83735; 84436; 84443; 84480; 85025; 86592; 87086; 93005